=== PATIENT | male | born 1950 | race Hispanic/Latino ===

== ENCOUNTER 2018-05-30 00:51 | Emergency (ER) | payer MEDICARE ==
[~2018-05-30] VITALS: Ht 165.1 cm; Wt 87.1 kg
[~2018-05-30 00:51] MED LIST: BACLOFEN10 MG PO; LEVOTHYROXINE75 MCG PO; LISINOPRIL-HCT1 EACH PO; LOVASTATIN20 MG PO; NIFEDIPINE ER30 M1 PO; OMEPRAZOLE40 MG PO; REGLAN10 MG PO; ULTRAM50 MG PO
[2018-05-30] MEDS ORDERED: WARFARIN SODIUM3 MG PO (01:11)
[2018-05-30 01:41] LABS: BASOPHILS # (AUTO) 0.1 (0.0-0.1); BASOPHILS % 1.4 % (0.0-1.0); EOSINOPHILS # (AUTO) 0.2 (0.0-0.4); EOSINOPHILS % 2.5 % (0.0-6.0); HEMATOCRIT 31.2 % (38.2-49.6); HEMOGLOBIN 10.3 g/dL (14.0-18.0); LYMPHOCYTES # (AUTO) 1.7 (1.0-3.2); LYMPHOCYTES % 21.6 % (18.0-39.1); MEAN CORPUSCULAR HEMOGLOBIN 31.8 pg (28-32); MEAN CORPUSCULAR VOLUME 96.3 fL (81-99); MONOCYTES # (AUTO) 1.2 (0.2-0.8); MONOCYTES % 15.3 % (4.4-11.3); NEUTROPHILS # (AUTO) 4.6 (2.1-6.9); NEUTROPHILS % 58.1 % (38.7-80.0); PLATELET COUNT 279 x10e3/uL (140-360); RED BLOOD COUNT 3.24 x10e6/uL (4.3-5.7)
[2018-05-30 01:51] LABS: INR 1.5; PARTIAL THROMBOPLASTIN TIME 31.2 seconds (23.8-35.5)
--- NOTE | 2018-05-30 02:11 | Diagnostic Imaging Report ---
EXAM: CHEST SINGLE (PORTABLE), AP 1 view INDICATION: Dizziness COMPARISON: PA and lateral view the chest May 13, 2016 FINDINGS: LINES/TUBES: Interval placement of right approach dual lead cardiac device. LUNGS: Vascular congestion. PLEURA: No effusions or pneumothorax. HEART AND MEDIASTINUM: Mild cardiac enlargement and central pulmonary vascular congestion. BONES AND SOFT TISSUES: No acute findings. IMPRESSION: Pulmonary vascular congestion. Signed by: Dr. Nat Brown M.D. on 05/30/2018 2:07 AM
--- NOTE | 2018-05-30 02:13 | Diagnostic Imaging Report ---
History:Dizziness Comparison studies:CT head 05/13/2016 Technique: Axial images were obtained from the skull base to the vertex. Coronal and sagittal images reconstructed from the axial data. Intravenous contrast: None Findings: Scalp/skull: No abnormalities. Extra-axial spaces: No masses. No fluid collections. Brain sulci: Mildly prominent. Ventricles: Mild compensatory dilatation. No hydrocephalus. Parenchyma: Few hypodensities in the supratentorial white matter are small vessel ischemic changes. No masses, hemorrhage, acute or chronic cortical vascular insults. Sellar/suprasellar region: No abnormalities. Craniocervical junction: Patent foramen magnum. No Chiari one malformation. Incidental findings: Atherosclerotic calcifications in the carotid siphons . Impression: No acute abnormalities. Stable examination. Chronic findings: 1. Mild generalized volume loss. 2. Mild supratentorial white matter small vessel ischemic changes. Signed by: DR Ronnie Lopez M.D. on 05/30/2018 2:09 AM
[2018-05-30 02:17] LABS: CREATINE KINASE MB 6.1 ng/mL (0-5.0)
[2018-05-30 02:32] LABS: ANION GAP 22.9 mmol/L (8-16); CREATININE, SERUM 13.56 mg/dL (0.72-1.25); POTASSIUM 4.9 mmol/L (3.5-5.1)
[2018-05-30 03:14] VITALS: BP 142/68
[2018-05-31] MEDS ORDERED: LISINOPRIL2.5 MG PO (06:19)
[2018-05-31] MEDS ORDERED: COUMADIN5 MG PO (06:19)
[2018-05-31] MEDS ORDERED: ASPIRIN EC81 MG PO (06:19)
[2018-05-31] MEDS ORDERED: FAMOTIDINE20 MG PO (06:19)
== END 2018-05-30 03:40 | disposition home or self-care (01) ==
LOC: ER 00:51
DX: R06.09 Other forms of dyspnea (principal); R42 Dizziness and giddiness; I12.0 Hypertensive chronic kidney disease with stage 5 chronic kidney disease or end stage renal disease; N18.6 End stage renal disease; Z99.2 Dependence on renal dialysis; Z95.810 Presence of automatic (implantable) cardiac defibrillator
CPT/HCPCS: 36415; 70450; 71045; 80053; 82550; 82553; 83880; 84484; 85025; 85610; 85730; 93005; 99284

== ENCOUNTER 2018-05-30 08:33 | Observation (INO) | payer MEDICARE ==
[~2018-05-30] VITALS: Ht 165.1 cm; Wt 87.1 kg
[~2018-05-30 08:33] MED LIST changes: +WARFARIN SODIUM3 MG PO
[2018-05-30] MEDS ORDERED: ASPIRIN 81 MG CHEW TAB PO ONE (09:15)
[2018-05-30 09:18] LABS: BASOPHILS # (AUTO) 0.1 (0.0-0.1); BASOPHILS % 0.9 % (0.0-1.0); EOSINOPHILS # (AUTO) 0.2 (0.0-0.4); EOSINOPHILS % 2.1 % (0.0-6.0); HEMOGLOBIN 11.3 g/dL (14.0-18.0); LYMPHOCYTES % 24.7 % (18.0-39.1); MEAN CORPUSCULAR HEMOGLOBIN 31.9 pg (28-32); MEAN CORPUSCULAR HGB CONC 34.2 g/dL (31-35); MEAN CORPUSCULAR VOLUME 93.2 fL (81-99); MONOCYTES # (AUTO) 1.1 (0.2-0.8); NEUTROPHILS # (AUTO) 4.8 (2.1-6.9); NEUTROPHILS % 58.9 % (38.7-80.0); PLATELET COUNT 263 x10e3/uL (140-360); RED BLOOD COUNT 3.54 x10e6/uL (4.3-5.7)
[2018-05-30 09:22] LABS: INR 1.36; PROTHROMBIN TIME 15.8 seconds (11.9-14.5)
[2018-05-30 09:23] LABS: PARTIAL THROMBOPLASTIN TIME 39.7 seconds (23.8-35.5)
[2018-05-30 09:29] LABS: ALBUMIN 4.2 g/dL (3.5-5.0); ANION GAP 19.8 mmol/L (8-16); CALCIUM 9.3 mg/dL (8.4-10.2); CREATININE, SERUM 10.49 mg/dL (0.72-1.25); POTASSIUM 3.8 mmol/L (3.5-5.1)
[2018-05-30 09:36] LABS: CREATINE KINASE MB 6.1 ng/mL (0-5.0)
[2018-05-30 09:41] LABS: CLARITY,URINE CLEAR (CLEAR); COLOR,URINE YELLOW (YELLOW); LEUKOCYTE ESTERASE ,URINE NEGATIVE (NEGATIVE); NITRITE,URINE NEGATIVE (NEGATIVE)
[2018-05-30 09:42] LABS: BILIRUBIN,URINE NEGATIVE (NEGATIVE); KETONES,URINE NEGATIVE (NEGATIVE); PROTEIN,URINE DIPSTICK 3+ (NEGATIVE); URINE UROBILINOGEN 0.2 mg/dL (0.2 - 1)
[2018-05-30 10:09] LABS: EPITHELIAL CELLS,URINE RARE /LPF; WBC,URINE (MAN) 0-5 /HPF (0-5)
[2018-05-30] MEDS ORDERED: SODIUM CHLORIDE FLUSH 10 ML SYR INJ PRN (10:30)
[2018-05-30] MEDS ORDERED: MORPHINE SULFATE 2 MG/ML SYR IV PRN (10:30)
[2018-05-30] MEDS ORDERED: NITROGLYCERIN 0.4 MG SUBL SL PRN (10:30)
[2018-05-30] MEDS ORDERED: ONDANSETRON HCL INJ 2 MG/ML VIAL IV PRN (10:30)
[2018-05-30] MEDS ORDERED: ENOXAPARIN SODIUM INJ 100 MG/ML SYR SC SCH (10:30)
[2018-05-30] MEDS ORDERED: FAMOTIDINE 20 MG TAB PO SCH (10:45)
[2018-05-30] MEDS ORDERED: WARFARIN SOD 2 MG TAB PO SCH ×4 (11:00→17:00)
[2018-05-30 12:25] VITALS: BP 133/84
[2018-05-30] MEDS ORDERED: SODIUM CHLORIDE 0.9% 1000ML 1,000 ML ONE (14:35)
[2018-05-30 15:23] VITALS: BP 127/65
--- NOTE | 2018-05-30 15:33 | History and Physical ---
PRIMARY CARE PHYSICIAN: Dr. Robles CHIEF COMPLAINT: Left-sided chest pain. HISTORY OF PRESENT ILLNESS: This is a 67-year-old man with end stage renal disease who was receiving dialysis this morning when he developed sharp chest pain in the left chest, prompting termination of dialysis, and patient was sent to the hospital. Now his chest pain has resolved. He denies any shortness of breath. Denies any dizziness or any other symptoms. PAST MEDICAL HISTORY: End stage renal disease on hemodialysis, atrial flutter/atrial fibrillation, diabetes mellitus, hypertension, hypothyroidism, hyperlipidemia, nephrolithiasis. PAST SURGICAL HISTORY: Left arm dialysis access, hernia repair. ALLERGIES: PER ELECTRONIC MEDICAL RECORD. FAMILY/SOCIAL HISTORY: Patient is . He has 3 children. No alcohol, illicit or cigarettes. MEDICATIONS: Per electronic medical record. REVIEW OF SYSTEMS: Denies any dizziness, fevers, chills, sweats, nausea, diarrhea, leg pain, back pain, blurry vision, headache. VITAL SIGNS: Have been reviewed. PHYSICAL EXAMINATION GENERAL: Tired-appearing man resting in bed. HEENT: Anicteric. CARDIOVASCULAR: Normal S1, S2. LUNGS: Moderate breath sounds. ABDOMEN: Soft, nontender, nondistended. He has a left arm with a bruit on auscultation. Dialysis apparatus in place. EXTREMITIES: Trace edema bilateral lower extremities. SKIN: Dry. PSYCHIATRIC: Flat affect. LABS: Reviewed. MEDICATIONS: Reviewed. ASSESSMENT: This is a 67-year-old man. 1. End stage renal disease on hemodialysis. 2. Chest pain likely atypical. 3. Pulmonary vascular congestion. 4. Atrial fibrillation. 5. Hypertension. 6. Diabetes mellitus type 2. 7. Hypothyroidism. 8. Hyperlipidemia. 9. Obesity. 10. Normocytic anemia. PLAN 1. Followup cardiac enzyme. 2. Continuation of dialysis now. 3. Markedly elevated BNP of 1,005 likely diastolic congestive heart failure. Ejection fraction was normal in the past. Will diurese the patient by dialysis. 4. Obesity. BMI is 32.0. Will obtain hemoglobin A1c and lipid panel. 5. Continue Synthroid. 6. Continue home medication including warfarin. 7. Obtain a PT/INR. INR is 1.36. Will resume his warfarin at 5 mg daily instead of 4. 8. Will add Pepcid while patient is on Coumadin. Job#: [id number] DG
--- NOTE | 2018-05-30 16:33 | Consultation ---
DATE OF CONSULTATION: May 30, 2018 This is a 67-year-old gentleman known to our nephrology service, dialyzes with Dr. Cedillo at [facility]. He developed some chest pain and palpitation-like features, and subsequently sent here to the emergency room. He is currently awake, alert, still has needles in his AV fistula, has underlying history of hypertension, prior kidney stones, hypothyroidism, hyperlipidemia, prior hernia repair, history of atrial fibrillation. He is currently awake, alert, relatively asymptomatic. Denies nausea, vomiting or shortness of breath. Last echo showed ejection fraction of 60% to 65%. Laboratory tests show white count 8.2, hemoglobin 13.3, potassium 3.8 creatinine 3. The troponin I not done. Calcium level of 8.8. Bicarbonate 21. ALLERGIES: NO APPARENT DRUG ALLERGIES. LABORATORY DATA: Shows white count 8.4, hemoglobin 11.3, sodium 143, potassium 3.8, BUN 70, creatinine 10.4, CK 768, troponin I 0.078, BNP 1005. SOCIAL HISTORY: Does not smoke or drink. CURRENT MEDICATIONS: Please see medication list for details. He is on famotidine 20 mg b.i.d., Lovenox 90 mg subcu q.12 h., aspirin 81 mg daily, ondansetron, morphine sulfate, warfarin 4 mg daily. His last INR was 1.36. FAMILY HISTORY: Significant for hypertension and diabetes. PHYSICAL EXAMINATION GENERAL: Awake, alert, lying supine in no apparent distress. VITAL SIGNS: Blood pressure 133/84, pulse 85, afebrile. HEAD AND NECK: Cornea clear. Oral mucosa moist. LUNGS: Occasional bibasilar rales. HEART: S1 and S2 audible. ABDOMEN: Soft and nontender. EXTREMITIES: Lower extremities show no edema. IMPRESSION AND PLAN: Mild fluid overload with end-stage renal disease, developed chest pains apparently and atrial fibrillation with rapid ventricular response. Dr. Cuevas to see. I will arrange for dialysis to complete 2 hours. Further dialysis with dialysis nurse contacted. Orders given. Discussed with RN. Please see orders. Job#: [id number]
[2018-05-30 18:00] LABS: CREATINE KINASE MB 5.1 ng/mL (0-5.0)
[2018-05-30] MEDS: FAMOTIDINE 20 MG TAB PO SCH (18:29)
[2018-05-30] MEDS: WARFARIN SOD 5 MG TAB PO SCH (18:30)
[2018-05-30 20:00] VITALS: BP 154/82
[2018-05-30] MEDS: SIMVASTATIN 20 MG TAB PO SCH (20:13)
[2018-05-30] MEDS ORDERED: NON-FORMULARY MEDICATION (Lovastatin 20 MG) PO SCH (21:00)
[2018-05-30 22:54] VITALS: BP 154/82
[2018-05-31] VITALS (8 sets, daily range): BP systolic 123–166; BP diastolic 75–86
--- NOTE | 2018-05-31 00:21 | Diagnostic Imaging Report ---
CHEST SINGLE (PORTABLE), 05/30/2018 6:53 PM Technique: CHEST SINGLE (PORTABLE) Comparison: 05/30/2018 Clinical history: Chest pain Findings: See Impression Impression: 1. Lines/Tubes: Stable right chest wall dual-lead pacer. 2. Stable mildly enlarged cardiac silhouette. 3. Central vascular congestion and mild bibasilar vascular crowding/atelectasis. 4. No pleural effusion or pneumothorax. Signed by: Dr Filomena Nichols MD on 05/31/2018 12:17 AM
[2018-05-31 02:40] LABS: CREATINE KINASE MB 3.7 ng/mL (0-5.0)
[2018-05-31 05:06] LABS: BASOPHILS # (AUTO) 0.1 (0.0-0.1); BASOPHILS % 1.2 % (0.0-1.0); EOSINOPHILS # (AUTO) 0.3 (0.0-0.4); EOSINOPHILS % 4.6 % (0.0-6.0); HEMATOCRIT 32.3 % (38.2-49.6); HEMOGLOBIN 10.6 g/dL (14.0-18.0); LYMPHOCYTES # (AUTO) 1.9 (1.0-3.2); MEAN CORPUSCULAR HEMOGLOBIN 31.7 pg (28-32); MEAN CORPUSCULAR HGB CONC 32.8 g/dL (31-35); MEAN CORPUSCULAR VOLUME 96.7 fL (81-99); MONOCYTES # (AUTO) 1.2 (0.2-0.8); MONOCYTES % 18.1 % (4.4-11.3); NEUTROPHILS # (AUTO) 3.1 (2.1-6.9); NEUTROPHILS % 46.9 % (38.7-80.0); PLATELET COUNT 252 x10e3/uL (140-360); RED BLOOD COUNT 3.34 x10e6/uL (4.3-5.7); RED CELL DISTRIBUTION WIDTH 13.3 % (11.7-14.4)
[2018-05-31 05:28] LABS: ANION GAP 16.6 mmol/L (8-16); CALCIUM 8.9 mg/dL (8.4-10.2); CREATININE, SERUM 10.11 mg/dL (0.72-1.25); POTASSIUM 4.6 mmol/L (3.5-5.1)
[2018-05-31] MEDS: LEVOTHYROXINE SODIUM 75 MCG TAB PO SCH (06:00)
[2018-05-31] MEDS ORDERED: ASPIRIN EC81 MG PO (06:19)
[2018-05-31] MEDS ORDERED: LISINOPRIL2.5 MG PO (06:19)
[2018-05-31] MEDS ORDERED: FAMOTIDINE20 MG PO (06:19)
[2018-05-31] MEDS ORDERED: COUMADIN5 MG PO (06:19)
[2018-05-31] MEDS: FAMOTIDINE 20 MG TAB PO SCH ×2 (07:30→17:27)
--- NOTE | 2018-05-31 08:48 | Consultation ---
DATE OF CONSULTATION: REASON FOR CONSULTATION: Chest pain. HISTORY OF PRESENTING ILLNESS: Mr. Ni is a 67-year-old gentleman with past medical history as listed below, apparently was getting dialysis, when he developed some vague discomfort all across his chest and also had some palpitations. He states that this pain was his heart pain and was sent to the emergency room. He states he feels fine now other than some discomfort in his nipples. No shortness of breath or diaphoresis. There is no radiation of the pain. No abdominal pain, vomiting or diarrhea. REVIEW OF SYMPTOMS CONSTITUTIONAL: There is fatigue and weakness. HEENT: No headache, blurring of vision, seizure, syncope. CARDIOVASCULAR: Had chest pain. No dyspnea, orthopnea, PND. RESPIRATORY: No cough, fever, expectoration. GI: No abdominal pain, vomiting, diarrhea. : No dysuria, frequency, incontinence. ALLERGIES: NO KNOWN DRUG ALLERGIES. MEDICATION: See list. PAST MEDICAL HISTORY 1. History of hypertension. 2. History of end-stage renal disease, on hemodialysis. 3. History of diabetes mellitus. 4. History of hyperlipidemia. 5. History of nephrolithiasis. 6. History of hypothyroidism. SOCIAL HISTORY: Does not smoke or drink. FAMILY HISTORY: Noncontributory. PHYSICAL EXAMINATION GENERAL: Well-built and nourished gentleman. Alert, oriented, not in any obvious distress. VITALS: Heart rate is 82. Blood pressure 134/78. Respiratory rate is 18. Temperature is 96.6. HEENT: Atraumatic. NECK: No JVD or bruit, thyromegaly, lymphadenopathy. CARDIOVASCULAR: First and second heart sounds heard. No murmurs, rubs or gallops appreciated. CHEST: Clear to auscultation. ABDOMEN: Soft, nontender. EXTREMITIES: No edema. LABS: Sodium is 142, potassium 4.6, chloride is 101, bicarb is 29, BUN is 55, creatinine is 10, glucose is 93. Hemoglobin is 10.6, hematocrit 32.3, platelets are 252,000, white count is 6.5. INR is 1.3. EKG shows atrial fibrillation at 89 beats per minute. Normal axis. Incomplete right bundle-branch block. LVH. Nonspecific ST/T changes. PAC with aberrant conduction. Troponins are 0.07, 0.08, and 0.07. BNP is 1005. LDL is 102. IMPRESSIONS 1. Chest pain. 2. End-stage renal disease, on hemodialysis. 3. Congestive heart failure, diastolic, acute on chronic. 4. Atrial fibrillation. 5. Hypertension. 6. Diabetes mellitus. 7. Hyperlipidemia. 8. Anemia. 9. History of hypothyroidism. PLAN 1. His cardiac enzymes are normal. 2. BNP is elevated probably secondary to underlying renal failure. 3. His chest x-ray shows central vascular congestion, mild bibasilar vascular crowding. 4. Patient has had an echocardiogram in the past, which showed normal LV function. 5. Patient received dialysis. 6. Patient is on warfarin. His INR is on the lower side. His warfarin has been increased. 7. Continue with other medications. 8. Patient can get a stress test as an outpatient. Discussed my impression, plan, and management with patient, and he understands it. As always, I appreciate and thank you very much for your referral. Job#: [id number] CQ
[2018-05-31] MEDS ORDERED: WARFARIN SOD 3 MG TAB PO SCH (09:00)
[2018-05-31] MEDS: ENOXAPARIN SODIUM INJ 100 MG/ML SYR SC SCH (10:29)
[2018-05-31] MEDS: ASPIRIN 81 MG ENTERIC COATED PO SCH (10:29)
[2018-05-31] MEDS: NIFEDIPINE CR 30 MG TAB PO SCH (13:35)
[2018-05-31] MEDS ORDERED: ACETAMINOPHEN 325 MG TAB PO PRN (14:15)
[2018-05-31] MEDS: WARFARIN SOD 5 MG TAB PO SCH (17:27)
[2018-05-31] MEDS: SIMVASTATIN 20 MG TAB PO SCH (20:17)
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
[2018-06-01] VITALS (7 sets, daily range): BP systolic 131–140; BP diastolic 71–85
[2018-06-01] MEDS: LEVOTHYROXINE SODIUM 75 MCG TAB PO SCH (05:50)
[2018-06-01] MEDS: ASPIRIN 81 MG ENTERIC COATED PO SCH (09:22)
[2018-06-01] MEDS: FAMOTIDINE 20 MG TAB PO SCH ×2 (09:22→17:00)
[2018-06-01] MEDS: NIFEDIPINE CR 30 MG TAB PO SCH (09:23)
[2018-06-01] MEDS: ENOXAPARIN SODIUM INJ 100 MG/ML SYR SC SCH (09:23)
--- NOTE | 2018-06-01 09:23 | Diagnostic Imaging Report ---
Examination: CT BRAIN WITHOUT CONTRAST History:Loss of vision. Numbness of the left arm. Comparison studies:May 30, [address] Technique: Axial images were obtained from the skull base to the vertex. Coronal and sagittal images reconstructed from the axial data. Intravenous contrast: None Findings: Scalp: No abnormalities. Bones: No fractures, blastic or lytic lesions. Brain sulci: Mild volume loss for age. Ventricles: Ex vacuo dilatation. No hydrocephalus. Extra-axial space: No abnormalities. Parenchyma: Again demonstrated are patchy areas of hypoattenuation in the periventricular and subcortical white matter, nonspecific. No masses, hemorrhage, or acute or chronic cortical based vascular insults.. Sellar/suprasellar region: No abnormalities. Craniocervical junction: Patent foramen magnum. No Chiari one malformation. Incidental findings: None. Impression: 1. No new acute intracranial abnormalities. 2. Unchanged mild chronic microvascular ischemic change and mild volume loss when compared to prior head CT performed May 30, 2018. Signed by: Dr. Dilma Canseco M.D. on 06/01/2018 9:19 AM
--- NOTE | 2018-06-01 09:36 | Diagnostic Imaging Report ---
Examination: CT CERVICAL SPINE WITHOUT CONTRAST HISTORY:Numbness of the left arm. COMPARISON:None. TECHNIQUE: Multidetector helical axial images were obtained without contrast from the foramen magnum to T1. Coronal and sagittal reformatted images were done. Bone and soft tissue windows were evaluated. FINDINGS: Alignment:Normal alignment and lordosis. Vertebrae: Normal height and density. No acute fracture, infection or neoplasm. Disc space heights: Normal height. Caliber of spinal canal: Developmentally normal. Posterior fossa and craniocervical junction: Foramen magnum patent. No Chiari 1 malformation. Soft tissues: No abnormality. Degenerative changes: Anterior osteophytosis from C4 through C7. Central disc protrusion at C2-C3, C3-C4 and C4-C5 with mild canal stenosis at C2-C3 and C4-C5. IMPRESSION: 1. No acute abnormalities. 2. Mild degenerative changes with mild canal stenosis at C2-C3 and C4-C5. Signed by: Dr. Dilma Canseco M.D. on 06/01/2018 9:33 AM
[2018-06-01] MEDS ORDERED: SODIUM CHLORIDE 0.9% 1000ML 2,000 ML ONE (10:55)
[2018-06-01] MEDS ORDERED: MANNITOL 25% 12.5GM/50 ML VIAL IV PRN (11:30)
[2018-06-01] MEDS ORDERED: SODIUM CHLORIDE 0.9% 1000ML 2,000 ML IV PRN (11:30)
[2018-06-01] MEDS ORDERED: ALBUMIN 25% 12.5GM 0.25 GM/ML BTL IV PRN (11:30)
[2018-06-01] MEDS ORDERED: SODIUM CHLORIDE 0.9% 250ML 500 ML IV PRN (11:30)
[2018-06-01] MEDS ORDERED: LIDOCAINE HCL 1% 2 ML AMP INJ ONE (12:00)
[2018-06-01] MEDS: WARFARIN SOD 5 MG TAB PO SCH (17:00)
[2018-06-01] MEDS ORDERED: KEPPRA500 MG PO (19:27)
--- NOTE | 2018-06-01 21:23 | Progress Note ---
DATE: May 31, 2018 TIME: 7:15 a.m. OVERNIGHT: No events. REVIEW OF SYSTEMS: Denies any dizziness, chest pain, shortness of breath, fever, chills, sweats, nausea, vomiting, or diarrhea. PHYSICAL EXAMINATION: VITAL SIGNS: Have been reviewed. GENERAL APPEARANCE: Tired-appearing man resting in bed. HEENT: Anicteric. CARDIOVASCULAR: Normal S1 and S2. LUNGS: Moderate breath sounds. ABDOMEN: Soft, nontender, nondistended. EXTREMITIES: He had left arm bruit. SKIN: Dry. PSYCHIATRIC: Flat affect. LABS: Reviewed. MEDICATIONS: Reviewed. ASSESSMENT: A 67-year-old man: 1. End-stage renal disease, on hemodialysis. 2. Chest pain, likely atypical. 3. Pulmonary vascular congestion. 4. Atrial fibrillation. 5. Hypertension. 6. Diabetes mellitus type 2. 7. Hypothyroidism. 8. Hyperlipidemia. 9. Obesity. 10. Normocytic anemia. PLAN: 1. Cardiac enzymes negative. Patient can be discharged home. 2. Continue medication regimen. 3. Continue dialysis. Job#: [id number]
--- NOTE | 2018-06-01 21:31 | Discharge Summary ---
PRINCIPAL DIAGNOSES: 1. Atypical chest pain. 2. Pulmonary vascular congestion. 3. Atrial fibrillation. SECONDARY DIAGNOSES: 1. End-stage renal disease, on hemodialysis. 2. Atrial fibrillation. 3. Hypertension. 4. Diabetes mellitus type 2. CHIEF COMPLAINT: Left-sided chest pain. HISTORY OF PRESENT ILLNESS: A 67-year-old man with left-sided chest pain. Please refer to the H and P for further details. HOSPITAL COURSE: Patient found to have atypical chest pain. Cardiac enzymes negative. He had pulmonary vascular congestion, and received dialysis and felt better. There was some mention of some tremor-like behavior. Neurology was consulted. CT scan of the brain negative. EEG unable to be performed. Patient will followup outpatient with neurology, but the symptoms have resolved. Patient is doing better and currently appropriate for discharge. Will follow up. DISCHARGE MEDICATIONS: Per electronic medical record. FOLLOWUP: 1. Follow up with primary care doctor in 1 week. 2. Follow up with neurology in 3 to 5 days. 3. Follow up with nephrology as directed. MISHA WHITNEY MD Job#: [id number]
--- NOTE | 2018-06-04 11:55 | Electroencephalogram ---
DATE OF STUDY: 06/01/2018 PROCEDURE: Electroencephalogram. REQUESTING PHYSICIAN: Dr. Denise Ashford PATIENT HISTORY: This 67-year-old man with a history of seizure-like activity is having an EEG for evaluation of epileptiform activity. The patient is not taking any medications that might affect the EEG. TECHNIQUE: This is a routine, portable EEG, recorded digitally, using the international 10/20 electrode placement system, and done in the inpatient setting with the patient awake. The EEG is adequate for interpretation. DESCRIPTION: Well-organized, well-sustained 9-10 Hertz activity is best seen symmetrically in the posterior head regions. Occasional focal spike slow wave discharges are seen in the bilateral frontal lobes. Throughout the recording, there are 2 brief runs of spike slow wave discharges, each lasting for approximately 3 seconds. Sleep is not recorded. Photic stimulation produces a driving response. Hyperventilation is not performed. INTERPRETATION: This electroencephalogram is abnormal due to the presence of epileptiform discharges in the bilateral frontal lobes indicating a structural or electrical abnormality in those regions. Clinical correlation is recommended. Job#: [id number] SILAS SOOD
== END 2018-06-01 20:20 | disposition home or self-care (01) ==
LOC: ER 08:33 → ERHOLD 10:44 → MED/SURG3 12:25
PROVIDERS: ADMIT Internal Medicine; ATTEND Internal Medicine
DX: I13.2 Hypertensive heart and chronic kidney disease with heart failure and with stage 5 chronic kidney disease, or end stage renal disease (principal); N18.6 End stage renal disease; I50.33 Acute on chronic diastolic (congestive) heart failure; Z79.01 Long term (current) use of anticoagulants; E78.5 Hyperlipidemia, unspecified; Z99.2 Dependence on renal dialysis; I48.91 Unspecified atrial fibrillation; R07.89 Other chest pain; E11.22 Type 2 diabetes mellitus with diabetic chronic kidney disease; E03.9 Hypothyroidism, unspecified; E66.9 Obesity, unspecified; D64.9 Anemia, unspecified; Z68.32 Body mass index [BMI] 32.0-32.9, adult; E87.70 Fluid overload, unspecified; G40.109 Localization-related (focal) (partial) symptomatic epilepsy and epileptic syndromes with simple partial seizures, not intractable, without status epilepticus; R07.2 Precordial pain
CPT/HCPCS: 36415; 70450; 71045; 72125; 80048; 80053; 80061; 81001; 82550 ×2; 82553 ×2; 83036; 83880; 84484 ×2; 85025 ×2; 85610; 85730; 86704; 86706; 87086; 87340; 90935; 93005; 95812; 99285; G0378 ×3; J1650 ×3; J2001; J2270; J7030 ×2; 90962

== ENCOUNTER → 2019-06-16 | Emergency (ER) | payer MEDICARE ==
[~2019-06-16] VITALS: Ht 165.1 cm; Wt 87.1 kg
[~2019-06-16] MED LIST changes: +ASPIRIN EC81 MG PO; +COUMADIN5 MG PO; +FAMOTIDINE20 MG PO; +KEPPRA500 MG PO; +LISINOPRIL2.5 MG PO
--- OUTSIDE RECORDS SUMMARY | 2019-06-16 11:13 | XMS REPORT | Clinical Summary ---
Author Author Felipe [facility] Organization [facility] Address Unknown Phone Unavailable Care Team Providers Care Health Care Facility Administrator Name Role Phone Crispin Bailey MD PCP Allergies No Known Allergies Medications End Date Status Medication Sig Dispensed Refills Start Date Active furosemide (LASIX) 80 mg Take 80 mg by 0 tablet mouth 2 (two) times a day. Active amLODIPine (NORVASC) 5 mg Take 5 mg by 0 tablet mouth daily. Active metoprolol succinate 50 Take 1 tablet 0 mg capsule,sprinkle,ER by mouth 24hr daily. Active levothyroxine (SYNTHROID, Take 75 mcg 0 LEVOXYL) 75 mcg tablet by mouth daily. Active warfarin (COUMADIN) 5 MG Take 5 mg by 0 tablet mouth daily. Take 1 tablet (5mg) by mouth daily for 30 days. Active hydrOXYzine (ATARAX) 25 Take 25 mg by 0 MG tablet mouth 3 (three) times a day as needed for itching. Active lovastatin (MEVACOR) 20 Take 20 mg by 0 MG tablet mouth nightly. 02/01/2019 Discontinued amLODIPine (NORVASC) 5 mg 0 tablet 9 02/01/2019 Discontinued furosemide (LASIX) 80 mg 0 tablet 9 02/01/2019 Discontinued levothyroxine (SYNTHROID, 0 LEVOXYL) 75 mcg tablet 9 02/01/2019 Discontinued lovastatin (MEVACOR) 20 0 MG tablet 9 02/01/2019 Discontinued omeprazole (PriLOSEC) 40 0 MG capsule 9 02/01/2019 Discontinued warfarin (COUMADIN) 5 MG 0 tablet 9 04/11/2019 acetaminophen-codeine Take 1 tablet 10 tablet 0 (TYLENOL WITH CODEINE #3) by mouth 3 9 300-30 mg per tablet (three) times a day as needed for moderate pain for up to 5 days. Active Problems Not on file Encounters Care Team Description Date Type Specialty Tasha Lundberg MD End-stage renal disease (HCC) (Primary Dx) 04/14/2019 Office Visit General Surgery Shu Real MD 04/06/2019 Anesthesia General Surgery Event Tasha Lundberg MD LIGATION OF CEPHALIC FISTULA and accesories 04/06/2019 Surgery General Surgery Tasha Lundberg MD 04/06/2019 Hospital General Surgery Encounter Tasha Lundberg MD Problem with vascular access (Primary Dx) 02/01/2019 Office Visit General Surgery Tasha Lundberg MD Problem with vascular access (Primary Dx) 01/13/2019 Office Visit General Surgery after 06/15/2018 Family History Medical History Relation Name Comments Alzheimer's disease Mother Diabetes Mother Hypertension Mother Relation Name Status Comments Father Mother Alive Social History Date Tobacco Use Types Packs/Day Years Used Quit: 1989 Former Smoker Cigarettes Smokeless Tobacco: Never Used Alcohol Use Drinks/Week oz/Week Comments No Alcohol Habits Answer Date Recorded How often do you have a drink containing alcohol? Never 01/13/2019 How many drinks containing alcohol do you have on Not asked a typical day when you are drinking? How often do you have six or more drinks on one Not asked occasion? Sex Assigned at Date Recorded Not on file Industry Job Start Date Occupation Not on file Not on file Not on file Travel End Travel History Travel Start No recent travel history available. Last Filed Vital Signs Time Taken Vital Sign Reading 04/14/2019 1:13 PM CDT Blood Pressure 135/72 04/14/2019 1:13 PM CDT Pulse 87 04/14/2019 1:13 PM CDT Temperature 36.6 C (97.9 F) 04/06/2019 2:49 PM CDT Respiratory Rate 18 04/06/2019 2:49 PM CDT Oxygen Saturation 97% - Inhaled Oxygen - Concentration 04/14/2019 1:13 PM CDT Weight 89.4 kg (197 lb) 04/14/2019 1:13 PM CDT Height 165.1 cm (5' 5") 04/14/2019 1:13 PM CDT Body Mass Index 32.78 Plan of Treatment Health Maintenance Due Date Last Done Comments COLONOSCOPY SCREENING 2002 SHINGLES VACCINES (#1) 2002 65+ PNEUMOCOCCAL VACCINE 2017 (1 of 2 - PCV13) INFLUENZA VACCINE 06/22/2019 Procedures Comments Procedure Name Priority Date/Time Associated Diagnosis XR CHEST 1 VW PORTABLE STAT 04/06/2019 9:43 AM CDT ESTIMATED GFR STAT 04/06/2019 9:22 AM CDT BASIC METABOLIC PANEL STAT 04/06/2019 9:22 AM CDT PARTIAL THROMBOPLASTIN STAT 04/06/2019 TIME (PTT) 9:22 AM CDT PROTHROMBIN TIME WITH INR STAT 04/06/2019 9:22 AM CDT HEMOGLOBIN & HEMATOCRIT STAT 04/06/2019 9:22 AM CDT ECG PRE/POST OP STAT 04/06/2019 9:16 AM CDT after 06/15/2018 Results * XR Chest 1 Vw Portable (04/06/2019 9:43 AM CDT) Specimen Narrative Performed At EXAMINATION:XR CHEST 1 VW PORTABLE [facility] CLINICAL HISTORY:PRE OP CLEARANCE COMPARISON:No prior IMPRESSION: Right subclavian pacing device. The heart is enlarged. The pulmonary vasculature is normal. There are no acute infiltrates or effusions. Mild interstitial scarring is noted. Degenerative changes of the osseous structures. [facility]-[id number] Procedure Note Hm Interface, Radiology Results Incoming - 04/06/2019 10:11 AM CDT EXAMINATION: XR CHEST 1 VW PORTABLE CLINICAL HISTORY: PRE OP CLEARANCE COMPARISON: No prior IMPRESSION: Right subclavian pacing device. The heart is enlarged. The pulmonary vasculature is normal. There are no acute infiltrates or effusions. Mild interstitial scarring is noted. Degenerative changes of the osseous structures. [facility]-[id number] Performing Organization Address City/State/Zipcode Phone Number [facility] [address] [place] [address] * Estimated GFR (04/06/2019 9:22 AM CDT) Estimated GFR 4 (A) mL/min/1.73 m2 [facility] Comment: [facility]ENTECOSTAL [facility] G1 >=90 Normal or high G2 60-89Mildly decreased [id number] Mildly to moderately decreased [id number] Moderately to severely decreased G4 15-29Severely decreased G5 <15Kidney failure The eGFR was calculated using the Chronic Kidney Disease Epidemiology Collaboration (CKD-EPI) equation. Interpretation is based on recommendations of the National Kidney Foundation-Kidney Disease Outcomes Quality Initiative (NKF-KDOQI) published in 2014. Specimen Plasma specimen Performing Organization Address City/[facility] [place] [address] PATHOLOGY AND [facility] MEDICINE [address] * Hemoglobin & hematocrit (04/06/2019 9:22 AM CDT) Pathologist [facility] HGB 11.7 (L) 13.0 - 17.3 g/dL [facility] HCT 36.0 34.0 - 45.0 % [facility] Specimen Blood Performing Organization Address [facility] Phone Number [address] * Partial thromboplastin time, activated (04/06/2019 9:22 AM CDT) [facility] PTT 34.7 23.0 - 36.0 sec [place] Comment: [facility] PTT therapeutic range for [facility] unfractionated heparin is HOSPITAL 61.0-112.0 seconds which corresponds to Anti-Xa 0.3-0.7 U/ml. Note:Change in Panic Value The PTT Panic Value is changing from 110 sec. to 100 sec. due to new instrumentation and reagents. Correlation studies have been performed to validate this result. Specimen Blood Performing Organization Address City/[facility] Phone Number [address] * Prothrombin time with INR (04/06/2019 9:22 AM CDT) Pathologist [facility] Prothrombin 15.2 (H) 11.5 - 14.5 sec [facility] time [facility] INR 1.23 [facility] Comment: CHERELLE ROJAS For patients on anticoagulant JUDITH therapy, reference ranges HOSPITAL below: Indication: INR Value Treatment of Venous Thrombosis, 2.0-3.0 pulmonary emboli, or prophylaxis of a venous thrombosis, or systemic emboli. High dose, high risk patients 3.0-4.5 with mechanical valves. NOTE:INR values over 3.0 are sometimes associated with gastrointestinal hemorrhage, especially values over 4.0. Specimen Blood Performing Organization Address City/State/Zipcode Phone Number [facility] [address] [place] [address] PATHOLOGY AND GENOMIC MEDICINE [facility] [address] * Basic metabolic panel (04/06/2019 9:22 AM CDT) [facility] Sodium 140 135 - 150 mEq/L [facility] Potassium 5.1 (H) 3.5 - 5.0 mEq/L [facility] Chloride 96 (L) 98 - 112 mEq/L [facility] CO2 28 24 - 31 mmol/L [facility] Anion gap 16@ANIO (H) 7 - 15 mEq/L [facility] BUN 63 (H) 7 - 18 mg/dL [facility] Creatinine 10.80 (H) 0.70 - 1.20 mg/dL [facility] Glucose 102 (H) 65 - 100 mg/dL [facility] Calcium 9.2 8.8 - 10.2 mg/dL [facility] Specimen Plasma specimen Performing Organization Address City/State/Zipcode Phone Number [facility] OF [address] [place] [address] PATHOLOGY AND GENOMIC MEDICINE [facility] Ever [address] * ECG Pre/Post Op (04/06/2019 9:16 AM CDT) Pathologist [facility] Ventricular 79 [facility] rate Atrial rate 182 [facility] QRSD interval 110 [facility] QT interval 408 [facility] QTC interval 467 [facility] QRS axis 1 -8 [facility] MUSE T wave axis 39 [facility] MUSE EKG impression Atrial fibrillation with [facility] MUSE premature ventricular or aberrantly conducted complexes-Incomplete right bundle branch block-Abnormal ECG-No previous ECGs available- Specimen Narrative Performed At Performing Organization Address City/State/Zipcode Phone Number [facility] MUSE [address] [place] [address] after 06/15/2018 Insurance Type Payer Benefit Subscriber ID Effective Phone Address Plan / Dates Group HMO [employer] CIGNA xxxxxxxx [id number] [facility] ([place]) [place] [address] Advance Directives Patient has advance care planning documents on file. For more information, donaldo mccoy contact: Felipe Arita [address] [place] [address]
--- OUTSIDE RECORDS SUMMARY | 2019-06-16 11:13 | XMS REPORT | Clinical Summary ---
Author Author RHEA [facility] Address Unknown Phone Unavailable Care Team Providers Care Supplemental Nurse Name Role Phone Travis--Crispin Kilpatrick PCP Allergies No Known Allergies Medications End Date Status Medication Sig Dispensed Refills Start Date Active omeprazole (PRILOSEC) 40 Take 40 mg by 0 MG capsule mouth daily. Active lovastatin (MEVACOR) 20 Take 20 mg by 0 MG tablet mouth nightly. Active levothyroxine (SYNTHROID, Take 75 mcg 0 LEVOTHROID) 75 MCG tablet by mouth Every morning on an empty stomach. Active calcium acetate (PHOSLO) Take 667 mg 0 667 mg capsule by mouth 3 (three) times daily with meals 2 tabs . Active calcitriol (ROCALTROL) Take 0.5 mcg 0 0.5 MCG capsule by mouth daily. Active warfarin (COUMADIN) 4 MG Take 5 mg by 0 tablet mouth daily . Active NIFEdipine (PROCARDIA-XL) Take 30 mg by 0 30 MG (OSM) 24 hr tablet mouth daily. Active amLODIPine (NORVASC) 5 MG Take 5 mg by 0 tablet mouth daily. Active furosemide (LASIX) 80 MG Take 80 mg by 0 tablet mouth 2 (two) times daily. Active Problems Problem Noted Date Immunity status testing 12/21/2018 Risk for Fatty Liver 12/21/2018 Pre-transplant evaluation for ESRD (end stage renal disease) 01/25/2018 ESRD (end stage renal disease) on dialysis 12/31/2017 Pacemaker 10/19/2017 Overview: [facility] ? cause slow heart rarte neen more information Elevated serum GGT level Obesity, Class I, BMI 30-34.9 Metabolic syndrome Renal cyst Immune to hepatitis A Encounters Care Team Description Date Type Specialty Yoni Badillo, ROBINA Results 06/02/2019 Telephone Hepatology Karen Cunha RN Waitlist Maintenance 05/05/2019 Telephone Transplant Kimi Mirza MD Chung, Jamie Victoria, NP Elevated serum GGT level (Primary Dx); Elevated liver enzymes; Risk for Fatty Liver; ESRD (end stage renal disease) on dialysis (HCC); Renal cyst; Obesity, Class I, BMI 30-34.9; Metabolic syndrome; Immunity status testing 05/04/2019 Office Visit Hepatology John Kennedy MD 04/21/2019 Orders Only Transplant Reji Ruvalcaba II, MD ESRD (end stage renal disease) on dialysis (HCC); Pre-transplant evaluation for chronic kidney disease; 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) 04/18/2019 Hospital Cardiology Encounter Jennifer Montero Appointment ([facility]) 02/22/2019 Telephone Transplant Karen Cunha RN 02/21/2019 Orders Only Transplant Karen Cunha RN Waitlist Maintenance 02/20/2019 Telephone Transplant Kimi Mirza MD Pandya, Aashish Mahesh, MD Pre-transplant evaluation for chronic kidney disease (Primary Dx) 02/07/2019 Evaluation Transplant Karen Cunha RN ESRD (end stage renal disease) on dialysis (HCC) (Primary Dx); Pre-transplant evaluation for chronic kidney disease; 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) 01/25/2019 Orders Only Transplant Karen Cunha RN 01/25/2019 Documentation Transplant John Kennedy MD 01/25/2019 Orders Only Transplant Kimi Mirza MD Patient awaiting renal transplant (Primary Dx) 01/03/2019 Orders Only Lab Kimi Mirza MD Awaiting transplantation of kidney 12/21/2018 Orders Only Lab Karen Cunha RN 12/12/2018 Abstract Transplant Karen Cunha RN Awaiting transplantation of kidney (Primary Dx) 11/28/2018 Orders Only Transplant Ta Fountain NP Lab results 11/21/2018 Telephone Hepatology Ta Fountain NP lab results 11/10/2018 Telephone Hepatology Reena Marsh MD [facility] Ta Fountain NP Elevated serum GGT level (Primary Dx); Fatty liver; Obesity, Class I, BMI 30-34.9; Metabolic syndrome; Renal cyst; ESRD (end stage renal disease) on dialysis (HCC); Immunity status testing; Risk for Fatty Liver 11/02/2018 Office Visit Hepatology SimmonsNigelmarkus Appointment 10/31/2018 Telephone Transplant Karen Cunha RN ESRD (end stage renal disease) on dialysis (HCC) (Primary Dx); Type 2 diabetes mellitus with other kidney complication, unspecified whether fci insulin use (HCC); Awaiting transplantation of kidney; Healthcare maintenance 09/21/2018 Orders Only Transplant Karen Cunha RN 08/15/2018 Orders Only Transplant Karen Cunha RN ESRD (end stage renal disease) on dialysis (HCC) (Primary Dx); Pre-transplant evaluation for ESRD (end stage renal disease); Patient awaiting renal transplant 08/12/2018 Orders Only Transplant Kimi Mirza MD Patient awaiting renal transplant (Primary Dx) 08/08/2018 Orders Only Lab Reji Ruvalcaba II, MD Provider, [facility] Registry Generic 07/22/2018 [facility] Charge Transplant Visit Tarun Monteroa 07/15/2018 Documentation Transplant Karen Cunha RN Waitlist Maintenance 07/15/2018 Telephone Transplant Karen Cunha RN 07/15/2018 Documentation Transplant after 06/15/2018 Family History Medical History Relation Name Comments No Known Problem Brother Diabetes Brother No Known Problem Daughter Diabetes Mother Hypertension Mother Diabetes Sister No Known Problem Sister No Known Problem Son No Known Problem Son Relation Name Status Comments Brother Alive Brother Alive Daughter Alive Father Mother Alive Sister Alive Sister Alive Son Alive Son Alive Social History Date Tobacco Use Types Packs/Day Years Used Former Smoker Smokeless Tobacco: Never Used Comments: quit 12 years ago Alcohol Use Drinks/Week oz/Week Comments No Sex Assigned at Date Recorded Not on file Industry Job Start Date Occupation Not on file Not on file Not on file Travel End Travel History Travel Start No recent travel history available. Last Filed Vital Signs Time Taken Vital Sign Reading 05/04/2019 9:50 AM CDT Blood Pressure 137/66 05/04/2019 9:50 AM CDT Pulse 74 05/04/2019 9:50 AM CDT Temperature 37 C (98.6 F) 05/04/2019 9:50 AM CDT Respiratory Rate 18 05/04/2019 9:50 AM CDT Oxygen Saturation 98% - Inhaled Oxygen - Concentration 05/04/2019 9:50 AM CDT Weight 90.5 kg (199 lb 8 oz) 05/04/2019 9:50 AM CDT Height 164.6 cm (5' 4.8") 05/04/2019 9:50 AM CDT Body Mass Index 33.4 Plan of Treatment Not on file Procedures Comments Procedure Name Priority Date/Time Associated Diagnosis FLOW PRA CLASS II WITH Routine 06/01/2019 Awaiting transplantation REFLEX TO ANTIBODY 10:50 AM CDT of kidney SPECIFICITY FLOW PRA CLASS I WITH Routine 06/01/2019 Awaiting transplantation REFLEX TO ANTIBODY 10:50 AM CDT of kidney SPECIFICITY CBC W/PLT COUNT & AUTO Routine 05/04/2019 Elevated liver enzymes DIFFERENTIAL 11:08 AM CDT GAMMA GLUTAMYL Routine 05/04/2019 Elevated liver enzymes TRANSFERASE (GGT) 11:08 AM CDT HEPATIC FUNCTION PANEL Routine 05/04/2019 Elevated liver enzymes 11:08 AM CDT BASIC METABOLIC PANEL (7) Routine 05/04/2019 Elevated liver enzymes 11:08 AM CDT CBC W/PLT COUNT & AUTO Routine 05/04/2019 Elevated liver enzymes DIFFERENTIAL 11:08 AM CDT PERIPHERAL VASCULAR 04/18/2019 REPORT - SCAN 9:20 PM CDT STRESS ECHO Routine 04/18/2019 ESRD (end stage renal 3:17 PM CDT disease) on dialysis (HCC) Pre-transplant evaluation for chronic kidney disease 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) 2D ECHO MODE W/O DOPPLER Routine 03/01/2019 FLOW PRA CLASS II WITH Routine 02/07/2019 Awaiting transplantation REFLEX TO ANTIBODY 1:13 PM CDT of kidney SPECIFICITY FLOW PRA CLASS I WITH Routine 02/07/2019 Awaiting transplantation REFLEX TO ANTIBODY 1:13 PM CDT of kidney SPECIFICITY PSA Routine 02/07/2019 Healthcare maintenance 1:13 PM CDT CRSMTCH FLOW 3 SERUM Routine 01/03/2019 Patient awaiting renal 12:45 PM SHIPPING ROOM HELPER transplant VIRTUAL CROSSMATCH Routine 12/21/2018 Awaiting transplantation 3:44 PM SHIPPING ROOM HELPER of kidney FLOW PRA CLASS I WITH Routine 12/21/2018 Awaiting transplantation REFLEX TO ANTIBODY 3:44 PM SHIPPING ROOM HELPER of kidney SPECIFICITY FLOW PRA CLASS II WITH Routine 12/21/2018 Awaiting transplantation REFLEX TO ANTIBODY 3:44 PM SHIPPING ROOM HELPER of kidney SPECIFICITY CBC W/PLT COUNT & AUTO Routine 11/02/2018 Fatty liver DIFFERENTIAL 12:43 PM SHIPPING ROOM HELPER GAMMA GLUTAMYL Routine 11/02/2018 Elevated serum GGT level TRANSFERASE (GGT) 12:43 PM SHIPPING ROOM HELPER HEPATIC FUNCTION PANEL Routine 11/02/2018 Fatty liver 12:43 PM SHIPPING ROOM HELPER BASIC METABOLIC PANEL (7) Routine 11/02/2018 Fatty liver 12:43 PM SHIPPING ROOM HELPER CBC W/PLT COUNT & AUTO Routine 11/02/2018 Fatty liver DIFFERENTIAL 12:43 PM SHIPPING ROOM HELPER ECHO W CONTRAST & DOPPLER Routine 10/04/2018 STRESS TEST, Routine 10/04/2018 PHARMACOLOGICAL WITH NUC MED MYOCARDIAL PERFUSION PLANAR (REST/STRESS) FLOW PRA CLASS II WITH Routine 09/01/2018 ESRD (end stage renal REFLEX TO ANTIBODY 1:25 PM CDT disease) on dialysis SPECIFICITY (HCC) Pre-transplant evaluation for ESRD (end stage renal disease) Patient awaiting renal transplant FLOW PRA CLASS I WITH Routine 09/01/2018 ESRD (end stage renal REFLEX TO ANTIBODY 1:25 PM CDT disease) on dialysis SPECIFICITY (HCC) Pre-transplant evaluation for ESRD (end stage renal disease) Patient awaiting renal transplant VIRTUAL CROSSMATCH Routine 08/08/2018 Patient awaiting renal 7:47 AM CDT transplant AB SPECIFICITY CLASS II Routine 08/08/2018 Patient awaiting renal 7:47 AM CDT transplant FLOW PRA CLASS II WITH Routine 08/08/2018 Patient awaiting renal REFLEX TO ANTIBODY 7:47 AM CDT transplant SPECIFICITY FLOW PRA CLASS I WITH Routine 08/08/2018 Patient awaiting renal REFLEX TO ANTIBODY 7:47 AM CDT transplant SPECIFICITY after 06/15/2018 Results * FLOW PRA CLASS II WITH REFLEX TO ANTIBODY SPECIFICITY (06/01/2019 10:50 AM CDT) Only the most recent of 5 results within the time period is included. Flow Class II Percent 3 [facility] Positive Flow Class Report [facility] Comments Specimen Blood Narrative Performed At Disclaimer: [facility] This test was developed and its performance characteristics determined by the [facility]. It has not been cleared or approved by the U.S. Food and Drug Administration. The FDA has determined that such clearance or approval is not necessary. This test is used for clinical purposes. It should not be regarded as investigational or for research. This laboratory is certified under the Clinical Laboratory Improvement Amendments of 1988 (CLIA-88) as qualified to perform high complexity clinical laboratory testing. Performing Organization Address City/State/[facility] Phone Number [facility] ONE [address], MS: [id number], [place] [id number] CLIA#[id number] CAP#[id number] UNOS#[id number] * FLOW PRA CLASS I WITH REFLEX TO ANTIBODY SPECIFICITY (06/01/2019 10:50 AM CDT) Only the most recent of 5 results within the time period is included. Flow Class I Percent 0 [facility] Positive Flow Class Report [facility] Comments Specimen Blood Narrative Performed At Disclaimer: [facility] This test was developed and its performance characteristics determined by the [facility]. It has not been cleared or approved by the U.S. Food and Drug Administration. The FDA has determined that such clearance or approval is not necessary. This test is used for clinical purposes. It should not be regarded as investigational or for research. This laboratory is certified under the Clinical Laboratory Improvement Amendments of 1988 (CLIA-88) as qualified to perform high complexity clinical laboratory testing. Performing Organization Address City/State/[facility] Phone Number [facility] ONE [address], MS: [id number], [place] [address] CLIA#[id number] CAP#[id number] [facility]#[id number] * CBC with platelet count + automated diff (05/04/2019 11:08 AM CDT) Only the most recent of 2 results within the time period is included. WBC 9.0 3.5 - 10.5 K/L [facility] RBC 3.63 (L) 4.63 - 6.08 M/L [facility] Hemoglobin 11.4 (L) 13.7 - 17.5 GM/DL [facility] Hematocrit 35.5 (L) 40.1 - 51.0 % [facility] MCV 97.8 (H) 79.0 - 92.2 fL [facility] MCH 31.4 25.7 - 32.2 pg [facility] MCHC 32.1 (L) 32.3 - 36.5 GM/DL [facility] RDW 13.2 11.6 - 14.4 % [facility] Platelets 350 150 - 450 K/CU MM [facility] MPV 10.5 9.4 - 12.4 fL [facility] nRBC 0 0 - 0 /100 WBC [facility] % Neutros 60 % [facility] % Lymphs 22 % [facility] % Monos 13 % [facility] % Eos 4 % [facility] % Baso 1 % [facility] # Neutros 5.39 (H) 1.78 - 5.38 K/L [facility] # Lymphs 2.01 1.32 - 3.57 K/L [facility] # Monos 1.17 (H) 0.30 - 0.82 K/L [facility] # Eos 0.32 0.04 - 0.54 K/L [facility] # Baso 0.10 (H) 0.01 - 0.08 K/L [facility] Immature 0 0 - 1 % [facility] Granulocytes-Relative [facility] Specimen Blood Performing Organization Address City/State/[facility] Cent[facility]ode Phone Number [address] [address] [facility] * Gamma Glutamyl Transferase (GGT) (05/04/2019 11:08 AM CDT) Only the most recent of 2 results within the time period is included. GGT 174 (H) 9 - 64 U/L [facility] Specimen Blood Performing Organization Address [facility] Phone Number [address] [address] [facility] * Hepatic function panel (05/04/2019 11:08 AM CDT) Only the most recent of 2 results within the time period is included. Protein, Total 8.6 (H) 6.0 - 8.3 gm/dL [facility] Albumin 4.2 3.5 - 5.0 g/dL [facility] Total Bilirubin 0.5 0.2 - 1.2 mg/dL [facility] Bilirubin, Direct 0.3 0.1 - 0.5 mg/dL [facility] Alkaline Phosphatase 92 40 - 150 U/L [facility] AST 17 5 - 34 U/L [facility] ALT 22 6 - 55 U/L [facility] Specimen Blood Performing Organization Address City/State/[facility] Cent[facility] Phone Number [address] [address] [facility] * Basic Metabolic Panel (05/04/2019 11:08 AM CDT) Only the most recent of 2 results within the time period is included. Sodium 137 136 - 145 meq/L [facility] Potassium 4.5 3.5 - 5.1 meq/L [facility] Chloride 93 (L) 98 - 107 meq/L [facility] CO2 30 (H) 22 - 29 meq/L [facility] BUN 50 (H) 7 - 21 mg/dL [facility] Creatinine 9.58 (H) 0.57 - 1.25 mg/dL [facility] Glucose 90 70 - 105 mg/dL [facility] Calcium 9.7 8.4 - 10.2 mg/dL [facility] EGFR 6Comment: ESTIMATED GFR IS NOT mL/min/1.73 sq m [facility] ACCURATE CREATININE [facility] CLEARANCE IN PREDICTING GLOMERULAR FILTRATION RATE. ESTIMATED GFR IS NOT APPLICABLE FOR DIALYSIS PATIENTS. Specimen Blood Performing Organization Address City/State/Zipcode Phone Number [facility] [address] [place] [address] [facility] * PERIPHERAL VASCULAR REPORT - SCAN (04/18/2019 9:20 PM CDT) Narrative Performed At * Stress Echo With Tracing (04/18/2019 3:17 PM CDT) Ejection Fraction [facility] Specimen Narrative Performed At Stress Echocardiography Report [facility] Demographics [facility] Patient Name JAKY NI of Study 04/18/2019 [id number] GenderMale Visit Number [id number] RaceUnknown [id number] Number OP Number Date of Birth1950 Referring Physician Peg Iniguez Age68 year(s) Office Services Specialist CAT Hui, Physician Fellow John Gonzalez,JOAQUIN Hendricks MD Procedure Type of Study Stress procedure:STRESS(TMT)ECHO W/TMT TRACING (Routine) Indications:Renal transplant evaluation . Clinical History ESRD, Obesity, HLD, HTN PPM Contrast Medium: Definity. Height: 64 inches Weight: 90.72 kg (200 lbs) BSA: 1.96 m^2 BMI: 34.33 kg/m^2 HR: 80 bpm BP: 149/93 mmHg Rest ECG Atrial fibrillation with incomplete RBBB and frequent PVCs. Stress Peak HR: 153 bpmHR Response: Normal Peak BP: 175/105 mmHg BP Response: Normal Predicted HR: 154 bpm HR BP Product: 43995 % of predicted HR: 99 Test Duration: 8:43 min Reason for Termination: Target heart rate Stress Interpretation Indication for test: Pre-transplant evaluation Patient underwent dobutamine stress lasting 8:43 and achieved 99% of maximum predicted heart rate. Stress images showed appropriate augmentation. No regional wall motion abnormalities or evidence of myocardial ischemia. Results Global LVEF (rest): Normal (LVEF >50%) Global LVEF (stress): Hyperkinetic (LVEF >70%) ECG Atrial fibrillation with no ischemic changes . Arrhythmias Frequent PVCs Symptoms No symptoms during stress. Procedure Medications - Dobutamine I.V. 30 mg/kg/min. Summary Stress images showed appropriate augmentation. No regional wall motion abnormalities or evidence of myocardial ischemia. This is a negative Echocardiographic Stress Test. Signature Procedure Note Interface, External Ris In - 04/18/2019 4:37 PM CDT Stress Echocardiography Report Demographics Patient Name JAKY NI Date of Study 04/18/2019 Gender Male Visit Number [id number] Race Unknown Room Number OP Number Date of 1950 Referring Physician Peg Iniguez Age 68 year(s) Office Services Specialist Juan Garrido [facility] Interpreting Guy Graham Physician Fellow JOAQUIN Hernández MD Procedure Type of Study Stress procedure:STRESS(TMT)ECHO W/TMT TRACING (Routine) Indications:Renal transplant evaluation . Clinical History ESRD, Obesity, HLD, HTN PPM Contrast Medium: Definity. Height: 64 inches Weight: 90.72 kg (200 lbs) BSA: 1.96 m^2 BMI: 34.33 kg/m^2 HR: 80 bpm BP: 149/93 mmHg Rest ECG Atrial fibrillation with incomplete RBBB and frequent PVCs. Stress Peak HR: 153 bpm HR Response: Normal Peak BP: 175/105 mmHg BP Response: Normal Predicted HR: 154 bpm HR BP Product: 46174 % of predicted HR: 99 Test Duration: 8:43 min Reason for Termination: Target heart rate Stress Interpretation Indication for test: Pre-transplant evaluation Patient underwent dobutamine stress lasting 8:43 and achieved 99% of maximum predicted heart rate. Stress images showed appropriate augmentation. No regional wall motion abnormalities or evidence of myocardial ischemia. Results Global LVEF (rest): Normal (LVEF >50%) Global LVEF (stress): Hyperkinetic (LVEF >70%) ECG Atrial fibrillation with no ischemic changes . Arrhythmias Frequent PVCs Symptoms No symptoms during stress. Procedure Medications - Dobutamine I.V. 30 mg/kg/min. Summary Stress images showed appropriate augmentation. No regional wall motion abnormalities or evidence of myocardial ischemia. This is a negative Echocardiographic Stress Test. Signature Performing Organization Address City/State/[facility] Phone Number [facility] [id number] CPACS * 2D Echo W/O Doppler(No Doppler) (03/01/2019) Narrative Performed At * PSA (02/07/2019 1:13 PM CDT) PSA 7.7 (H) 0.0 - 4.0 ng/mL [facility] Specimen Blood Performing Organization Address City/[facility] Phone Number [facility] [address] [place] [address] [phone] [place] [address] * CRSMTCH FLOW 3 SERUM (01/03/2019 12:45 PM SHIPPING ROOM HELPER) T-FXM Serum1 T(IgG) [facility] T-FXM Serum1 Res Neg Historical [facility] B-FXM Serum1 B(IgG) [facility] B-FXM Serum1 Res Neg Historical [facility] T-FXM Serum2 T(IgG) [facility] T-FXM Serum2 Res Neg Current [facility] B-FXM Serum2 B(IgG) [facility] B-FXM Serum2 Res Neg Current [facility] T-FXM Serum3 T(IgG) [facility] T-FXM Serum3 Res Neg Pre Txp [facility] B-FXM Serum3 B(IgG) [facility] B-FXM Serum3 Res Neg Pre Txp [facility] Crsmtch Flow Comment DONOR FLOW CROSSMATCH [facility] RESULT: NEGATIVE [facility] ID [id number] [facility] Donor Name [id number], DD-LOCAL [facility] Specimen Blood Narrative Performed At Disclaimer: [facility] This test was developed and its performance characteristics determined by the [facility]. It has not been cleared or approved by the U.S. Food and Drug Administration. The FDA has determined that such clearance or approval is not necessary. This test is used for clinical purposes. It should not be regarded as investigational or for research. This laboratory is certified under the Clinical Laboratory Improvement Amendments of 1988 (CLIA-88) as qualified to perform high complexity clinical laboratory testing. Performing Organization Address City/State/[facility] Cent[facility]ode Phone Number [facility] [address], MS: [id number], [place] [address] CLIA#[id number] CAP#[id number] [facility]#[id number] * VIRTUAL CROSSMATCH (12/21/2018 3:44 PM SHIPPING ROOM HELPER) Only the most recent of 2 results within the time period is included. VXM dHLA Potential dHLA [facility] Donor HLA Result A24 A74; B7 B7; Bw6 Bw6; Cw7 [facility] Cw15; DR12 DR15; DR52 DR51; DQA01 DQA01 DQ6 DQ6 DPA01 DPA02 DPB01:01 DPB04:01 VXM DSA (MFI) DSA and MFI [facility] DSA and MFI Result NO DSA [facility] Virtual XM Virtual XM Result [facility] VXM Result CURRENT NEGATIVE [facility] Virtual Crossmatch [facility] Comment [facility] ID [id number] [facility] Donor Name [id number], DD-LOCAL [facility] Specimen Blood Narrative Performed At Disclaimer: [facility] This test was developed and its performance characteristics determined by the [facility]. It has not been cleared or approved by the U.S. Food and Drug Administration. The FDA has determined that such clearance or approval is not necessary. This test is used for clinical purposes. It should not be regarded as investigational or for research. This laboratory is certified under the Clinical Laboratory Improvement Amendments of 1988 (CLIA-88) as qualified to perform high complexity clinical laboratory testing. Performing Organization Address City/State/Zipcode Phone Number [facility] ONE [facility] [place], [place]: [id number], [place] [address] CLIA#[id number] CAP#[id number] [facility]#[id number] * ECHO W CONTRAST & DOPPLER (10/04/2018) Narrative Performed At * Stress test, pharmacological with nuc med myocardial perfusion planar (rest/stress) (10/04/2018) Narrative Performed At * AB SPECIFICITY CLASS II (08/08/2018 7:47 AM CDT) AB Specificity Class II NO CLASS II ANTIBODY DETECTED [facility] WITH MFIs > 4000 AB Specificity Titr Class [facility] Report Specimen Blood Narrative Performed At Disclaimer: [facility] This test was developed and its performance characteristics determined by the [facility]. It has not been cleared or approved by the U.S. Food and Drug Administration. The FDA has determined that such clearance or approval is not necessary. This test is used for clinical purposes. It should not be regarded as investigational or for research. This laboratory is certified under the Clinical Laboratory Improvement Amendments of 1988 (CLIA-88) as qualified to perform high complexity clinical laboratory testing. Performing Organization Address City/State/Zipcode Phone Number [facility] Paolo Carlisle, MS: [id number], [place] [address] CLIA#[id number] CAP#[id number] UNOS#[id number] after 06/15/2018 Insurance Payer Benefit Subscriber ID Type Phone Address Plan / Group [facility] Advance Directives For more information, please contact: [facility] [address] [place] [address] Date Inactivated Comments Code Status Date Activated 01/25/2018 9:34 PM Full Code 01/25/2018 3:11 PM This code status was determined by: Patient 01/25/2018 3:11 PM Full Code 01/25/2018 9:05 AM This code status was determined by: Patient 12/31/2017 9:46 PM Full Code 12/31/2017 10:57 AM This code status was determined by: Patient
--- NOTE | 2019-06-16 12:26 | Diagnostic Imaging Report ---
EXAMINATION: CHEST SINGLE (NOT PORTABLE) INDICATION: Chest pain COMPARISON: Chest radiograph of 05/30/2018 FINDINGS: TUBES and LINES: Right chest pacer with leads in the right atrium and right ventricle. LUNGS: The lung volumes are normal. No focal consolidation or pulmonary edema. PLEURA: No pleural effusion or pneumothorax. HEART AND MEDIASTINUM: The cardiomediastinal silhouette is normal in size and contour. Atherosclerotic calcifications of the thoracic aorta. BONES AND SOFT TISSUES: No acute fracture or dislocation. UPPER ABDOMEN: No free air under the diaphragm. IMPRESSION: No focal pneumonia or pulmonary edema. Signed by: Dayanna Landa MD on 06/16/2019 12:23 PM
[2019-06-16 13:02] LABS: BASOPHILS # (AUTO) 0.1 (0.0-0.1); BASOPHILS % 1.3 % (0.0-1.0); EOSINOPHILS # (AUTO) 0.1 (0.0-0.4); EOSINOPHILS % 1.6 % (0.0-6.0); HEMATOCRIT 36.8 % (38.2-49.6); HEMOGLOBIN 12.2 g/dL (14.0-18.0); LYMPHOCYTES # (AUTO) 1.4 (1.0-3.2); MEAN CORPUSCULAR HEMOGLOBIN 31.9 pg (28-32); MEAN CORPUSCULAR HGB CONC 33.2 g/dL (31-35); MEAN CORPUSCULAR VOLUME 96.3 fL (81-99); MONOCYTES # (AUTO) 0.9 (0.2-0.8); MONOCYTES % 12.7 % (4.4-11.3); NEUTROPHILS # (AUTO) 4.3 (2.1-6.9); NEUTROPHILS % 64.1 % (38.7-80.0); PLATELET COUNT 275 x10e3/uL (140-360); RED BLOOD COUNT 3.82 x10e6/uL (4.3-5.7); RED CELL DISTRIBUTION WIDTH 13.9 % (11.7-14.4)
[2019-06-16 13:03] LABS: BILIRUBIN,URINE NEGATIVE (NEGATIVE); CLARITY,URINE SL CLOUDY (CLEAR); COLOR,URINE YELLOW (YELLOW); KETONES,URINE NEGATIVE (NEGATIVE); LEUKOCYTE ESTERASE ,URINE TRACE (NEGATIVE); NITRITE,URINE NEGATIVE (NEGATIVE); URINE UROBILINOGEN 0.2 mg/dL (0.2 - 1)
[2019-06-16 13:07] LABS: PROTEIN,URINE DIPSTICK 2+ (NEGATIVE)
[2019-06-16 13:24] LABS: AMORPHOUS SEDIMENT,URINE FEW (FEW); BACTERIA,URINE MODERATE /HPF; EPITHELIAL CELLS,URINE RARE /LPF; RBC,URINE 0-5 /HPF (0-5)
[2019-06-16 15:30] LABS: ALBUMIN 3.9 g/dL (3.5-5.0); ANION GAP 19.9 mmol/L (8-16); CALCIUM 9.5 mg/dL (8.4-10.2); CREATININE, SERUM 6.78 mg/dL (0.72-1.25); POTASSIUM 3.9 mmol/L (3.5-5.1)
[2019-06-16 15:50] LABS: CREATINE KINASE MB 1.1 ng/mL (0-5.0)
== END | disposition home or self-care (01) ==
LOC: ER 11:10
DX: R07.9 Chest pain, unspecified (principal); I12.0 Hypertensive chronic kidney disease with stage 5 chronic kidney disease or end stage renal disease; N18.6 End stage renal disease; Z99.2 Dependence on renal dialysis; E03.9 Hypothyroidism, unspecified; Z95.810 Presence of automatic (implantable) cardiac defibrillator
CPT/HCPCS: 36415; 71045; 80053; 81001; 82550; 82553; 84484; 85025; 93005; 99284

== ENCOUNTER 2019-07-12 14:10 | Observation (INO) | payer MEDICARE ==
[~2019-07-12] VITALS: Ht 165.1 cm; Wt 91.2 kg
--- OUTSIDE RECORDS SUMMARY | 2019-07-12 14:12 | XMS REPORT | Clinical Summary ---
Author Author [facility] Address Unknown Phone Unavailable Care Team Providers Care Claims Collector Name Role Phone Crispin Bailey MD PCP [...] 0 MG tablet mouth nightly. 02/01/2019 Discontinued (Patient Discharge) amLODIPine (NORVASC) 5 mg 0 tablet 9 02/01/2019 Discontinued (Patient Discharge) furosemide (LASIX) 80 mg 0 tablet 9 02/01/2019 Discontinued (Patient Discharge) levothyroxine (SYNTHROID, 0 LEVOXYL) 75 mcg tablet 9 02/01/2019 Discontinued (Patient Discharge) lovastatin (MEVACOR) 20 0 MG tablet 9 02/01/2019 Discontinued (Patient Discharge) omeprazole (PriLOSEC) 40 0 MG capsule 9 02/01/2019 Discontinued (Patient Discharge) warfarin (COUMADIN) 5 MG 0 tablet 9 [...] (Primary Dx) 04/14/2019 Office Visit General Surgery Korey Tidwell MD Munga, Susan Wangari, MD 04/06/2019 Anesthesia General Surgery Event Tasha Lundberg MD LIGATION OF CEPHALIC FISTULA and accesories 04/06/2019 Surgery General Surgery Tasha Lundberg MD 04/06/2019 Hospital General Surgery Encounter Tasha Lundberg MD Problem with vascular access (Primary Dx) 02/01/2019 Office Visit General Surgery Tasha Lundberg MD Problem with vascular access (Primary Dx) 01/13/2019 Office Visit General Surgery after 07/11/2018 Family History Medical History Relation Name Comments Alzheimer's disease Mother Diabetes Mother Hypertension Mother Relation Name Status Comments Father Mother Alive Social History Date Tobacco Use Types Packs/Day Years Used Quit: 1989 Former Smoker Cigarettes Smokeless Tobacco: Never Used Drinks/Week oz/Week Comments Alcohol Use No Alcohol Habits Answer Date Recorded How [...] travel history available. Last Filed Vital Signs Reading Time Taken Comments Vital Sign 135/72 04/14/2019 1:13 PM CDT Blood Pressure 87 04/14/2019 1:13 PM CDT Pulse 36.6 C (97.9 F) 04/14/2019 1:13 PM CDT Temperature 18 04/06/2019 2:49 PM CDT Respiratory Rate 97% 04/06/2019 2:49 PM CDT Oxygen Saturation - - Inhaled Oxygen Concentration 89.4 kg (197 lb) 04/14/2019 1:13 PM CDT Weight 165.1 cm (5' 5") 04/14/2019 1:13 PM CDT Height 32.78 04/14/2019 1:13 PM CDT Body Mass Index Plan of Treatment Health Maintenance Due Date [...] OP STAT 04/06/2019 9:16 AM CDT after 07/11/2018 Results * XR Chest 1 Vw Portable (04/06/2019 9:43 AM CDT) Specimen Narrative Performed At EXAMINATION:XR CHEST 1 VW PORTABLE [facility] CLINICAL HISTORY:PRE OP CLEARANCE COMPARISON:No prior IMPRESSION: Right subclavian pacing device. The heart is enlarged. The pulmonary vasculature is normal. There are no acute infiltrates or effusions. Mild interstitial scarring is noted. Degenerative changes of the osseous structures. [facility]-[id number] Procedure Note Hm Interface, Radiology Results Incoming - 04/06/2019 10:11 AM CDT EXAMINATION: XR CHEST 1 VW PORTABLE CLINICAL HISTORY: PRE OP CLEARANCE COMPARISON: No prior IMPRESSION: Right subclavian pacing device. The heart is enlarged. The pulmonary vasculature is normal. There are no acute infiltrates or effusions. Mild interstitial scarring is noted. Degenerative changes of the osseous structures. [facility]-[id number] Performing Organization Address City/State/Zipcode Phone Number [facility] [address] [place] [address] * Estimated GFR (04/06/2019 9:22 AM CDT) Estimated GFR 4 (A) mL/min/1.73 m2 [place] Comment: [facility] G1 >=90 Normal or high G2 60-89Mildly decreased [id number] Mildly to moderately decreased [id number] Moderately to severely decreased G4 15-29Severely decreased G5 <15Kidney failure The eGFR was calculated using the Chronic Kidney Disease Epidemiology Collaboration (CKD-EPI) equation. Interpretation is based on recommendations of the National Kidney Foundation-Kidney Disease Outcomes Quality Initiative (NKF-KDOQI) published in 2014. Specimen Plasma specimen Performing Organization Address City/[facility]/Zipcode Phone Number [facility] [address] [place] [address] PATHOLOGY AND [facility] [address] * Hemoglobin & hematocrit (04/06/2019 9:22 AM CDT) [facility] HGB 11.7 (L) 13.0 - 17.3 g/dL [facility] HCT 36.0 34.0 - 45.0 % [facility] Specimen Blood Performing Organization Address [facility] Phone Number [facility] [address] [place] [address] * Partial thromboplastin time, activated (04/06/2019 9:22 AM CDT) [facility] PTT 34.7 23.0 - 36.0 sec [place] Comment: [place] PTT therapeutic range for [facility] unfractionated heparin is HOSPITAL 61.0-112.0 seconds which corresponds to Anti-Xa 0.3-0.7 U/ml. Note:Change in Panic Value The PTT Panic Value is changing from 110 sec. to 100 sec. due to new instrumentation and reagents. Correlation studies have been performed to validate this result. Specimen Blood Performing Organization Address City/[facility]/Zipcode Phone Number [facility] [address] [place] [address] * Prothrombin time with INR (04/06/2019 9:22 AM CDT) Pathologist [facility] Prothrombin 15.2 (H) 11.5 - 14.5 sec [place] time [facility] INR 1.23 [place] Comment: CHERELLE ROJAS For patients on anticoagulant JUDITH therapy, reference ranges HOSPITAL below: Indication: INR Value Treatment of Venous Thrombosis, 2.0-3.0 pulmonary emboli, or prophylaxis of a venous thrombosis, or systemic emboli. High dose, high risk patients 3.0-4.5 with mechanical valves. NOTE:INR values over 3.0 are sometimes associated with gastrointestinal hemorrhage, especially values over 4.0. Specimen Blood Performing Organization Address City/[facility] [place] [address] PATHOLOGY AND [facility] MEDICINE [address] * Basic metabolic panel (04/06/2019 9:22 AM CDT) Pathologist [facility] Sodium 140 135 - 150 mEq/L [facility] Potassium 5.1 (H) 3.5 - 5.0 mEq/L [facility] Chloride 96 (L) 98 - 112 mEq/L [facility] CO2 28 24 - 31 mmol/L [facility] Anion gap 16@ANIO (H) 7 - 15 mEq/L [facility] BUN 63 (H) 7 - 18 mg/dL [facility] Creatinine 10.80 (H) 0.70 - 1.20 mg/dL [facility] Glucose 102 (H) 65 - 100 mg/dL [facility] Calcium 9.2 8.8 - 10.2 mg/dL [facility] Specimen Plasma specimen Performing Organization Address City/[facility] [place] [address] PATHOLOGY AND GENOMIC MEDICINE [address] * ECG Pre/Post Op (04/06/2019 9:16 AM CDT) Ventricular 79 [facility] rate Atrial rate 182 [facility] QRSD interval 110 [facility] QT interval 408 [facility] QTC interval 467 [facility] QRS axis 1 -8 [facility] T wave axis 39 [facility] EKG impression Atrial fibrillation with [facility] premature ventricular or aberrantly conducted complexes-Incomplete right bundle branch block-Abnormal ECG-No previous ECGs available- Specimen Narrative Performed At Performing Organization Address City/State/Zipcode Phone Number [facility] [address] [place] [address] after 07/11/2018 Insurance Type Payer Benefit Subscriber ID Effective Phone Address Plan / Dates Group HMO [employer] CIGNA xxxxxxxx 2018-P [facility]PRI [facility]V (Reading) [place] [address] Advance Directives For more information, please contact: [phone] Patient Training Development Specialist Explanation Type Date Recorded Advance Directives, 03/31/2019 12:20 PM Living Will and Medical Power of Mechanical Artist
--- OUTSIDE RECORDS SUMMARY | 2019-07-12 14:13 | XMS REPORT | Clinical Summary ---
Author Author RHEA [facility] Address Unknown Phone Unavailable Care Team Providers Care Continuous Improvement Black Belt Name Role Phone Travis--Crispin Kilpatrick PCP Allergies [...] disease) on dialysis 12/31/2017 Pacemaker 10/19/2017 Overview: [facility] ? cause slow heart rarte neen [...] chronic kidney disease; Coronary artery disease involving [place] coronary artery of [place] heart with angina pectoris (HCC) 04/18/2019 Hospital [...] chronic kidney disease; Coronary artery disease involving [place] coronary artery of [place] heart with angina pectoris (HCC) 01/25/2019 Orders [...] results 11/10/2018 Telephone Hepatology Reena Marsh MD [facility] [place] NP Elevated serum GGT level [...] mellitus with other kidney complication, unspecified whether senior living insulin use (HCC); Awaiting transplantation of kidney; [...] Karen Cunha RN 07/15/2018 Documentation Transplant after 07/11/2018 Family History Medical History Relation [...] Body Mass Index 33.4 Plan of Treatment Health Maintenance Due Date Last Done Comments HEMOGLOBIN A1C 09/21/2018 11/02/2017 Procedures Comments Procedure Name Priority Date/Time Associated [...] chronic kidney disease Coronary artery disease involving [place] coronary artery of [place] heart with angina pectoris (HCC) 2D ECHO [...] Routine 01/03/2019 Patient awaiting renal 12:45 PM UI LEAD DEVELOPER transplant VIRTUAL CROSSMATCH Routine 12/21/2018 Awaiting transplantation 3:44 PM UI LEAD DEVELOPER of kidney FLOW PRA CLASS I WITH Routine 12/21/2018 Awaiting transplantation REFLEX TO ANTIBODY 3:44 PM UI LEAD DEVELOPER of kidney SPECIFICITY FLOW PRA CLASS II WITH Routine 12/21/2018 Awaiting transplantation REFLEX TO ANTIBODY 3:44 PM UI LEAD DEVELOPER of kidney SPECIFICITY CBC W/PLT COUNT & AUTO Routine 11/02/2018 Fatty liver DIFFERENTIAL 12:43 PM UI LEAD DEVELOPER GAMMA GLUTAMYL Routine 11/02/2018 Elevated serum GGT level TRANSFERASE (GGT) 12:43 PM UI LEAD DEVELOPER HEPATIC FUNCTION PANEL Routine 11/02/2018 Fatty liver 12:43 PM UI LEAD DEVELOPER BASIC METABOLIC PANEL (7) Routine 11/02/2018 Fatty liver 12:43 PM UI LEAD DEVELOPER CBC W/PLT COUNT & AUTO Routine 11/02/2018 Fatty liver DIFFERENTIAL 12:43 PM UI LEAD DEVELOPER ECHO W CONTRAST & DOPPLER Routine 10/04/2018 [...] ANTIBODY 7:47 AM CDT transplant SPECIFICITY after 07/11/2018 Results * FLOW PRA CLASS II WITH REFLEX TO ANTIBODY SPECIFICITY (06/01/2019 10:50 AM CDT) Only the most recent of 5 results within the time period is included. Flow Class II Percent 3 [facility] Positive Flow Class Report [facility] Comments Specimen Blood Narrative Performed At Disclaimer: [facility] This test was developed and its performance characteristics determined by the [facility] Laboratory. It has not [...] complexity clinical laboratory testing. Performing Organization Address City/State/[facility] Phone Number [facility] ONE Paolo [address]isle, MS: [id number], [place] [address] CLIA#[id number] CAP#[id number] UNOS#[id number] * FLOW PRA CLASS I WITH REFLEX TO ANTIBODY SPECIFICITY (06/01/2019 10:50 AM CDT) Only the most recent of 5 results within the time period is included. Flow Class I Percent 0 [facility] Positive Flow Class Report [facility] Comments Specimen Blood Narrative Performed At Disclaimer: [facility] This test was developed and its performance characteristics determined by the [facility] Laboratory. It has not [...] complexity clinical laboratory testing. Performing Organization Address City/State/[facility] Phone Number [facility] ONE [facility] [place], MS: [id number], [place] [address] CLIA#[id number] CAP#[id number] UNOS#[id number] * CBC with platelet count + automated diff (05/04/2019 11:08 AM CDT) Only the most recent of 2 results within the time period is included. WBC 9.0 3.5 - 10.5 K/L [facility] RBC 3.63 (L) 4.63 - 6.08 M/L [facility] Hemoglobin 11.4 (L) 13.7 - 17.5 GM/DL [facility] Hematocrit 35.5 (L) 40.1 - 51.0 % [facility] MCV 97.8 (H) 79.0 - 92.2 fL [facility] MCH 31.4 25.7 - 32.2 pg [facility] MCHC 32.1 (L) 32.3 - 36.5 GM/DL [facility] RDW 13.2 11.6 - 14.4 % [facility] Platelets 350 150 - 450 K/CU MM [facility] MPV 10.5 9.4 - 12.4 fL [facility] nRBC 0 0 - 0 /100 WBC [facility] % Neutros 60 % [facility] % Lymphs 22 % [facility] % Monos 13 % [facility] % Eos 4 % [facility] % Baso 1 % [facility] # Neutros 5.39 (H) 1.78 - 5.38 K/L [facility] # Lymphs 2.01 1.32 - 3.57 K/L [facility] # Monos 1.17 (H) 0.30 - 0.82 K/L [facility] # Eos 0.32 0.04 - 0.54 K/L [facility] # Baso 0.10 (H) 0.01 - 0.08 K/L [facility] Immature 0 0 - 1 % [facility] Granulocytes-Relative [facility] Specimen Blood Performing Organization Address City/[facility] Cancer Centercode Phone Number [address] [address] [facility] * Gamma Glutamyl Transferase (GGT) (05/04/2019 11:08 AM CDT) Only the most recent of 2 results within the time period is included. GGT 174 (H) 9 - 64 U/L [facility] Specimen Blood Performing Organization Address City/[facility] Centercomo Phone Number [address] [address] [phone] [place] [address] * Hepatic function panel (05/04/2019 11:08 AM CDT) Only the most recent of 2 results within the time period is included. Protein, Total 8.6 (H) 6.0 - 8.3 gm/dL [facility] Albumin 4.2 3.5 - 5.0 g/dL [facility] Total Bilirubin 0.5 0.2 - 1.2 mg/dL [facility] Bilirubin, Direct 0.3 0.1 - 0.5 mg/dL [facility] Alkaline Phosphatase 92 40 - 150 U/L [facility] AST 17 5 - 34 U/L [facility] ALT 22 6 - 55 U/L [facility] Specimen Blood Performing Organization Address City/[facility] Centercode Phone Number [place] [address] [place] [address] [facility] * Basic Metabolic Panel (05/04/2019 11:08 AM CDT) Only the most recent of 2 results within the time period is included. Sodium 137 136 - 145 meq/L [facility] Potassium 4.5 3.5 - 5.1 meq/L [facility] Chloride 93 (L) 98 - 107 meq/L [facility] CO2 30 (H) 22 - 29 meq/L [facility] BUN 50 (H) 7 - 21 mg/dL [facility] Creatinine 9.58 (H) 0.57 - 1.25 mg/dL [facility] Glucose 90 70 - 105 mg/dL [facility] Calcium 9.7 8.4 - 10.2 mg/dL [facility] EGFR 6Comment: ESTIMATED GFR IS NOT mL/min/1.73 sq m [facility] ACCURATE CREATININE [facility] CLEARANCE IN PREDICTING GLOMERULAR FILTRATION RATE. ESTIMATED GFR IS NOT APPLICABLE FOR DIALYSIS PATIENTS. Specimen Blood Performing Organization Address City/State/Zipcode Phone Number [facility] [address] [place] [address] [facility] * PERIPHERAL VASCULAR REPORT - SCAN (04/18/2019 9:20 PM CDT) Narrative Performed At * Stress Echo With Tracing (04/18/2019 3:17 PM CDT) Ejection Fraction [facility] ECHO HEARTLAB [facility] Specimen Narrative Performed At Stress Echocardiography Report [facility] ECHO HEARTLAB Demographics [facility] Patient Name JAKY NI of Study 04/18/2019 [id number] GenderMale Visit Number [id number] RaceUnknown [id number] Number OP Number Date of Birth1950 Referring Physician Peg Iniguez Age68 year(s) Sales Center Associate [employer] Hui Physician Fellow John Gonzalez,JOAQUIN Hendricks MD Procedure [...] Predicted HR: 154 bpm HR BP Product: 61689 % of predicted HR: 99 Test Duration: [...] of Study 04/18/2019 Gender Male Visit Number [id number] Race Unknown Room Number OP Number Date of 1950 Referring Physician Peg Iniguez Age 68 year(s) Sales Center Associate Juan Garrido [facility] Interpreting Physician GINNY Walters Fellow JOAQUIN Hernández MD Procedure Type of [...] Predicted HR: 154 bpm HR BP Product: 79085 % of predicted HR: 99 Test Duration: [...] is a negative Echocardiographic Stress Test. Signature [facility] Organization [facility] Centercode Phone Number [facility] ECHO HEARTLAB MKCKESSON CPACS * 2D Echo W/O Doppler(No Doppler) (03/01/2019) Narrative Performed At * PSA (02/07/2019 1:13 PM CDT) PSA 7.7 (H) 0.0 - 4.0 ng/mL [facility] Specimen Blood Performing Organization Address City/[facility] Centercode Phone Number [facility] [address] [place] [address] [phone] [place] [address] * CRSMTCH FLOW 3 SERUM (01/03/2019 12:45 PM UI LEAD DEVELOPER) T-FXM Serum1 T(IgG) [facility] T-FXM Serum1 Res Neg Historical [facility] B-FXM Serum1 B(IgG) [facility] B-FXM Serum1 Res Neg Historical [facility] T-FXM Serum2 T(IgG) [facility] T-FXM Serum2 Res Neg Current [facility] B-FXM Serum2 B(IgG) [facility] B-FXM Serum2 Res Neg Current [facility] T-FXM Serum3 T(IgG) [facility] T-FXM Serum3 Res Neg Pre Txp [facility] B-FXM Serum3 B(IgG) [facility] B-FXM Serum3 Res Neg Pre Txp [facility] Crsmtch Flow Comment DONOR FLOW CROSSMATCH [facility] RESULT: NEGATIVE UNOS ID [id number] [facility] Donor Name [id number], DD-LOCAL [facility] Specimen Blood Narrative Performed At Disclaimer: [facility] This test was developed and its performance characteristics determined by the [facility] Laboratory. It has not [...] complexity clinical laboratory testing. Performing Organization Address City/State/[facility] Centercode Phone Number [facility] ONE Paolo [address], MS: [id number], [place] [address] CLIA#[id number] CAP#[id number] UNOS#[id number] * VIRTUAL CROSSMATCH (12/21/2018 3:44 PM UI LEAD DEVELOPER) Only the most recent of 2 results within the time period is included. VXM dHLA Potential dHLA [facility] Donor HLA Result A24 A74; B7 B7; Bw6 Bw6; Cw7 [facility] Cw15; DR12 DR15; DR52 DR51; DQA01 DQA01 DQ6 DQ6 DPA01 DPA02 DPB01:01 DPB04:01 VXM DSA (MFI) DSA and MFI [facility] DSA and MFI Result NO DSA [facility] Virtual XM Virtual XM Result [facility] VXM Result CURRENT NEGATIVE [facility] Virtual Crossmatch [facility] Comment UNOS ID [id number] [facility] Donor Name [id number], DD-LOCAL [facility] Specimen Blood Narrative Performed At Disclaimer: [facility] This test was developed and its performance characteristics determined by the [facility] Laboratory. It has not [...] testing. Performing Organization Address City/State/Zipcode Phone Number [facility] ONE Paolo [address], MS: [id number], [place] [address] CLIA#[id number] CAP#[id number] UNOS#[id number] * ECHO W CONTRAST & DOPPLER (10/04/2018) Narrative Performed At * Stress test, pharmacological with nuc med myocardial perfusion planar (rest/stress) (10/04/2018) Narrative Performed At * AB SPECIFICITY CLASS II (08/08/2018 7:47 AM CDT) AB Specificity Class II NO CLASS II ANTIBODY DETECTED [facility] WITH MFIs > 4000 AB Specificity Titr Class [facility] Report Specimen Blood Narrative Performed At Disclaimer: [facility] This test was developed and its performance characteristics determined by the [facility] Laboratory. It has not [...] testing. Performing Organization Address City/State/Zipcode Phone Number [facility] ONE Paolo [address]isle, MS: [id number], [place] [address] CLIA#[id number] CAP#[id number] UNOS#[id number] after 07/11/2018 Insurance Payer Benefit Subscriber ID Type Phone Address Plan / Group [employer]ING CIGNA xxxxxxxx [facility] HEALTHSPRI Contracted ALL Advance Directives For more information, please contact: [facility] [address] [place] [address] Date Inactivated Comments Code Status Date Activated 01/25/2018 9:34 PM Full Code 01/25/2018 3:11 PM This code status was determined by: Patient 01/25/2018 3:11 PM Full Code 01/25/2018 9:05 AM This code status was determined by: Patient 12/31/2017 9:46 PM Full Code 12/31/2017 10:57 AM This code status was determined by: Patient
[2019-07-12] MEDS ORDERED: ASPIRIN 81 MG CHEW TAB PO ONE (14:45)
[2019-07-12 15:06] LABS: BASOPHILS # (AUTO) 0.1 (0.0-0.1); BASOPHILS % 1.2 % (0.0-1.0); EOSINOPHILS # (AUTO) 0.2 (0.0-0.4); EOSINOPHILS % 2.2 % (0.0-6.0); HEMATOCRIT 33.2 % (38.2-49.6); HEMOGLOBIN 11.3 g/dL (14.0-18.0); LYMPHOCYTES # (AUTO) 1.5 (1.0-3.2); LYMPHOCYTES % 18.1 % (18.0-39.1); MEAN CORPUSCULAR HEMOGLOBIN 32.5 pg (28-32); MEAN CORPUSCULAR VOLUME 95.4 fL (81-99); MONOCYTES # (AUTO) 1.1 (0.2-0.8); MONOCYTES % 13.8 % (4.4-11.3); NEUTROPHILS # (AUTO) 5.3 (2.1-6.9); NEUTROPHILS % 64.3 % (38.7-80.0); PLATELET COUNT 290 x10e3/uL (140-360); RED BLOOD COUNT 3.48 x10e6/uL (4.3-5.7); RED CELL DISTRIBUTION WIDTH 13.5 % (11.7-14.4)
[2019-07-12 15:16] LABS: INR 1.4; PROTHROMBIN TIME 17.7 seconds (11.9-14.5)
[2019-07-12 15:17] LABS: PARTIAL THROMBOPLASTIN TIME 32.6 seconds (23.8-35.5)
[2019-07-12 15:24] LABS: ALBUMIN 3.7 g/dL (3.5-5.0); ALBUMIN/GLOBULIN RATIO 0.9 (0.8-2.0); ANION GAP 14.7 mmol/L (8-16); CALCIUM 9.4 mg/dL (8.4-10.2); CREATININE, SERUM 6.23 mg/dL (0.72-1.25); POTASSIUM 3.7 mmol/L (3.5-5.1)
[2019-07-12 15:30] LABS: CREATINE KINASE MB 0.6 ng/mL (0-5.0)
--- NOTE | 2019-07-12 16:09 | NUR ---
supervisor cigar making machine notified regarding pt still having his fistula accessed asked if she could notify dialysis nurse to D/C. Stated there was one in house and would have nurse remove.
--- NOTE | 2019-07-12 16:31 | Diagnostic Imaging Report ---
Chest, 1 view, 07/12/2019. History: Hypertension. Comparison: 06/16/2019. Findings: The cardiomediastinal silhouette and pulmonary vasculature are within normal limits for a portable exam. There is no focal consolidation or pleural effusion. Right subclavian dual-lead pacer is unchanged in appearance. There are no acute osseous or soft tissue abnormalities. Impression: No acute cardiopulmonary abnormality. Signed by: Franklin Jason on 07/12/2019 4:27 PM
--- OUTSIDE RECORDS SUMMARY | 2019-07-12 16:33 | XMS REPORT | Clinical Summary ---
Author Author Felipe Bahai Organization [facility]ai Address Unknown Phone Unavailable Care Team Providers Care Inspector Government Property Name Role Phone Crispin Bailey MD PCP [...] noted. Degenerative changes of the osseous structures. [facility]-[id number] Procedure Note Hm Interface, Radiology Results Incoming - 04/06/2019 10:11 AM CDT EXAMINATION: XR CHEST 1 VW PORTABLE CLINICAL HISTORY: PRE OP CLEARANCE COMPARISON: No prior IMPRESSION: Right subclavian pacing device. The heart is enlarged. The pulmonary vasculature is normal. There are no acute infiltrates or effusions. Mild interstitial scarring is noted. Degenerative changes of the osseous structures. [facility]-[id number] Performing Organization Address City/State/Zipcode Phone Number [facility] [address] [place] [address] * Estimated GFR (04/06/2019 9:22 AM CDT) Estimated GFR 4 (A) mL/min/1.73 m2 DAHLGREN Comment: ISLAM [facility] G1 >=90 Normal or high G2 60-89Mildly decreased O6h94-53 Mildly to moderately decreased N1l82-20 Moderately to severely decreased G4 15-29Severely decreased G5 <15Kidney failure The eGFR was calculated using the Chronic Kidney Disease Epidemiology Collaboration (CKD-EPI) equation. Interpretation is based on recommendations of the National Kidney Foundation-Kidney Disease Outcomes Quality Initiative (NKF-KDOQI) published in 2014. Specimen Plasma specimen Performing Organization Address City/[facility]/Zipcode Phone Number [facility] DEPARTMENT [address] [place] [address] [facility] MED[facility]INE [address] * Hemoglobin & hematocrit (04/06/2019 9:22 AM CDT) [facility] HGB 11.7 (L) 13.0 - 17.3 g/dL [facility] HCT 36.0 34.0 - 45.0 % [facility] Specimen Blood Performing Organization Address [facility] Phone Number [facility] [address] [place] [address] * Partial thromboplastin time, activated (04/06/2019 9:22 AM CDT) [facility] PTT 34.7 23.0 - 36.0 sec DAHLGREN Comment: ISLAM [facility] PTT therapeutic range for [facility] unfractionated heparin is HOSPITAL 61.0-112.0 seconds which corresponds to Anti-Xa 0.3-0.7 U/ml. Note:Change in Panic Value The PTT Panic Value is changing from 110 sec. to 100 sec. due to new instrumentation and reagents. Correlation studies have been performed to validate this result. Specimen Blood Performing Organization Address City/[facility]/Zipcode Phone Number [facility] DEPARTMENT [address] [place] [address] * Prothrombin time with INR (04/06/2019 9:22 AM CDT) Pathologist [facility] Prothrombin 15.2 (H) 11.5 - 14.5 sec [facility] time [facility] INR 1.23 DA[facility]EN Comment: CHERELLE ROJAS For patients on anticoagulant JUDITH therapy, reference ranges HOSPITAL below: Indication: INR Value Treatment of Venous Thrombosis, 2.0-3.0 pulmonary emboli, or prophylaxis of a venous thrombosis, or systemic emboli. High dose, high risk patients 3.0-4.5 with mechanical valves. NOTE:INR values over 3.0 are sometimes associated with gastrointestinal hemorrhage, especially values over 4.0. Specimen Blood Performing Organization Address City/[facility] [place] [address] [facility] [address] * Basic metabolic panel (04/06/2019 9:22 AM CDT) Pathologist [facility] Sodium 140 135 - 150 mEq/L [facility] Potassium 5.1 (H) 3.5 - 5.0 mEq/L [facility] Chloride 96 (L) 98 - 112 mEq/L [facility] CO2 28 24 - 31 mmol/L [facility] Anion gap 16@ANIO (H) 7 - 15 mEq/L [facility] BUN 63 (H) 7 - 18 mg/dL [facility] Creatinine 10.80 (H) 0.70 - 1.20 mg/dL [facility] Glucose 102 (H) 65 - 100 mg/dL [facility] Calcium 9.2 8.8 - 10.2 mg/dL [facility] Specimen Plasma specimen Performing Organization Address City/[facility] [place] [address] PATHOLOGY AND GENOMIC MEDICINE [address] * ECG Pre/Post Op (04/06/2019 9:16 [...] At Performing Organization Address City/State/Zipcode Phone Number [facility] [address] [place] [address] after 07/11/2018 Insurance Type Payer Benefit Subscriber ID Effective Phone Address Plan / Dates Group HMO [employer] HE[employer]SPRING CIGNA xxxxxxxx 2018-P [facility]ALTHSPRI [facility] ([place]) [place] [address] Advance Directives For more information, please contact: [phone] Patient Criminal Justice Instructor Explanation Type Date Recorded Advance Directives, 03/31/2019 12:20 PM Living Will and Medical Power of Security Architect
--- OUTSIDE RECORDS SUMMARY | 2019-07-12 16:33 | XMS REPORT | Clinical Summary ---
Author Author RHEA [facility] Address Unknown Phone Unavailable Care Team Providers Care [employer] Man Name Role Phone Travis--Crispin Kilpatrick PCP Allergies [...] disease) on dialysis 12/31/2017 Pacemaker 10/19/2017 Overview: [facility] ? 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) 04/18/2019 Hospital [...] chronic kidney disease; Coronary artery disease involving or[place]ar[place]iut coronary artery of [place]iut heart with angina pectoris (HCC) 01/25/2019 Orders [...] results 11/10/2018 Telephone Hepatology Reena Marsh MD [facility] Ta Fountain NP Elevated serum GGT level [...] chronic kidney disease Coronary artery disease involving or[place]ararmiut coronary artery of [place]iut heart with angina pectoris (HCC) 2D ECHO [...] Routine 01/03/2019 Patient awaiting renal 12:45 PM ACCOUNTS PAYABLE BOOKKEEPER transplant VIRTUAL CROSSMATCH Routine 12/21/2018 Awaiting transplantation 3:44 PM ACCOUNTS PAYABLE BOOKKEEPER of kidney FLOW PRA CLASS I WITH Routine 12/21/2018 Awaiting transplantation REFLEX TO ANTIBODY 3:44 PM ACCOUNTS PAYABLE BOOKKEEPER of kidney SPECIFICITY FLOW PRA CLASS II WITH Routine 12/21/2018 Awaiting transplantation REFLEX TO ANTIBODY 3:44 PM ACCOUNTS PAYABLE BOOKKEEPER of kidney SPECIFICITY CBC W/PLT COUNT & AUTO Routine 11/02/2018 Fatty liver DIFFERENTIAL 12:43 PM ACCOUNTS PAYABLE BOOKKEEPER GAMMA GLUTAMYL Routine 11/02/2018 Elevated serum GGT level TRANSFERASE (GGT) 12:43 PM ACCOUNTS PAYABLE BOOKKEEPER HEPATIC FUNCTION PANEL Routine 11/02/2018 Fatty liver 12:43 PM ACCOUNTS PAYABLE BOOKKEEPER BASIC METABOLIC PANEL (7) Routine 11/02/2018 Fatty liver 12:43 PM ACCOUNTS PAYABLE BOOKKEEPER CBC W/PLT COUNT & AUTO Routine 11/02/2018 Fatty liver DIFFERENTIAL 12:43 PM ACCOUNTS PAYABLE BOOKKEEPER ECHO W CONTRAST & DOPPLER Routine 10/04/2018 [...] HLA TESTING Positive Flow Class Report [facility] TEST[facility] Comments Specimen Blood Narrative Performed At Disclaimer: [facility] HLA TESTING This test was developed and its performance characteristics determined by the [facility] Laboratory. It has not been cleared [...] complexity clinical laboratory testing. Performing Organization Address City/State/[facility] Phone Number [facility] [address], MS: [id number], [place] [address] CLIA#[id number] CAP#[id number] UNOS#[id number] * FLOW PRA CLASS I WITH REFLEX TO ANTIBODY SPECIFICITY (06/01/2019 10:50 AM CDT) Only the most recent of 5 results within the time period is included. Flow Class I Percent 0 [facility] Positive Flow Class Report [facility] TEST[facility] Comments Specimen Blood Narrative Performed At Disclaimer: [facility] TEST[facility] This test was developed and its performance characteristics determined by the [facility] Laboratory. It has not been cleared [...] complexity clinical laboratory testing. Performing Organization Address City/State[facility] Phone Number [facility] HLA TEST[facility] ONE [facility] [place], MS: [id number], [place] [address] CLIA#[id number] CAP#[id number] UNOS#[id number] * CBC with platelet count + automated diff (05/04/2019 11:08 AM CDT) Only the most recent of 2 results within the time period is included. WBC 9.0 3.5 - 10.5 K/L [facility] RBC 3.63 (L) 4.63 - 6.08 M/L [facility] Hemoglobin 11.4 (L) 13.7 - 17.5 GM/DL [facility] Hematocrit 35.5 (L) 40.1 - 51.0 % [facility] MCV 97.8 (H) 79.0 - 92.2 fL [facility] MCH 31.4 25.7 - 32.2 pg [facility] MCHC 32.1 (L) 32.3 - 36.5 GM/DL [facility] RDW 13.2 11.6 - 14.4 % [facility] Platelets 350 150 - 450 K/CU MM [facility] MPV 10.5 9.4 - 12.4 fL [facility] nRBC 0 0 - 0 /100 WBC [facility] % Neutros 60 % [facility] % Lymphs 22 % [facility] % Monos 13 % [facility] % Eos 4 % [facility] % Baso 1 % [facility] # Neutros 5.39 (H) 1.78 - 5.38 K/L [facility] # Lymphs 2.01 1.32 - 3.57 K/L [facility] # Monos 1.17 (H) 0.30 - 0.82 K/L [facility] # Eos 0.32 0.04 - 0.54 K/L [facility] # Baso 0.10 (H) 0.01 - 0.08 K/L [facility] Immature 0 0 - 1 % [facility] Granulocytes-Relative [facility] Specimen Blood Performing Organization Address City/[facility] Phone Number [address] [address] [facility] * Gamma Glutamyl Transferase (GGT) (05/04/2019 11:08 AM CDT) Only the most recent of 2 results within the time period is included. GGT 174 (H) 9 - 64 U/L [facility] Specimen Blood Performing Organization Address City/[facility] Phone Number [address] [address] [phone] [place] [address] * Hepatic function panel (05/04/2019 11:08 AM CDT) Only the most recent of 2 results within the time period is included. Protein, Total 8.6 (H) 6.0 - 8.3 gm/dL [facility] Albumin 4.2 3.5 - 5.0 g/dL [facility] Total Bilirubin 0.5 0.2 - 1.2 mg/dL [facility] Bilirubin, Direct 0.3 0.1 - 0.5 mg/dL [facility] Alkaline Phosphatase 92 40 - 150 U/L [facility] AST 17 5 - 34 U/L [facility] ALT 22 6 - 55 U/L [facility] Specimen Blood Performing Organization Address City/[facility] Phone Number [phone] [place] [address] [facility] * Basic Metabolic Panel (05/04/2019 11:08 AM CDT) Only the most recent of 2 results within the time period is included. Sodium 137 136 - 145 meq/L [facility] Potassium 4.5 3.5 - 5.1 meq/L [facility] Chloride 93 (L) 98 - 107 meq/L [facility] CO2 30 (H) 22 - 29 meq/L [facility] BUN 50 (H) 7 - 21 mg/dL [facility] Creatinine 9.58 (H) 0.57 - 1.25 mg/dL [facility] Glucose 90 70 - 105 mg/dL [facility] Calcium 9.7 8.4 - 10.2 mg/dL [facility] EGFR 6Comment: ESTIMATED GFR IS NOT mL/min/1.[address] [facility] ACCURATE CREATININE [facility] CLEARANCE IN PREDICTING GLOMERULAR FILTRATION RATE. ESTIMATED GFR IS NOT APPLICABLE FOR DIALYSIS PATIENTS. Specimen Blood Performing Organization Address City/State/Zipcode Phone Number [facility] [address] [place] [address] [facility] * PERIPHERAL VASCULAR REPORT - SCAN (04/18/2019 9:20 PM CDT) Narrative Performed At * Stress Echo With Tracing (04/18/2019 3:17 PM CDT) Ejection Fraction [facility] ECHO HEARTLAB [facility] Specimen Narrative Performed At Stress Echocardiography Report [facility] ECHO HEARTLAB Demographics [facility] Patient Name JAKY NI of Study 04/18/2019 [id number] GenderMale Visit Number [id number] RaceUnknown [id number] Number OP Number Date of Birth1950 Referring Physician Peg Iniguez Age68 year(s) Hand Filer Balance Wheel CAT Hui Physician Fellow John Gonzalez,JOAQUIN Hendricks [...] Predicted HR: 154 bpm HR BP Product: 15711 % of predicted HR: 99 Test Duration: [...] of Study 04/18/2019 Gender Male Visit Number [id number] Race Unknown Room Number OP Number Date of 1950 Referring Physician Peg Iniguez Age 68 year(s) Hand Filer Balance Wheel Juan Garrido RUST Interpreting Physician GINNY Walters Fellow JOAQUIN Hernández [...] Predicted HR: 154 bpm HR BP Product: 87831 % of predicted HR: 99 Test Duration: [...] is a negative Echocardiographic Stress Test. Signature [facility] Organization [facility] Phone Number [facility] ECHO HEARTLAB MKCKESSON CPACS * 2D Echo W/O Doppler(No Doppler) (03/01/2019) Narrative Performed At * PSA (02/07/2019 1:13 PM CDT) PSA 7.7 (H) 0.0 - 4.0 ng/mL [facility] Specimen Blood Performing Organization Address City/[facility] Phone Number [facility] [address] [place] [address] [phone] [place] [address] * CRSMTCH FLOW 3 SERUM (01/03/2019 12:45 PM ACCOUNTS PAYABLE BOOKKEEPER) T-FXM Serum1 T(IgG) [facility] T-FXM Serum1 Res Neg Historical [facility] B-FXM Serum1 B(IgG) [facility] B-FXM Serum1 Res Neg Historical [facility] T-FXM Serum2 T(IgG) [facility] T-FXM Serum2 Res Neg Current [facility] B-FXM Serum2 B(IgG) [facility] B-FXM Serum2 Res Neg Current [facility] T-FXM Serum3 T(IgG) [facility] T-FXM Serum3 Res Neg Pre Txp [facility] B-FXM Serum3 B(IgG) [facility] B-FXM Serum3 Res Neg Pre Txp [facility] Crsmtch Flow Comment DONOR FLOW CROSSMATCH [facility] TEST[facility] RESULT: NEGATIVE UNOS ID [id number] [facility] Donor Name [id number], DD-LOCAL [facility] Specimen Blood Narrative Performed At Disclaimer: [facility] TEST[facility] This test was developed and its performance characteristics determined by the [facility] Laboratory. It has not been cleared [...] complexity clinical laboratory testing. Performing Organization Address City/State/[facility] Phone Number [facility] ONE [address], MS: [id number], [place] [address] CLIA#[id number] CAP#[id number] UNOS#[id number] * VIRTUAL CROSSMATCH (12/21/2018 3:44 PM ACCOUNTS PAYABLE BOOKKEEPER) Only the most recent of 2 results within the time period is included. VXM dHLA Potential dHLA [facility] Donor HLA Result A24 A74; B7 B7; Bw6 Bw6; Cw7 [facility] Cw15; DR12 DR15; DR52 DR51; DQA01 DQA01 DQ6 DQ6 DPA01 DPA02 DPB01:01 DPB04:01 VXM DSA (MFI) DSA and MFI [facility] DSA and MFI Result NO DSA [facility] Virtual XM Virtual XM Result [facility] VXM Result CURRENT NEGATIVE [facility] Virtual Crossmatch [facility] Comment UNOS ID [id number] [facility] Donor Name [id number], DD-LOCAL [facility] Specimen Blood Narrative Performed At Disclaimer: [facility] TEST[facility] This test was developed and its performance characteristics determined by the [facility] Laboratory. It has not been cleared [...] Performing Organization Address City/State/Zipcode Phone Number [facility] ONE [address], MS: [id number], [place] [address] CLIA#[id number] CAP#[id number] UNOS#[id number] * ECHO W CONTRAST & DOPPLER (10/04/2018) Narrative Performed At * Stress test, pharmacological with nuc med myocardial perfusion planar (rest/stress) (10/04/2018) Narrative Performed At * AB SPECIFICITY CLASS II (08/08/2018 7:47 AM CDT) AB Specificity Class II NO CLASS II ANTIBODY DETECTED [facility] WITH MFIs > 4000 AB Specificity Titr Class [facility] Report Specimen Blood Narrative Performed At Disclaimer: [facility] TEST[facility] This test was developed and its performance characteristics determined by the [facility] Laboratory. It has not been cleared [...] Performing Organization Address City/State/Zipcode Phone Number [facility] TEST[facility] ONE [address], MS: [id number], [place] [address] CLIA#[id number] CAP#[id number] UNOS#[id number] after 07/11/2018 Insurance Payer Benefit Subscriber ID Type Phone Address Plan / Group [employer] CIGNA xxxxxxxx [facility] [employer] Contracted ALL Advance Directives For more information, please contact: [facility] [address] [place] [address] Date Inactivated Comments Code Status Date Activated 01/25/2018 9:34 PM Full Code 01/25/2018 3:11 PM This code status was determined by: Patient 01/25/2018 3:11 PM Full Code 01/25/2018 9:05 AM This code status was determined by: Patient 12/31/2017 9:46 PM Full Code 12/31/2017 10:57 AM This code status was determined by: Patient
[2019-07-12 18:45] VITALS: BP 165/90
[2019-07-12 18:46] VITALS: BP 165/90
--- NOTE | 2019-07-12 19:10 | NUR ---
DIALYSIS NURSE ARRIVED TO TAKE OUT THE NEEDLE AND STUFF FOR DIALYSIS. DIALYSIS NURSE PLACED TWO 2X2 AND PAPER TAPE OVER THE SITE ON THE LEFT ARM. PATIENT IN BED. NO PAIN OR DISTRESS. RECEIVED REPORT FROM PREVIOUS NURSE. CALL LIGHT WITHIN REACH.
[2019-07-12 20:00] VITALS: BP 149/87
[2019-07-12 20:45] VITALS: BP 149/87
[2019-07-12 23:37] LABS: CREATINE KINASE MB 0.6 ng/mL (0-5.0)
[2019-07-13] VITALS (7 sets, daily range): BP systolic 109–150; BP diastolic 72–94
--- NOTE | 2019-07-13 01:44 | NUR ---
CALLED AND TALKED TO DR. WHITNEY ABOUT PATIENT BMP, PAIN MEDICATION AND HOME MEDICATION. DR. WHITNEY SAID HE WILL COME IN THE MORNING AND HE ORDERED TYLENOL 650 MG Q6H, PRN
[2019-07-13] MEDS ORDERED: ACETAMINOPHEN 325 MG TAB PO PRN (01:45)
--- NOTE | 2019-07-13 05:31 | NUR ---
PRIMARY CARE PHYSICIAN: Dr. Robles CHIEF COMPLAINT: chest pain. HISTORY OF PRESENT ILLNESS: This is a 67-year-old man with end stage renal disease developed chest pain- left sided; no SOB. no Dizziness. pain now resolved. PAST MEDICAL HISTORY: End stage renal disease on hemodialysis, atrial flutter/atrial fibrillation, diabetes mellitus, hypertension, hypothyroidism, hyperlipidemia, nephrolithiasis. PAST SURGICAL HISTORY: Left arm dialysis access, hernia repair. ALLERGIES: PER ELECTRONIC MEDICAL RECORD. FAMILY/SOCIAL HISTORY: Patient is . He has 3 children. No alcohol, illicit or cigarettes. MEDICATIONS: Per electronic medical record. REVIEW OF SYSTEMS: Denies any dizziness, fevers, chills, sweats, nausea, diarrhea, leg pain, back pain, blurry vision, headache. VITAL SIGNS: Have been reviewed. PHYSICAL EXAMINATION GENERAL: Tired-appearing man resting in bed. HEENT: Anicteric. CARDIOVASCULAR: Normal S1, S2. No chest wall tenderness LUNGS: Moderate breath sounds. ABDOMEN: Soft, nontender, nondistended. He has a left arm with a bruit on auscultation. Dialysis apparatus in place. EXTREMITIES: No cyanosis/tenderness SKIN: Dry. PSYCHIATRIC: Flat affect. LABS: Reviewed. MEDICATIONS: Reviewed. ASSESSMENT: This is a 67-year-old man. Atypical CP ESRD on HD PAF DM2 HTN OBesity BMI 32 Hypothyroidism HLD PLAN cardiac enzymes; had recent chest pain; cardio eval. Nephr for HD restart home meds lipid panel/hba1c INR daily- increase to 6mg. Alvaro Mcpherson MD, PhD.
[2019-07-13 06:27] LABS: CREATINE KINASE MB 0.7 ng/mL (0-5.0)
--- NOTE | 2019-07-13 07:26 | NUR ---
GAVE REPORT TO ONCOMING NURSE. CALL LIGHT WITHIN REACH. PATIENT IN BED ASLEEP.
[2019-07-13] MEDS: LEVETIRACETAM 500 MG TAB PO SCH ×2 (09:00→16:01)
[2019-07-13] MEDS: HEPARIN SOD (PORCINE) 5,000 UNIT/ML VIAL SC SCH ×2 (09:00→21:00)
[2019-07-13] MEDS: LISINOPRIL 2.5 MG TAB PO SCH (11:18)
[2019-07-13] MEDS: FAMOTIDINE 20 MG TAB PO SCH ×2 (11:18→17:39)
[2019-07-13] MEDS: LEVOTHYROXINE SODIUM 75 MCG TAB PO SCH (11:19)
[2019-07-13] MEDS: NIFEDIPINE CR 30 MG TAB PO SCH (11:19)
--- NOTE | 2019-07-13 11:26 | NUR ---
PT STATES WILL RETURN HOME DOESNT WANT TO ANSWER OTHER QUESTIONS, PCP IS JULIO
[2019-07-13] MEDS ORDERED: WARFARIN SOD 5 MG TAB PO SCH (17:00)
[2019-07-13] MEDS: WARFARIN SOD 5 MG TAB PO SCH (17:39)
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
--- NOTE | 2019-07-13 19:00 | NUR ---
Received report from previous nurse. call light within reach. patient in bed.
[2019-07-13] MEDS ORDERED: NON-FORMULARY MEDICATION (Lovastatin 20 MG) PO SCH (21:00)
[2019-07-13] MEDS ORDERED: SIMVASTATIN 20 MG TAB PO SCH (21:00)
--- NOTE | 2019-07-13 21:43 | NUR ---
patient refused heparin and was educated why he should have it and still refused. Patient is A&Ox3. Call light within reach.
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
[2019-07-14] VITALS (8 sets, daily range): BP systolic 139–176; BP diastolic 78–92
[2019-07-14 06:17] LABS: INR 1.3; PROTHROMBIN TIME 16.8 seconds (11.9-14.5)
--- NOTE | 2019-07-14 06:47 | NUR ---
D/C summary Principal Dx: Atypical chest pain Secondary Dx: ESRD on HD PAF DM2 HTN OBesity BMI 32 Hypothyroidism HLD PLAN cardiac enzymes; had recent chest pain; cardio eval. Nephr for HD restart home meds lipid panel/hba1c INR daily- increase to 6mg. 07/14 stress test pending; f/u PPM interrogation. Stress test reported to me as negative; Interrogation of PPM normal function; no events mentioned. d/c home f/u pcp 1 week stable d/c>35mins Alvaro Mcpherson MD, PhD.
--- NOTE | 2019-07-14 07:10 | NUR ---
Gave report to oncoming nurse. call light within reach. patient in bed.
[2019-07-14] MEDS: FAMOTIDINE 20 MG TAB PO SCH ×2 (07:30→17:44)
[2019-07-14 08:42] LABS: ANION GAP 18.1 mmol/L (8-16); CALCIUM 8.8 mg/dL (8.4-10.2); CREATININE, SERUM 10.35 mg/dL (0.72-1.25); POTASSIUM 4.1 mmol/L (3.5-5.1)
[2019-07-14] MEDS: HEPARIN SOD (PORCINE) 5,000 UNIT/ML VIAL SC SCH (09:00)
[2019-07-14] MEDS: NIFEDIPINE CR 30 MG TAB PO SCH (09:00)
[2019-07-14] MEDS: LEVETIRACETAM 500 MG TAB PO SCH ×2 (09:00→17:44)
[2019-07-14] MEDS: LEVOTHYROXINE SODIUM 75 MCG TAB PO SCH (09:00)
[2019-07-14] MEDS: LISINOPRIL 2.5 MG TAB PO SCH (09:00)
[2019-07-14] MEDS ORDERED: REGADENOSON 0.4 MG/5 ML SYR IV ONE (09:13)
--- NOTE | 2019-07-14 10:12 | NUR ---
pt leaving for stress test
--- NOTE | 2019-07-14 11:51 | Progress Note ---
DATE: 07/14/2019 Cardiology Progress Note SUBJECTIVE: The patient continues to complain of chest pain. He denies any shortness of breath. He was seen for nuclear stress test. OBJECTIVE: VITAL SIGNS: Temperature 97.8 degrees, pulse 84, respiratory rate 17, blood pressure 139/82, and oxygen saturation 99% on room air. GENERAL: Awake, alert, no acute distress. LUNGS: Clear to auscultation bilaterally. No wheezes or crackles. CARDIOVASCULAR: Normal rate. Regular rhythm. No murmur. Normal S1, S2. ABDOMEN: Soft, nontender. EXTREMITIES: No edema. CARDIAC MEDICATIONS: Simvastatin 10 mg p.o. at bedtime, warfarin 6 mg p.o. daily, nifedipine 30 mg p.o. daily, lisinopril 5 mg p.o. daily, and levothyroxine 75 mcg p.o. daily. LABORATORY DATA: Sodium 133, potassium 4.1, chloride 91, CO2 of 28, BUN 46, and creatinine 10.35. Troponin 0.029. TELEMETRY: Atrial fibrillation. IMPRESSION: 1. Chest pain. 2. Atrial fibrillation, status post permanent pacemaker. 3. Hypertension. 4. Hyperlipidemia. 5. End-stage renal disease, on hemodialysis. RECOMMENDATIONS: The patient ruled out for myocardial infarction with serial cardiac biomarkers. Nuclear stress test was performed today. Further recommendations pending test results. Continue current cardiac medications otherwise. The pacemaker interrogation revealed 4.5 years battery remaining, normal function, 99% atrial fibrillation. Thank you for this consult. We will continue to follow. Gabriela Pate MD ABS/MODL /[id number]
[2019-07-14] MEDS ORDERED: SODIUM CHLORIDE 0.9% 1000ML 1,000 ML ONE (12:26)
[2019-07-14] MEDS: WARFARIN SOD 5 MG TAB PO SCH (17:44)
--- NOTE | 2019-07-14 18:59 | NUR ---
pt completed stress test, per dr soria pt may dc and follow up in 2 weeks. pt had dialysis. devaughn GROSS to update and possibly dc.
--- NOTE | 2019-07-14 20:05 | NUR ---
Dr. Milton called and notified that Dr. Pate has cleared patient for DC. Per Dr. Milton Patient can go home.
--- NOTE | 2019-07-14 20:40 | NUR ---
Pt leaving unit via wheelchair at this time with PCT MURRAY and Son. Car is at front of building. Pt has all belongings with him. Room has been checked. Pt has discharge instructions. Pt and son have no further questions.
--- NOTE | 2019-07-21 11:56 | Myoview Stress Test ---
DATE OF STUDY: 07/13/2019 15:36:00 Stress Test - Treadmill ONLY PROCEDURE: Rest stress single isotope SPECT imaging with pharmacologic stress and gated SPECT imaging. INDICATION: Chest pain. PROCEDURE IN DETAIL: Pharmacologic stress testing was performed with regadenoson per protocol. The heart rate was 70 beats per minute at rest and increased to 104 beats per minute during the regadenoson infusion. The resting blood pressure was 154/83 mmHg and increased to 163/93 mmHg, which is a normal response. The resting electrocardiogram demonstrated atrial fibrillation with demand pacing. There were no ST-segment changes suggestive of myocardial ischemia. Myocardial perfusion imaging was performed at rest following the injection of 11 mCi of tetrofosmin. At peak pharmacologic effect, the patient was injected with 33 mCi of tetrofosmin. Gated post-stress tomographic imaging was performed. FINDINGS: 1. The overall quality of study is fair. Left ventricular cavity is noted to be normal in size on the rest and stress studies. SPECT images demonstrate homogeneous tracer distribution throughout the myocardium. Gated SPECT imaging reveals normal myocardial thickening and wall motion. The left ventricular ejection fraction was calculated to be 59%. IMPRESSION: Myocardial perfusion imaging is normal. Overall, left ventricular systolic function was normal without regional wall motion abnormalities. Gabriela Pate MD ABS/MODL /[id number]
== END 2019-07-14 20:40 | disposition home or self-care (01) ==
LOC: ER 14:10 → ERHOLD 15:47 → IMCU 17:05
PROVIDERS: ADMIT Internal Medicine; ATTEND Internal Medicine
DX: R07.89 Other chest pain (principal); I48.0 Paroxysmal atrial fibrillation; E78.5 Hyperlipidemia, unspecified; I12.0 Hypertensive chronic kidney disease with stage 5 chronic kidney disease or end stage renal disease; N18.6 End stage renal disease; Z99.2 Dependence on renal dialysis; Z95.0 Presence of cardiac pacemaker; Z79.01 Long term (current) use of anticoagulants; E11.319 Type 2 diabetes mellitus with unspecified diabetic retinopathy without macular edema; E11.21 Type 2 diabetes mellitus with diabetic nephropathy; E11.22 Type 2 diabetes mellitus with diabetic chronic kidney disease; E03.9 Hypothyroidism, unspecified; E66.9 Obesity, unspecified; Z68.32 Body mass index [BMI] 32.0-32.9, adult; Z79.82 Long term (current) use of aspirin
CPT/HCPCS: 36415 ×3; 71045; 78452; 80048; 80053; 80061; 82550 ×2; 82553 ×2; 83036; 83880; 84484 ×2; 85025; 85610 ×2; 85730; 93005; 93017; 93306; 99284; A9502; G0378 ×3; J1644; J2785; J7030

== ENCOUNTER → 2019-08-11 | Outpatient (CLI) | payer MEDICARE ==
[2019-08-11 07:30] LABS: INR 3.72; PROTHROMBIN TIME 37.6 seconds (11.9-14.5)
== END ==
LOC: LAB 06:56
PROVIDERS: ATTEND Internal Medicine Nephrology
DX: Z94.0 Kidney transplant status (principal)
CPT/HCPCS: 36415; 85610

== ENCOUNTER → 2019-10-02 | Outpatient (CLI) | payer MEDICARE ==
[2019-10-02 07:03] LABS: BASOPHILS # (AUTO) 0.1 (0.0-0.1); BASOPHILS % 0.9 % (0.0-1.0); EOSINOPHILS # (AUTO) 0.1 (0.0-0.4); EOSINOPHILS % 1.5 % (0.0-6.0); HEMATOCRIT 41.3 % (38.2-49.6); LYMPHOCYTES # (AUTO) 0.7 (1.0-3.2); LYMPHOCYTES % 8.9 % (18.0-39.1); MEAN CORPUSCULAR HEMOGLOBIN 33.4 pg (28-32); MEAN CORPUSCULAR HGB CONC 33.9 g/dL (31-35); MEAN CORPUSCULAR VOLUME 98.6 fL (81-99); MONOCYTES # (AUTO) 0.9 (0.2-0.8); MONOCYTES % 10.3 % (4.4-11.3); NEUTROPHILS # (AUTO) 6.3 (2.1-6.9); NEUTROPHILS % 76.9 % (38.7-80.0); PLATELET COUNT 275 x10e3/uL (140-360); RED BLOOD COUNT 4.19 x10e6/uL (4.3-5.7); RED CELL DISTRIBUTION WIDTH 14.7 % (11.7-14.4)
== END ==
LOC: LAB 06:44
PROVIDERS: ATTEND Internal Medicine Nephrology
DX: Z94.0 Kidney transplant status (principal)
CPT/HCPCS: 36415; 85025

== ENCOUNTER → 2019-10-09 | Outpatient (CLI) | payer MEDICARE ==
[2019-10-09 08:39] LABS: BASOPHILS # (AUTO) 0.1 (0.0-0.1); BASOPHILS % 1.1 % (0.0-1.0); EOSINOPHILS # (AUTO) 0.1 (0.0-0.4); EOSINOPHILS % 1.3 % (0.0-6.0); HEMATOCRIT 45.3 % (38.2-49.6); HEMOGLOBIN 14.8 g/dL (14.0-18.0); LYMPHOCYTES # (AUTO) 0.6 (1.0-3.2); LYMPHOCYTES % 10.7 % (18.0-39.1); MEAN CORPUSCULAR HEMOGLOBIN 32.7 pg (28-32); MEAN CORPUSCULAR HGB CONC 32.7 g/dL (31-35); MEAN CORPUSCULAR VOLUME 100.2 fL (81-99); MONOCYTES # (AUTO) 0.6 (0.2-0.8); MONOCYTES % 10.9 % (4.4-11.3); NEUTROPHILS # (AUTO) 4.1 (2.1-6.9); NEUTROPHILS % 74.7 % (38.7-80.0); PLATELET COUNT 248 x10e3/uL (140-360); RED BLOOD COUNT 4.52 x10e6/uL (4.3-5.7); RED CELL DISTRIBUTION WIDTH 14.7 % (11.7-14.4)
[2019-10-09 08:42] LABS: BILIRUBIN,URINE NEGATIVE (NEGATIVE); CLARITY,URINE CLEAR (CLEAR); COLOR,URINE YELLOW (YELLOW); KETONES,URINE NEGATIVE (NEGATIVE); LEUKOCYTE ESTERASE ,URINE NEGATIVE (NEGATIVE); NITRITE,URINE NEGATIVE (NEGATIVE); PROTEIN,URINE DIPSTICK 1+ (NEGATIVE); URINE UROBILINOGEN 0.2 mg/dL (0.2 - 1)
[2019-10-09 08:50] LABS: INR 2.29; PROTHROMBIN TIME 25.9 seconds (11.9-14.5)
[2019-10-09 08:58] LABS: ALBUMIN/GLOBULIN RATIO 1.1 (0.8-2.0); ANION GAP 13.7 mmol/L (8-16); CALCIUM 9.6 mg/dL (8.4-10.2); CREATININE, SERUM 1.84 mg/dL (0.72-1.25); POTASSIUM 4.7 mmol/L (3.5-5.1)
[2019-10-09 09:09] LABS: BACTERIA,URINE MANY /HPF; EPITHELIAL CELLS,URINE FEW /LPF; MUCUS,URINE FEW (RARE)
[2019-10-09 10:43] LABS: BAND NEUTROPHILS % (MANUAL) 1 %; EOSINOPHILS % (MANUAL) 2 % (0-7); LYMPHOCYTES % (MANUAL) 9 % (19-48); MONOCYTES % (MANUAL) 9 % (3.4-9.0); NEUTROPHILS % (MANUAL) 78 % (40-74)
[2019-10-09 10:44] LABS: BURR CELLS SLIGHT; PLATELET ESTIMATE ADEQUATE; POIKILOCYTOSIS SLIGHT
[2019-10-09 10:45] LABS: RBC MORPHOLOGY COMMENT ABNORMAL
[2019-10-09 10:46] LABS: ANISOCYTOSIS SLIGHT; OVALOCYTES FEW; PLATELET MORPHOLOGY COMMENT NORMAL
== END ==
LOC: LAB 08:15
PROVIDERS: ATTEND Internal Medicine Nephrology
DX: Z94.0 Kidney transplant status (principal)
CPT/HCPCS: 36415; 80053; 80197; 81001; 83615; 84100; 85025; 85610

== ENCOUNTER → 2019-10-23 | Outpatient (CLI) | payer MEDICARE ==
[2019-10-23 07:52] LABS: BASOPHILS # (AUTO) 0.1 (0.0-0.1); BASOPHILS % 0.9 % (0.0-1.0); EOSINOPHILS # (AUTO) 0.1 (0.0-0.4); EOSINOPHILS % 1.2 % (0.0-6.0); HEMOGLOBIN 14.2 g/dL (14.0-18.0); LYMPHOCYTES # (AUTO) 0.7 (1.0-3.2); LYMPHOCYTES % 8.1 % (18.0-39.1); MEAN CORPUSCULAR HEMOGLOBIN 33.1 pg (28-32); MEAN CORPUSCULAR VOLUME 100.2 fL (81-99); MONOCYTES # (AUTO) 0.8 (0.2-0.8); NEUTROPHILS # (AUTO) 6.4 (2.1-6.9); NEUTROPHILS % 74.3 % (38.7-80.0); PLATELET COUNT 254 x10e3/uL (140-360); RED BLOOD COUNT 4.29 x10e6/uL (4.3-5.7); RED CELL DISTRIBUTION WIDTH 14.6 % (11.7-14.4)
== END ==
LOC: LAB 07:40
PROVIDERS: ATTEND Internal Medicine Nephrology
DX: Z94.0 Kidney transplant status (principal)
CPT/HCPCS: 36415; 85025

== ENCOUNTER → 2019-10-25 | Outpatient (CLI) | payer MEDICARE | LOC: LAB 07:55 | PROVIDERS: ATTEND Internal Medicine Nephrology | DX: Z94.0 Kidney transplant status (principal) | CPT/HCPCS: 80197 ==

== ENCOUNTER → 2019-11-01 | Outpatient (CLI) | payer MEDICARE ==
[2019-11-01 09:22] LABS: INR 1.14; PROTHROMBIN TIME 15.2 seconds (11.9-14.5)
[2019-11-01 09:29] LABS: ALBUMIN/GLOBULIN RATIO 1.1 (0.8-2.0); ANION GAP 15.7 mmol/L (8-16); CALCIUM 9.2 mg/dL (8.4-10.2); CREATININE, SERUM 2.01 mg/dL (0.72-1.25); POTASSIUM 4.7 mmol/L (3.5-5.1)
[2019-11-01 09:35] LABS: BILIRUBIN,URINE NEGATIVE (NEGATIVE); CLARITY,URINE CLOUDY (CLEAR); COLOR,URINE YELLOW (YELLOW); KETONES,URINE NEGATIVE (NEGATIVE); LEUKOCYTE ESTERASE ,URINE NEGATIVE (NEGATIVE); NITRITE,URINE NEGATIVE (NEGATIVE); PROTEIN,URINE DIPSTICK 2+ (NEGATIVE); URINE UROBILINOGEN 0.2 mg/dL (0.2 - 1)
[2019-11-01 11:03] LABS: PHOSPHORUS 4.1 MG/DL (2.3-4.7)
== END ==
LOC: LAB 08:48
PROVIDERS: ATTEND Internal Medicine Nephrology
DX: Z94.0 Kidney transplant status (principal)
CPT/HCPCS: 36415; 80053; 80197; 81003; 83615; 84100; 85610

== ENCOUNTER → 2020-01-25 | Outpatient (CLI) | payer MEDICARE ==
[2020-01-25 07:32] LABS: BASOPHILS # (AUTO) 0.1 (0.0-0.1); BASOPHILS % 0.9 % (0.0-1.0); EOSINOPHILS # (AUTO) 0.2 (0.0-0.4); EOSINOPHILS % 2.9 % (0.0-6.0); HEMATOCRIT 48.5 % (38.2-49.6); HEMOGLOBIN 16.3 g/dL (14.0-18.0); LYMPHOCYTES # (AUTO) 0.8 (1.0-3.2); LYMPHOCYTES % 11.6 % (18.0-39.1); MEAN CORPUSCULAR HEMOGLOBIN 32.1 pg (28-32); MEAN CORPUSCULAR HGB CONC 33.6 g/dL (31-35); MEAN CORPUSCULAR VOLUME 95.5 fL (81-99); MONOCYTES # (AUTO) 0.8 (0.2-0.8); MONOCYTES % 12.5 % (4.4-11.3); NEUTROPHILS # (AUTO) 4.6 (2.1-6.9); NEUTROPHILS % 71.5 % (38.7-80.0); PLATELET COUNT 272 x10e3/uL (140-360); RED BLOOD COUNT 5.08 x10e6/uL (4.3-5.7); RED CELL DISTRIBUTION WIDTH 15.2 % (11.7-14.4)
== END ==
LOC: LAB 07:05
PROVIDERS: ATTEND Internal Medicine Nephrology
DX: Z94.0 Kidney transplant status (principal)
CPT/HCPCS: 36415; 85025

== ENCOUNTER 2020-07-30 14:51 | Emergency (ER) | payer MEDICARE ==
[~2020-07-30] VITALS: Ht 167.6 cm; Wt 99.8 kg
[2020-07-30] MEDS ORDERED: SODIUM CHLORIDE 0.9% 1000ML 1,000 ML IV STA (15:16)
[2020-07-30] MEDS ORDERED: ONDANSETRON HCL INJ 2MG/ML 2ML 2 MG/ML VIAL IV STA (15:16)
[2020-07-30] MEDS ORDERED: MORPHINE SULFATE 2 MG/ML SYR 1ML IV STA ×2 (15:16→17:05)
--- OUTSIDE RECORDS SUMMARY | 2020-07-30 15:33 | XMS REPORT | Clinical Summary ---
Author Author [facility] Organization [facility] Address Unknown Phone Unavailable Care Team Providers Care Home Health Physical Therapist Name Role Phone Crispin Bailey MD PCP [...] by 0 MG tablet mouth nightly. Active Problems Not on file Family History Medical History Relation Name Comments [...] drinks containing alcohol do you have on No t asked a typical day when you are drinking? How often do you have six or more drinks on one Not asked occasion? Sex Assigned at Date Recorded Not on file Industry Job Start Date Occupation Not on file Not on file Not on file Travel End Travel History Travel Start No recent travel history available. Last Filed Vital Signs Not on file Plan of Treatment Health Maintenance Due Date Last Done Comments DIABETIC RETINAL EYE EXAM 1952 DIABETIC FOOT EXAM 1962 URINE MICROALBUMIN 1962 COLONOSCOPY SCREENING 2002 SHINGLES VACCINES (#1) 2002 65+ PNEUMOCOCCAL VACCINE 2017 (1 of 2 - PCV13) INFLUENZA VACCINE 08/22/2020 Results Not on fileafter 07/30/2019 Insurance Type Payer Benefit Subscriber ID Effective Phone Address Plan / Dates Group HMO [employer] CIGNA xxxxxxxx [id number] [facility] Advance Directives For more information, please contact: [phone] Patient Turn Out Explanation Type Date Recorded Advance Directives, 03/31/2019 12:20 PM Living Will and Medical Power of Sample Card Maker
--- OUTSIDE RECORDS SUMMARY | 2020-07-30 15:33 | XMS REPORT | Clinical Summary ---
Author Author [facility] Organization [facility] Address Unknown Phone Unavailable Care Team Providers Care Poultry Vaccinator Name Role Phone PCP Unavailable Allergies Comments Active Allergy Reactions Severity Noted Date No Latex Allergy No Known Allergies 06/18/2008 Medications End Date Status Medication Sig Dispensed Refills Start Date Active ASPIRIN 81 MG TAB take 1 tablet 0 (81 mg) by oral route once daily Active blood glucose (PRECISION every other 1 Box 11 0 XTRA TEST STRIPS) test day. 4 stripsIndications: Proteinuria Active lancetsIndications: every other 1 Box 11 Proteinuria day. 4 Active blood glucose meter Use as 1 Kit 0 (PRECISION XTRA directed.. 4 GLUCOMETER)Indications: Diabetes mellitus Active ergocalciferol (VITAMIN Take 1 12 capsule 1 D2) 50,000 unit capsule by 4 capsuleIndications: CKD mouth weekly. (chronic kidney disease) stage 3, GFR 30-59 ml/min Active furosemide (LASIX) 40 mg Take 1 tablet 60 tablet 4 tabletIndications: CKD by mouth 2 4 (chronic kidney disease) times daily. stage 3, GFR 30-59 ml/min Active levothyroxine (SYNTHROID) Take 1 tablet 90 tablet 1 75 mcg tabletIndications: by mouth 4 Hypothyroidism daily. Active lovastatin 20 mg Take 1 tablet 90 tablet 1 01 tabletIndications: by mouth at 4 Hyperlipidemia bedtime nightly. Active amLODIPine (NORVASC) 10 Take 1 tablet 90 tablet 1 mg tabletIndications: by mouth 4 Hypertension daily. Active traMADol (ULTRAM) 50 mg TAKE ONE 60 tablet 3 tabletIndications: TABLET BY 4 Osteoarthritis MOUTH EVERY 6 HOURS NEEDED. Active enalapril (VASOTEC) 20 mg Take 1 tablet 60 tablet 0 tabletIndications: by mouth 2 5 Essential hypertension times daily Please see PCP for further refills. Active Problems Problem Noted Date Colon polyp 02/21/2015 Overview: 2 small TA removed 2014, repeate colono scopy 2019 FSGS (focal segmental glomerulosclerosis) 10/26/2014 Glomerulonephritis 09/21/2014 Serum gamma globulin increased 11/02/2013 Major depression 11/08/2012 Need for influenza vaccination 11/08/2012 Obesity, unspecified 11/08/2012 Diabetes mellitus 09/06/2012 Osteoarthritis 05/05/2010 Pain in joint, shoulder region 03/24/2010 Low back pain Nonspecific abnormal finding in stool c ontents Proteinuria Hypothyroidism Hyperlipidemia Hypertension Immunizations Name Administration Dates Next Due Herpes Zoster Vaccine In 09/21/2014 Clinic Influenza Vaccine 09/21/2014, 11/08/2012, (Deferred: Vaccine Unavailable), 09/14/2008 PPV 23 Pneumococcal 11/11/2009, 01/03/1999 Polysaccaride Td Tetanus, diphtheria 04/04/2004 Toxoids Vaccine Tdap Tetanus, diphtheria, 08/08/2014 acellular pertussis Vaccine Family History Medical History Relation Name Comments Diabetes Brother Diabetes Sister Relation Name Status Comments Brother Father Other whereabouts unknown to patient Mother Alive Sister Social History Date Tobacco Use Types Packs/Day Years Used Quit: 09/14/1996 Never Smoker Smokeless Tobacco: Never Used Tobacco Cessation: Counseling Given: No Drinks/Week oz/Week Comments Alcohol Use socially No Sex Assigned at Date Recorded Not on file Industry Job Start Date Occupation Not on file Not on file Not on file Travel End Travel History Travel Start No recent travel history available. Last Filed Vital Signs Not on file Plan of Treatment Health Maintenance Due Date Last Done Comments DM Retinal Exam (Yearly) 08/25/2014 08/25/2013, 08/25/2013 DM Foot Exam (Yearly) 01/15/2015 01/15/2014, 01/12/2013, 03/04/2012 (Previously completed - External) DM HGBA1C (Yearly) 10/02/2015 10/02/2014, 06/18/2014, 03/15/2014, Additional history exists IMM Pneumococcal Age 65 2017 and Up Colonoscopy 5yr 01/11/2020 01/11/2015 Results Not on fileafter 07/30/2019 Advance Directives Date Inactivated Comments Code Status Date Activated 09/12/2014 7:00 PM Full Code 09/11/2014 9:57 AM
--- OUTSIDE RECORDS SUMMARY | 2020-07-30 15:34 | XMS REPORT | Clinical Summary ---
Author Author [facility] Address Unknown Phone Unavailable Care Team Providers Care Eeg Tech Name Role Phone Travis--Crispin Kilpatrick PCP Allergies No Known Allergies Medications End Date Status Medication Sig Dispensed Refills Start Date Active levothyroxine (SYNTHROID, Take 75 mcg 0 LEVOTHROID) 75 MCG tablet by mouth Every morning on an empty stomach. Active famotidine (PEPCID) 20 MG Twice Daily 0 05/22201 tablet Before Meals 8 08/04/2020 Active atorvastatin (LIPITOR) 10 Take 1 tablet 30 tablet 1 MG tablet (10 mg total) 9 by mouth daily. 08/10/2020 Active warfarin (COUMADIN) 5 MG Take 1 tablet 21 tablet 0 tablet (5 mg total) 9 by mouth daily. Active CONTOUR NEXT TEST STRIPS Use to test 100 strip 1 1 StrpIndications: Status blood sugar 9 post kidney transplant, three times FSGS (focal segmental daily. glomerulosclerosis), Immunosuppression (HCC), Hyperglycemia 11/06/2020 Active NIFEdipine (ADALAT CC) 30 Take 1 tablet 180 tablet 3 MG 24 hr (30 mg total) 9 tabletIndications: Status by mouth 2 post kidney transplant, (two) times FSGS (focal segmental daily. glomerulosclerosis), Immunosuppression (HCC), Chronic hypertension 11/06/2020 Active carvedilol (COREG) 25 MG Take 1 tablet 180 tablet 3 tabletIndications: Status (25 mg total) 9 post kidney transplant, by mouth 2 FSGS (focal segmental (two) times glomerulosclerosis), daily. Immunosuppression (HCC), Chronic hypertension 12/14/2020 Active sulfamethoxazole-trimetho Take 1 tablet 90 tablet 3 prim (BACTRIM,SEPTRA) (80 mg of 0 400-80 mg per trimethoprim tabletIndications: S/P total) by kidney transplant, FSGS mouth daily. (focal segmental glomerulosclerosis), Immunosuppression (HCC) 12/28/2020 Active insulin NPH (HUMULIN N) 5 unidades 10 mL 1 100 unit/mL injection antes de 0 desayuno. 5 unidades antes de travel money advisor.. Active insulin syringe-needle Use 4 times 100 each 1 U-100 0.3 mL 31 gauge x daily. 0 04/06" Syrg Active predniSONE (DELTASONE) 5 Take 1 tablet 30 tablet 6 MG tablet (5 mg total) 0 by mouth daily. Active tacrolimus (PROGRAF) 0.5 2 capsules 540 capsule 3 0 MG capsuleIndications: (1mg) in AM 0 S/P kidney transplant, and 3 FSGS (focal segmental capsules (1.5 glomerulosclerosis), mg) PM. Immunosuppression (HCC) 09/05/2019 Discontinued omeprazole (PRILOSEC) 40 Take 40 mg by 0 MG capsule mouth daily. 08/05/2019 Discontinued lovastatin (MEVACOR) 20 Take 20 mg by 0 MG tablet mouth nightly. 08/05/2019 Discontinued calcium acetate (PHOSLO) Take 667 mg 0 667 mg capsule by mouth 3 (three) times daily with meals 2 tabs . 08/05/2019 Discontinued calcitriol (ROCALTROL) Take 0.5 mcg 0 0.5 MCG capsule by mouth 3 (three) times a week after dialysis MON/WED/FRI . 08/03/2019 Discontinued warfarin (COUMADIN) 4 MG Take 5 mg by 0 tablet mouth daily . 08/05/2019 Discontinued NIFEdipine (PROCARDIA-XL) Take 30 mg by 0 30 MG (OSM) 24 hr tablet mouth daily. 08/05/2019 Discontinued amLODIPine (NORVASC) 5 MG Take 5 mg by 0 tablet mouth daily. 08/05/2019 Discontinued furosemide (LASIX) 80 MG Take 80 mg by 0 tablet mouth 2 (two) times daily. 08/05/2019 Discontinued metoprolol (TOPROL-XL) 50 Take 50 mg by 0 MG 24 hr tablet mouth daily. 01/18/2020 Discontinued aspirin 81 MG EC tablet 81 mg. 0 8 08/05/2019 Discontinued lidocaine-prilocaine APPLY SMALL 12 (EMLA) 2.5-2.5 % cream AMOUNT TO 9 ACCESS SITE (AVF) 3 TIMES A WEEK 1 HOUR BEFORE DIALYSIS. COVER WITH OCCLUSIVE DRESSING (SARAN WRAP) 08/05/2019 Discontinued NIFEdipine (ADALAT CC) 30 Take 1 tablet 60 tablet 1 MG 24 hr tablet (30 mg total) 9 by mouth 2 (two) times daily. 08/05/2019 Discontinued carvedilol (COREG) 25 MG Take 1 tablet 60 tablet 1 tablet (25 mg total) 9 by mouth 2 (two) times daily. 08/05/2019 Discontinued clotrimazole (MYCELEX) 10 Use as 70 tablet 1 mg daquan directed 1 9 tablet (10 mg total) in the mouth or throat 3 (three) times daily with meals for 10 days. 08/05/2019 Discontinued insulin NPH (HUMULIN N) 5 unidades 10 mL 0 100 unit/mL injection antes de 9 desayuno. 5 unidades antes de myron.. 08/05/2019 Discontinued predniSONE (DELTASONE) 10 Take 1 tablet 30 tablet 2 MG tablet (10 mg total) 9 by mouth daily for 10 days. 08/05/2019 Discontinued sulfamethoxazole-trimetho Take 1 tablet 30 tablet 2 prim (BACTRIM,SEPTRA) (80 mg of 9 400-80 mg per tablet trimethoprim total) by mouth daily for 10 days. 08/05/2019 Discontinued tacrolimus (PROGRAF) 0.5 Take 3 180 capsule 11 0 MG capsule capsules (1.5 9 mg total) by mouth 2 (two) times daily Take at 6 am and 6 pm each day. 08/05/2019 Discontinued mycophenolate (CELLCEPT) Take 4 240 capsule 11 0 250 mg capsule capsules 9 (1,000 mg total) by mouth 2 (two) times daily. 08/05/2019 Discontinued acetaminophen-codeine Take 1 tablet 30 tablet 0 (TYLENOL #3) 300-30 mg by mouth 9 per tablet every 6 (six) hours as needed for up to 10 days. Max Daily Amount: 4 tablets 08/05/2019 Discontinued docusate sodium (COLACE) Take 1 60 capsule 0 0 100 MG capsule capsule (100 9 mg total) by mouth 2 (two) times daily for 10 days. 08/05/2019 Discontinued atorvastatin (LIPITOR) 10 Take 1 tablet 30 tablet 1 MG tablet (10 mg total) 9 by mouth daily. 08/05/2019 Discontinued warfarin (COUMADIN) 7.5 Take 1 tablet 30 tablet 0 MG tablet (7.5 mg 9 total) by mouth daily. 11/07/2019 Discontinued carvedilol (COREG) 25 MG Take 1 tablet 60 tablet 1 tablet (25 mg total) 9 by mouth 2 (two) times daily. 08/15/2019 clotrimazole (MYCELEX) 10 Use as 70 tablet 1 mg daquan directed 1 9 tablet (10 mg total) in the mouth or throat 3 (three) times daily with meals for 10 days. 08/15/2019 docusate sodium (COLACE) Take 1 60 capsule 0 0 100 MG capsule capsule (100 9 mg total) by mouth 2 (two) times daily for 10 days. 12/29/2019 Discontinued insulin NPH (HUMULIN N) 5 unidades 10 mL 0 100 unit/mL injection antes de 9 desayuno. 5 unidades antes de travel money advisor.. 10/25/2019 Discontinued mycophenolate (CELLCEPT) Take 4 240 capsule 11 0 250 mg capsule capsules 9 (1,000 mg total) by mouth 2 (two) times daily. 08/16/2019 predniSONE (DELTASONE) 10 Take 1 tablet 30 tablet 2 MG tablet (10 mg total) 9 by mouth daily for 10 days. 08/16/2019 sulfamethoxazole-trimetho Take 1 tablet 30 tablet 2 prim (BACTRIM,SEPTRA) (80 mg of 9 400-80 mg per tablet trimethoprim total) by mouth daily for 10 days. 08/08/2019 Discontinued tacrolimus (PROGRAF) 0.5 Take 3 180 capsule 11 0 MG capsule capsules (1.5 9 mg total) by mouth 2 (two) times daily Take at 6 am and 6 pm each day. 08/11/2019 Discontinued warfarin (COUMADIN) 7.5 Take 1 tablet 30 tablet 0 MG tablet (7.5 mg 9 total) by mouth daily. 08/15/2019 acetaminophen-codeine Take 1 tablet 20 tablet 0 (TYLENOL #3) 300-30 mg by mouth 9 per tablet every 6 (six) hours as needed for up to 10 days. Max Daily Amount: 4 tablets 11/07/2019 Discontinued NIFEdipine (ADALAT CC) 30 Take 1 tablet 60 tablet 1 MG 24 hr tablet (30 mg total) 9 by mouth 2 (two) times daily. 08/15/2019 Discontinued tacrolimus (PROGRAF) 0.5 Take 1 mg (2 180 capsule 11 MG capsule capsules) in 9 AM and 1.5 mg (3 capsules) in PM. 08/23/2019 Discontinued tacrolimus (PROGRAF) 0.5 Take .05 mg 180 capsule 11 0 MG capsule (1 capsules) 9 in AM and 1 mg (2 capsules) in PM. 09/26/2019 Discontinued predniSONE (DELTASONE) 5 Take 2 0 08/18 MG tablet tablets (10 9 mg total) by mouth daily. 09/05/2019 Discontinued tacrolimus (PROGRAF) 0.5 Take 2 180 capsule 11 1 MG capsule capsules (1 9 mg total) by mouth 2 (two) times daily. 12/28/2019 Discontinued predniSONE (DELTASONE) 5 Take 5 mg by 0 MG tablet mouth daily. 09/26/2019 Discontinued tacrolimus (PROGRAF) 0.5 Take 0.5 mg 180 capsule 11 1 MG capsule (1 capsule) 9 in AM and 1 mg (2 capsules) in PM. 09/26/2019 Discontinued CONTOUR NEXT TEST STRIPS USE TO TEST 0 08/04 Strp BLOOD SUGAR 9 TID 11/10/2019 Discontinued tacrolimus (PROGRAF) 0.5 Take 1 180 capsule 11 1 MG capsule capsule (0.5 9 mg total) by mouth 2 (two) times daily. 11/13/2019 Discontinued tacrolimus (PROGRAF) 0.5 1 mg bid.. 180 capsule 11 1 MG capsule 9 12/05/2019 Discontinued tacrolimus (PROGRAF) 0.5 Take 3 180 capsule 11 1 MG capsule capsules (1.5 9 mg total) by mouth 2 (two) times daily. 01/18/2020 Discontinued tacrolimus (PROGRAF) 0.5 Take 3 540 capsule 3 0 MG capsuleIndications: capsules (1.5 0 S/P kidney transplant, mg total) by FSGS (focal segmental mouth 2 (two) glomerulosclerosis), times daily. Immunosuppression ([facility]) 01/16/2020 Discontinued predniSONE (DELTASONE) 5 Take 1 tablet 30 tablet 6 MG tablet (5 mg total) 0 by mouth daily. 12/29/2019 Discontinued insulin NPH (HUMULIN N) 5 unidades 10 mL 0 100 unit/mL injection antes de 0 desayuno. 5 unidades antes de travel money advisor.. 02/06/2020 Discontinued predniSONE (DELTASONE) 5 Take 1 tablet 30 tablet 6 MG tablet (5 mg total) 0 by mouth daily. 03/20/2020 Discontinued tacrolimus (PROGRAF) 0.5 2 capsules 540 capsule 3 0 MG capsuleIndications: (1mg) in AM 0 S/P kidney transplant, and 3 FSGS (focal segmental capsules (1.5 glomerulosclerosis), mg) PM. Immunosuppression ([facility]) 07/08/2020 Discontinued tacrolimus (PROGRAF) 0.5 2 capsules 540 capsule 3 0 MG capsuleIndications: (1mg) in AM 0 S/P kidney transplant, and 2 FSGS (focal segmental capsules (1.0 glomerulosclerosis), mg) PM. Immunosuppression ([facility]) 06/08/2020 Discontinued amoxicillin-clavulanate Take 1 tablet 30 tablet 0 (AUGMENTIN) 500-125 mg by mouth 3 0 per tablet (three) times daily for 10 days. 06/18/2020 mINOCYCLine Take 1 20 capsule 0 (MINOCIN,DYNACIN) 100 MG capsule (100 0 capsule mg total) by mouth 2 (two) times daily for 10 days. Active Problems Problem Noted Date Immunosuppression 08/22/2019 Last Assessment & Plan: He denies headaches or tremors with his immunosuppression. We will adjust his dose according to his levels. Hyperlipidemia 08/22/2019 Kidney transplanted 08/03/2019 Last Assessment & Plan: He is s/p kidney transplant on 9. Creatinine stable. [place] were removed in clinic during a previous cli [place] visit. ESRD (end stage renal disease) 08/02/2019 CAD (coronary artery disease) 01/20/2019 Overview: non-occlusive: 20-30% LAD, 20% prox Cx, 80% D1 (01/2019), neg stress 03/2019, EF 70% MAC, mild TR 09/2018; cleared by Cards 01/2018 Pre-transplant evaluation for ESRD (end stage renal d isease) 01/25/2018 Last Assessment & Plan: He is an acceptable candidate for kidne y transplant and is scheduled for NKR on 08/02/2019. Elevated serum GGT level 11/22/2017 Overview: cleared for transplant by GI 2017 Elevated PSA 11/22/2017 Overview: elevated PSA prostate bx- negative foll ow up in a year (2018), reported "inflammation on Bx" cleared for Tx by Dr. Troncoso 07/2019 Pre-transplant evaluation for kidney transplant 10/22 Pacemaker 10/19/2017 Overview: [facility] ? cause slow heart rarte neen more information ESRD (end stage renal disease) on dialysis 7 Overview: MWF.access- [place] AVF Chronic atrial fibrillation 11/22/2016 Overview: pacemaker, coumadin L ast Assessment & Plan: Continue follow up with cardiology. FSGS (focal segmental glomerulosclerosis) 08/22/2014 Overview: SECONDARY- with glomerulomegaly and art erial/ arteriolar nephrosclerosis - by Bx at [facility] L ast Assessment & Plan: He is s/p kidney transplant secondary t o FSGS. He does not have evidence of recurrent FSGS at this time. Hypertension 11/22/1999 Last Assessment & Plan: He does not have his blood pressure log s but states that his readings are stable at home. Obesity, Class I, BMI 30-34.9 GERD (gastroesophageal reflux disease) Last Assessment & Plan: On pepcid Kidney cyst, acquired Overview: 2 simple cysts on US Acute respiratory insufficiency Chronic hypertension Last Assessment & Plan: Currently on nifedipine and coreg Acute blood loss anemia Hyperglycemia Last Assessment & Plan: His blood sugars are stable on current regimen. Encounters Care Team Description Date Type Specialty Nevaeh Hinds MD S/P kidney transplant 07/08/2020 Orders Only Transplant Rodney Hawthorne, cardiac cath technologist Dose Change 07/08/2020 Telephone Transplant Rodney Duran RN S/P kidney transplant; FSGS (focal segmental glomerulosclerosis); Immunosuppression (HCC) 07/08/2020 Orders Only Transplant Augustina Velez RN Labs Only 07/05/2020 Telephone Transplant Nevaeh Hinds MD Status post kidney transplant; S/P kidney transplant 07/04/2020 Orders Only Transplant Hepatolo gy Keyonna Ramireza Y Appointment 07/03/2020 Telephone Transplant Augustina Velez RN Medication Problem 06/08/2020 Telephone Transplant Augustina Velez RN 06/08/2020 Refill Transplant Augustina Velez RN Follow-up 06/07/2020 Telephone Transplant Nevaeh Hinds MD S/P kidney transplant (Primary Dx) 06/06/2020 Evaluation Transplant Nevaeh Hinds MD Status post kidney transplant; S/P kidney transplant 06/06/2020 Orders Only Transplant Augustina Guzman RN S/P kidney transplant (Primary Dx) 06/06/2020 Orders Only Transplant RamirezKeyonnaa Y Appointment 06/05/2020 Telephone Transplant Sivan Boston RN Follow-up 05/20/2020 Telephone Transplant Rafaela Henderson RN 05/18/2020 Documentation Transplant Merna Goncalves RN Kidney Transplant Follow-up 05/17/2020 Telephone Transplant Nevaeh Hinds MD Status post kidney transplant 05/09/2020 Orders Only Transplant Hepatolo gy Ramirez, Tammie Y Appointment 05/08/2020 Telephone Transplant Sivan Boston RN 04/26/2020 Refill Transplant Nevaeh Hinds MD Mahajan, Kapil Dev, MD S/P kidney transplant (Primary Dx) 04/11/2020 Evaluation Transplant Nevaeh Hinds MD Status post kidney transplant 04/11/2020 Orders Only Transplant Hepatolo gy Keyonna Ramireza Y Appointment 04/10/2020 Telephone Transplant Nevaeh Hinds MD Status post kidney transplant 03/28/2020 Orders Only Transplant Hepatolo gy Ramirez, Tammie Y Appointment 03/27/2020 Telephone Transplant Augustina Velez, cardiac cath technologist Dose Change 03/20/2020 Telephone Transplant Nevaeh Hinds MD Status post kidney transplant 03/14/2020 Orders Only Transplant Hepatolo gy Ramirez, Tammie Y Appointment 03/14/2020 Telephone Transplant Nevaeh Hinds MD Pandya, Aashish Mahesh, MD S/P kidney transplant (Primary Dx) 02/15/2020 Evaluation Transplant Nevaeh Hinds MD Status post kidney transplant 02/15/2020 Orders Only Transplant Hepatolo gy Annie Lopez 02/15/2020 Abstract Transplant Ramirez, Tammie Y Appointment 02/14/2020 Telephone Transplant Sivan Boston, RN 02/06/2020 Orders Only Transplant Shu Manning RN 02/01/2020 Documentation Transplant Hepatolo gy Ronit Lu MA Status post kidney transplant 02/01/2020 Orders Only Hepatology James, Tammie Y 01/31/2020 Telephone Transplant Sivan Boston, RN 01/29/2020 Orders Only Transplant Nevaeh Hinds MD Status post kidney transplant 01/27/2020 Orders Only Ra Thomas LCSW 01/22/2020 Social Work Transplant Nevaeh Hinds MD S/P kidney transplant (Primary Dx) 01/18/2020 Evaluation Transplant Nevaeh Hinds MD Status post kidney transplant 01/18/2020 Orders Only Transplant Hepatolo gy Sivan Boston RN S/P kidney transplant; FSGS (focal segmental glomerulosclerosis); Immunosuppression (HCC) 01/18/2020 Orders Only Transplant Augustina Velez, RN 01/16/2020 Refill Transplant Augustina Velez, RN 01/04/2020 Refill Transplant Kimi Mirza MD 01/01/2020 Refill Transplant Hepatolo gy Augustina Velez, RN 12/29/2019 Refill Transplant Kimi Mirza MD 12/28/2019 Refill Transplant Hepatolo gy Augustina Velez, AARON 12/28/2019 Refill Transplant Nevaeh Hinds MD Mahajan, Kapil Dev, MD S/P kidney transplant (Primary Dx) 12/21/2019 Evaluation Transplant Nevaeh Hinds MD S/P kidney transplant; FSGS (focal segmental glomerulosclerosis); Immunosuppression ([facility]) 12/21/2019 Hospital Radiology Encounter Nevaeh Hinds MD Status post kidney transplant 12/21/2019 Orders Only Lab Robles--Crispin Kilpatrick A 12/21/2019 Outside Orders Katy Burris RN S/P kidney transplant (Primary Dx); FSGS (focal segmental glomerulosclerosis); Immunosuppression ([facility]) 12/20/2019 Orders Only Transplant Katy Burris RN S/P kidney transplant (Primary Dx); FSGS (focal segmental glomerulosclerosis); Immunosuppression ([facility]) 12/15/2019 Orders Only Transplant Katy Burris RN S/P kidney transplant (Primary Dx); FSGS (focal segmental glomerulosclerosis); Immunosuppression ([facility]) 12/05/2019 Orders Only Transplant Nevaeh Hinds MD Kurian, Debbie Geevarghese, MD S/P kidney transplant (Primary Dx) 11/23/2019 Evaluation Transplant Nevaeh Hinds MD S/P kidney transplant 11/23/2019 Orders Only Transplant Brianolo Augustina Alvarado RN S/P kidney transplant (Primary Dx) 11/21/2019 Orders Only Transplant Nevaeh Hinds MD Status post kidney transplant 11/13/2019 Orders Only Transplant Hepatolo gy Katy Burris RN Medication Dose Change 11/13/2019 Telephone Transplant Katy Burris RN 11/13/2019 Orders Only Transplant Augustina Velez RN Medication Dose Change 11/10/2019 Telephone Transplant Katy Burris RN Status post kidney transplant (Primary D x); FSGS (focal segmental glomerulosclerosis); Immunosuppression ([facility]); Chronic hypertension 11/07/2019 Orders Only Nevaeh Puri MD Status post kidney transplant 11/06/2019 Orders Only Transplant Nevaeh Hinds MD No Show 11/01/2019 Orders Only Transplant Kimi Mirza MD 10/30/2019 Refill Transplant Hepatolo gy Nevaeh Hinds MD Status post kidney transplant 10/26/2019 Hospital Radiology Encounter Robles--Finesse Crispin A 10/26/2019 Outside Orders Radiology Katy Burris, cardiac cath technologist Dose Change 10/25/2019 Telephone Transplant Katy Burris, RN 10/25/2019 Orders Only Transplant Ramirez, Tammie Y Appointment 10/25/2019 Telephone Transplant Ramirez, Tammie Y Appointment 10/25/2019 Telephone Transplant Ramirez, Tammie Y Appointment 10/25/2019 Telephone Transplant Nevaeh Hinds MD Status post kidney transplant (Primary D x) 10/24/2019 Orders Only Transplant Hepatolo Nevaeh Perea MD Yao, June, MD Status post kidney transplant (Primary D x) 10/24/2019 Evaluation Transplant Nevaeh Hinds MD Canceled (Patient) 10/10/2019 Orders Only Transplant Hepatolo Nevaeh Perea MD Canceled (Patient) 10/03/2019 Orders Only Transplant Hepatolo Nevaeh Perea MD Status post kidney transplant (Primary D x); FSGS (focal segmental glomerulosclerosis); Immunosuppression (HCC); Hyperglycemia 09/26/2019 Evaluation Transplant Nevaeh Hinds MD Status post kidney transplant 09/26/2019 Orders Only Transplant Hepatolo Katy Patel RN 09/26/2019 Orders Only Transplant Nevaeh Hinds MD Status post kidney transplant 09/19/2019 Orders Only Transplant Nevaeh Moore MD Finch, Jennifer L., MD Status post kidney transplant (Primary D x) 09/12/2019 Evaluation Transplant Nevaeh Hinds MD Status post kidney transplant; FSGS (focal segmental glomerulosclerosis); Immunosuppression (HCC) 09/12/2019 Hospital Radiology Encounter Nevaeh Hinds MD Status post kidney transplant 09/12/2019 Orders Only Lab Robles--Finesse, Crispin A 09/12/2019 Outside Orders Nevaeh Hinds MD Lands, Sarah Elizabeth, NP Status post kidney transplant (Primary D x); Chronic atrial fibrillation; FSGS (focal segmental glomerulosclerosis); Immunosuppression (HCC); Kidney transplanted 09/05/2019 Evaluation Transplant Nevaeh Hinds MD Status post kidney transplant 09/05/2019 Orders Only Transplant Katy Santos, cardiac cath technologist Dose Change 09/05/2019 Telephone Transplant Layla Costa, EHS ENGINEER 09/05/2019 Social Work Transplant Ramirez, Tammie Y Appointment 09/01/2019 Telephone Transplant Ramirez, Tammie Y Appointment 09/01/2019 Telephone Transplant Ramirez, Tammie Y 09/01/2019 Telephone Central Scheduling Katy Burris, AARON Status post kidney transplant (Primary D x); FSGS (focal segmental glomerulosclerosis); Immunosuppression (HCC) 09/01/2019 Orders Only Transplant Nevaeh Hinds MD Finch, Jennifer L., MD Status post kidney transplant (Primary D x) 08/29/2019 Evaluation Transplant Nevaeh Hinds MD Status post kidney transplant 08/29/2019 Orders Only Transplant Ra Baker, BANANA ROOM CUTTER 08/29/2019 Social Work Transplant Kimi Mirza MD 08/28/2019 Refill Transplant Katy Santos, cardiac cath technologist Dose Change 08/23/2019 Telephone Transplant Katy Burris RN 08/23/2019 Orders Only Transplant Nevaeh Hinds MD Lands, Sarah Elizabeth, NP Status post kidney transplant (Primary D x); Chronic atrial fibrillation; FSGS (focal segmental glomerulosclerosis); Immunosuppression (HCC); Hyperglycemia; Kidney transplanted 08/22/2019 Evaluation Transplant Nevaeh Hinds MD Status post kidney transplant 08/22/2019 Orders Only Transplant Ra Baker, BANANA ROOM CUTTER 08/22/2019 Social Work Transplant Katy Burris RN 08/18/2019 Orders Only Transplant Nevaeh Hinds MD Status post kidney transplant (Primary D x) 08/15/2019 Evaluation Transplant Nevaeh Hinds MD Status post kidney transplant 08/15/2019 Orders Only Transplant Ra Baker, BANANA ROOM CUTTER 08/15/2019 Social Work Transplant Minnie Swan RN Diabetes 08/15/2019 Telephone Transplant Ra Levy, BANANA ROOM CUTTER 08/14/2019 Social Work Transplant Katy Burris cardiac cath technologist Dose Change 08/11/2019 Telephone Transplant Katy Burris RN 08/11/2019 Orders Only Transplant Katy Burris cardiac cath technologist Dose Change 08/10/2019 Telephone Transplant Katy Burris RN Follow-up 08/09/2019 Telephone Transplant Nevaeh Hinds MD Status post kidney transplant (Primary D x); Chronic atrial fibrillation (HCC); FSGS (focal segmental glomerulosclerosis); Gastroesophageal reflux disease, esophagitis presence not specified; Chronic hypertension 08/08/2019 Evaluation Transplant Nevaeh Hinds MD Status post kidney transplant 08/08/2019 Orders Only Transplant HepatKaty Bee cardiac cath technologist Dose Change 08/08/2019 Telephone Transplant Katy Burris RN 08/08/2019 Orders Only Transplant Ra Levy, BANANA ROOM CUTTER 08/08/2019 Social Work Transplant Nevaeh Hinds MD Status post kidney transplant 08/07/2019 Orders Only Transplant Hepatolo Ra Castro, BANANA ROOM CUTTER 08/07/2019 Social Work Transplant Merna Goncalves RN 08/07/2019 Abstract Transplant Magan Tejada RN 08/05/2019 Documentation Transplant Merna Goncalves RN Status post kidney transplant (Primary D x) 08/04/2019 Orders Only Transplant Merna Goncalves RN Status post kidney transplant (Primary D x) 08/04/2019 Orders Only Transplant 08/03/2019 Travel Reshma Kerns RN 08/03/2019 Documentation Transplant Nevaeh De Jesus MD 08/02/2019 Anesthesia Event Kyaw, [facility] Maribeth Olsen MD TRANSPLANT,KIDNEY-LIVING 08/02/2019 Surgery OKimi Payton MD Kidney transplanted; Immunosuppression (HCC); Status post kidney transplant; Chronic atrial fibrillation (HCC) 08/02/2019 Hospital Intensive Care - Encounter 08/05/2019 Karen Cunha RN 08/02/2019 Abstract Transplant Nevaeh Hinds MD 08/01/2019 Documentation Transplant Reshma Kerns RN 08/01/2019 Documentation Transplant after 07/30/2019 Family History Medical History Relation Name Comments [...] Vital Signs Time Taken Vital Sign Reading 06/06/2020 1:37 PM CDT Blood Pressure 83/53 06/06/2020 1:37 PM CDT Pulse 68 06/06/2020 1:12 PM CDT Temperature 36.6 C (97.9 F) 06/06/2020 1:12 PM CDT Respiratory Rate 17 06/06/2020 1:12 PM CDT Oxygen Saturation 98% - Inhaled Oxygen - Concentration 06/06/2020 1:12 PM CDT Weight 91.3 kg (201 lb 3.2 oz) 06/06/2020 1:12 PM CDT Height 165.1 cm (5' 5") 06/06/2020 1:12 PM CDT Body Mass Index 33.48 Plan of Treatment Care Team Description Date Type Specialty Nevaeh Hinds MD [address] [facility] [address] [place] [address] [phone] 08/01/2020 Orders Only Transplant Hepatolo gy Nevaeh Hinds MD [address] [facility] [address] [place], [place] [id number] 08/01/2020 Evaluation Transplant Health Maintenance Due Date Last Done Comments DIABETIC EYE EXAM 1960 URINE MICROALBUMIN 1962 PNEUMOCOCCAL 65+ 2017 HIGH/HIGHEST RISK (1 of 2 - PCV13) COLON CANCER SCREENING 12/30/2018 12/30/2017, 06/2018 ANNUAL FOBT MEDICARE ANNUAL WELLNESS 11/23/2019 (YEAR 2 or FIRST YEAR if no IPPE) HEMOGLOBIN A1C 01/25/2020 07/27/2019, 017 INFLUENZA VACCINE (#1) 2020 Implants Device Identifier Shelf Expiration Date Model / Serial / L ot Implanted Type Area Manufactur er 10/25/2021 [id number] / / [id number] Stent Uret Polaris [id number] IMPLANTS N/A: Ureter AGA STON [id number] - [id number] SCI:UROLOG Implanted: Qty: 1 on 08/02/2019 by Y/LAKESHA Card Frannieoswaldo Olsen MD GY Procedures Comments Procedure Name Priority Date/Time Associated Diag nosis CBC W/PLT COUNT & AUTO Routine 07/08/2020 S/P kid lily transplant DIFFERENTIAL 8:08 AM CDT URINALYSIS W/ REFLEX Routine 07/08/2020 S/P kidne y transplant URINE CULTURE 8:08 AM CDT TACROLIMUS LEVEL Routine 07/08/2020 S/P kidney tr ansplant 8:08 AM CDT PHOSPHORUS Routine 07/08/2020 S/P kidney gonzalez splant 8:08 AM CDT COMPREHENSIVE METABOLIC Routine 07/08/2020 S/P ki dney transplant PANEL 8:08 AM CDT CBC W/PLT COUNT & AUTO Routine 07/08/2020 S/P kid lily transplant DIFFERENTIAL 8:08 AM CDT CBC W/PLT COUNT & AUTO Routine 07/04/2020 Status post kidney DIFFERENTIAL 7:30 AM CDT transplant BK VIRUS PCR, PLASMA Routine 07/04/2020 S/P kidne y transplant 7:30 AM CDT URINALYSIS W/ REFLEX Routine 07/04/[address] kidney URINE CULTURE 7:30 AM CDT transplant TACROLIMUS LEVEL Routine 07/04/2020 Status post k idney 7:30 AM CDT transplant PHOSPHORUS Routine 07/04/2020 Status post kid lily 7:30 AM CDT transplant COMPREHENSIVE METABOLIC Routine 07/04/2020 Status post kidney PANEL 7:30 AM CDT transplant CBC W/PLT COUNT & AUTO Routine 07/04/2020 Status post kidney DIFFERENTIAL 7:30 AM CDT transplant BK VIRUS PCR, PLASMA Routine 06/06/2020 S/P kidne y transplant 3:05 PM CDT (CELLAVISION MANUAL DIFF) Routine 06/06/2020 Stat us post kidney 8:24 AM CDT transplant CBC W/PLT COUNT & AUTO Routine 06/06/2020 Status post kidney DIFFERENTIAL 8:24 AM CDT transplant URINALYSIS W/ REFLEX Routine 06/06/[address] kidney URINE CULTURE 8:24 AM CDT transplant TACROLIMUS LEVEL Routine 06/06/2020 Status post k idney 8:24 AM CDT transplant PHOSPHORUS Routine 06/06/2020 Status post kid lily 8:24 AM CDT transplant COMPREHENSIVE METABOLIC Routine 06/06/2020 Status post kidney PANEL 8:24 AM CDT transplant CBC W/PLT COUNT & AUTO Routine 06/06/2020 Status post kidney DIFFERENTIAL 8:24 AM CDT transplant URINE CULTURE Routine 06/06/2020 Status post kid lily 8:24 AM CDT transplant CBC W/PLT COUNT & AUTO Routine 05/09/2020 Status post kidney DIFFERENTIAL 8:13 AM CDT transplant URINALYSIS W/ REFLEX Routine 05/09/[address] kidney URINE CULTURE 8:13 AM CDT transplant TACROLIMUS LEVEL Routine 05/09/2020 Status post k idney 8:13 AM CDT transplant PHOSPHORUS Routine 05/09/2020 Status post kid lily 8:13 AM CDT transplant COMPREHENSIVE METABOLIC Routine 05/09/2020 Status post kidney PANEL 8:13 AM CDT transplant CBC W/PLT COUNT & AUTO Routine 05/09/2020 Status post kidney DIFFERENTIAL 8:13 AM CDT transplant CBC W/PLT COUNT & AUTO Routine 04/11/2020 Status post kidney DIFFERENTIAL 7:51 AM CDT transplant TACROLIMUS LEVEL Routine 04/11/2020 Status post k idney 7:51 AM CDT transplant PHOSPHORUS Routine 04/11/2020 Status post kid lily 7:51 AM CDT transplant LACTATE DEHYDROGENASE Routine 04/11/2020 Status p ost kidney (LDH) 7:51 AM CDT transplant COMPREHENSIVE METABOLIC Routine 04/11/2020 Status post kidney PANEL 7:51 AM CDT transplant CBC W/PLT COUNT & AUTO Routine 04/11/2020 Status post kidney DIFFERENTIAL 7:51 AM CDT transplant URINALYSIS W/ REFLEX Routine 04/11/[address] kidney URINE CULTURE 7:50 AM CDT transplant CBC W/PLT COUNT & AUTO Routine 03/28/2020 Status post kidney DIFFERENTIAL 7:44 AM CDT transplant URINALYSIS W/ REFLEX Routine 03/28/[address] kidney URINE CULTURE 7:44 AM CDT transplant TACROLIMUS LEVEL Routine 03/28/2020 Status post k idney 7:44 AM CDT transplant PHOSPHORUS Routine 03/28/2020 Status post kid lily 7:44 AM CDT transplant LACTATE DEHYDROGENASE Routine 03/28/2020 Status p ost kidney (LDH) 7:44 AM CDT transplant COMPREHENSIVE METABOLIC Routine 03/28/2020 Status post kidney PANEL 7:44 AM CDT transplant CBC W/PLT COUNT & AUTO Routine 03/28/2020 Status post kidney DIFFERENTIAL 7:44 AM CDT transplant CBC W/PLT COUNT & AUTO Routine 03/14/2020 Status post kidney DIFFERENTIAL 7:55 AM CDT transplant TACROLIMUS LEVEL Routine 03/14/2020 Status post k idney 7:55 AM CDT transplant PHOSPHORUS Routine 03/14/2020 Status post kid lily 7:55 AM CDT transplant LACTATE DEHYDROGENASE Routine 03/14/2020 Status p ost kidney (LDH) 7:55 AM CDT transplant COMPREHENSIVE METABOLIC Routine 03/14/2020 Status post kidney PANEL 7:55 AM CDT transplant CBC W/PLT COUNT & AUTO Routine 03/14/2020 Status post kidney DIFFERENTIAL 7:55 AM CDT transplant URINALYSIS W/ REFLEX Routine 03/14/[address] kidney URINE CULTURE 7:51 AM CDT transplant URINALYSIS W/ REFLEX Routine 02/15/[address] kidney URINE CULTURE 8:37 AM CDT transplant CBC W/PLT COUNT & AUTO Routine 02/15/2020 Status post kidney DIFFERENTIAL 7:19 AM CDT transplant TACROLIMUS LEVEL Routine 02/15/2020 Status post k idney 7:19 AM CDT transplant PHOSPHORUS Routine 02/15/2020 Status post kid lily 7:19 AM CDT transplant LACTATE DEHYDROGENASE Routine 02/15/2020 Status p ost kidney (LDH) 7:19 AM CDT transplant COMPREHENSIVE METABOLIC Routine 02/15/2020 Status post kidney PANEL 7:19 AM CDT transplant CBC W/PLT COUNT & AUTO Routine 02/15/2020 Status post kidney DIFFERENTIAL 7:19 AM CDT transplant CBC W/PLT COUNT & AUTO Routine 02/01/2020 Status post kidney DIFFERENTIAL 8:03 AM CDT transplant CBC W/PLT COUNT & AUTO Routine 02/01/2020 Status post kidney DIFFERENTIAL 8:03 AM CDT transplant COMPREHENSIVE METABOLIC Routine 02/01/2020 Status post kidney PANEL 8:03 AM CDT transplant LACTATE DEHYDROGENASE Routine 02/01/2020 Status p ost kidney (LDH) 8:03 AM CDT transplant PHOSPHORUS Routine 02/01/2020 Status post kid lily 8:03 AM CDT transplant TACROLIMUS LEVEL Routine 02/01/2020 Status post k idney 8:03 AM CDT transplant URINALYSIS W/ REFLEX Routine 02/01/[address] kidney URINE CULTURE 8:03 AM CDT transplant PROTHROMBIN TIME/INR Routine 02/01/[address] kidney 8:03 AM CDT transplant CBC W/PLT COUNT & AUTO Routine 01/27/2020 Status post kidney DIFFERENTIAL 7:56 AM RESEARCH NURSE PRACTITIONER transplant BK VIRUS PCR, PLASMA Routine 01/27/[address] kidney 7:56 AM RESEARCH NURSE PRACTITIONER transplant URINALYSIS W/ REFLEX Routine 01/27/[address] kidney URINE CULTURE 7:56 AM RESEARCH NURSE PRACTITIONER transplant TACROLIMUS LEVEL Routine 01/27/2020 Status post k idney 7:56 AM RESEARCH NURSE PRACTITIONER transplant PHOSPHORUS Routine 01/27/2020 Status post kid lily 7:56 AM RESEARCH NURSE PRACTITIONER transplant LACTATE DEHYDROGENASE Routine 01/27/2020 Status p ost kidney (LDH) 7:56 AM RESEARCH NURSE PRACTITIONER transplant COMPREHENSIVE METABOLIC Routine 01/27/2020 Status post kidney PANEL 7:56 AM RESEARCH NURSE PRACTITIONER transplant CBC W/PLT COUNT & AUTO Routine 01/27/2020 Status post kidney DIFFERENTIAL 7:56 AM RESEARCH NURSE PRACTITIONER transplant CBC W/PLT COUNT & AUTO Routine 01/18/2020 Status post kidney DIFFERENTIAL 7:52 AM RESEARCH NURSE PRACTITIONER transplant BK VIRUS PCR, PLASMA Routine 01/18/[address] kidney 7:52 AM RESEARCH NURSE PRACTITIONER transplant TACROLIMUS LEVEL Routine 01/18/2020 Status post k idney 7:52 AM RESEARCH NURSE PRACTITIONER transplant PHOSPHORUS Routine 01/18/2020 Status post kid lily 7:52 AM RESEARCH NURSE PRACTITIONER transplant LACTATE DEHYDROGENASE Routine 01/18/2020 Status p ost kidney (LDH) 7:52 AM RESEARCH NURSE PRACTITIONER transplant COMPREHENSIVE METABOLIC Routine 01/18/2020 Status post kidney PANEL 7:52 AM RESEARCH NURSE PRACTITIONER transplant CBC W/PLT COUNT & AUTO Routine 01/18/2020 Status post kidney DIFFERENTIAL 7:52 AM RESEARCH NURSE PRACTITIONER transplant URINALYSIS W/ REFLEX Routine 01/18/[address] kidney URINE CULTURE 7:49 AM RESEARCH NURSE PRACTITIONER transplant CBC W/PLT COUNT & AUTO Routine 12/21/2019 Status post kidney DIFFERENTIAL 8:21 AM RESEARCH NURSE PRACTITIONER transplant BK VIRUS PCR, PLASMA Routine 12/21/[address] kidney 8:21 AM RESEARCH NURSE PRACTITIONER transplant URINALYSIS W/ REFLEX Routine 12/21/[address] kidney URINE CULTURE 8:21 AM RESEARCH NURSE PRACTITIONER transplant TACROLIMUS LEVEL Routine 12/21/2019 Status post k idney 8:21 AM RESEARCH NURSE PRACTITIONER transplant PHOSPHORUS Routine 12/21/2019 Status post kid lily 8:21 AM RESEARCH NURSE PRACTITIONER transplant LACTATE DEHYDROGENASE Routine 12/21/2019 Status p ost kidney (LDH) 8:21 AM RESEARCH NURSE PRACTITIONER transplant COMPREHENSIVE METABOLIC Routine 12/21/2019 Status post kidney PANEL 8:21 AM RESEARCH NURSE PRACTITIONER transplant CBC W/PLT COUNT & AUTO Routine 12/21/2019 Status post kidney DIFFERENTIAL 8:21 AM RESEARCH NURSE PRACTITIONER transplant US TESTICULAR (SCROTUM) Routine 12/21/2019 S/P ki dney transplant 7:49 AM RESEARCH NURSE PRACTITIONER FSGS (focal segmental glomerulosclerosis) Immunosuppression (HCC) CBC W/PLT COUNT & AUTO Routine 11/23/2019 S/P kid lily transplant DIFFERENTIAL 9:10 AM RESEARCH NURSE PRACTITIONER URINALYSIS W/ REFLEX Routine 11/23/2019 S/P kidne y transplant URINE CULTURE 9:10 AM RESEARCH NURSE PRACTITIONER TACROLIMUS LEVEL Routine 11/23/2019 S/P kidney tr ansplant 9:10 AM RESEARCH NURSE PRACTITIONER PHOSPHORUS Routine 11/23/2019 S/P kidney gonzalez splant 9:10 AM RESEARCH NURSE PRACTITIONER LACTATE DEHYDROGENASE Routine 11/23/2019 S/P kidn ey transplant (LDH) 9:10 AM RESEARCH NURSE PRACTITIONER COMPREHENSIVE METABOLIC Routine 11/23/2019 S/P ki dney transplant PANEL 9:10 AM RESEARCH NURSE PRACTITIONER CBC W/PLT COUNT & AUTO Routine 11/23/2019 S/P kid lily transplant DIFFERENTIAL 9:10 AM RESEARCH NURSE PRACTITIONER BK VIRUS PCR, PLASMA Routine 11/20/[address] kidney 7:27 AM RESEARCH NURSE PRACTITIONER transplant URINALYSIS W/ REFLEX Routine 11/13/[address] kidney URINE CULTURE 7:24 AM RESEARCH NURSE PRACTITIONER transplant CBC W/PLT COUNT & AUTO Routine 11/13/2019 Status post kidney DIFFERENTIAL 7:23 AM RESEARCH NURSE PRACTITIONER transplant TACROLIMUS LEVEL Routine 11/13/2019 Status post k idney 7:23 AM RESEARCH NURSE PRACTITIONER transplant PHOSPHORUS Routine 11/13/2019 Status post kid lily 7:23 AM RESEARCH NURSE PRACTITIONER transplant LACTATE DEHYDROGENASE Routine 11/13/2019 Status p ost kidney (LDH) 7:23 AM RESEARCH NURSE PRACTITIONER transplant COMPREHENSIVE METABOLIC Routine 11/13/2019 Status post kidney PANEL 7:23 AM RESEARCH NURSE PRACTITIONER transplant CBC W/PLT COUNT & AUTO Routine 11/13/2019 Status post kidney DIFFERENTIAL 7:23 AM RESEARCH NURSE PRACTITIONER transplant US TRANSPLANT KIDNEY Routine 10/26/[address] kidney 2:48 PM RESEARCH NURSE PRACTITIONER transplant (CELLAVISION MANUAL DIFF) Routine 10/24/2019 Stat us post kidney 3:57 PM RESEARCH NURSE PRACTITIONER transplant CBC W/PLT COUNT & AUTO Routine 10/24/2019 Status post kidney DIFFERENTIAL 3:57 PM RESEARCH NURSE PRACTITIONER transplant BK VIRUS PCR, PLASMA Routine 10/24/[address] kidney 3:57 PM RESEARCH NURSE PRACTITIONER transplant PROTHROMBIN TIME/INR Routine 10/24/[address] kidney 3:57 PM RESEARCH NURSE PRACTITIONER transplant TACROLIMUS LEVEL Routine 10/24/2019 Status post k idney 3:57 PM RESEARCH NURSE PRACTITIONER transplant PHOSPHORUS Routine 10/24/2019 Status post kid lily 3:57 PM RESEARCH NURSE PRACTITIONER transplant LACTATE DEHYDROGENASE Routine 10/24/2019 Status p ost kidney (LDH) 3:57 PM RESEARCH NURSE PRACTITIONER transplant COMPREHENSIVE METABOLIC Routine 10/24/2019 Status post kidney PANEL 3:57 PM RESEARCH NURSE PRACTITIONER transplant CBC W/PLT COUNT & AUTO Routine 10/24/2019 Status post kidney DIFFERENTIAL 3:57 PM RESEARCH NURSE PRACTITIONER transplant URINALYSIS W/ REFLEX Routine 10/24/[address] kidney URINE CULTURE 3:52 PM RESEARCH NURSE PRACTITIONER transplant CBC W/PLT COUNT & AUTO Routine 09/26/2019 Status post kidney DIFFERENTIAL 8:20 AM RESEARCH NURSE PRACTITIONER transplant URINALYSIS W/ REFLEX Routine 09/26/[address] kidney URINE CULTURE 8:20 AM RESEARCH NURSE PRACTITIONER transplant TACROLIMUS LEVEL Routine 09/26/2019 Status post k idney 8:20 AM RESEARCH NURSE PRACTITIONER transplant PHOSPHORUS Routine 09/26/2019 Status post kid lily 8:20 AM RESEARCH NURSE PRACTITIONER transplant LACTATE DEHYDROGENASE Routine 09/26/2019 Status p ost kidney (LDH) 8:20 AM RESEARCH NURSE PRACTITIONER transplant COMPREHENSIVE METABOLIC Routine 09/26/2019 Status post kidney PANEL 8:20 AM RESEARCH NURSE PRACTITIONER transplant CBC W/PLT COUNT & AUTO Routine 09/26/2019 Status post kidney DIFFERENTIAL 8:20 AM RESEARCH NURSE PRACTITIONER transplant CBC W/PLT COUNT & AUTO Routine 09/19/2019 Status post kidney DIFFERENTIAL 7:00 AM CDT transplant BK VIRUS PCR, PLASMA Routine 09/19/[address] kidney 7:00 AM CDT transplant URINALYSIS W/ REFLEX Routine 09/19/[address] kidney URINE CULTURE 7:00 AM CDT transplant TACROLIMUS LEVEL Routine 09/19/2019 Status post k idney 7:00 AM CDT transplant PHOSPHORUS Routine 09/19/2019 Status post kid lily 7:00 AM CDT transplant LACTATE DEHYDROGENASE Routine 09/19/2019 Status p ost kidney (LDH) 7:00 AM CDT transplant COMPREHENSIVE METABOLIC Routine 09/19/2019 Status post kidney PANEL 7:00 AM CDT transplant CBC W/PLT COUNT & AUTO Routine 09/19/2019 Status post kidney DIFFERENTIAL 7:00 AM CDT transplant US TRANSPLANT KIDNEY Routine 09/12/[address] kidney 9:40 AM CDT transplant FSGS (focal segmental glomerulosclerosis) Immunosuppression (HCC) URINALYSIS W/ REFLEX Routine 09/12/[address] kidney URINE CULTURE 7:18 AM CDT transplant CBC W/PLT COUNT & AUTO Routine 09/12/2019 Status post kidney DIFFERENTIAL 7:17 AM CDT transplant TACROLIMUS LEVEL Routine 09/12/2019 Status post k idney 7:17 AM CDT transplant PHOSPHORUS Routine 09/12/2019 Status post kid lily 7:17 AM CDT transplant LACTATE DEHYDROGENASE Routine 09/12/2019 Status p ost kidney (LDH) 7:17 AM CDT transplant COMPREHENSIVE METABOLIC Routine 09/12/2019 Status post kidney PANEL 7:17 AM CDT transplant CBC W/PLT COUNT & AUTO Routine 09/12/2019 Status post kidney DIFFERENTIAL 7:17 AM CDT transplant CBC W/PLT COUNT & AUTO Routine 09/05/2019 Status post kidney DIFFERENTIAL 9:17 AM CDT transplant TACROLIMUS LEVEL Routine 09/05/2019 Status post k idney 9:17 AM CDT transplant PHOSPHORUS Routine 09/05/2019 Status post kid lily 9:17 AM CDT transplant LACTATE DEHYDROGENASE Routine 09/05/2019 Status p ost kidney (LDH) 9:17 AM CDT transplant COMPREHENSIVE METABOLIC Routine 09/05/2019 Status post kidney PANEL 9:17 AM CDT transplant CBC W/PLT COUNT & AUTO Routine 09/05/2019 Status post kidney DIFFERENTIAL 9:17 AM CDT transplant URINALYSIS W/ REFLEX Routine 09/05/[address] kidney URINE CULTURE 9:15 AM CDT transplant URINE CULTURE Routine 09/05/2019 Status post kid lily 9:15 AM CDT transplant CBC W/PLT COUNT & AUTO Routine 08/29/2019 Status post kidney DIFFERENTIAL 8:06 AM CDT transplant PROTHROMBIN TIME/INR Routine 08/29/[address] kidney 8:06 AM CDT transplant BK VIRUS PCR, PLASMA Routine 08/29/[address] kidney 8:06 AM CDT transplant URINALYSIS W/ REFLEX Routine 08/29/[address] kidney URINE CULTURE 8:06 AM CDT transplant TACROLIMUS LEVEL Routine 08/29/2019 Status post k idney 8:06 AM CDT transplant PHOSPHORUS Routine 08/29/2019 Status post kid lily 8:06 AM CDT transplant LACTATE DEHYDROGENASE Routine 08/29/2019 Status p ost kidney (LDH) 8:06 AM CDT transplant COMPREHENSIVE METABOLIC Routine 08/29/2019 Status post kidney PANEL 8:06 AM CDT transplant CBC W/PLT COUNT & AUTO Routine 08/29/2019 Status post kidney DIFFERENTIAL 8:06 AM CDT transplant CBC W/PLT COUNT & AUTO Routine 08/22/2019 Status post kidney DIFFERENTIAL 8:42 AM CDT transplant TACROLIMUS LEVEL Routine 08/22/2019 Status post k idney 8:42 AM CDT transplant PHOSPHORUS Routine 08/22/2019 Status post kid lily 8:42 AM CDT transplant LACTATE DEHYDROGENASE Routine 08/22/2019 Status p ost kidney (LDH) 8:42 AM CDT transplant COMPREHENSIVE METABOLIC Routine 08/22/2019 Status post kidney PANEL 8:42 AM CDT transplant CBC W/PLT COUNT & AUTO Routine 08/22/2019 Status post kidney DIFFERENTIAL 8:42 AM CDT transplant URINALYSIS W/ REFLEX Routine 08/22/[address] kidney URINE CULTURE 8:38 AM CDT transplant PROTHROMBIN TIME/INR Routine 08/22/[address] kidney 8:37 AM CDT transplant CBC W/PLT COUNT & AUTO Routine 08/15/2019 Status post kidney DIFFERENTIAL 10:20 AM CDT transplant PROTHROMBIN TIME/INR Routine 08/15/[address] kidney 10:20 AM CDT transplant TACROLIMUS LEVEL Routine 08/15/2019 Status post k idney 10:20 AM CDT transplant PHOSPHORUS Routine 08/15/2019 Status post kid lily 10:20 AM CDT transplant LACTATE DEHYDROGENASE Routine 08/15/2019 Status p ost kidney (LDH) 10:20 AM CDT transplant COMPREHENSIVE METABOLIC Routine 08/15/2019 Status post kidney PANEL 10:20 AM CDT transplant CBC W/PLT COUNT & AUTO Routine 08/15/2019 Status post kidney DIFFERENTIAL 10:20 AM CDT transplant URINALYSIS W/ REFLEX Routine 08/15/[address] kidney URINE CULTURE 10:13 AM CDT transplant RHYTHM STRIP - SCAN 08/10/2019 2:01 PM CDT RHYTHM STRIP - SCAN 08/08/2019 10:53 AM CDT CBC W/PLT COUNT & AUTO Routine 08/08/2019 Status post kidney DIFFERENTIAL 7:03 AM CDT transplant PROTHROMBIN TIME/INR Routine 08/08/[address] kidney 7:03 AM CDT transplant BK VIRUS PCR, PLASMA Routine 08/08/[address] kidney 7:03 AM CDT transplant URINALYSIS W/ REFLEX Routine 08/08/[address] kidney URINE CULTURE 7:03 AM CDT transplant TACROLIMUS LEVEL Routine 08/08/2019 Status post k idney 7:03 AM CDT transplant PHOSPHORUS Routine 08/08/2019 Status post kid lily 7:03 AM CDT transplant LACTATE DEHYDROGENASE Routine 08/08/2019 Status p ost kidney (LDH) 7:03 AM CDT transplant COMPREHENSIVE METABOLIC Routine 08/08/2019 Status post kidney PANEL 7:03 AM CDT transplant CBC W/PLT COUNT & AUTO Routine 08/08/2019 Status post kidney DIFFERENTIAL 7:03 AM CDT transplant URINE CULTURE Routine 08/08/2019 Status post kid lily 7:03 AM CDT transplant BK VIRUS PCR, PLASMA Routine 08/07/[address] kidney 8:55 AM CDT transplant URINALYSIS W/ REFLEX Routine 08/07/[address] kidney URINE CULTURE 8:55 AM CDT transplant TACROLIMUS LEVEL Routine 08/07/2019 Status post k idney 8:55 AM CDT transplant LACTATE DEHYDROGENASE Routine 08/07/2019 Status p ost kidney (LDH) 8:55 AM CDT transplant COMPREHENSIVE METABOLIC Routine 08/07/2019 Status post kidney PANEL 8:55 AM CDT transplant URINE CULTURE Routine 08/07/2019 Status post kid lily 8:55 AM CDT transplant POCT-GLUCOSE METER Routine 08/05/2019 5:06 PM CDT POCT-GLUCOSE METER Routine 08/05/2019 12:32 PM CDT POCT-GLUCOSE METER Routine 08/05/2019 7:56 AM CDT CBC W/PLT COUNT & AUTO Routine 08/05/2019 DIFFERENTIAL 6:02 AM CDT TACROLIMUS LEVEL Routine 08/05/2019 6:02 AM CDT IRON, TIBC, % SAT. Routine 08/05/2019 (WITHOUT FERRITIN) 6:02 AM CDT PROTHROMBIN TIME/INR Routine 08/05/2019 6:02 AM CDT CBC W/PLT COUNT & AUTO Routine 08/05/2019 DIFFERENTIAL 6:02 AM CDT PHOSPHORUS Routine 08/05/2019 6:02 AM CDT MAGNESIUM Routine 08/05/2019 6:02 AM CDT BASIC METABOLIC PANEL (7) Routine 08/05/2019 6:02 AM CDT POCT-GLUCOSE METER Routine 08/04/2019 9:23 PM CDT POCT-GLUCOSE METER Routine 08/04/2019 5:44 PM CDT POCT-GLUCOSE METER Routine 08/04/2019 11:42 AM CDT POCT-GLUCOSE METER Routine 08/04/2019 7:46 AM CDT CBC W/PLT COUNT & AUTO Routine 08/04/2019 DIFFERENTIAL 6:05 AM CDT LACTATE DEHYDROGENASE Routine 08/04/2019 Status p ost kidney (LDH) 6:05 AM CDT transplant TACROLIMUS LEVEL Routine 08/04/2019 6:05 AM CDT PROTHROMBIN TIME/INR Routine 08/04/2019 6:05 AM CDT CBC W/PLT COUNT & AUTO Routine 08/04/2019 DIFFERENTIAL 6:05 AM CDT PHOSPHORUS Routine 08/04/2019 6:05 AM CDT MAGNESIUM Routine 08/04/2019 6:05 AM CDT BASIC METABOLIC PANEL (7) Routine 08/04/2019 6:05 AM CDT POCT-GLUCOSE METER Routine 08/03/2019 9:17 PM CDT POCT-GLUCOSE METER Routine 08/03/2019 5:08 PM CDT POCT-GLUCOSE METER Routine 08/03/2019 12:22 PM CDT POCT-GLUCOSE METER Routine 08/03/2019 6:56 AM CDT POCT-GLUCOSE METER Routine 08/03/2019 5:22 AM CDT TACROLIMUS LEVEL Routine 08/03/2019 5:09 AM CDT CBC W/PLT COUNT & AUTO Routine 08/03/2019 DIFFERENTIAL 3:16 AM CDT PROTHROMBIN TIME/INR Routine 08/03/2019 3:16 AM CDT CBC W/PLT COUNT & AUTO Routine 08/03/2019 DIFFERENTIAL 3:16 AM CDT PHOSPHORUS Routine 08/03/2019 3:16 AM CDT MAGNESIUM Routine 08/03/2019 3:16 AM CDT BASIC METABOLIC PANEL (7) Routine 08/03/2019 3:16 AM CDT POCT-GLUCOSE METER Routine 08/03/2019 12:56 AM CDT BLOOD GAS, ARTERIAL STAT 08/03/2019 12:52 AM CDT XR CHEST 1 VIEW STAT 08/02/2019 PORTABLE/BEDSIDE 10:47 PM CDT CBC W/PLT COUNT & AUTO STAT 08/02/2019 DIFFERENTIAL 10:40 PM CDT PROTHROMBIN TIME/INR Routine 08/02/2019 10:40 PM CDT CBC W/PLT COUNT & AUTO STAT 08/02/2019 DIFFERENTIAL 10:40 PM CDT PHOSPHORUS Routine 08/02/2019 10:40 PM CDT MAGNESIUM Routine 08/02/2019 10:40 PM CDT BASIC METABOLIC PANEL (7) STAT 08/02/2019 10:40 PM CDT HGB/HCT (H&H) - STAT LAB STAT 08/02/2019 8:10 PM CDT GLUCOSE-STAT LAB STAT 08/02/2019 8:10 PM CDT POTASSIUM-STAT LAB STAT 08/02/2019 8:10 PM CDT SODIUM NA-STAT LAB STAT 08/02/2019 8:10 PM CDT BLOOD GAS, ARTERIAL STAT 08/02/2019 8:10 PM CDT RRL CRITICAL LABS STAT 08/02/2019 (ABG,NA,K,H&H,GLUCOSE) 8:10 PM CDT TRANSPLANT,KIDNEY-LIVING 08/02/2019 End stage re nal disease 6:00 PM CDT (HCC) Special Needs (UNOS ID [id number], REQ [id number]) TRANSFUSION SERVICE 08/02/2019 REPORT - SCAN 5:53 PM CDT CBC W/PLT COUNT & AUTO STAT 08/02/2019 DIFFERENTIAL 3:55 PM CDT POTASSIUM-STAT LAB STAT 08/02/2019 3:55 PM CDT HGB/HCT (H&H) - STAT LAB STAT 08/02/2019 3:55 PM CDT PROTHROMBIN TIME/INR STAT 08/02/2019 3:55 PM CDT COMPREHENSIVE METABOLIC STAT 08/02/2019 PANEL 3:55 PM CDT APTT STAT 08/02/2019 3:55 PM CDT CBC W/PLT COUNT & AUTO STAT 08/02/2019 DIFFERENTIAL 3:55 PM CDT PREPARE RBC Routine 08/01/2019 6:10 PM CDT after 07/30/2019 Results * Urinalysis w/Microscopic + Reflex to Cul (07/08/2020 8:08 AM CDT) Only the most recent of 24 results within the time period is included. Color, UA Yellow [facility] Clarity, UA Clear [facility] Specific [place], UA 1.024 1.001 - 1.035 [facility] pH, UA 6.0 5.0 - 8.0 [facility] Protein, UA 30 mg/dL (A) Negative [facility] Glucose, UA Negative Negative [facility] Ketones, UA Negative Negative [facility] Bilirubin, UA Negative Negative [facility] Blood, UA Trace (A) Negative [facility] Nitrite, UA Negative Negative [facility] Leukocytes, UA Negative Negative [facility] Urobilinogen, UA 0.2 0.2 - 1.0 mg/dL [facility] RBC, UA 3 /HPF [facility] WBC, UA 1 /HPF [facility] Mucus Rare [facility] Squam Epithel, UA <1 /HPF [facility] Specimen Source [facility] Specimen Urine Narrative Performed At Application Services Manager ID - [auto] [facility] Application Services Manager ID - tech [facility] Performing Organization Address City/State/Zipcode Ph one Number [facility] [address] [place] [phone] * CBC with platelet count + automated diff (07/08/2020 8:08 AM CDT) Only the most recent of 28 results within the time period is included. WBC 5.6 3.5 - 10.5 K/L [facility] RBC 5.14 4.63 - 6.08 M/L [facility] Hemoglobin 16.9 13.7 - 17.5 GM/DL [facility] Hematocrit 51.2 (H) 40.1 - 51.0 % [facility] MCV 99.6 (H) 79.0 - 92.2 fL [facility] MCH 32.9 (H) 25.7 - 32.2 pg [facility] MCHC 33.0 32.3 - 36.5 GM/DL [facility] RDW 17.2 (H) 11.6 - 14.4 % [facility] Platelets 222 150 - 450 K/CU MM [facility] MPV 10.1 9.4 - 12.4 fL [facility] nRBC 0 0 - 0 /100 WBC [facility] % Neutros 62 % [facility] [facility] % Lymphs 14 % [facility] % Monos 19 % [facility] % Eos 4 % [facility] % Baso 2 % [facility] # Neutros 3.47 1.78 - 5.38 K/L [facility] # Lymphs 0.78 (L) 1.32 - 3.57 K/L [facility] # Monos 1.04 (H) 0.30 - 0.82 K/L [facility] # Eos 0.20 0.04 - 0.54 K/L [facility] # Baso 0.09 (H) 0.01 - 0.08 K/L [facility] Immature 0 0 - 1 % [facility] Granulocytes-[facility] Specimen Blood Performing Organization Address City/[facility] Ph one Number [place] [address] [facility] * Tacrolimus Level (07/08/2020 8:08 AM CDT) Only the most recent of 27 results within the time period is included. Tacrolimus Lvl 5.0 (L) 10.0 - 20.0 ng/mL [facility] Specimen Blood Narrative Performed At Application Services Manager ID - AAHAMID [facility] Performing Organization Address City/[facility] Ph one Number [address] [address] [facility] * Phosphorus (07/08/2020 8:08 AM CDT) Only the most recent of 27 results within the time period is included. Phosphorus 3.3 2.3 - 4.7 mg/dL [facility] Specimen Blood Narrative Performed At Application Services Manager ID - DB [facility] Performing Organization Address City/State/Zipcode Ph one Number [facility] [address] [place], [place] [address] [facility] * Comprehensive Metabolic Panel (07/08/2020 8:08 AM CDT) Only the most recent of 25 results within the time period is included. Protein, Total 7.4 6.0 - 8.3 gm/dL [facility] Albumin 3.9 3.5 - 5.0 g/dL [facility] Alkaline Phosphatase 100 40 - 150 U/L [facility] Total Bilirubin 0.7 0.2 - 1.2 mg/dL [facility] Sodium 138 136 - 145 meq/L [facility] Potassium 3.9 3.5 - 5.1 meq/L [facility] Chloride 106 98 - 107 meq/L [facility] CO2 25 22 - 29 meq/L [facility] BUN 25 (H) 7 - 21 mg/dL [facility] Creatinine 1.58 (H) 0.57 - 1.25 mg/dL [facility] Glucose 134 (H) 70 - 105 mg/dL [facility] Calcium 8.8 8.4 - 10.2 mg/dL [facility] AST 28 5 - 34 U/L [facility] ALT 46 6 - 55 U/L [facility] EGFR 44Comment: ESTIMATED GFR IS mL/min/1.73 sq m [facility] NOT ACCURATE CREATININE [facility] CLEARANCE IN PREDICTING GLOMERULAR FILTRATION RATE. ESTIMATED GFR IS NOT APPLICABLE FOR DIALYSIS PATIENTS. Specimen Blood Narrative Performed At Application Services Manager ID - DB [facility] Performing Organization Address City/State/Zipcode Ph one Number [facility] [address] [place], [place] [address] [facility] * BK virus, DNA, quantitative (07/04/2020 7:30 AM CDT) Only the most recent of 11 results within the time period is included. Specimen Blood Narrative Performed At This result has an attachment that is n ot available. * Manual Differential (06/06/2020 8:24 AM CDT) Only the most recent of 2 results within the time period is included. % Neutros 76 % [facility] % Lymphs 2 % [facility] % Monos 21 % [facility] % Eos 1 % [facility] # Neutros 6.69 (H) 1.78 - 5.38 K/ul [facility] # Lymphs 0.18 (L) 1.32 - 3.57 K/ul [facility] # Monos 1.85 (H) 0.30 - 0.82 K/uL [facility] # Eos 0.09 0.04 - 0.54 K/uL [facility] Total Counted 100 [facility] WBC Morphology Normal [facility] Giant Platelet Present [facility] Polychromasia 1+ few [facility] Anisocytosis 1+ few [facility] Macrocytes 1+ few [facility] Poikilocytes 2+ moderate [facility] Benson Cells 1+ few [facility] Artifact Present [facility] Platelet Conc Adequate [facility] Specimen Blood Narrative Performed At Application Services Manager ID - Dominicbella Del Cid [facility] User comments: [facility] Slide comments: Performing Organization Address [facility] Ph one Number [address] [facility] * Urine culture (06/06/2020 8:24 AM CDT) Only the most recent of 4 results within the time period is included. Result >100,000 col/mL Escherichia [facility] coli (A)Comment: ESBL Positive [facility] Specimen Urine Antibiotic Method Susceptibility Organism Amikacin <=2: Susceptible Escherichia coli Ampicillin + Sulbactam >=32: Resistant Escherichia coli Aztreonam >=64: Resistant Escherichia coli Cefepime 8: Resistant Escherichia coli Cefoxitin Resistant Escherichia coli Ceftazidime Resistant Escherichia coli Ceftriaxone >=64: Resistant Escherichia coli Ertapenem <=0.5: Susceptible Escherichia coli Gentamicin >=16: Resistant Escherichia coli Levofloxacin <=0.12: Susceptible Escherichia coli Meropenem <=0.25: Susceptible Escherichia coli Nitrofurantoin <=16: Susceptible Escherichia coli Piperacillin + Tazobactam Resistant Escherichia coli Tetracycline <=1: Susceptible Escherichia coli Tobramycin >=16: Resistant Escherichia coli Trimethoprim + Sulfamethoxazole >=320: Resistant Escherichia coli Performing Organization Address [facility] Ph one Number [address] [facility] * Lactate dehydrogenase (LDH) (04/11/2020 7:51 AM CDT) Only the most recent of 21 results within the time period is included. LDH 215 125 - 220 U/L [facility] Specimen Blood Narrative Performed At Application Services Manager ID - KATE [facility] Performing Organization Address [facility] Ph one Number [address] 0 [phone] [place] [address] * Prothrombin time/INR (02/01/2020 8:03 AM CDT) Only the most recent of 11 results within the time period is included. Protime 42.0 (H) 11.9 - 14.2 seconds [facility] INR 4.5 <=5.9 [facility] Specimen Blood Narrative Performed At Effective 04/19/2019: PT Reference Range Change [facility] New: 11.9-14.2Previous: 11.7-14.7 [facility] MEDICAL CE NTER RECOMMENDED COUMADIN/WARFARIN INR THERA PY RANGES STANDARD DOSE: 2.0-3.0Includes: PRO PHYLAXIS for venous thrombosis, systemic embolization; TREATMENT for venous thro mbosis and/or pulmonary embolus. HIGH RISK: Target INR is 2.5-3.5 for pa tients wiht mechanical heart valves. Performing Organization Address City/State/Zipcode Ph one Number [address] 0 [phone] * US testicular (scrotum) (12/21/2019 7:49 AM RESEARCH NURSE PRACTITIONER) Specimen Narrative Performed At FINAL REPORT [facility] TECHNIQUE: Grayscale, color Doppler, an d spectral Doppler ultrasound of the scrotum and testicles. INDICATION: epididymitis. COMPARISON: None. FINDINGS: RIGHT TESTIS: Measures 3.3 x 2.3 x 4.4 cm. Normal echotexture without focal lesions. LEFT TESTIS: Measures 3.8 x 1.9 x 3.1 c m. Normal echotexture without focal lesions. VASCULAR: There are symmetric, arterial waveforms detected in both testes. Small bilateral varicoceles. EPIDIDYMIDES: The right epididymis is m ildly bulky. A right epididymal head anechoic lesion measure s 0.5 x 0.4 x 0.5 cm and is consistent with an epididymal head cyst . Anechoic lesion in the left epididymis measure 0.3 x 0.4 x 0.3 cm a nd 0.4 x 0.4 x 0.3 cm and are most consistent with epididymal cysts. SCROTUM: No hydrocele. IMPRESSION: 1.The findings in the right epididymis could be due to mild or chronic epididymitis in the appropriate clinical setting. 2.There are small bilateral varicoceles . Signed: Beny Holder MD Report Verified Date/Time: 0 09:06:08 Reading Location: [address] Radiolo gy Reading Room Procedure Note Interface, External Ris In - 12/21/2019 9:08 AM RESEARCH NURSE PRACTITIONER FINAL REPORT TECHNIQUE: Grayscale, color Doppler, and spectral Doppler ultrasound of the scrotum and testicles. INDICATION: epididymitis. COMPARISON: None. FINDINGS: RIGHT TESTIS: Measures 3.3 x 2.3 x 4.4 cm. Normal echotexture without focal lesions. LEFT TESTIS: Measures 3.8 x 1.9 x 3.1 cm. Normal echotexture without focal lesions. VASCULAR: There are symmetric, arterial waveforms detected in both testes. Small bilateral varicoceles. EPIDIDYMIDES: The right epididymis is mildly bulky. A right epididymal head anechoic lesion measures 0.5 x 0.4 x 0.5 cm and is consistent with an epididymal head cyst. Anechoic lesion in the left epididymis measure 0.3 x 0.4 x 0.3 cm and 0.4 x 0.4 x 0.3 cm and are most consistent with epididymal cysts. SCROTUM: No hydrocele. IMPRESSION: 1.The findings in the right epididymis c ould be due to mild or chronic epididymitis in the appropriate clinical setting. 2.There are small bilateral varicoceles. Signed: Beny Holder MD Report Verified Date/Time: 12/21/2019 09:06:08 Reading Location: [address] Radiology Reading Room Performing Organization Address City/State/Zipcode Ph one Number [facility] * US transplant kidney (10/26/2019 2:48 PM RESEARCH NURSE PRACTITIONER) Only the most recent of 2 results within the time period is included. Specimen Narrative Performed At FINAL REPORT [facility] TECHNIQUE: Grayscale, color Doppler, an d spectral Doppler ultrasound of the transplant kidney and renal vasc ulature. INDICATION: elevated creatinine. COMPARISON: Ultrasound from 09/12/2019. FINDINGS: TRANSPLANT KIDNEY: The transplant kidne y is located in the right lower quadrant. It measures 12 x 4.3 x 5.6 cm with a cortical thickness of 4.3 cm. No hydronephrosis or solid mass lesions. Mild renal pelvic fullness. No perinephric f luid collections. VASCULATURE: Normal renal arterial and venous waveforms and velocities. The cortical resistive anthony ping range from 0.7-0.78 with a cortical acceleration times which range from 0.04-0.05 seconds. The iliac arterial velocity above the a nastomosis is 98.5 cm/s with an anastomotic velocity of 104 cm/s. Th e main renal arterial peak systolic velocities 108 cm/s. The iliac arterial velocity below the a nastomosis is 223 cm/s. BLADDER: Prevoid bladder volume is 121 mL, and the postvoid bladder volume is 14.9 mL. IMPRESSION: 1.The increased renal cortical resistiv e indices could be due to renal cortical dysfunction. 2.The increase in the iliac arterial ve locity across the anastomosis is nonspecific but could be due to sten osis at the anastomotic site. Consider close attention on follow-up u ltrasound or a CTA for further evaluation. 3.There is mild renal pelvic fullness w ithout shiv hydronephrosis. Signed: Beny Holder MD Report Verified Date/Time: 9 16:14:04 Reading Location: [address] Reading Room Procedure Note Interface, External Ris In - 10/26/2019 4:16 PM RESEARCH NURSE PRACTITIONER FINAL REPORT TECHNIQUE: Grayscale, color Doppler, and spectral Doppler ultrasound of the transplant kidney and renal vasculature. INDICATION: elevated creatinine. COMPARISON: Ultrasound from 09/12/2019. FINDINGS: TRANSPLANT KIDNEY: The transplant kidney is located in the right lower quadrant. It measures 12 x 4.3 x 5.6 cm with a cortical thickness of 4.3 cm. No hydronephrosis or solid mass lesions. Mild renal pelvic fullness. No perinephric fluid collections. VASCULATURE: Normal renal arterial and venous waveforms and velocities. The cortical resistive indices range from 0.7-0.78 with a cortical acceleration times which range from 0.04-0.05 seconds. The iliac arterial velocity above the anastomosis is 98.5 cm/s with an anastomotic velocity of 104 cm/s. The main renal arterial peak systolic velocities 108 cm/s. The iliac arterial velocity below the anastomosis is 223 cm/s. BLADDER: Prevoid bladder volume is 121 mL, and the postvoid bladder volume is 14.9 mL. IMPRESSION: 1.The increased renal cortical resistive indices could be due to renal cortical dysfunction. 2.The increase in the iliac arterial manuela ocity across the anastomosis is nonspecific but could be due to stenosis at the anastomotic site. Consider close attention on follow-up ultrasound or a CTA for further evaluation. 3.There is mild renal pelvic fullness wi thout shiv hydronephrosis. Signed: Beny Holder MD Report Verified Date/Time: 10/26/2019 16:14:04 Reading Location: [address] Radiology Reading Room Performing Organization Address [facility] one Number RIS * RHYTHM STRIP - SCAN (08/10/2019 2:01 PM CDT) Only the most recent of 2 results within the time period is included. Narrative Performed At This result has an attachment that is n ot available. * POC-Glucose meter (08/05/2019 5:06 PM CDT) Only the most recent of 13 results within the time period is included. POC-Glucose Meter 142 (H)Comment: TESTED AT 70 - 110 mg/dL C [facility] [address] [facility] [address] Specimen Blood Performing Organization Address [facility] one Number [place] [phone] [place], [place] [address] [facility] * Iron, TIBC, % sat. (without ferritin) (08/05/2019 6:02 AM CDT) Iron 49.0 40.0 - 160.0 ug/dL [facility] TIBC 304 250 - 450 ug/dL [facility] Iron % Saturation 16 (L) 20 - 55 % [facility] Specimen Blood Performing Organization Address [facility] one Number [facility] [address] [place], [place] [address] [facility] * Magnesium (08/05/2019 6:02 AM CDT) Only the most recent of 4 results within the time period is included. Magnesium 2.1Comment: Specimen slightly 1.6 - 2.6 mg/dL [facility] Specimen Blood Performing Organization Address City/[facility] one Number [facility] [address] [place], [place] [address] [facility] * Basic Metabolic Panel (08/05/2019 6:02 AM CDT) Only the most recent of 4 results within the time period is included. Sodium 133 (L) 136 - 145 meq/L [facility] Potassium 4.6Comment: Specimen slightly 3.5 - 5.1 meq/L [facility] Chloride 104 98 - 107 meq/L [facility] CO2 20 (L) 22 - 29 meq/L [facility] BUN 32 (H) 7 - 21 mg/dL [facility] Creatinine 2.55 (H)Comment: Specimen 0.57 - 1.25 mg/dL [facility] slightly hemolyzed [facility] Glucose 143 (H) 70 - 105 mg/dL [facility] Calcium 9.0 8.4 - 10.2 mg/dL [facility] EGFR 25Comment: ESTIMATED GFR IS mL/min/1.73 sq m [facility] NOT ACCURATE CREATININE [facility] CLEARANCE IN PREDICTING GLOMERULAR FILTRATION RATE. ESTIMATED GFR IS NOT APPLICABLE FOR DIALYSIS PATIENTS. Specimen Blood Performing Organization Address City/[facility] one Number [facility] [address] [place] [address] [facility] * Blood gas, arterial (08/03/2019 12:52 AM CDT) Only the most recent of 2 results within the time period is included. pH, Arterial 7.40 7.35 - 7.45 [facility] pCO2, Arterial 41 35 - 45 mmHg [facility] pO2, Arterial 129 (H) 80 - 90 mmHg [facility] O2 Sat, Arterial 98.6 (H) 96.0 - 97.0 % [facility] HCO3, Arterial 25 21 - 29 mmol/L [facility] Base Excess, Arterial 0.0 -2.0 - 3.0 mmol/L [facility] Patient Temperature 36.4 C [facility] FIO2 36.0 % [facility] Specimen Blood, Arterial Performing Organization Address City/State/[facility] Ph one Number [facility] [address] [place] [address] MEDICAL CENTER * XR chest 1 view portable / bedside (08/02/2019 10:47 PM CDT) Specimen Narrative Performed At FINAL REPORT [facility] RAD, CHEST, 1 VIEW, NON DEPT INDICATION: Central line placement COMPARISON: 07/27/2019 FINDINGS: Portable frontal view of the chest. IMPRESSION: Support Lines: Patient placement of a r ight jugular approach central venous catheter with the tip near the c avoatrial junction. Stable right pacemaker. Lungs and pleura: No airspace consolida tion. No pneumothorax. Heart and mediastinum: Stable contours. Additional findings: None. Signed: Chelo Angel MD Report Verified Date/Time: 9 22:53:44 Reading Location: [facility] Consult Reading Room Procedure Note Interface, External Ris In - 08/02/2019 10:55 PM CDT FINAL REPORT RAD, CHEST, 1 VIEW, NON DEPT INDICATION: Central line placement COMPARISON: 07/27/2019 FINDINGS: Portable frontal view of the chest. IMPRESSION: Support Lines: Patient placement of a right jugular approach central venous catheter with the tip near the cavoatrial junction. Stable right pacemaker. Lungs and pleura: No airspace consolidation. No pneumothorax. Heart and mediastinum: Stable contours. Additional findings: None. Signed: Chelo Angel MD Report Verified Date/Time: 08/02/2019 22:53:44 Reading Location: [facility] C[facility] Consult Reading Room Performing Organization Address [facility] one Number GE RIS * Potassium-Stat Lab (08/02/2019 8:10 PM CDT) Only the most recent of 2 results within the time period is included. Potassium 4.1 3.6 - 5.5 meq/L [facility] Specimen Blood, Arterial Performing Organization Address [facility] one [address] [facility] * Sodium Na-Stat Lab (08/02/2019 8:10 PM CDT) Sodium 137 135 - 148 meq/L [facility] Specimen Blood, Arterial Performing Organization Address [facility] one Number [address] [facility] * Glucose-Stat Lab (08/02/2019 8:10 PM CDT) Glucose 84 70 - 110 mg/dL [facility] Specimen Blood, Arterial Performing Organization Address [facility] one Number [address] [facility] * HGB/HCT (H&H)-Stat Lab (08/02/2019 8:10 PM CDT) Only the most recent of 2 results within the time period is included. Hemoglobin 10.4 (L) 13.0 - 16.8 g/dL [facility] Hematocrit 31.0 (L) 40.0 - 50.0 % [facility] Specimen Blood, Arterial Performing Organization Address [facility] one Number [address] 0 [phone] [place] [address] * TRANSFUSION SERVICE REPORT - SCAN (08/02/2019 5:53 PM CDT) Narrative Performed At This result has an attachment that is n ot available. * aPTT (08/02/2019 3:55 PM CDT) PTT 30.8 22.5 - 36.0 seconds [facility] Specimen Blood Performing Organization Address [facility] one Number [address] 0 [phone] [address] * Prepare RBC (08/01/2019 6:10 PM CDT) CROSSMATCH COMPATIBLE SAFETRACE TX Unit ABO AB Pos SAFETRACE TX UNIT NUMBER [id number] SAFETRACE [place] Status READY SAFETRACE [place] Blood Bank Product RED BLOOD CELLS SAFETRACE TX PRODUCT CODE [id number] SAFETRACE [place] CROSSMATCH COMPATIBLE SAFETRACE TX Unit ABO A Pos SAFETRACE TX UNIT NUMBER [id number] SAFETRACE TX Status READY SAFETRACE TX Blood Bank Product RED BLOOD CELLS SAFETRACE TX PRODUCT CODE [id number] SAFETRACE [place] CROSSMATCH COMPATIBLE SAFETRACE TX Unit ABO A Pos SAFETRACE TX UNIT NUMBER [id number] SAFETRACE TX Status READY SAFETRACE TX Blood Bank Product RED BLOOD CELLS SAFETRACE [place] PRODUCT CODE [id number] SAFETRACE [place] CROSSMATCH COMPATIBLE SAFETRACE TX Unit ABO A Pos SAFETRACE TX UNIT NUMBER [id number] SAFETRACE [place] Status READY SAFETRACE [place] Blood Bank Product RED BLOOD CELLS SAFETRACE [place] PRODUCT CODE [id number] SAFETRACE [place] Performing Organization Address [facility] one Number [place]AF[place] after 07/30/2019 Insurance Payer Benefit Subscriber ID Type Phone Address Plan / Group [facility] [place] [phone] Advance Directives For more information, please contact: [facility] [address] [place] [address] Date Inactivated Comments Code Status Date Activated 08/06/2019 12:59 AM Full Code 08/02/2019 10:48 PM This code status was determined by: Patient 08/02/2019 10:48 PM Full Code 08/02/2019 10:22 PM This code status was determined by: Patient 08/02/2019 10:22 PM Full Code 08/02/2019 3:19 PM This code status was determined by: Patient 01/25/2018 9:34 PM Full Code 01/25/2018 3:11 PM This code status was determined by: Patient 01/25/2018 3:11 PM Full Code 01/25/2018 9:05 AM This code status was determined by: Patient
[2020-07-30 15:35] LABS: BASOPHILS # (AUTO) 0.1 (0.0-0.1); BASOPHILS % 0.5 % (0.0-1.0); EOSINOPHILS % 0.1 % (0.0-6.0); HEMATOCRIT 53.6 % (38.2-49.6); HEMOGLOBIN 17.8 g/dL (14.0-18.0); LYMPHOCYTES % 7.3 % (18.0-39.1); MEAN CORPUSCULAR HEMOGLOBIN 32.8 pg (28-32); MEAN CORPUSCULAR HGB CONC 33.2 g/dL (31-35); MEAN CORPUSCULAR VOLUME 98.7 fL (81-99); MONOCYTES # (AUTO) 1.5 (0.2-0.8); MONOCYTES % 10.5 % (4.4-11.3); NEUTROPHILS # (AUTO) 11.4 (2.1-6.9); NEUTROPHILS % 81.4 % (38.7-80.0); PLATELET COUNT 320 x10e3/uL (140-360); RED BLOOD COUNT 5.43 x10e6/uL (4.3-5.7); RED CELL DISTRIBUTION WIDTH 14.8 % (11.7-14.4)
--- OUTSIDE RECORDS SUMMARY | 2020-07-30 15:35 | XMS REPORT | Continuity of Care Document ---
Author Author [facility] t Organization [facility] Address [address] [place] [address] Phone Unavailable Care Team Providers Care Funding Coordinator Name Role Phone CLAUDIA GROSS, Iliana BHATTI PCP Lizet GROSS, John Herring Attphys John HINDS NEVAEH Attphys Unavailable Renee RN, Rodney Attphys Unavailable Agustin WALKER, Augustina Attphys Unavailable James, Y Tammie Attphys Unavailable Darvin RN, N Sivan Attphys Unavailable Beatriz RN, P Rafaela Attphys Unavailable Ivanna RN, R Summer Attphys Unavailable Sade GROSS, Armaan Surjit Attphys Supriya GROSS, Ken Quinoneshish Attphys [phone] Annie Lopez Attphys Unavailable Kerri WALKER, Meliton Ireland Attphys Unavailable Aly HANSON, Ronit Attphys Unavailable Cam CAAL, Ra Attphys Unavailable Hermes GROSS, Jose Bolden Attphys [phone] Claudia--Iliana Kilpatrick Attphys [place] RN, Y Katy Attphys Unavailable Shady GROSS, Shima Mayers Attphys [phone] Gustavo GROSS, Polina Attphys Cheyenne GROSS, Herrera Pan Attphys Dede QUARLES, Carine Bhatt Attphys [phone] Igor CALL CENTER RN, Layla Attphys Unavailable Beny RN, Javier Hartman Attphys Unavailable Mallory WALKER, Magan Attphys Unavailable Luis F WALKER, Stephenie Justice Attphys Unavailable Neal GROSS, Herrera Herring Attphys Kyaw GROSS, Maribeth Olsen [facility] Attphys [phone] HERMES, JOSE BOLDEN Attphys Unavailable Guerline WALKER, Karen Attphys Unavailable ALVARO WHITNEY Attphys Unavailable Fito VALENZUELA Attphys Unavailable LAKSHMI REYES Attphys Unavailable Henrietta FOREMAN Attphys Unavailable DULCE MOJICA Attphys Unavailable LETSOIRA Lim Attphys Unavailable Hira VELIZ Attphys Unavailable JOSE MIRZA Admphys Unavailable ALVARO WHITNEY Admphys Unavailable DULCE MOJICA Admphys Unavailable LETSOIRA Lim Admphys Unavailable Payers Payer Name Policy Type Policy Number Effective Date Expiration Date Fito [employer]Maps Contracted [id number] [facility] Problems Condition Name Condition Details Condition Category Status Onset Date Resolution Date Last Treatment Date Treating Clinician Comments Source Immunosuppression Immunosuppression Disease Active 2019-08-22 00:00:00 Last Assessment & Plan: He denies headaches or tremors with his immunosuppression. We will adjust his dose according to his levels. [facility] Hyperlipidemia Hyperlipidemia Disease Active 2019-08-22 00:00:00 [facility] Kidney transplanted Kidney transplanted Disease Active 2019-08-03 00:00 :00 Last Assessment & Plan: He is s/p kidney transplant on 08/02/2019. Creatinine stable. [place] were removed in clinic during a previous clinic visit. [facility] ESRD (end stage renal disease) ESRD (end stage renal disease) Disea se Active 2019-08-02 00:00:00 [facility] CAD (coronary artery disease) CAD (coronary artery disease) Disease Active 2019-01-20 00:00:00 Overview: no n-occlusive: 20-30% LAD, 20% prox Cx, 80% D1 (01/2019), neg stress 03/2019, EF 70% MAC, mild TR 09/2018; cleared byCards 01/2018 [facility] Pre-transplant evaluation for ESRD (end stage renal di sease) Pre-transplant evaluation for ESRD (end stage renal disease) Disease Active 2018-01-25 00:00:00 Last Assessment & Plan: He is an acceptable candidate for kidney transplant and is scheduled for NKR on 08/02/2019. [facility] Elevated serum GGT level Elevated serum GGT level Disease Acti ve 2017-11-22 00:00:00 Overview: cleared for transp lant by GI 2017 [facility] Elevated PSA Elevated PSA Disease Active 2017-11-22 00:00:00 Overview: elevated PSA prostate bx- negative follow up in a year (2018), reported "inflammation on Bx" cleared for Tx by Dr. Troncoso 07/2019 [facility] Pre-transplant evaluation for kidney transplant Pre-tr ansplant evaluation for kidney transplant Disease Active 2017-11-01 00:00:00 [facility] Pacemaker Pacemaker Disease Active 2017-10-19 00:00:00 Overview: [facility] ? cause slow heart rarte neen more information [facility] ESRD (end stage renal disease) on dialysis ESRD (end s tage renal disease) on dialysis Disease Active 2016-11-22 00:00:00 Overview: Jacob [place].access- [place] AVF [facility] Chronic atrial fibrillation Chronic atrial fibrillation Disease Active 2016-11-22 00:00:00 Overview: dejan hector Last Assessment & Plan: Continue follow up with cardiology. [facility] Acute renal failure Acute renal failure Problem Active 2016-05-14 00:00 :00 [facility] Atrial flutter Atrial flutter Problem Active 2016-05-14 00:00:00 [facility] Pre-syncope Near syncope Problem Active 2016-05-14 00:00:00 [facility] Colon polyp Colon polyp Disease Active 2015-02-21 00:00:00 Overview: 2 small TA removed 2014, repeate colonoscopy 2019 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 Glomerulonephritis Glomerulonephritis Disease Active 2014-09-21 00:00:[address] 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 He does not have evidence of recurrent FSGS at this time. [facility] Serum gamma globulin increased Serum gamma globulin increased Disea se Active 2013-11-02 00:00:00 [facility] Major depression Major depression Disease Active 2012-11-08 00:00:00 [facility] Need for influenza vaccination Need for influenza vaccination Disea Active 2012-11-08 00:00:00 [facility] Obesity, unspecified Obesity, unspecified Disease Active 00:00:00 [facility] Diabetes mellitus Diabetes mellitus Disease Active 2012-09-06 00:00:00 [facility] Osteoarthritis Osteoarthritis Disease Active 2010-05-05 00:00:00 [facility] Pain in joint, shoulder region Pain in joint, shoulder region Disea se Active 2010-03-24 00:00:00 [facility] Chest pain Chest pain Problem Active [facility] Low back pain Low back pain Disease Active [facility] Nonspecific abnormal finding in stool contents Nonspec ific abnormal finding in stool contents Disease Active [facility] alth Proteinuria Proteinuria Disease Active [facility] Hypothyroidism Hypothyroidism Disease Active [facility] Obesity, Class I, BMI 30-34.9 Obesity, Class I, BMI 30-34.9 Disease Active [facility] GERD (gastroesophageal reflux disease) GERD (gastroesophagea l reflux disease) Disease Active Last Assessment & Pl an: On pepcid [facility] Kidney cyst, acquired Kidney cyst, acquired Disease Active Overview: 2 simple cysts on US [facility] Acute respiratory insufficiency Acute respiratory insufficiency Dis ease Active [facility] Chronic hypertension Chronic hypertension Disease Active Last Assessment & Plan: Currently on nifedipine and coreg [facility] Acute blood loss anemia Acute blood loss anemia Disease Active [facility] Hyperglycemia Hyperglycemia Disease Active Last Assessment & Plan: His blood sugars are stable on current regimen. [facility] Allergies, Adverse Reactions, Alerts This patient has no known allergies or adverse reactions. Family History Family Member Diagnosis Comments Start Date Stop Date Source Natural mother Alzheimer's disease [place] [facility] Natural mother Diabetes [facility] thodist Natural mother Hypertension [place] [facility] Natural mother Diabetes [facility] Natural mother Hypertension [facility] Natural brother No Known Problem [facility] Natural brother Diabetes [facility] Natural daughter No Known Problem [facility] Natural sister Diabetes [facility] Natural sister No Known Problem [facility] Natural son No Known Problem [facility] Social History Social Habit Start Date Stop Date Quantity Comments Source History of tobacco use Current smoker [place] [facility] History SDOH Alcohol Std Drinks [place] [facility] History SDOH Alcohol Binge [facility] Alcohol Comment socially Emmanuel He alth Sex Assigned At [facility] History SDOH Alcohol Frequency 2019-01-13 00:00:00 2019-01-13 00:00:0 0 1 [place] [facility] Tobacco Comment 2017-11-02 00:00:00 2017-11-02 00:00:00 quit 12 years ago [facility] Alcohol intake 2014-11-16 00:00:00 2014-11-16 00:00:00 Current non-drinker of alcohol (finding) [facility] Smoking Status Start Date Stop Date Source Former smoker 2020-06-06 00:00:00 2020-06-06 00:00:00 [facility] Never smoker [facility] Medications Ordered Medication Name Filled Medication Name Start Date Stop Da te Current Medication? Ordering Clinician Indication Dosage Frequency Signature (SIG) Comments Components Source tacrolimus (PROGRAF) 0.5 MG capsule 2020-07-08 00:00:00 Yes Immunosuppression (HCC) 2 capsules (1mg) in AM a nd 3 capsules (1.5 mg) PM. [facility] mINOCYCLine (MINOCIN,DYNACIN) 100 MG capsule 00:00:00 2020-06-18 23:59:00 No 100mg Q.5D Take 1 capsule (100 mg total) by mouth 2 (two) times daily for 10 days. [facility] amoxicillin-clavulanate (AUGMENTIN) 500-125 mg per tablet 2020-06-06 00:00:00 2020-06-08 00:00:00 No 1{tbl} [id number] Take 1 tablet by mouth 3 (three) times daily for 10 days. [facility] tacrolimus (PROGRAF) 0.5 MG capsule 2020-03-20 00:00:0 0 2020-07-08 00:00:00 No Immunosuppression (HCC) 2 ca psules (1mg) in AM and 2 capsules (1.0 mg) PM. [facility] predniSONE (DELTASONE) 5 MG tablet 2020-02-06 00:00:00 Yes 5mg QD Take 1 tablet (5 mg total) by mouth daily. [facility] tacrolimus (PROGRAF) 0.5 MG capsule 2020-01-18 00:00:0 0 2020-03-20 00:00:00 No Immunosuppression (HCC) 2 ca psules (1mg) in AM and 3 capsules (1.5 mg) PM. [facility] predniSONE (DELTASONE) 5 MG tablet 2020-01-16 00:00:00 00:00:00 No 5mg QD Take 1 tablet (5 mg total) by mouth zena paulino [facility] insulin syringe-needle U-100 0.3 mL 31 gauge x 5/16" Syrg 2020-01-04 00:00:00 Yes Use 4 times daily. [facility] insulin NPH (HUMULIN N) 100 unit/mL injection 11-01-07 00:00:00 2020-12-28 23:59:00 No 5 unidades antes de desayuno. 5 unidades antes de myron.. [facility] insulin NPH (HUMULIN N) 100 unit/mL injection 11-01-07 00:00:00 2019-12-29 00:00:00 No 5 unidades antes de desayuno. 5 unidades antes de pulp grinder.. [facility] predniSONE (DELTASONE) 5 MG tablet 2019-12-28 08:49:57 00:00:00 No 5mg QD Take 5 mg by mouth daily. [facility] predniSONE (DELTASONE) 5 MG tablet 2019-12-28 00:00:00 00:00:00 No 5mg QD Take 1 tablet (5 mg total) by mouth zena paulino [facility] sulfamethoxazole-trimethoprim (BACTRIM,SEPTRA) 400-80 mg per tablet 2019-12-15 00:00:00 2020-12-14 23:59:00 No Immunosuppression (HCC) 80mg{t rimethoprim} QD Take 1 tablet (80 mg of trimethoprim total) by mouth daily. [facility] tacrolimus (PROGRAF) 0.5 MG capsule 2019-12-05 00:00:0 0 2020-01-18 00:00:00 No Immunosuppression (HCC) 1.5mg Q.5D Take 3 capsules (1.5 mg total) by mouth 2 (two) times daily. [facility] tacrolimus (PROGRAF) 0.5 MG capsule 2019-11-13 00:00:0 0 2019-12-05 00:00:00 No 1.5mg Q.5D Take 3 capsules (1.5 mg total) by mouth 2 (two) times daily. [facility] tacrolimus (PROGRAF) 0.5 MG capsule 2019-11-10 00:00:0 0 2019-11-13 00:00:00 No 1 mg bid.. [facility] NIFEdipine (ADALAT CC) 30 MG 24 hr tablet 2018-11 00:00:00 2020-11-06 23:59:00 No Chronic hypertension 30mg Q.5D Take 1 tablet (30 mg total) by mouth 2 (two) times daily. [facility] carvedilol (COREG) 25 MG tablet 2019-11-07 00:00:00 23:59:00 No Chronic hypertension 25mg Q.5D Take 1 tablet (25 m g total) by mouth 2 (two) times daily. [facility] CONTOUR NEXT TEST STRIPS Strp 2019-09-26 00:00:00 Yes Hyperglycemia Use to test blood sugar three times daily. [facility] tacrolimus (PROGRAF) 0.5 MG capsule 2019-09-26 00:00:0 0 2019-11-10 00:00:00 No .5mg Q.5D Take 1 capsule (0.5 mg total) by mouth 2 (two) times daily. [facility] omeprazole (PRILOSEC) 40 MG capsule 2019-09-05 10:41:0 0 2019-09-05 00:00:00 No 40mg QD Take 40 mg by mouth daily. [facility] tacrolimus (PROGRAF) 0.5 MG capsule 2019-09-05 00:00:0 0 2019-09-26 00:00:00 No Take 0.5 mg (1 capsule) in AM and 1 mg ( 2 capsules) in PM. [facility] tacrolimus (PROGRAF) 0.5 MG capsule 2019-08-23 00:00:0 0 2019-09-05 00:00:00 No 1mg Q.5D Take 2 capsules (1 mg total) by mouth 2 (two) times daily. [facility] predniSONE (DELTASONE) 5 MG tablet 2019-08-18 00:00:00 201 08-02-05 00:00:00 No 10mg QD Take 2 tablets (10 mg total) by mouth emma gallo. [facility] tacrolimus (PROGRAF) 0.5 MG capsule 2019-08-15 00:00:0 0 2019-08-23 00:00:00 No Take .05 mg (1 capsules) in AM and 1 mg (2 capsules) in PM. [facility] warfarin (COUMADIN) 5 MG tablet 2019-08-11 00:00:00 23:59:00 No 5mg QD Take 1 tablet (5 mg total) by mouth daily. [facility] tacrolimus (PROGRAF) 0.5 MG capsule 2019-08-08 00:00:0 0 2019-08-15 00:00:00 No Take 1 mg (2 capsules) in AM and 1.5 mg (3 capsules) in PM. [facility] predniSONE (DELTASONE) 10 MG tablet 2019-08-06 00:00:0 0 2019-08-16 23:59:00 No 10mg QD Take 1 tablet (10 mg total) by mouth leobardo ly for 10 days. [facility] sulfamethoxazole-trimethoprim (BACTRIM,SEPTRA) 400-80 mg per tablet 2019-08-06 00:00:00 2019-08-16 23:59:00 No 80mg{trimethoprim} Q D Take 1 tablet (80 mg of trimethoprim total) by mouth daily for 10 days. [facility] predniSONE (DELTASONE) 10 MG tablet 2019-08-06 00:00:0 0 2019-08-05 00:00:00 No 10mg QD Take 1 tablet (10 mg total) by mouth leobardo ly for 10 days. [facility] sulfamethoxazole-trimethoprim (BACTRIM,SEPTRA) 400-80 mg per tablet 2019-08-06 00:00:00 2019-08-05 00:00:00 No 80mg{trimethoprim} Q D Take 1 tablet (80 mg of trimethoprim total) by mouth daily for 10 days. [facility] amLODIPine (NORVASC) 5 MG tablet 2019-08-05 16:51:21 2019-07 00:00:00 No 5mg QD Take 5 mg by mouth daily. [facility] furosemide (LASIX) 80 MG tablet 2019-08-05 16:51:21 00:00:00 No 80mg Q.5D Take 80 mg by mouth 2 (two) times daily. [facility] metoprolol (TOPROL-XL) 50 MG 24 hr tablet 08-05 16:51:21 2019-08-05 00:00:00 No 50mg QD Take 50 mg by mouth daily. [facility] lovastatin (MEVACOR) 20 MG tablet 2019-08-05 16:51:20 2018 00:00:00 No 20mg QD Take 20 mg by mouth nightly. [facility] calcium acetate (PHOSLO) 667 mg capsule 16:51:20 2019-08-05 00:00:00 No 667mg Take 667 mg by mouth 3 (three) times daily with meals 2 tabs . [facility] calcitriol (ROCALTROL) 0.5 MCG capsule 2019-07-23 4 16:51:20 2019-08-05 00:00:00 No .5ug Take 0.5 mcg b y mouth 3 (three) times a week after dialysis WED/WED/WED . [facility] NIFEdipine (PROCARDIA-XL) 30 MG (OSM) 24 hr tablet 2019-08-05 16:51:20 2019-08-05 00:00:00 No 30mg QD Take 30 mg by mouth daily. [facility] atorvastatin (LIPITOR) 10 MG tablet 2019-08-05 00:00:0 0 2020-08-04 23:59:00 No 10mg QD Take 1 tablet (10 mg total) by mouth leobardo ly. [facility] insulin NPH (HUMULIN N) 100 unit/mL injection 10-08-14 00:00:00 2019-12-29 00:00:00 No 5 unidades antes de desayuno. 5 unidades antes de pulp grinder.. [facility] carvedilol (COREG) 25 MG tablet 2019-08-05 00:00:00 00:00:00 No 25mg Q.5D Take 1 tablet (25 mg total) by mouth 2 (two) ti mes daily. [facility] NIFEdipine (ADALAT CC) 30 MG 24 hr tablet 08-05 00:00:00 2019-11-07 00:00:00 No 30mg Q.5D Take 1 tablet (30 mg total) by mouth 2 (two) times daily. [facility] mycophenolate (CELLCEPT) 250 mg capsule 00:00:00 2019-10-25 00:00:00 No 1000mg Q.5D Take 4 capsule s (1,000 mg total) by mouth 2 (two) times daily. [facility] clotrimazole (MYCELEX) 10 mg daquan 2019-08-05 00:00:0 0 2019-08-15 23:59:00 No 10mg Use as directed 1 tablet (10 mg total) in the mouth or throat 3 (three) times daily with meals for 10 days. [facility] docusate sodium (COLACE) 100 MG capsule 00:00:00 2019-08-15 23:59:00 No 100mg Q.5D Take 1 capsule (100 mg total) by mouth 2 (two) times daily for 10 days. [facility] acetaminophen-codeine (TYLENOL #3) 300-30 mg per tablet 2019-08-05 00:00:00 2019-08-15 23:59:00 No 1{tbl} Take 1 tablet by mouth every 6 (six) hours as needed for up to 10 days. Max Daily Amount: 4 tablets [facility] warfarin (COUMADIN) 7.5 MG tablet 2019-08-05 00:00:00 2018 00:00:00 No 7.5mg QD Take 1 tablet (7.5 mg total) by mouth da sabino. [facility] tacrolimus (PROGRAF) 0.5 MG capsule 2019-08-05 00:00:0 0 2019-08-08 00:00:00 No 1.5mg Q.5D Take 3 capsules (1.5 mg total) by mouth 2 (two) times daily Take at 6 am and 6 pm each day. [facility] NIFEdipine (ADALAT CC) 30 MG 24 hr tablet 08-05 00:00:00 2019-08-05 00:00:00 No 30mg Q.5D Take 1 tablet (30 mg total) by mouth 2 (two) times daily. [facility] carvedilol (COREG) 25 MG tablet 2019-08-05 00:00:00 00:00:00 No 25mg Q.5D Take 1 tablet (25 mg total) by mouth 2 (two) ti mes daily. [facility] clotrimazole (MYCELEX) 10 mg daquan 2019-08-05 00:00:0 0 2019-08-05 00:00:00 No 10mg Use as directed 1 tablet (10 mg total) in the mouth or throat 3 (three) times daily with meals for 10 days. [facility] insulin NPH (HUMULIN N) 100 unit/mL injection 20 10-08-14 00:00:00 2019-08-05 00:00:00 No 5 unidades antes de desayuno. 5 unidades antes de pulp grinder.. [facility] tacrolimus (PROGRAF) 0.5 MG capsule 2019-08-05 00:00:0 0 2019-08-05 00:00:00 No 1.5mg Q.5D Take 3 capsules (1.5 mg total) by mouth 2 (two) times daily Take at 6 am and 6 pm each day. [facility] mycophenolate (CELLCEPT) 250 mg capsule 00:00:00 2019-08-05 00:00:00 No 1000mg Q.5D Take 4 capsule s (1,000 mg total) by mouth 2 (two) times daily. [facility] acetaminophen-codeine (TYLENOL #3) 300-30 mg per tablet 2019-08-05 00:00:00 2019-08-05 00:00:00 No 1{tbl} Take 1 tablet by mouth every 6 (six) hours as needed for up to 10 days. Max Daily Amount: 4 tablets [facility] docusate sodium (COLACE) 100 MG capsule 00:00:00 2019-08-05 00:00:00 No 100mg Q.5D Take 1 capsule (100 mg total) by mouth 2 (two) times daily for 10 days. [facility] atorvastatin (LIPITOR) 10 MG tablet 2019-08-05 00:00:0 0 2019-08-05 00:00:00 No 10mg QD Take 1 tablet (10 mg total) by mouth leobardo lindsay. [facility] warfarin (COUMADIN) 7.5 MG tablet 2019-08-05 00:00:00 2018 00:00:00 No 7.5mg QD Take 1 tablet (7.5 mg total) by mouth emma gallo. [facility] CONTOUR NEXT TEST STRIPS Strp 2019-08-04 00:00:00 2019-09-26 00: 00:00 No USE TO TEST BLOOD SUGAR TID [facility] warfarin (COUMADIN) 4 MG tablet 2019-08-03 14:59:06 00:00:00 No 5mg QD Take 5 mg by mouth daily . [facility] lidocaine-prilocaine (EMLA) 2.5-2.5 % cream 2018 00:00:00 2019-08-05 00:00:00 No APPLY SMALL AM OUNT TO ACCESS SITE (AVF) 3 TIMES A WEEK 1 HOUR BEFORE DIALYSIS. COVER WITH OCCLUSIVE DRESSING (SARAN WRAP) [facility] furosemide (LASIX) 80 mg tablet 2019-04-14 13:15:51 Yes 80mg Q.5D Take 80 mg by mouth 2 (two) times a day. Erci Arita amLODIPine (NORVASC) 5 mg tablet 2019-04-14 13:15:51 Yes 5mg QD Take 5 mg by mouth daily. Felipe Arita metoprolol succinate 50 mg capsule,sprinkle,ER 24hr 04-14 13:15:51 Yes 1{tbl} QD Take 1 tablet by mouth daily. Felipe Arita levothyroxine (SYNTHROID, LEVOXYL) 75 mcg tablet 2019-04-14 13:15:51 Yes 75ug QD Take 75 mcg by mouth daily. Felipe Arita warfarin (COUMADIN) 5 MG tablet 2019-04-14 13:15:51 Yes 5mg QD Take 5 mg by mouth daily. Take 1 tablet (5mg) by mouth daily for 30 days. Felipe Arita hydrOXYzine (ATARAX) 25 MG tablet 2019-04-14 13:15:51 Ye s 25mg [id number] Take 25 mg by mouth 3 (three) times a da y as needed for itching. Felipe Arita lovastatin (MEVACOR) 20 MG tablet 2019-04-14 13:15:51 Yes 20mg QD Take 20 mg by mouth nightly. Felipe jacobo Aspirin (Aspirin Ec) 81 Mg Tablet. Aspirin (Aspirin Ec) 81 Mg Tablet. 2018-05-31 00:00:00 Yes Alvaro Whitney Md 81 Every Morn ing [facility] Famotidine 20 Mg Tab Famotidine 20 Mg Tab 2018-05-31 00:00:00 Yes Alvaro Whitney Md 20 Twice Daily Before Meals [facility] Lisinopril 2.5 Mg Tablet Lisinopril 2.5 Mg Tablet 2018-05-31 00:00:00 Yes Alvaro Whitney Md 5 Daily [facility] Warfarin Sodium (Coumadin) 5 Mg Tablet Warfarin Sodium (Coum brenden) 5 Mg Tablet 2018-05-31 00:00:00 Yes Alvaro Whitney Md 5 Daily At 1 700 [facility] famotidine (PEPCID) 20 MG tablet 2018-05-31 00:00:00 Yes Twice Daily Before Meals [facility] aspirin 81 MG EC tablet 2018-05-31 00:00:00 2020-01-18 00:00:00 No 81mg 81 mg. [facility] levothyroxine (SYNTHROID, LEVOTHROID) 75 MCG tablet 2016-11 09:41:33 Yes 75ug Take 75 mcg by mouth Every morning on an empty stomach. [facility] enalapril (VASOTEC) 20 mg tablet 2015-08-02 00:00:00 Yes Essential hypertension 20mg Q.5D Take 1 tablet by felipe th 2 times daily Please see PCP for further refills. [facility] ASPIRIN 81 MG TAB 2015-01-11 12:11:00 Yes take 1 tablet (81 mg) by oral route once daily [facility] traMADol (ULTRAM) 50 mg tablet 2014-11-20 00:00:00 Yes Osteoarthritis TAKE ONE TABLET BY MOUTH EVERY [address] [facility] ergocalciferol (VITAMIN D2) 50,000 unit capsule 2014-11-16 0 0:00:00 Yes CKD (chronic kidney disease) stage 3, GFR 30-59 ml/min [id number] Take 1 capsule by mouth weekly. [facility] furosemide (LASIX) 40 mg tablet 2014-11-16 00:00:00 Yes CKD (chronic kidney disease) stage 3, GFR 30-59 ml/min 40mg Q.5D Take 1 tablet by mouth [address] [facility] levothyroxine (SYNTHROID) 75 mcg tablet 2014-11-16 00:00:00 Yes Hypothyroidism 75ug QD Take 1 tablet by mouth daily. [facility] lovastatin 20 mg tablet 2014-11-16 00:00:00 Yes H yperlipidemia 20mg Take 1 tablet by mouth at bedtime nightly. [facility] amLODIPine (NORVASC) 10 mg tablet 2014-11-16 00:00:00 Ye s Hypertension 10mg QD Take 1 tablet by mouth daily. [facility] blood glucose (PRECISION XTRA TEST STRIPS) test strips 2014-08-08 00:00:00 Yes Proteinuria every other day. [facility] lancets 2014-08-08 00:00:00 Yes Proteinuria every other day. [facility] blood glucose meter (PRECISION XTRA GLUCOMETER) 2014-08-08 0 0:00:00 Yes Diabetes mellitus Use as directed.. [facility] Levetiracetam (Keppra) 500 Mg Tablet Levetiracetam (Keppra) 500 Mg Tablet Yes 250 Twice A Day [facility] Levothyroxine Sodium 75 Mcg Tablet Levothyroxine Sodium 75 Mcg Tablet Yes 75 Daily [facility] Lovastatin 20 Mg Tablet Lovastatin 20 Mg Tablet Yes 20 Today At 9:00PM [facility] Nifedipine (Nifedipine Er) 30 Mg Tab.er.24 Nifedipine (Nifedipine Er) 30 Mg Tab.er.24 Yes 30 Daily [facility] Warfarin Sodium 3 Mg Tablet, 4 Mg Oral Warfarin Sodium 3 Mg Tabl et, 4 Mg Oral 2018-05-31 00:00:00 No 4 Daily [facility] Baclofen 10 Mg Tablet, 1 Mg Oral Baclofen 10 Mg Tablet, 1 Mg Ora l 2018-05-30 00:00:00 No 1 Twice A Day [facility] Lisinopril/Hydrochlorothiazide (Lisinopr il-Hctz 20-12.5 Mg Tab) 1 Each Tablet, 1 Tab Oral Lisinopril/Hydrochlorothiazide (Lisinopr il-Hctz 20-12.5 Mg Tab) 1 Each Tablet, 1 Tab Oral 2018-05-30 00:00:00 No 1 Daily [facility] Metoclopramide Hcl (Reglan) 10 Mg Tablet, 10 Mg Oral M etoclopramide Hcl (Reglan) 10 Mg Tablet, 10 Mg Oral 2018-05-30 00:00:00 No 10 Daily [facility] Omeprazole 40 Mg Capsule.dr, 40 Mg Oral Omeprazole 40 Mg Cap amna., 40 Mg Oral 2018-05-30 00:00:00 No 40 Daily [facility] Tramadol Hcl (Ultram) 50 Mg Tablet, 50 Mg Oral Tramado l Hcl (Ultram) 50 Mg Tablet, 50 Mg Oral 2018-05-30 00:00:00 No 50 Daily [facility] Immunizations Ordered Immunization Name Filled Immunization Name Date Status Comments Source Influenza Vaccine 2014-09-21 00:00:00 [facility] Herpes Zoster Vaccine In Clinic 2014-09-21 00:00:[address] [facility] Tdap Tetanus, diphtheria, acellular pertussis Vaccine 2014-08-08 00:00:00 [facility] Influenza Vaccine 2012-11-08 00:00:00 [facility] PPV 23 Pneumococcal Polysaccaride 2009-11-11 [facility] 2008-[facility]-14 00:[facility]:00 [facility] Td Tetanus, diphtheria Toxoids Vaccine 2004-04-04 00:00:00 [facility] PPV 23 Pneumococcal Polysaccaride 1999-01-03 00:00:[address] [facility] Vital Signs Vital Name Observation Time Observation Value Comments Source Systolic blood pressure 2020-06-06 13:37:00 83 mm[Hg] [facility] Diastolic blood pressure 2020-06-06 13:37:00 53 mm[Hg] [facility] Heart rate 2020-06-06 13:37:00 68 /min [facility] Body temperature 2020-06-06 13:12:00 36.61 Kortney [facility] Respiratory rate 2020-06-06 13:12:00 17 /min [facility] Body height 2020-06-06 13:12:00 165.1 cm [facility] Body weight Measured 2020-06-06 13:12:00 91.264 kg [facility] BMI 2020-06-06 13:12:00 33.48 kg/m2 [facility] Oxygen saturation in Arterial blood by Pulse oximetry 06-06 13:12:00 98 /min [facility] r Procedures Procedure Date / Time Performed Performing Clinician [facility] e COMPREHENSIVE METABOLIC PANEL 2020-07-08 08:08:00 TimminsStacey [facility] PHOSPHORUS 2020-07-08 08:08:00 TimminsNevaeh [facility] TACROLIMUS LEVEL 2020-07-08 08:08:00 TimminsNevaeh [facility] URINALYSIS W/ REFLEX URINE CULTURE 2020-07-08 08:08:00 TimminsNevaeh [facility] CBC W/PLT COUNT & AUTO DIFFERENTIAL 2020-07-08 08:08:00 TimminsNevaeh [facility] COMPREHENSIVE METABOLIC PANEL 2020-07-04 07:30:00 TimminsStacey [facility] PHOSPHORUS 2020-07-04 07:30:00 TimminsNevaeh [facility] TACROLIMUS LEVEL 2020-07-04 07:30:00 TimminsNevaeh [facility] URINALYSIS W/ REFLEX URINE CULTURE 2020-07-04 07:30:00 TimminsNevaeh [facility] BK VIRUS PCR, PLASMA 2020-07-04 07:30:00 TimminNevaeh payton [facility] CBC W/PLT COUNT & AUTO DIFFERENTIAL 2020-07-04 07:30:00 TimminsNevaeh [facility] BK VIRUS PCR, PLASMA 2020-06-06 15:05:00 TimminNevaeh payton [facility] URINE CULTURE 2020-06-06 08:24:00 TimminsNevaeh [facility] COMPREHENSIVE METABOLIC PANEL 2020-06-06 08:24:00 TimminsStacey [facility] PHOSPHORUS 2020-06-06 08:24:00 TimminsNevaeh [facility] TACROLIMUS LEVEL 2020-06-06 08:24:00 TimminsNevaeh [facility] URINALYSIS W/ REFLEX URINE CULTURE 2020-06-06 08:24:00 TimminNevaeh paytonNupur [facility] CBC W/PLT COUNT & AUTO DIFFERENTIAL 2020-06-06 08:24:00 Nevaeh HindsNupur [facility] (CELLAVISION MANUAL DIFF) 2020-06-06 08:24:00 TimminNahed paytonNevaeh S. [facility] COMPREHENSIVE METABOLIC PANEL 2020-05-09 08:13:00 Timmins Stacey Lopez [facility] PHOSPHORUS 2020-05-09 08:13:00 TimminsNahedNevaeh S. [facility] TACROLIMUS LEVEL 2020-05-09 08:13:00 TimminNahed paytonNevaeh S. [facility] URINALYSIS W/ REFLEX URINE CULTURE 2020-05-09 08:13:00 TimminNahed paytonNevaeh S. [facility] CBC W/PLT COUNT & AUTO DIFFERENTIAL 2020-05-09 08:13:00 TimminNahed paytonNevaeh FitoNupur [facility] COMPREHENSIVE METABOLIC PANEL 2020-04-11 07:51:00 TimminsNahedcecil Lopez [facility] LACTATE DEHYDROGENASE (LDH) 2020-04-11 07:51:00 TimminWilber payton [facility] PHOSPHORUS 2020-04-11 07:51:00 TimminsNahedNevaeh S. [facility] TACROLIMUS LEVEL 2020-04-11 07:51:00 Timmins Nevaeh S. [facility] CBC W/PLT COUNT & AUTO DIFFERENTIAL 2020-04-11 07:51:00 TimminsNahedNevaeh FitoNupur [facility] URINALYSIS W/ REFLEX URINE CULTURE 2020-04-11 07:50:00 TimminfitoNevaeh [facility] COMPREHENSIVE METABOLIC PANEL 2020-03-28 07:44:00 TimminsNahedcecil Lopez [facility] LACTATE DEHYDROGENASE (LDH) 2020-03-28 07:44:00 TimminWilber payton SNupur [facility] PHOSPHORUS 2020-03-28 07:44:00 Timmins Nevaeh Lopez [facility] TACROLIMUS LEVEL 2020-03-28 07:44:00 TimminsNevaeh [facility] URINALYSIS W/ REFLEX URINE CULTURE 2020-03-28 07:44:00 TimminsNahedNevaeh S. [facility] CBC W/PLT COUNT & AUTO DIFFERENTIAL 2020-03-28 07:44:00 TimminsNevaeh [facility] COMPREHENSIVE METABOLIC PANEL 2020-03-14 07:55:00 Timmins Stacey Lopez [facility] LACTATE DEHYDROGENASE (LDH) 2020-03-14 07:55:00 TimminsWilber SNupur [facility] PHOSPHORUS 2020-03-14 07:55:00 TimminsNevaeh [facility] TACROLIMUS LEVEL 2020-03-14 07:55:00 TimminsNevaeh [facility] CBC W/PLT COUNT & AUTO DIFFERENTIAL 2020-03-14 07:55:00 TimminsNevaeh [facility] URINALYSIS W/ REFLEX URINE CULTURE 2020-03-14 07:51:00 TimminsNevaeh [facility] URINALYSIS W/ REFLEX URINE CULTURE 2020-02-15 08:37:00 TimminsNevaeh [facility] COMPREHENSIVE METABOLIC PANEL 2020-02-15 07:19:00 TimminsStacey [facility] LACTATE DEHYDROGENASE (LDH) 2020-02-15 07:19:00 TimminsWilber SNupur [facility] PHOSPHORUS 2020-02-15 07:19:00 TimminsNevaeh [facility] TACROLIMUS LEVEL 2020-02-15 07:19:00 TimminsNevaeh [facility] CBC W/PLT COUNT & AUTO DIFFERENTIAL 2020-02-15 07:19:00 TimminsNevaeh [facility] PROTHROMBIN TIME/INR 2020-02-01 08:03:00 TimminNevaeh payton [facility] URINALYSIS W/ REFLEX URINE CULTURE 2020-02-01 08:03:00 TimminNevaeh payton [facility] TACROLIMUS LEVEL 2020-02-01 08:03:00 TimminsNevaeh [facility] PHOSPHORUS 2020-02-01 08:03:00 TimminsNevaeh [facility] LACTATE DEHYDROGENASE (LDH) 2020-02-01 08:03:00 TimminsWilber [facility] COMPREHENSIVE METABOLIC PANEL 2020-02-01 08:03:00 TimminsStacey [facility] CBC W/PLT COUNT & AUTO DIFFERENTIAL 2020-02-01 08:03:00 TimminsNevaeh [facility] COMPREHENSIVE METABOLIC PANEL 2020-01-27 07:56:00 TimminsStacey [facility] LACTATE DEHYDROGENASE (LDH) 2020-01-27 07:56:00 TimminsWilber [facility] PHOSPHORUS 2020-01-27 07:56:00 TimminsNevaeh [facility] TACROLIMUS LEVEL 2020-01-27 07:56:00 TimminsNevaeh [facility] URINALYSIS W/ REFLEX URINE CULTURE 2020-01-27 07:56:00 TimminNevaeh payton [facility] BK VIRUS PCR, PLASMA 2020-01-27 07:56:00 TimminNevaeh payton [facility] CBC W/PLT COUNT & AUTO DIFFERENTIAL 2020-01-27 07:56:00 TimminsNevaeh [facility] COMPREHENSIVE METABOLIC PANEL 2020-01-18 07:52:00 TimminsStacey [facility] LACTATE DEHYDROGENASE (LDH) 2020-01-18 07:52:00 TimminsWilber [facility] PHOSPHORUS 2020-01-18 07:52:00 TimminsNevaeh [facility] TACROLIMUS LEVEL 2020-01-18 07:52:00 TimminsNevaeh [facility] BK VIRUS PCR, PLASMA 2020-01-18 07:52:00 TimminNevaeh payton [facility] CBC W/PLT COUNT & AUTO DIFFERENTIAL 2020-01-18 07:52:00 TimminsNevaeh [facility] URINALYSIS W/ REFLEX URINE CULTURE 2020-01-18 07:49:00 TimminsNevaeh [facility] COMPREHENSIVE METABOLIC PANEL 2019-12-21 08:21:00 TimminsStacey [facility] LACTATE DEHYDROGENASE (LDH) 2019-12-21 08:21:00 TimminWilber payton [facility] PHOSPHORUS 2019-12-21 08:21:00 TimminsNevaeh [facility] TACROLIMUS LEVEL 2019-12-21 08:21:00 TimminsNevaeh [facility] URINALYSIS W/ REFLEX URINE CULTURE 2019-12-21 08:21:00 TimminNevaeh payton [facility] BK VIRUS PCR, PLASMA 2019-12-21 08:21:00 TimminNevaeh payton [facility] CBC W/PLT COUNT & AUTO DIFFERENTIAL 2019-12-21 08:21:00 TimminNevaeh payton [facility] US TESTICULAR (SCROTUM) 2019-12-21 07:49:00 TimminsNevaeh [facility] COMPREHENSIVE METABOLIC PANEL 2019-11-23 09:10:00 TimminsStacey [facility] LACTATE DEHYDROGENASE (LDH) 2019-11-23 09:10:00 TimminWilber payton [facility] PHOSPHORUS 2019-11-23 09:10:00 TimminsNevaeh [facility] TACROLIMUS LEVEL 2019-11-23 09:10:00 Timmins, Nevaeh S. [facility] URINALYSIS W/ REFLEX URINE CULTURE 2019-11-23 09:10:00 Nevaeh Hinds [facility] CBC W/PLT COUNT & AUTO DIFFERENTIAL 2019-11-23 09:10:00 Nevaeh Hinds [facility] BK VIRUS PCR, PLASMA 2019-11-20 07:27:00 Nevaeh Hinds [facility] URINALYSIS W/ REFLEX URINE CULTURE 2019-11-13 07:24:00 Nevaeh Hinds [facility] COMPREHENSIVE METABOLIC PANEL 2019-11-13 07:23:00 Stacey Hinds [facility] LACTATE DEHYDROGENASE (LDH) 2019-11-13 07:23:00 Wilber Hinds [facility] PHOSPHORUS 2019-11-13 07:23:00 Nevaeh Hinds [facility] TACROLIMUS LEVEL 2019-11-13 07:23:00 Nevaeh Hinds [facility] CBC W/PLT COUNT & AUTO DIFFERENTIAL 2019-11-13 07:23:00 Nevaeh Hinds [facility] US TRANSPLANT KIDNEY 2019-10-26 14:48:00 Nevaeh Hinds [facility] COMPREHENSIVE METABOLIC PANEL 2019-10-24 15:57:00 Stacey Hinds [facility] LACTATE DEHYDROGENASE (LDH) 2019-10-24 15:57:00 Wilber Hinds [facility] PHOSPHORUS 2019-10-24 15:57:00 Nevaeh Hinds [facility] TACROLIMUS LEVEL 2019-10-24 15:57:00 Nevaeh Hinds [facility] PROTHROMBIN TIME/INR 2019-10-24 15:57:00 Nevaeh Hinds [facility] BK VIRUS PCR, PLASMA 2019-10-24 15:57:00 Nevaeh Hinds [facility] CBC W/PLT COUNT & AUTO DIFFERENTIAL 2019-10-24 15:57:00 JoséNevaeh ware [facility] (CELLAVISION MANUAL DIFF) 2019-10-24 15:57:00 JoséNevaeh ware [facility] URINALYSIS W/ REFLEX URINE CULTURE 2019-10-24 15:52:00 Nevaeh Hinds [facility] COMPREHENSIVE METABOLIC PANEL 2019-09-26 08:20:00 JoséStacey ware [facility] LACTATE DEHYDROGENASE (LDH) 2019-09-26 08:20:00 Wilber Hinds [facility] PHOSPHORUS 2019-09-26 08:20:00 JoséNevaeh ware [facility] TACROLIMUS LEVEL 2019-09-26 08:20:00 Nevaeh Hinds [facility] URINALYSIS W/ REFLEX URINE CULTURE 2019-09-26 08:20:00 JoséNevaeh ware [facility] CBC W/PLT COUNT & AUTO DIFFERENTIAL 2019-09-26 08:20:00 Nevaeh Hinds [facility] COMPREHENSIVE METABOLIC PANEL 2019-09-19 07:00:00 Stacey Hinds [facility] LACTATE DEHYDROGENASE (LDH) 2019-09-19 07:00:00 Wilber Hinds [facility] PHOSPHORUS 2019-09-19 07:00:00 Nevaeh Hinds [facility] TACROLIMUS LEVEL 2019-09-19 07:00:00 Nevaeh Hinds [facility] URINALYSIS W/ REFLEX URINE CULTURE 2019-09-19 07:00:00 Nevaeh Hinds [facility] BK VIRUS PCR, PLASMA 2019-09-19 07:00:00 Nevaeh Hinds [facility] CBC W/PLT COUNT & AUTO DIFFERENTIAL 2019-09-19 07:00:00 Nevaeh Hinds [facility] US TRANSPLANT KIDNEY 2019-09-12 09:40:00 Nevaeh Hinds [facility] URINALYSIS W/ REFLEX URINE CULTURE 2019-09-12 07:18:00 Nevaeh Hinds [facility] COMPREHENSIVE METABOLIC PANEL 2019-09-12 07:17:00 Stacey Hinds [facility] LACTATE DEHYDROGENASE (LDH) 2019-09-12 07:17:00 Wilber Hinds [facility] PHOSPHORUS 2019-09-12 07:17:00 Nevaeh Hinds [facility] TACROLIMUS LEVEL 2019-09-12 07:17:00 Nevaeh Hinds [facility] CBC W/PLT COUNT & AUTO DIFFERENTIAL 2019-09-12 07:17:00 Nevaeh Hinds [facility] COMPREHENSIVE METABOLIC PANEL 2019-09-05 09:17:00 Stacey Hinds [facility] LACTATE DEHYDROGENASE (LDH) 2019-09-05 09:17:00 Wilber Hinds [facility] PHOSPHORUS 2019-09-05 09:17:00 Nevaeh Hinds [facility] TACROLIMUS LEVEL 2019-09-05 09:17:00 Nevaeh Hinds [facility] CBC W/PLT COUNT & AUTO DIFFERENTIAL 2019-09-05 09:17:00 Nevaeh Hinds [facility] URINE CULTURE 2019-09-05 09:15:00 Nevaeh Hinds [facility] URINALYSIS W/ REFLEX URINE CULTURE 2019-09-05 09:15:00 Nevaeh Hinds [facility] COMPREHENSIVE METABOLIC PANEL 2019-08-29 08:06:00 Stacey Hinds [facility] LACTATE DEHYDROGENASE (LDH) 2019-08-29 08:06:00 Wilber Hinds [facility] PHOSPHORUS 2019-08-29 08:06:00 TimminNevaeh payton [facility] TACROLIMUS LEVEL 2019-08-29 08:06:00 TimNevaeh ware [facility] URINALYSIS W/ REFLEX URINE CULTURE 2019-08-29 08:06:00 TimNevaeh ware [facility] BK VIRUS PCR, PLASMA 2019-08-29 08:06:00 Nevaeh Hinds [facility] PROTHROMBIN TIME/INR 2019-08-29 08:06:00 TimminNevaeh payton [facility] CBC W/PLT COUNT & AUTO DIFFERENTIAL 2019-08-29 08:06:00 TimNevaeh ware [facility] COMPREHENSIVE METABOLIC PANEL 2019-08-22 08:42:00 TimStacey ware [facility] LACTATE DEHYDROGENASE (LDH) 2019-08-22 08:42:00 TimWilber ware [facility] PHOSPHORUS 2019-08-22 08:42:00 TimNevaeh ware [facility] TACROLIMUS LEVEL 2019-08-22 08:42:00 TimminNevaeh payton [facility] CBC W/PLT COUNT & AUTO DIFFERENTIAL 2019-08-22 08:42:00 TimNevaeh ware [facility] URINALYSIS W/ REFLEX URINE CULTURE 2019-08-22 08:38:00 TimNevaeh ware [facility] PROTHROMBIN TIME/INR 2019-08-22 08:37:00 Nevaeh Hinds [facility] COMPREHENSIVE METABOLIC PANEL 2019-08-15 10:20:00 TimStacey ware [facility] LACTATE DEHYDROGENASE (LDH) 2019-08-15 10:20:00 Wilber Hinds [facility] PHOSPHORUS 2019-08-15 10:20:00 TimNevaeh ware [facility] TACROLIMUS LEVEL 2019-08-15 10:20:00 Nevaeh Hinds [facility] PROTHROMBIN TIME/INR 2019-08-15 10:20:00 Nevaeh Hinds [facility] CBC W/PLT COUNT & AUTO DIFFERENTIAL 2019-08-15 10:20:00 Nevaeh Hinds [facility] URINALYSIS W/ REFLEX URINE CULTURE 2019-08-15 10:13:00 Nevaeh Hinds [facility] RHYTHM STRIP - SCAN 2019-08-10 14:01:40 Provider, Default [facility] RHYTHM STRIP - SCAN 2019-08-08 10:53:34 Provider, Default [facility] URINE CULTURE 2019-08-08 07:03:00 Nevaeh Hinds [facility] COMPREHENSIVE METABOLIC PANEL 2019-08-08 07:03:00 Stacey Hinds [facility] LACTATE DEHYDROGENASE (LDH) 2019-08-08 07:03:00 Wilber Hinds [facility] PHOSPHORUS 2019-08-08 07:03:00 Nevaeh Hinds [facility] TACROLIMUS LEVEL 2019-08-08 07:03:00 Nevaeh Hinds [facility] URINALYSIS W/ REFLEX URINE CULTURE 2019-08-08 07:03:00 Nevaeh Hinds [facility] BK VIRUS PCR, PLASMA 2019-08-08 07:03:00 Nevaeh Hinds [facility] PROTHROMBIN TIME/INR 2019-08-08 07:03:00 Nevaeh Hinds [facility] CBC W/PLT COUNT & AUTO DIFFERENTIAL 2019-08-08 07:03:00 Nevaeh Hinds [facility] URINE CULTURE 2019-08-07 08:55:00 Nevaeh Hinds [facility] COMPREHENSIVE METABOLIC PANEL 2019-08-07 08:55:00 Stacey Hinds [facility] LACTATE DEHYDROGENASE (LDH) 2019-08-07 08:55:00 Wilber Hinds [facility] TACROLIMUS LEVEL 2019-08-07 08:55:00 Nevaeh Hinds [facility] URINALYSIS W/ REFLEX URINE CULTURE 2019-08-07 08:55:00 Nevaeh Hinds [facility] BK VIRUS PCR, PLASMA 2019-08-07 08:55:00 Nevaeh Hinds [facility] POCT-GLUCOSE METER 2019-08-05 17:06:00 Kimi Mirza [facility] POCT-GLUCOSE METER 2019-08-05 12:32:00 Kimi Mirza [facility] POCT-GLUCOSE METER 2019-08-05 07:56:00 Kimi Mirza [facility] BASIC METABOLIC PANEL (7) 2019-08-05 06:02:00 Nevaeh Mcintosh [facility] MAGNESIUM 2019-08-05 06:02:00 Nevaeh Mcintosh Claudia [facility] PHOSPHORUS 2019-08-05 06:02:00 Nevaeh Mcintosh [facility] PROTHROMBIN TIME/INR 2019-08-05 06:02:00 Nevaeh Mcintosh [facility] IRON, TIBC, % SAT. (WITHOUT FERRITIN) 2019-08-05 06:02:00 Rehana Payan [facility] TACROLIMUS LEVEL 2019-08-05 06:02:00 Nevaeh Mcintosh Claudia [facility] CBC W/PLT COUNT & AUTO DIFFERENTIAL 2019-08-05 06:02:00 Meliton Mcintosh [facility] POCT-GLUCOSE METER 2019-08-04 21:23:00 Kimi Mirza [facility] POCT-GLUCOSE METER 2019-08-04 17:44:00 Kimi Mirza [facility] POCT-GLUCOSE METER 2019-08-04 11:42:00 Kimi Mirza [facility] POCT-GLUCOSE METER 2019-08-04 07:46:00 Kimi Mirza [facility] BASIC METABOLIC PANEL (7) 2019-08-04 06:05:00 Nevaeh Mcintosh [facility] MAGNESIUM 2019-08-04 06:05:00 Nevaeh Mcintosh [facility] PHOSPHORUS 2019-08-04 06:05:00 Nevaeh Mcintosh [facility] PROTHROMBIN TIME/INR 2019-08-04 06:05:00 Nevaeh Mcintosh [facility] TACROLIMUS LEVEL 2019-08-04 06:05:00 Nevaeh Mcintosh [facility] LACTATE DEHYDROGENASE (LDH) 2019-08-04 06:05:00 Wilber Hinds S. [facility] CBC W/PLT COUNT & AUTO DIFFERENTIAL 2019-08-04 06:05:00 Meliton Mcintosh [facility] POCT-GLUCOSE METER 2019-08-03 21:17:00 Kimi Mirza [facility] POCT-GLUCOSE METER 2019-08-03 17:08:00 Kimi Mirza [facility] POCT-GLUCOSE METER 2019-08-03 12:22:00 Kimi Mirza [facility] POCT-GLUCOSE METER 2019-08-03 06:56:00 Kimi Mirza [facility] POCT-GLUCOSE METER 2019-08-03 05:22:00 Kimi Mirza [facility] TACROLIMUS LEVEL 2019-08-03 05:09:00 Nevaeh Mcintosh [facility] BASIC METABOLIC PANEL (7) 2019-08-03 03:16:00 Nevaeh Mcintosh [facility] MAGNESIUM 2019-08-03 03:16:00 Nevaeh Mcintosh [facility] PHOSPHORUS 2019-08-03 03:16:00 Nevaeh Mcintosh Claudia [facility] PROTHROMBIN TIME/INR 2019-08-03 03:16:00 Nevaeh Mcintosh [facility] CBC W/PLT COUNT & AUTO DIFFERENTIAL 2019-08-03 03:16:00 Meliton Mcintosh [facility] POCT-GLUCOSE METER 2019-08-03 00:56:00 Kimi Mirza [facility] BLOOD GAS, ARTERIAL 2019-08-03 00:52:00 Carine Miller [facility] XR CHEST 1 VIEW PORTABLE/BEDSIDE 2019-08-02 22:47:00 Brigid Mcintosh [facility] BASIC METABOLIC PANEL (7) 2019-08-02 22:40:00 Nevaeh Mcintosh [facility] MAGNESIUM 2019-08-02 22:40:00 Nevaeh Mcintosh [facility] PHOSPHORUS 2019-08-02 22:40:00 Nevaeh Mcintosh [facility] PROTHROMBIN TIME/INR 2019-08-02 22:40:00 Nevaeh Mcintosh [facility] CBC W/PLT COUNT & AUTO DIFFERENTIAL 2019-08-02 22:40:00 Meliton Mcintosh [facility] BLOOD GAS, ARTERIAL 2019-08-02 20:10:16 Turner Mckeon I [facility] SODIUM NA-STAT LAB 2019-08-02 20:10:16 Turner Mckeon [facility] POTASSIUM-STAT LAB 2019-08-02 20:10:16 Turner Mckeon [facility] GLUCOSE-STAT LAB 2019-08-02 20:10:16 Turner Mckeon [facility] HGB/HCT (H&H) - STAT LAB 2019-08-02 20:10:16 Turner [facility] TRANSPLANT,KIDNEY-LIVING 2019-08-02 18:00:00 Frannie Card [facility] TRANSFUSION SERVICE REPORT - SCAN 2019-08-02 17:53:54 Provid er, Default Scanning [facility] APTT 2019-08-02 15:55:00 Kimi Mirza [facility] COMPREHENSIVE METABOLIC PANEL 2019-08-02 15:55:00 Clarisse Mirza [facility] PROTHROMBIN TIME/INR 2019-08-02 15:55:00 Kimi Mirza [facility] HGB/HCT (H&H) - STAT LAB 2019-08-02 15:55:00 Kimi Mirza [facility] POTASSIUM-STAT LAB 2019-08-02 15:55:00 Kimi Mirza [facility] CBC W/PLT COUNT & AUTO DIFFERENTIAL 2019-08-02 15:55:00 Meliton Mcintosh [facility] PREPARE RBC 2019-08-01 18:10:00 Kimi Mirza [facility] X-ray of chest, single view 2019-06-16 00:00:00 DEANDRA VALENZUELA [facility] Plan of Care Planned Activity Planned Date Details Comments Source Future Scheduled Test 2020-08-22 00:00:00 INFLUENZA VACCINE [code = INFLUENZA VACCINE] [facility] Future Scheduled Test 2020-07-23 00:00:00 INFLUENZA VACCINE (#1) [code = INFLUENZA VACCINE (#1)] [facility] Future Scheduled Test 2020-01-25 00:00:00 Hemoglobin A1c alex surement (procedure) [code = 22419559] [facility] Future Scheduled Test 2020-01-11 00:00:00 Screening for adithya gnant neoplasm of colon (procedure) [code = 325692229] [facility] Future Scheduled Test 2019-11-23 00:00:00 MEDICARE ANNUAL WE LLNESS (YEAR 2 or FIRST YEAR if no IPPE) [code = MEDICARE ANNUAL WELLNESS (YEAR 2 or FIRST YEAR if no IPPE)] [facility] Future Scheduled Test 2018-12-30 00:00:00 Screening for adithya gnant neoplasm of colon (procedure) [code = 532028766] [facility] Future Scheduled Test 2017 00:00:00 65+ PNEUMOCOCCAL V ACCINE (1 of 2 - PCV13) [code = 65+ PNEUMOCOCCAL VACCINE (1 of 2 - PCV13)] [facility] Scheduled Test 2017 00:00:00 IMM Pneumococcal A ge 65 and Up [code = IMM Pneumococcal Age 65 and Up] [facility] Scheduled Test 2017 00:00:00 PNEUMOCOCCAL 65+ H IGH/HIGHEST RISK (1 of 2 - PCV13) [code = PNEUMOCOCCAL 65+ HIGH/HIGHEST RISK (1 of 2 - PCV13)] [facility] Future Scheduled Test 2015-10-02 00:00:00 Hemoglobin A1c alex surement (procedure) [code = 09846548] [facility] Scheduled Test 2015-01-15 00:00:00 DM Foot Exam (Year ly) [code = DM Foot Exam (Yearly)] [facility] Scheduled Test 2014-08-25 00:00:00 DM Retinal Exam (Y early) [code = DM Retinal Exam (Yearly)] [facility] Scheduled Test 2002 00:00:00 COLONOSCOPY SCREEN ING [code = COLONOSCOPY SCREENING] [facility] Scheduled Test 2002 00:00:00 SHINGLES VACCINES (#1) [code = SHINGLES VACCINES (#1)] [facility] Scheduled Test 1962 00:00:00 DIABETIC FOOT EXAM [code = DIABETIC FOOT EXAM] [facility] Scheduled Test 1962 00:00:00 URINE MICROALBUMIN [code = URINE MICROALBUMIN] [facility] Scheduled Test 1962 00:00:00 DIABETIC EYE EXAM [code = DIABETIC EYE EXAM] [facility] Scheduled Test 1962 00:00:00 Urine screening fo r protein (procedure) [code = 815601653] [facility] Future Scheduled Test 1952 00:00:00 DIABETIC RETINAL E YE EXAM [code = DIABETIC RETINAL EYE EXAM] [facility] Encounters Start Date/Time End Date/Time Encounter Type Admission Type [facility] Care Department Encounter ID Source 2019-07-12 15:47:00 2019-07-14 20:40:00 Discharged Inpatient (obs) 1 ALVARO WHITNEY [facility] [id number] [facility] 2019-06-16 11:10:00 2019-06-16 11:10:00 Registered Emergency Room 1 DEANDRA VALENZUELA [facility] [id number] [facility] 2018-05-30 10:44:00 2018-06-01 20:20:00 Discharged Inpatient (obs) 1 ALVARO WHITNEY [facility] [id number] [facility] 2018-05-30 00:51:00 2018-05-30 03:40:00 Departed Emergency Room 1 GATO FOREMAN [facility] [id number] [facility] Results Test Description Test Time Test Comments Results Result Comments Source Tacrolimus Level 2020-07-08 10:11:00 Test Item Tacrolimus Lvl (test code = 56262-4) 5.0 ng/mL 10-20 L ANNEMARIE (test code = ANNEMARIE) Orthotic Assistant ID - AAHAMID Lab Interpretation (test code = 41945-7) [facility]normal [facility] [id number] 10:11:00* Test Item Value Reference Range Interpretation Comments TACROLIMUS BLOOD (BEAKER) (test code = 657) 5.0 ng/mL 10.0-20.0 L Orthotic Assistant ID - AAHAMIDUrinalysis w/Microscopic + Reflex to [id number] 10:02:00 * Test Item Value Reference Range Interpretation Comments Color, UA (test code = 5778-6) Yellow Clarity, UA (test code = 5767-9) Clear Specific [place], UA (test code = 5811-5) 1.024 1.001-1.035 pH, UA (test code = 5803-2) 6.0 5.0-8.0 Protein, UA (test code = 95824-6) 30 mg/dL Negative A Glucose, UA (test code = 365) Negative Negative Ketones, UA (test code = 2514-8) Negative Negative Bilirubin, UA (test code = 19529-9) Negative Negative Blood, UA (test code = 63275-3) Trace Negative A Nitrite, UA (test code = 5802-4) Negative Negative Leukocytes, UA (test code = 5799-2) Negative Negative Urobilinogen, UA (test code = 59092-8) 0.2 mg/dL 0.2-1 RBC, UA (test code = 89065-6) 3 /HPF WBC, UA (test code = 5821-4) 1 /HPF Mucus (test code = 8247-9) Rare Squam Epithel, UA (test code = 63612-8) <1 /HPF Specimen Source (test code = 2795) ANNEMARIE (test code = ANNEMARIE) Orthotic Assistant ID - [auto]Orthotic Assistant ID - tech Lab Interpretation (test code = 46314-8) [facility] [id number] 10:02:00* Test Item Value Reference Range Interpretation Comments COLOR (BEAKER) (test code = 470) Yellow CLARITY (BEAKER) (test code = 469) Clear SPECIFIC GRAVITY UA (BEAKER) (test code = 468) 1.024 1.001-1 .035 PH UA (BEAKER) (test code = 467) 6.0 5.0-8.0 PROTEIN UA (BEAKER) (test code = 464) 30 mg/dL Negative A GLUCOSE UA (BEAKER) (test code = 365) Negative Negative KETONES UA (BEAKER) (test code = 371) Negative Negative BILIRUBIN UA (BEAKER) (test code = 462) Negative Negative BLOOD UA (BEAKER) (test code = 461) Trace Negative A NITRITE UA (BEAKER) (test code = 465) Negative Negative LEUKOCYTE ESTERASE UA (BEAKER) (test code = 466) Negative Negat sharona UROBILINOGEN UA (BEAKER) (test code = 463) 0.2 mg/dL 0.2-1.0 RBC UA (BEAKER) (test code = 519) 3 /HPF WBC UA (BEAKER) (test code = 520) 1 /HPF MUCUS (BEAKER) (test code = 1574) Rare SQUAMOUS EPITHELIAL (BEAKER) (test code = 516) < /HPF SOURCE(BEAKER) (test code = 2795) Orthotic Assistant ID - [auto]Orthotic Assistant ID - techComprehensive Metabolic Panel 2020-07-08 09:03:00* Test Item Value Reference Range Interpretation Comments Protein, Total (test code = 2885-2) 7.4 6.0- 8.3 gm/dL Albumin (test code = 43760-6) 3.9 g/dL 3.5-5 Alkaline Phosphatase (test code = 6768-6) 100 U/L 40-150 Total Bilirubin (test code = 1975-2) 0.7 mg/dL 0.2-1.2 Sodium (test code = 2951-2) 138 meq/L 136-145 Potassium (test code = 2823-3) 3.9 meq/L 3.5-5.1 Chloride (test code = 2075-0) 106 meq/L 98-107 CO2 (test code = 8-9) 25 meq/L 22-29 BUN (test code = 3094-0) 25 mg/dL 7-21 H Creatinine (test code = 2160-0) 1.58 mg/dL 0.57-1.25 H Glucose (test code = 2345-7) 134 mg/dL 70-105 H Calcium (test code = 76101-9) 8.8 mg/dL 8.4-10.2 AST (test code = 1920-8) 28 U/L 5-34 ALT (test code = 1742-6) 46 U/L 6-55 EGFR (test code = 16195-1) 44 mL/min/1.73 sq m ESTIMATED GFR IS NOT ACCURATE CREATININE CLEARANCE IN PREDICTING GLOMERULAR FILTRATION RATE. ESTIMATED GFR IS NOT APPLICABLE FOR DIALYSIS PATIENTS. ANNEMARIE (test code = ANNEMARIE) Orthotic Assistant ID - DB Lab Interpretation (test code = 02242-7) [facility] 2020-[facility] 09:03:00* Test Item Value Reference Range Interpretation Comments Phosphorus (test code = 2777-1) 3.3 mg/dL 2.3-4.7 ANNEMARIE (test code = ANNEMARIE) Orthotic Assistant ID - DB Lab Interpretation (test code = 32602-3) Normal [facility]2020-[facility]17 09:03:00* Test Item Value Reference Range Interpretation Comments PHOSPHORUS (BEAKER) (test code = 604) 3.3 mg/dL 2.3-4.7 Orthotic Assistant ID - DBCOMPREHENSIVE METABOLIC [id number] 09:03:00* Test Item Value Reference Range Interpretation Comments TOTAL PROTEIN (BEAKER) (test code = 770) 7.4 gm/dL 6.0-8.3 ALBUMIN (BEAKER) (test code = 1145) 3.9 g/dL 3.5-5.0 ALKALINE PHOSPHATASE (BEAKER) (test code = 346) 100 U/L 40-150 BILIRUBIN TOTAL (BEAKER) (test code = 377) 0.7 mg/dL 0.2-1.2 SODIUM (BEAKER) (test code = 381) 138 meq/L 136-145 POTASSIUM (BEAKER) (test code = 379) 3.9 meq/L 3.5-5.1 CHLORIDE (BEAKER) (test code = 382) 106 meq/L 98-107 CO2 (BEAKER) (test code = 355) 25 meq/L 22-29 BLOOD UREA NITROGEN (BEAKER) (test code = 354) 25 mg/dL 7-21 H CREATININE (BEAKER) (test code = 358) 1.58 mg/dL 0.57-1.25 H GLUCOSE RANDOM (BEAKER) (test code = 652) 134 mg/dL 70-105 H CALCIUM (BEAKER) (test code = 697) 8.8 mg/dL 8.4-10.2 AST (SGOT) (BEAKER) (test code = 353) 28 U/L 5-34 ALT (SGPT) (BEAKER) (test code = 347) 46 U/L 6-55 EGFR (BEAKER) (test code = 1092) 44 mL/min/1.73 sq m ESTIMATED GFR IS NOT ACCURATE CREATININE CLEARANCE IN PREDICTING GLOMERULAR FILTRATION RATE. ESTIMATED GFR IS NOT APPLICABLE FOR DIALYSIS PATIENTS. Orthotic Assistant ID - DBCBC with platelet count + automated [id number] 09:01:00* Test Item Value Reference Range Interpretation Comments WBC (test code = 6690-2) 5.6 3.5- 10.5 K/L RBC (test code = 789-8) 5.14 4.63- 6.08 M/L MCHC (test code = 786-4) 33.0 32.3- 36.5 GM/DL Hematocrit (test code = 4544-3) 51.2 % 40.1-51 H MCV (test code = 787-2) 99.6 fL 79-92.2 H MCH (test code = 785-6) 32.9 pg 25.7-32.2 H RDW (test code = 788-0) 17.2 % 11.6-14.4 H Platelets (test code = 777-3) 222 150- 450 K/CU MM MPV (test code = 40020-5) 10.1 fL 9.4-12.4 nRBC (test code = 413) 0 0- 0 /100 WBC % Neutros (test code = 429) 62 % % Lymphs (test code = 430) 14 % % Monos (test code = 431) 19 % % Eos (test code = 432) 4 % % Baso (test code = 437) 2 % # Neutros (test code = 670) 3.47 1.78- 5.38 K/L # Lymphs (test code = 414) 0.78 1.32- 3.57 K/L L # Monos (test code = 415) 1.04 0.30- 0.82 K/L H # Eos (test code = 416) 0.20 0.04- 0.54 K/L # Baso (test code = 417) 0.09 0.01- 0.08 K/L H Immature Granulocytes-Relative (test code = 2801) 0 % 0-1 Lab Interpretation (test code = 68900-4) Abnormal [facility] W/PLT COUNT & AUTO [id number] 09:01:00* Test Item Value Reference Range Interpretation Comments WHITE BLOOD CELL COUNT (BEAKER) (test code = 775) 5.6 K/ L 3.5- 10.5 RED BLOOD CELL COUNT (BEAKER) (test code = 761) 5.14 M/ L 4.63-6 .08 HEMOGLOBIN (BEAKER) (test code = 410) 16.9 GM/DL 13.7-17.5 HEMATOCRIT (BEAKER) (test code = 411) 51.2 % 40.1-51.0 H MEAN CORPUSCULAR VOLUME (BEAKER) (test code = 753) 99.6 fL 79. 0-92.2 H MEAN CORPUSCULAR HEMOGLOBIN (BEAKER) (test code = 751) 32.9 pg 25.7-32.2 H MEAN CORPUSCULAR HEMOGLOBIN CONC (BEAKER) (test code = 752) 33.0 GM/DL 32.3-36.5 RED CELL DISTRIBUTION WIDTH (BEAKER) (test code = 412) 17.2 % 11.6-14.4 H PLATELET COUNT (BEAKER) (test code = 756) 222 K/CU MM 150-450 MEAN PLATELET VOLUME (BEAKER) (test code = 754) 10.1 fL 9.4-12 .4 NUCLEATED RED BLOOD CELLS (BEAKER) (test code = 413) 0 /100 WBC 0 -0 NEUTROPHILS RELATIVE PERCENT (BEAKER) (test code = 429) 62 % LYMPHOCYTES RELATIVE PERCENT (BEAKER) (test code = 430) 14 % MONOCYTES RELATIVE PERCENT (BEAKER) (test code = 431) 19 % EOSINOPHILS RELATIVE PERCENT (BEAKER) (test code = 432) 4 % BASOPHILS RELATIVE PERCENT (BEAKER) (test code = 437) 2 % NEUTROPHILS ABSOLUTE COUNT (BEAKER) (test code = 670) 3.47 K/ L 1.78-5.38 LYMPHOCYTES ABSOLUTE COUNT (BEAKER) (test code = 414) 0.78 K/ L 1.32-3.57 L MONOCYTES ABSOLUTE COUNT (BEAKER) (test code = 415) 1.04 K/ L 0. 30-0.82 H EOSINOPHILS ABSOLUTE COUNT (BEAKER) (test code = 416) 0.20 K/ L 0.04-0.54 BASOPHILS ABSOLUTE COUNT (BEAKER) (test code = 417) 0.09 K/ L 0. 01-0.08 H IMMATURE GRANULOCYTES-RELATIVE PERCENT (BEAKER) (test code = 2801) 0 % 0-1 TACROLIMUS [id number] 11:47:00* Test Item Value Reference Range Interpretation Comments TACROLIMUS BLOOD (BEAKER) (test code = 657) 3.7 ng/mL 10.0-20.0 L Orthotic Assistant ID - SANTINO MURINALYSIS W/ REFLEX URINE [id number] 11:03:00* Test Item Value Reference Range Interpretation Comments COLOR (BEAKER) (test code = 470) Yellow CLARITY (BEAKER) (test code = 469) Clear SPECIFIC GRAVITY UA (BEAKER) (test code = 468) 1.020 1.001-1 .035 PH UA (BEAKER) (test code = 467) 5.5 5.0-8.0 PROTEIN UA (BEAKER) (test code = 464) 30 mg/dL Negative A GLUCOSE UA (BEAKER) (test code = 365) Negative Negative KETONES UA (BEAKER) (test code = 371) Negative Negative BILIRUBIN UA (BEAKER) (test code = 462) Negative Negative BLOOD UA (BEAKER) (test code = 461) Small Negative A NITRITE UA (BEAKER) (test code = 465) Negative Negative LEUKOCYTE ESTERASE UA (BEAKER) (test code = 466) Negative Negat sharona UROBILINOGEN UA (BEAKER) (test code = 463) 0.2 mg/dL 0.2-1.0 RBC UA (BEAKER) (test code = 519) 2 /HPF WBC UA (BEAKER) (test code = 520) 1 /HPF BACTERIA (BEAKER) (test code = 517) Occasional SOURCE(BEAKER) (test code = 2795) Orthotic Assistant ID - [auto]Orthotic Assistant ID - techCBC W/PLT COUNT & AUTO DIFFERENTIAL 2020-07-04 08:51:00* Test Item Value Reference Range Interpretation Comments WHITE BLOOD CELL COUNT (BEAKER) (test code = 775) 6.1 K/ L 3.5- 10.5 RED BLOOD CELL COUNT (BEAKER) (test code = 761) 5.31 M/ L 4.63-6 .08 HEMOGLOBIN (BEAKER) (test code = 410) 17.5 GM/DL 13.7-17.5 HEMATOCRIT (BEAKER) (test code = 411) 52.9 % 40.1-51.0 H MEAN CORPUSCULAR VOLUME (BEAKER) (test code = 753) 99.6 fL 79. 0-92.2 H MEAN CORPUSCULAR HEMOGLOBIN (BEAKER) (test code = 751) 33.0 pg 25.7-32.2 H MEAN CORPUSCULAR HEMOGLOBIN CONC (BEAKER) (test code = 752) 33.1 GM/DL 32.3-36.5 RED CELL DISTRIBUTION WIDTH (BEAKER) (test code = 412) 17.4 % 11.6-14.4 H PLATELET COUNT (BEAKER) (test code = 756) 234 K/CU MM 150-450 MEAN PLATELET VOLUME (BEAKER) (test code = 754) 9.9 fL 9.4-12 .4 NUCLEATED RED BLOOD CELLS (BEAKER) (test code = 413) 1 /100 WBC 0 -0 H NEUTROPHILS RELATIVE PERCENT (BEAKER) (test code = 429) 61 % LYMPHOCYTES RELATIVE PERCENT (BEAKER) (test code = 430) 16 % MONOCYTES RELATIVE PERCENT (BEAKER) (test code = 431) 18 % EOSINOPHILS RELATIVE PERCENT (BEAKER) (test code = 432) 4 % BASOPHILS RELATIVE PERCENT (BEAKER) (test code = 437) 1 % NEUTROPHILS ABSOLUTE COUNT (BEAKER) (test code = 670) 3.70 K/ L 1.78-5.38 LYMPHOCYTES ABSOLUTE COUNT (BEAKER) (test code = 414) 1.00 K/ L 1.32-3.57 L MONOCYTES ABSOLUTE COUNT (BEAKER) (test code = 415) 1.10 K/ L 0. 30-0.82 H EOSINOPHILS ABSOLUTE COUNT (BEAKER) (test code = 416) 0.22 K/ L 0.04-0.54 BASOPHILS ABSOLUTE COUNT (BEAKER) (test code = 417) 0.08 K/ L 0. 01-0.08 IMMATURE GRANULOCYTES-RELATIVE PERCENT (BEAKER) (test code = 2801) 0 % 0-1 [id number] 08:42:00* Test Item Value Reference Range Interpretation Comments PHOSPHORUS (BEAKER) (test code = 604) 3.6 mg/dL 2.3-4.7 Orthotic Assistant ID - ROSIANGCOMPREHENSIVE METABOLIC [id number] 08:42:00* Test Item Value Reference Range Interpretation Comments TOTAL PROTEIN (BEAKER) (test code = 770) 7.8 gm/dL 6.0-8.3 ALBUMIN (BEAKER) (test code = 1145) 3.9 g/dL 3.5-5.0 ALKALINE PHOSPHATASE (BEAKER) (test code = 346) 121 U/L 40-150 BILIRUBIN TOTAL (BEAKER) (test code = 377) 1.0 mg/dL 0.2-1.2 SODIUM (BEAKER) (test code = 381) 140 meq/L 136-145 POTASSIUM (BEAKER) (test code = 379) 3.9 meq/L 3.5-5.1 CHLORIDE (BEAKER) (test code = 382) 106 meq/L 98-107 CO2 (BEAKER) (test code = 355) 25 meq/L 22-29 BLOOD UREA NITROGEN (BEAKER) (test code = 354) 18 mg/dL 7-21 CREATININE (BEAKER) (test code = 358) 1.54 mg/dL 0.57-1.25 H GLUCOSE RANDOM (BEAKER) (test code = 652) 104 mg/dL 70-105 CALCIUM (BEAKER) (test code = 697) 9.6 mg/dL 8.4-10.2 AST (SGOT) (BEAKER) (test code = 353) 42 U/L 5-34 H ALT (SGPT) (BEAKER) (test code = 347) 74 U/L 6-55 H EGFR (BEAKER) (test code = 1092) 45 mL/min/1.73 sq m ESTIMATED GFR IS NOT ACCURATE CREATININE CLEARANCE IN PREDICTING GLOMERULAR FILTRATION RATE. ESTIMATED GFR IS NOT APPLICABLE FOR DIALYSIS PATIENTS. Orthotic Assistant ID - ANTONIO VIRUS PCR, [id number] 09:06:00* Test Item Value Reference Range Interpretation Comments BK VIRUS, PLASMA, NEG (ANABELA) (test code = 2145) Nega tive or below the linear range of the assay (<1,000 copies/mL) <1,000 - >1,000,000 copies/mL Patients may have replicating BK Virus which is of no clinical significance. Vi ral load measurements are helpful to identify BK Virus replication of potential clinical significance. Consensus recommendations have been published of thresho ld values for the presumptive diagnosis of polyomavirus-associated nephropathy ( Transplantation 2005;79:3579-9985).A BK Virus load greater than 5,000-10,000 helicopter utility aircrewman ies/mL in the plasma is consistent with the presumptive diagnosis of polyoma-ass ociated nephropathy in renal transplant recipients.BK Virus DNA was assessed usi ng quantitative polymerase chain reaction and fluorescent monitoring of a specif ic hybridized probe. Genetic variation and other factors can affect the accurac y of nucleic acid testing. Therefore, the results should be interpreted in ligh t of clinical data.This test was developed and its performance characteristics d etermined by the [facility] Pathology Department, Section of Mole cular Pathology. It has not been cleared or approved by the U.S. Food and Drug Administration (FDA). Since FDA approval is not required for clinical use of th e test, validation was done as required by the Clinical Laboratory Improvement A mendments of 1988.Manual [id number] 13:46:00* Test Item Value Reference Range Interpretation Comments % Neutros (test code = 2816) 76 % % Lymphs (test code = 2817) 2 % % Monos (test code = 2818) 21 % % Eos (test code = 2819) 1 % # Neutros (test code = 2830) 6.69 K/ul 1.78-5.38 H # Lymphs (test code = 2831) 0.18 K/ul 1.32-3.57 L # Monos (test code = 2832) 1.85 K/uL 0.3-0.82 H # Eos (test code = 2834) 0.09 K/uL 0.04-0.54 Total Counted (test code = 1351) 100 WBC Morphology (test code = 487) Normal Giant Platelet (test code = 313) Present Polychromasia (test code = 478) 1+ few Anisocytosis (test code = 961) 1+ few Macrocytes (test code = 964) 1+ few Poikilocytes (test code = 966) 2+ moderate Poston Cells (test code = 474) 1+ few Artifact (test code = 3432) Present Platelet Conc (test code = 3438) Adequate ANNEMARIE (test code = ANNEMARIE) Orthotic Assistant ID - Dominic Garciadmaaso Tompkins comments: Slide comments: Lab Interpretation (test code = 53953-0) Abnormal [facility] W/PLT COUNT & AUTO [id number] 13:46:00* Test Item Value Reference Range Interpretation Comments WHITE BLOOD CELL COUNT (BEAKER) (test code = 775) 8.8 K/ L 3.5- 10.5 RED BLOOD CELL COUNT (BEAKER) (test code = 761) 5.07 M/ L 4.63-6 .08 HEMOGLOBIN (BEAKER) (test code = 410) 16.6 GM/DL 13.7-17.5 HEMATOCRIT (BEAKER) (test code = 411) 50.0 % 40.1-51.0 MEAN CORPUSCULAR VOLUME (BEAKER) (test code = 753) 98.6 fL 79. 0-92.2 H MEAN CORPUSCULAR HEMOGLOBIN (BEAKER) (test code = 751) 32.7 pg 25.7-32.2 H MEAN CORPUSCULAR HEMOGLOBIN CONC (BEAKER) (test code = 752) 33.2 GM/DL 32.3-36.5 RED CELL DISTRIBUTION WIDTH (BEAKER) (test code = 412) 16.6 % 11.6-14.4 H PLATELET COUNT (BEAKER) (test code = 756) 309 K/CU MM 150-450 MEAN PLATELET VOLUME (BEAKER) (test code = 754) 10.0 fL 9.4-12 .4 NUCLEATED RED BLOOD CELLS (BEAKER) (test code = 413) 0 /100 WBC 0 -0 (CELLAVISION MANUAL DIFF)2020-06-06 13:46:00* Test Item Value Reference Range Interpretation Comments NEUTROPHILS - REL (CELLAVISION)(BEAKER) (test code = 2816) 76 % LYMPHOCYTES - REL (CELLAVISION)(BEAKER) (test code = 2817) 2 % MONOCYTES - REL (CELLAVISION)(BEAKER) (test code = 2818) 21 % EOSINOPHILS - REL (CELLAVISION)(BEAKER) (test code = 2819) 1 % NEUTROPHILS - ABS (CELLAVISION)(BEAKER) (test code = 2830) 6.69 K/ul 1.78-5.38 H LYMPHOCYTES - ABS (CELLAVISION)(BEAKER) (test code = 2831) 0.18 K/ul 1.32-3.57 L MONOCYTES - ABS (CELLAVISION)(BEAKER) (test code = 2832) 1.85 K/uL 0.30-0.82 H EOSINOPHILS - ABS (CELLAVISION)(BEAKER) (test code = 2834) 0.09 K/uL 0.04-0.54 TOTAL COUNTED (BEAKER) (test code = 1351) 100 WBC MORPHOLOGY (BEAKER) (test code = 487) Normal GIANT PLATELETS (BEAKER) (test code = 313) Present POLYCHROMATOPHILLIC RBCS(BEAKER) (test code = 478) 1+ few ANISOCYTOSIS (BEAKER) (test code = 961) 1+ few MACROCYTES (BEAKER) (test code = 964) 1+ few POIKILOCYTES (BEAKER) (test code = 966) 2+ moderate LEILA CELLS (BEAKER) (test code = 474) 1+ few ARTIFACT (CELLAVISION)(BEAKER) (test code = 3432) Present PLATELET CONCENTRATION (CELLAVISION)(BEAKER) (test code = 3438) Lisset quate Orthotic Assistant ID - Dominic Anitha comments: Slide comments: TACROLIMUS LEVEL 2020-06-06 12:42:00* Test Item Value Reference Range Interpretation Comments TACROLIMUS BLOOD (BEAKER) (test code = 657) 8.2 ng/mL 10.0-20.0 L Orthotic Assistant ID - SANTINO MURINALYSIS W/ REFLEX URINE [id number] 10:11:00* Test Item Value Reference Range Interpretation Comments COLOR (BEAKER) (test code = 470) Yellow CLARITY (BEAKER) (test code = 469) Hazy SPECIFIC GRAVITY UA (BEAKER) (test code = 468) 1.015 1.001-1 .035 PH UA (BEAKER) (test code = 467) 6.5 5.0-8.0 PROTEIN UA (BEAKER) (test code = 464) 30 mg/dL Negative A GLUCOSE UA (BEAKER) (test code = 365) Negative Negative KETONES UA (BEAKER) (test code = 371) Negative Negative BILIRUBIN UA (BEAKER) (test code = 462) Negative Negative BLOOD UA (BEAKER) (test code = 461) Small Negative A NITRITE UA (BEAKER) (test code = 465) Negative Negative LEUKOCYTE ESTERASE UA (BEAKER) (test code = 466) Large Negat sharona A UROBILINOGEN UA (BEAKER) (test code = 463) 0.2 mg/dL 0.2-1.0 RBC UA (BEAKER) (test code = 519) 13 /HPF WBC UA (BEAKER) (test code = 520) 115 /HPF BACTERIA (BEAKER) (test code = 517) Few SQUAMOUS EPITHELIAL (BEAKER) (test code = 516) < /HPF SOURCE(BEAKER) (test code = 2838) Orthotic Assistant ID - [auto]Orthotic Assistant ID - [id number] 09:34:00* Test Item Value Reference Range Interpretation Comments PHOSPHORUS (BEAKER) (test code = 604) 3.4 mg/dL 2.3-4.7 Orthotic Assistant ID - LMCOMPREHENSIVE METABOLIC [id number] 09:34:00* Test Item Value Reference Range Interpretation Comments TOTAL PROTEIN (BEAKER) (test code = 770) 7.9 gm/dL 6.0-8.3 ALBUMIN (BEAKER) (test code = 1145) 4.0 g/dL 3.5-5.0 ALKALINE PHOSPHATASE (BEAKER) (test code = 346) 131 U/L 40-150 BILIRUBIN TOTAL (BEAKER) (test code = 377) 1.0 mg/dL 0.2-1.2 SODIUM (BEAKER) (test code = 381) 139 meq/L 136-145 POTASSIUM (BEAKER) (test code = 379) 4.0 meq/L 3.5-5.1 CHLORIDE (BEAKER) (test code = 382) 105 meq/L 98-107 CO2 (BEAKER) (test code = 355) 26 meq/L 22-29 BLOOD UREA NITROGEN (BEAKER) (test code = 354) 23 mg/dL 7-21 H CREATININE (BEAKER) (test code = 358) 1.91 mg/dL 0.57-1.25 H GLUCOSE RANDOM (BEAKER) (test code = 652) 129 mg/dL 70-105 H CALCIUM (BEAKER) (test code = 697) 9.2 mg/dL 8.4-10.2 AST (SGOT) (BEAKER) (test code = 353) 26 U/L 5-34 ALT (SGPT) (BEAKER) (test code = 347) 39 U/L 6-55 EGFR (BEAKER) (test code = 1092) 35 mL/min/1.73 sq m ESTIMATED GFR IS NOT ACCURATE CREATININE CLEARANCE IN PREDICTING GLOMERULAR FILTRATION RATE. ESTIMATED GFR IS NOT APPLICABLE FOR DIALYSIS PATIENTS. Orthotic Assistant ID - LMTACROLIMUS [id number] 12:52:00* Test Item Value Reference Range Interpretation Comments TACROLIMUS BLOOD (BEAKER) (test code = 657) 8.1 ng/mL 10.0-20.0 L Orthotic Assistant ID - RMURINALYSIS W/ REFLEX URINE [id number] 10:01:00* Test Item Value Reference Range Interpretation Comments COLOR (BEAKER) (test code = 470) Yellow CLARITY (BEAKER) (test code = 469) Clear SPECIFIC GRAVITY UA (BEAKER) (test code = 468) 1.028 1.001-1 .035 PH UA (BEAKER) (test code = 467) 6.0 5.0-8.0 PROTEIN UA (BEAKER) (test code = 464) 70 mg/dL Negative A GLUCOSE UA (BEAKER) (test code = 365) Negative Negative KETONES UA (BEAKER) (test code = 371) Negative Negative BILIRUBIN UA (BEAKER) (test code = 462) Negative Negative BLOOD UA (BEAKER) (test code = 461) Small Negative A NITRITE UA (BEAKER) (test code = 465) Negative Negative LEUKOCYTE ESTERASE UA (BEAKER) (test code = 466) Negative Negat sharona UROBILINOGEN UA (BEAKER) (test code = 463) 0.2 mg/dL 0.2-1.0 RBC UA (BEAKER) (test code = 519) 1 /HPF WBC UA (BEAKER) (test code = 520) 1 /HPF SQUAMOUS EPITHELIAL (BEAKER) (test code = 516) < /HPF SOURCE(BEAKER) (test code = 2795) Orthotic Assistant ID - [auto]Orthotic Assistant ID - [id number] 09:40:00* Test Item Value Reference Range Interpretation Comments PHOSPHORUS (BEAKER) (test code = 604) 3.3 mg/dL 2.3-4.7 Orthotic Assistant ID - OLGA CCOMPREHENSIVE METABOLIC [id number] 09:40:00* Test Item Value Reference Range Interpretation Comments TOTAL PROTEIN (BEAKER) (test code = 770) 7.2 gm/dL 6.0-8.3 ALBUMIN (BEAKER) (test code = 1145) 3.9 g/dL 3.5-5.0 ALKALINE PHOSPHATASE (BEAKER) (test code = 346) 89 U/L 40-150 BILIRUBIN TOTAL (BEAKER) (test code = 377) 0.9 mg/dL 0.2-1.2 SODIUM (BEAKER) (test code = 381) 137 meq/L 136-145 POTASSIUM (BEAKER) (test code = 379) 3.9 meq/L 3.5-5.1 CHLORIDE (BEAKER) (test code = 382) 107 meq/L 98-107 CO2 (BEAKER) (test code = 355) 21 meq/L 22-29 L BLOOD UREA NITROGEN (BEAKER) (test code = 354) 22 mg/dL 7-21 H CREATININE (BEAKER) (test code = 358) 1.70 mg/dL 0.57-1.25 H GLUCOSE RANDOM (BEAKER) (test code = 652) 129 mg/dL 70-105 H CALCIUM (BEAKER) (test code = 697) 8.7 mg/dL 8.4-10.2 AST (SGOT) (BEAKER) (test code = 353) 60 U/L 5-34 H ALT (SGPT) (BEAKER) (test code = 347) 58 U/L 6-55 H EGFR (BEAKER) (test code = 1092) 40 mL/min/1.73 sq m ESTIMATED GFR IS NOT ACCURATE CREATININE CLEARANCE IN PREDICTING GLOMERULAR FILTRATION RATE. ESTIMATED GFR IS NOT APPLICABLE FOR DIALYSIS PATIENTS. Orthotic Assistant ID - OLGA CCBC W/PLT COUNT & AUTO [id number] 09:29:00* Test Item Value Reference Range Interpretation Comments WHITE BLOOD CELL COUNT (BEAKER) (test code = 775) 5.5 K/ L 3.5- 10.5 RED BLOOD CELL COUNT (BEAKER) (test code = 761) 5.39 M/ L 4.63-6 .08 HEMOGLOBIN (BEAKER) (test code = 410) 17.1 GM/DL 13.7-17.5 HEMATOCRIT (BEAKER) (test code = 411) 52.6 % 40.1-51.0 H MEAN CORPUSCULAR VOLUME (BEAKER) (test code = 753) 97.6 fL 79. 0-92.2 H MEAN CORPUSCULAR HEMOGLOBIN (BEAKER) (test code = 751) 31.7 pg 25.7-32.2 MEAN CORPUSCULAR HEMOGLOBIN CONC (BEAKER) (test code = 752) 32.5 GM/DL 32.3-36.5 RED CELL DISTRIBUTION WIDTH (BEAKER) (test code = 412) 15.9 % 11.6-14.4 H PLATELET COUNT (BEAKER) (test code = 756) 231 K/CU MM 150-450 MEAN PLATELET VOLUME (BEAKER) (test code = 754) 10.2 fL 9.4-12 .4 NUCLEATED RED BLOOD CELLS (BEAKER) (test code = 413) 0 /100 WBC 0 -0 NEUTROPHILS RELATIVE PERCENT (BEAKER) (test code = 429) 61 % LYMPHOCYTES RELATIVE PERCENT (BEAKER) (test code = 430) 13 % MONOCYTES RELATIVE PERCENT (BEAKER) (test code = 431) 21 % EOSINOPHILS RELATIVE PERCENT (BEAKER) (test code = 432) 2 % BASOPHILS RELATIVE PERCENT (BEAKER) (test code = 437) 2 % NEUTROPHILS ABSOLUTE COUNT (BEAKER) (test code = 670) 3.36 K/ L 1.78-5.38 LYMPHOCYTES ABSOLUTE COUNT (BEAKER) (test code = 414) 0.73 K/ L 1.32-3.57 L MONOCYTES ABSOLUTE COUNT (BEAKER) (test code = 415) 1.15 K/ L 0. 30-0.82 H EOSINOPHILS ABSOLUTE COUNT (BEAKER) (test code = 416) 0.13 K/ L 0.04-0.54 BASOPHILS ABSOLUTE COUNT (BEAKER) (test code = 417) 0.08 K/ L 0. 01-0.08 IMMATURE GRANULOCYTES-RELATIVE PERCENT (BEAKER) (test code = 2801) 1 % 0-1 TACROLIMUS [id number] 12:44:00* Test Item Value Reference Range Interpretation Comments TACROLIMUS BLOOD (BEAKER) (test code = 657) 7.7 ng/mL 10.0-20.0 L Orthotic Assistant SEAN AponteeURINALYSIS W/ REFLEX URINE [id number] 11:30:00 * Test Item Value Reference Range Interpretation Comments COLOR (BEAKER) (test code = 470) Yellow CLARITY (BEAKER) (test code = 469) Clear SPECIFIC GRAVITY UA (BEAKER) (test code = 468) 1.022 1.001-1 .035 PH UA (BEAKER) (test code = 467) 6.0 5.0-8.0 PROTEIN UA (BEAKER) (test code = 464) 30 mg/dL Negative A GLUCOSE UA (BEAKER) (test code = 365) 150 mg/dL Negative A KETONES UA (BEAKER) (test code = 371) Negative Negative BILIRUBIN UA (BEAKER) (test code = 462) Negative Negative BLOOD UA (BEAKER) (test code = 461) Trace Negative A NITRITE UA (BEAKER) (test code = 465) Negative Negative LEUKOCYTE ESTERASE UA (BEAKER) (test code = 466) Negative Negat sharona UROBILINOGEN UA (BEAKER) (test code = 463) 0.2 mg/dL 0.2-1.0 RBC UA (BEAKER) (test code = 519) 4 /HPF WBC UA (BEAKER) (test code = 520) 1 /HPF SQUAMOUS EPITHELIAL (BEAKER) (test code = 516) 1 /HPF AMORPHOUS CRYSTALS (BEAKER) (test code = 1584) Rare SOURCE(BEAKER) (test code = 2795) Orthotic Assistant ID - [auto]Orthotic Assistant ID - techLactate dehydrogenase (LDH)2020-04-11 09:27:00* Test Item Value Reference Range Interpretation Comments LDH (test code = 2532-0) 215 U/L 125-220 ANNEMARIE (test code = ANNEMARIE) Orthotic Assistant ID - NTP Lab Interpretation (test code = 40673-5) [id number] 09:27:00* Test Item Value Reference Range Interpretation Comments PHOSPHORUS (BEAKER) (test code = 604) 3.1 mg/dL 2.3-4.7 Orthotic Assistant ID - NTPCOMPREHENSIVE METABOLIC [id number] 09:27:00* Test Item Value Reference Range Interpretation Comments TOTAL PROTEIN (BEAKER) (test code = 770) 7.4 gm/dL 6.0-8.3 ALBUMIN (BEAKER) (test code = 1145) 4.0 g/dL 3.5-5.0 ALKALINE PHOSPHATASE (BEAKER) (test code = 346) 86 U/L 40-150 BILIRUBIN TOTAL (BEAKER) (test code = 377) 1.0 mg/dL 0.2-1.2 SODIUM (BEAKER) (test code = 381) 141 meq/L 136-145 POTASSIUM (BEAKER) (test code = 379) 3.9 meq/L 3.5-5.1 CHLORIDE (BEAKER) (test code = 382) 108 meq/L 98-107 H CO2 (BEAKER) (test code = 355) 26 meq/L 22-29 BLOOD UREA NITROGEN (BEAKER) (test code = 354) 21 mg/dL 7-21 CREATININE (BEAKER) (test code = 358) 1.67 mg/dL 0.57-1.25 H GLUCOSE RANDOM (BEAKER) (test code = 652) 106 mg/dL 70-105 H CALCIUM (BEAKER) (test code = 697) 8.7 mg/dL 8.4-10.2 AST (SGOT) (BEAKER) (test code = 353) 28 U/L 5-34 ALT (SGPT) (BEAKER) (test code = 347) 37 U/L 6-55 EGFR (BEAKER) (test code = 1092) 41 mL/min/1.73 sq m ESTIMATED GFR IS NOT ACCURATE CREATININE CLEARANCE IN PREDICTING GLOMERULAR FILTRATION RATE. ESTIMATED GFR IS NOT APPLICABLE FOR DIALYSIS PATIENTS. Orthotic Assistant ID - NTPLACTATE DEHYDROGENASE (LDH)2020-04-11 09:27:00* Test Item Value Reference Range Interpretation Comments LACTATE DEHYDROGENASE (BEAKER) (test code = 635) 215 U/L 125-2 20 Orthotic Assistant ID - NTPCBC W/PLT COUNT & AUTO [id number] 09:07:00* Test Item Value Reference Range Interpretation Comments WHITE BLOOD CELL COUNT (BEAKER) (test code = 775) 6.9 K/ L 3.5- 10.5 RED BLOOD CELL COUNT (BEAKER) (test code = 761) 5.37 M/ L 4.63-6 .08 HEMOGLOBIN (BEAKER) (test code = 410) 16.7 GM/DL 13.7-17.5 HEMATOCRIT (BEAKER) (test code = 411) 51.5 % 40.1-51.0 H MEAN CORPUSCULAR VOLUME (BEAKER) (test code = 753) 95.9 fL 79. 0-92.2 H MEAN CORPUSCULAR HEMOGLOBIN (BEAKER) (test code = 751) 31.1 pg 25.7-32.2 MEAN CORPUSCULAR HEMOGLOBIN CONC (BEAKER) (test code = 752) 32.4 GM/DL 32.3-36.5 RED CELL DISTRIBUTION WIDTH (BEAKER) (test code = 412) 15.9 % 11.6-14.4 H PLATELET COUNT (BEAKER) (test code = 756) 258 K/CU MM 150-450 MEAN PLATELET VOLUME (BEAKER) (test code = 754) 9.9 fL 9.4-12 .4 NUCLEATED RED BLOOD CELLS (BEAKER) (test code = 413) 0 /100 WBC 0 -0 NEUTROPHILS RELATIVE PERCENT (BEAKER) (test code = 429) 72 % LYMPHOCYTES RELATIVE PERCENT (BEAKER) (test code = 430) 12 % MONOCYTES RELATIVE PERCENT (BEAKER) (test code = 431) 13 % EOSINOPHILS RELATIVE PERCENT (BEAKER) (test code = 432) 2 % BASOPHILS RELATIVE PERCENT (BEAKER) (test code = 437) 1 % NEUTROPHILS ABSOLUTE COUNT (BEAKER) (test code = 670) 5.00 K/ L 1.78-5.38 LYMPHOCYTES ABSOLUTE COUNT (BEAKER) (test code = 414) 0.82 K/ L 1.32-3.57 L MONOCYTES ABSOLUTE COUNT (BEAKER) (test code = 415) 0.93 K/ L 0. 30-0.82 H EOSINOPHILS ABSOLUTE COUNT (BEAKER) (test code = 416) 0.11 K/ L 0.04-0.54 BASOPHILS ABSOLUTE COUNT (BEAKER) (test code = 417) 0.07 K/ L 0. 01-0.08 IMMATURE GRANULOCYTES-RELATIVE PERCENT (BEAKER) (test code = 2801) 0 % 0-1 TACROLIMUS [id number] 11:55:00* Test Item Value Reference Range Interpretation Comments TACROLIMUS BLOOD (BEAKER) (test code = 657) 8.0 ng/mL 10.0-20.0 L Orthotic Assistant ID - SANTINO [id number] 09:36:00* Test Item Value Reference Range Interpretation Comments PHOSPHORUS (BEAKER) (test code = 604) 4.0 mg/dL 2.3-4.7 Orthotic Assistant ID - OLGA CCOMPREHENSIVE METABOLIC [id number] 09:36:00* Test Item Value Reference Range Interpretation Comments TOTAL PROTEIN (BEAKER) (test code = 770) 7.7 gm/dL 6.0-8.3 ALBUMIN (BEAKER) (test code = 1145) 4.2 g/dL 3.5-5.0 ALKALINE PHOSPHATASE (BEAKER) (test code = 346) 91 U/L 40-150 BILIRUBIN TOTAL (BEAKER) (test code = 377) 1.0 mg/dL 0.2-1.2 SODIUM (BEAKER) (test code = 381) 139 meq/L 136-145 POTASSIUM (BEAKER) (test code = 379) 4.3 meq/L 3.5-5.1 CHLORIDE (BEAKER) (test code = 382) 106 meq/L 98-107 CO2 (BEAKER) (test code = 355) 26 meq/L 22-29 BLOOD UREA NITROGEN (BEAKER) (test code = 354) 24 mg/dL 7-21 H CREATININE (BEAKER) (test code = 358) 1.96 mg/dL 0.57-1.25 H GLUCOSE RANDOM (BEAKER) (test code = 652) 119 mg/dL 70-105 H CALCIUM (BEAKER) (test code = 697) 9.1 mg/dL 8.4-10.2 AST (SGOT) (BEAKER) (test code = 353) 31 U/L 5-34 ALT (SGPT) (BEAKER) (test code = 347) 59 U/L 6-55 H EGFR (BEAKER) (test code = 1092) 34 mL/min/1.73 sq m ESTIMATED GFR IS NOT ACCURATE CREATININE CLEARANCE IN PREDICTING GLOMERULAR FILTRATION RATE. ESTIMATED GFR IS NOT APPLICABLE FOR DIALYSIS PATIENTS. Orthotic Assistant ID - OLGA CLACTATE DEHYDROGENASE (LDH)2020-03-28 09:36:00* Test Item Value Reference Range Interpretation Comments LACTATE DEHYDROGENASE (BEAKER) (test code = 635) 201 U/L 125-2 20 Orthotic Assistant ID - OLGA CURINALYSIS W/ REFLEX URINE [id number] 09:25:00* Test Item Value Reference Range Interpretation Comments COLOR (BEAKER) (test code = 470) Yellow CLARITY (BEAKER) (test code = 469) Clear SPECIFIC GRAVITY UA (BEAKER) (test code = 468) 1.025 1.001-1 .035 PH UA (BEAKER) (test code = 467) 5.5 5.0-8.0 PROTEIN UA (BEAKER) (test code = 464) 30 mg/dL Negative A GLUCOSE UA (BEAKER) (test code = 365) Negative Negative KETONES UA (BEAKER) (test code = 371) Negative Negative BILIRUBIN UA (BEAKER) (test code = 462) Negative Negative BLOOD UA (BEAKER) (test code = 461) Trace Negative A NITRITE UA (BEAKER) (test code = 465) Negative Negative LEUKOCYTE ESTERASE UA (BEAKER) (test code = 466) Negative Negat sharona UROBILINOGEN UA (BEAKER) (test code = 463) 0.2 mg/dL 0.2-1.0 RBC UA (BEAKER) (test code = 519) 1 /HPF WBC UA (BEAKER) (test code = 520) < /HPF MUCUS (BEAKER) (test code = 1574) Rare SQUAMOUS EPITHELIAL (BEAKER) (test code = 516) < /HPF SOURCE(BEAKER) (test code = 2795) Orthotic Assistant ID - [auto]Orthotic Assistant ID - hankCBC W/PLT COUNT & AUTO DIFFERENTIAL 2020-03-28 09:07:00* Test Item Value Reference Range Interpretation Comments WHITE BLOOD CELL COUNT (BEAKER) (test code = 775) 6.5 K/ L 3.5- 10.5 RED BLOOD CELL COUNT (BEAKER) (test code = 761) 5.69 M/ L 4.63-6 .08 HEMOGLOBIN (BEAKER) (test code = 410) 17.5 GM/DL 13.7-17.5 HEMATOCRIT (BEAKER) (test code = 411) 54.8 % 40.1-51.0 H MEAN CORPUSCULAR VOLUME (BEAKER) (test code = 753) 96.3 fL 79. 0-92.2 H MEAN CORPUSCULAR HEMOGLOBIN (BEAKER) (test code = 751) 30.8 pg 25.7-32.2 MEAN CORPUSCULAR HEMOGLOBIN CONC (BEAKER) (test code = 752) 31.9 GM/DL 32.3-36.5 L RED CELL DISTRIBUTION WIDTH (BEAKER) (test code = 412) 15.8 % 11.6-14.4 H PLATELET COUNT (BEAKER) (test code = 756) 238 K/CU MM 150-450 MEAN PLATELET VOLUME (BEAKER) (test code = 754) 10.4 fL 9.4-12 .4 NUCLEATED RED BLOOD CELLS (BEAKER) (test code = 413) 0 /100 WBC 0 -0 NEUTROPHILS RELATIVE PERCENT (BEAKER) (test code = 429) 70 % LYMPHOCYTES RELATIVE PERCENT (BEAKER) (test code = 430) 14 % MONOCYTES RELATIVE PERCENT (BEAKER) (test code = 431) 14 % EOSINOPHILS RELATIVE PERCENT (BEAKER) (test code = 432) 2 % BASOPHILS RELATIVE PERCENT (BEAKER) (test code = 437) 1 % NEUTROPHILS ABSOLUTE COUNT (BEAKER) (test code = 670) 4.52 K/ L 1.78-5.38 LYMPHOCYTES ABSOLUTE COUNT (BEAKER) (test code = 414) 0.89 K/ L 1.32-3.57 L MONOCYTES ABSOLUTE COUNT (BEAKER) (test code = 415) 0.88 K/ L 0. 30-0.82 H EOSINOPHILS ABSOLUTE COUNT (BEAKER) (test code = 416) 0.10 K/ L 0.04-0.54 BASOPHILS ABSOLUTE COUNT (BEAKER) (test code = 417) 0.09 K/ L 0. 01-0.08 H IMMATURE GRANULOCYTES-RELATIVE PERCENT (BEAKER) (test code = 2801) 0 % 0-1 TACROLIMUS [id number] 10:59:00* Test Item Value Reference Range Interpretation Comments TACROLIMUS BLOOD (BEAKER) (test code = 657) 10.6 ng/mL 10.0-20.0 Orthotic Assistant ID - CAROLINA FURINALYSIS W/ REFLEX URINE [id number] 09:09:00* Test Item Value Reference Range Interpretation Comments COLOR (BEAKER) (test code = 470) Yellow CLARITY (BEAKER) (test code = 469) Clear SPECIFIC GRAVITY UA (BEAKER) (test code = 468) 1.023 1.001-1 .035 PH UA (BEAKER) (test code = 467) 6.0 5.0-8.0 PROTEIN UA (BEAKER) (test code = 464) 30 mg/dL Negative A GLUCOSE UA (BEAKER) (test code = 365) Negative Negative KETONES UA (BEAKER) (test code = 371) Negative Negative BILIRUBIN UA (BEAKER) (test code = 462) Negative Negative BLOOD UA (BEAKER) (test code = 461) Negative Negative NITRITE UA (BEAKER) (test code = 465) Negative Negative LEUKOCYTE ESTERASE UA (BEAKER) (test code = 466) Negative Negat sharona UROBILINOGEN UA (BEAKER) (test code = 463) 0.2 mg/dL 0.2-1.0 RBC UA (BEAKER) (test code = 519) 2 /HPF WBC UA (BEAKER) (test code = 520) 1 /HPF MUCUS (BEAKER) (test code = 1574) Rare SOURCE(BEAKER) (test code = 2795) Orthotic Assistant ID - [auto]Orthotic Assistant ID - [id number] 08:49:00* Test Item Value Reference Range Interpretation Comments PHOSPHORUS (BEAKER) (test code = 604) 3.7 mg/dL 2.3-4.7 Orthotic Assistant ID - MITZI MCOMPREHENSIVE METABOLIC [id number] 08:49:00* Test Item Value Reference Range Interpretation Comments TOTAL PROTEIN (BEAKER) (test code = 770) 8.2 gm/dL 6.0-8.3 ALBUMIN (BEAKER) (test code = 1145) 4.4 g/dL 3.5-5.0 ALKALINE PHOSPHATASE (BEAKER) (test code = 346) 100 U/L 40-150 BILIRUBIN TOTAL (BEAKER) (test code = 377) 1.4 mg/dL 0.2-1.2 H SODIUM (BEAKER) (test code = 381) 139 meq/L 136-145 POTASSIUM (BEAKER) (test code = 379) 4.6 meq/L 3.5-5.1 CHLORIDE (BEAKER) (test code = 382) 108 meq/L 98-107 H CO2 (BEAKER) (test code = 355) 24 meq/L 22-29 BLOOD UREA NITROGEN (BEAKER) (test code = 354) 28 mg/dL 7-21 H CREATININE (BEAKER) (test code = 358) 1.95 mg/dL 0.57-1.25 H GLUCOSE RANDOM (BEAKER) (test code = 652) 116 mg/dL 70-105 H CALCIUM (BEAKER) (test code = 697) 9.5 mg/dL 8.4-10.2 AST (SGOT) (BEAKER) (test code = 353) 32 U/L 5-34 ALT (SGPT) (BEAKER) (test code = 347) 69 U/L 6-55 H EGFR (BEAKER) (test code = 1092) 34 mL/min/1.73 sq m ESTIMATED GFR IS NOT ACCURATE CREATININE CLEARANCE IN PREDICTING GLOMERULAR FILTRATION RATE. ESTIMATED GFR IS NOT APPLICABLE FOR DIALYSIS PATIENTS. Orthotic Assistant ID - MITZI MLACTATE DEHYDROGENASE (LDH)2020-03-14 08:49:00* Test Item Value Reference Range Interpretation Comments LACTATE DEHYDROGENASE (BEAKER) (test code = 635) 267 U/L 125-2 20 H Orthotic Assistant ID - MITZI MCBC W/PLT COUNT & AUTO [id number] 08:27:00* Test Item Value Reference Range Interpretation Comments WHITE BLOOD CELL COUNT (BEAKER) (test code = 775) 7.1 K/ L 3.5- 10.5 RED BLOOD CELL COUNT (BEAKER) (test code = 761) 5.35 M/ L 4.63-6 .08 HEMOGLOBIN (BEAKER) (test code = 410) 17.0 GM/DL 13.7-17.5 HEMATOCRIT (BEAKER) (test code = 411) 51.9 % 40.1-51.0 H MEAN CORPUSCULAR VOLUME (BEAKER) (test code = 753) 97.0 fL 79. 0-92.2 H MEAN CORPUSCULAR HEMOGLOBIN (BEAKER) (test code = 751) 31.8 pg 25.7-32.2 MEAN CORPUSCULAR HEMOGLOBIN CONC (BEAKER) (test code = 752) 32.8 GM/DL 32.3-36.5 RED CELL DISTRIBUTION WIDTH (BEAKER) (test code = 412) 16.2 % 11.6-14.4 H PLATELET COUNT (BEAKER) (test code = 756) 226 K/CU MM 150-450 MEAN PLATELET VOLUME (BEAKER) (test code = 754) 9.7 fL 9.4-12 .4 NUCLEATED RED BLOOD CELLS (BEAKER) (test code = 413) 0 /100 WBC 0 -0 NEUTROPHILS RELATIVE PERCENT (BEAKER) (test code = 429) 71 % LYMPHOCYTES RELATIVE PERCENT (BEAKER) (test code = 430) 13 % MONOCYTES RELATIVE PERCENT (BEAKER) (test code = 431) 14 % EOSINOPHILS RELATIVE PERCENT (BEAKER) (test code = 432) 2 % BASOPHILS RELATIVE PERCENT (BEAKER) (test code = 437) 1 % NEUTROPHILS ABSOLUTE COUNT (BEAKER) (test code = 670) 4.98 K/ L 1.78-5.38 LYMPHOCYTES ABSOLUTE COUNT (BEAKER) (test code = 414) 0.90 K/ L 1.32-3.57 L MONOCYTES ABSOLUTE COUNT (BEAKER) (test code = 415) 0.96 K/ L 0. 30-0.82 H EOSINOPHILS ABSOLUTE COUNT (BEAKER) (test code = 416) 0.13 K/ L 0.04-0.54 BASOPHILS ABSOLUTE COUNT (BEAKER) (test code = 417) 0.06 K/ L 0. 01-0.08 IMMATURE GRANULOCYTES-RELATIVE PERCENT (BEAKER) (test code = 2801) 1 % 0-1 TACROLIMUS [id number] 13:38:00* Test Item Value Reference Range Interpretation Comments TACROLIMUS BLOOD (BEAKER) (test code = 657) 10.3 ng/mL 10.0-20.0 Orthotic Assistant SEAN DE MCKEEURINALYSIS W/ REFLEX URINE [id number] 09:22:00 * Test Item Value Reference Range Interpretation Comments COLOR (BEAKER) (test code = 470) Yellow CLARITY (BEAKER) (test code = 469) Clear SPECIFIC GRAVITY UA (BEAKER) (test code = 468) 1.023 1.001-1 .035 PH UA (BEAKER) (test code = 467) 6.0 5.0-8.0 PROTEIN UA (BEAKER) (test code = 464) 30 mg/dL Negative A GLUCOSE UA (BEAKER) (test code = 365) Negative Negative KETONES UA (BEAKER) (test code = 371) Negative Negative BILIRUBIN UA (BEAKER) (test code = 462) Negative Negative BLOOD UA (BEAKER) (test code = 461) Trace Negative A NITRITE UA (BEAKER) (test code = 465) Negative Negative LEUKOCYTE ESTERASE UA (BEAKER) (test code = 466) Negative Negat sharona UROBILINOGEN UA (BEAKER) (test code = 463) 0.2 mg/dL 0.2-1.0 RBC UA (BEAKER) (test code = 519) 1 /HPF WBC UA (BEAKER) (test code = 520) < /HPF MUCUS (BEAKER) (test code = 1574) Rare SOURCE(BEAKER) (test code = 2791) Orthotic Assistant ID - [auto]Orthotic Assistant ID - [id number] 08:50:00* Test Item Value Reference Range Interpretation Comments PHOSPHORUS (BEAKER) (test code = 604) 3.5 mg/dL 2.3-4.7 Orthotic Assistant ID - MITZI MCOMPREHENSIVE METABOLIC [id number] 08:50:00* Test Item Value Reference Range Interpretation Comments TOTAL PROTEIN (BEAKER) (test code = 770) 7.7 gm/dL 6.0-8.3 ALBUMIN (BEAKER) (test code = 1145) 4.3 g/dL 3.5-5.0 ALKALINE PHOSPHATASE (BEAKER) (test code = 346) 103 U/L 40-150 BILIRUBIN TOTAL (BEAKER) (test code = 377) 0.8 mg/dL 0.2-1.2 SODIUM (BEAKER) (test code = 381) 139 meq/L 136-145 POTASSIUM (BEAKER) (test code = 379) 4.4 meq/L 3.5-5.1 CHLORIDE (BEAKER) (test code = 382) 107 meq/L 98-107 CO2 (BEAKER) (test code = 355) 24 meq/L 22-29 BLOOD UREA NITROGEN (BEAKER) (test code = 354) 28 mg/dL 7-21 H CREATININE (BEAKER) (test code = 358) 1.87 mg/dL 0.57-1.25 H GLUCOSE RANDOM (BEAKER) (test code = 652) 124 mg/dL 70-105 H CALCIUM (BEAKER) (test code = 697) 9.3 mg/dL 8.4-10.2 AST (SGOT) (BEAKER) (test code = 353) 41 U/L 5-34 H ALT (SGPT) (BEAKER) (test code = 347) 77 U/L 6-55 H EGFR (BEAKER) (test code = 1092) 36 mL/min/1.73 sq m ESTIMATED GFR IS NOT ACCURATE CREATININE CLEARANCE IN PREDICTING GLOMERULAR FILTRATION RATE. ESTIMATED GFR IS NOT APPLICABLE FOR DIALYSIS PATIENTS. Orthotic Assistant ID - MITZI MLACTATE DEHYDROGENASE (LDH)2020-02-15 08:50:00* Test Item Value Reference Range Interpretation Comments LACTATE DEHYDROGENASE (BEAKER) (test code = 635) 280 U/L 125-2 20 H Orthotic Assistant ID - MITZI MCBC W/PLT COUNT & AUTO [id number] 08:44:00* Test Item Value Reference Range Interpretation Comments WHITE BLOOD CELL COUNT (BEAKER) (test code = 775) 5.6 K/ L 3.5- 10.5 RED BLOOD CELL COUNT (BEAKER) (test code = 761) 5.19 M/ L 4.63-6 .08 HEMOGLOBIN (BEAKER) (test code = 410) 16.2 GM/DL 13.7-17.5 HEMATOCRIT (BEAKER) (test code = 411) 49.6 % 40.1-51.0 MEAN CORPUSCULAR VOLUME (BEAKER) (test code = 753) 95.6 fL 79. 0-92.2 H MEAN CORPUSCULAR HEMOGLOBIN (BEAKER) (test code = 751) 31.2 pg 25.7-32.2 MEAN CORPUSCULAR HEMOGLOBIN CONC (BEAKER) (test code = 752) 32.7 GM/DL 32.3-36.5 RED CELL DISTRIBUTION WIDTH (BEAKER) (test code = 412) 16.1 % 11.6-14.4 H PLATELET COUNT (BEAKER) (test code = 756) 281 K/CU MM 150-450 MEAN PLATELET VOLUME (BEAKER) (test code = 754) 10.4 fL 9.4-12 .4 NUCLEATED RED BLOOD CELLS (BEAKER) (test code = 413) 0 /100 WBC 0 -0 NEUTROPHILS RELATIVE PERCENT (BEAKER) (test code = 429) 57 % LYMPHOCYTES RELATIVE PERCENT (BEAKER) (test code = 430) 18 % MONOCYTES RELATIVE PERCENT (BEAKER) (test code = 431) 20 % EOSINOPHILS RELATIVE PERCENT (BEAKER) (test code = 432) 2 % BASOPHILS RELATIVE PERCENT (BEAKER) (test code = 437) 1 % NEUTROPHILS ABSOLUTE COUNT (BEAKER) (test code = 670) 3.18 K/ L 1.78-5.38 LYMPHOCYTES ABSOLUTE COUNT (BEAKER) (test code = 414) 0.99 K/ L 1.32-3.57 L MONOCYTES ABSOLUTE COUNT (BEAKER) (test code = 415) 1.14 K/ L 0. 30-0.82 H EOSINOPHILS ABSOLUTE COUNT (BEAKER) (test code = 416) 0.13 K/ L 0.04-0.54 BASOPHILS ABSOLUTE COUNT (BEAKER) (test code = 417) 0.08 K/ L 0. 01-0.08 IMMATURE GRANULOCYTES-RELATIVE PERCENT (BEAKER) (test code = 2801) 1 % 0-1 TACROLIMUS [id number] 13:18:00* Test Item Value Reference Range Interpretation Comments TACROLIMUS BLOOD (BEAKER) (test code = 657) 9.0 ng/mL 10.0-20.0 L Orthotic Assistant ID - SANTINO MURINALYSIS W/ REFLEX URINE [id number] 10:17:00* Test Item Value Reference Range Interpretation Comments COLOR (BEAKER) (test code = 470) Yellow CLARITY (BEAKER) (test code = 469) Clear SPECIFIC GRAVITY UA (BEAKER) (test code = 468) 1.020 1.001-1 .035 PH UA (BEAKER) (test code = 467) 5.5 5.0-8.0 PROTEIN UA (BEAKER) (test code = 464) 20 mg/dL Negative A GLUCOSE UA (BEAKER) (test code = 365) Negative Negative KETONES UA (BEAKER) (test code = 371) Negative Negative BILIRUBIN UA (BEAKER) (test code = 462) Negative Negative BLOOD UA (BEAKER) (test code = 461) Trace Negative A NITRITE UA (BEAKER) (test code = 465) Negative Negative LEUKOCYTE ESTERASE UA (BEAKER) (test code = 466) Negative Negat sharona UROBILINOGEN UA (BEAKER) (test code = 463) 0.2 mg/dL 0.2-1.0 RBC UA (BEAKER) (test code = 519) 2 /HPF WBC UA (BEAKER) (test code = 520) < /HPF BACTERIA (BEAKER) (test code = 517) Occasional SOURCE(BEAKER) (test code = 2795) Orthotic Assistant ID - [auto]Orthotic Assistant ID - [id number] 10:06:00* Test Item Value Reference Range Interpretation Comments PHOSPHORUS (BEAKER) (test code = 604) 3.4 mg/dL 2.3-4.7 Orthotic Assistant ID - [place] FCOMPREHENSIVE METABOLIC [id number] 10:06:00* Test Item Value Reference Range Interpretation Comments TOTAL PROTEIN (BEAKER) (test code = 770) 7.8 gm/dL 6.0-8.3 ALBUMIN (BEAKER) (test code = 1145) 4.2 g/dL 3.5-5.0 ALKALINE PHOSPHATASE (BEAKER) (test code = 346) 107 U/L 40-150 BILIRUBIN TOTAL (BEAKER) (test code = 377) 1.0 mg/dL 0.2-1.2 SODIUM (BEAKER) (test code = 381) 138 meq/L 136-145 POTASSIUM (BEAKER) (test code = 379) 4.1 meq/L 3.5-5.1 CHLORIDE (BEAKER) (test code = 382) 108 meq/L 98-107 H CO2 (BEAKER) (test code = 355) 20 meq/L 22-29 L BLOOD UREA NITROGEN (BEAKER) (test code = 354) 25 mg/dL 7-21 H CREATININE (BEAKER) (test code = 358) 1.83 mg/dL 0.57-1.25 H GLUCOSE RANDOM (BEAKER) (test code = 652) 135 mg/dL 70-105 H CALCIUM (BEAKER) (test code = 697) 9.0 mg/dL 8.4-10.2 AST (SGOT) (BEAKER) (test code = 353) 41 U/L 5-34 H ALT (SGPT) (BEAKER) (test code = 347) 75 U/L 6-55 H EGFR (BEAKER) (test code = 1092) 37 mL/min/1.73 sq m ESTIMATED GFR IS NOT ACCURATE CREATININE CLEARANCE IN PREDICTING GLOMERULAR FILTRATION RATE. ESTIMATED GFR IS NOT APPLICABLE FOR DIALYSIS PATIENTS. Orthotic Assistant ID - NAYA FLACTATE DEHYDROGENASE (LDH)2020-02-01 10:06:00* Test Item Value Reference Range Interpretation Comments LACTATE DEHYDROGENASE (BEAKER) (test code = 635) 286 U/L 125-2 20 H Orthotic Assistant ID - NAYA [facility] W/PLT COUNT & AUTO [id number] 09:06:00* Test Item Value Reference Range Interpretation Comments WHITE BLOOD CELL COUNT (BEAKER) (test code = 775) 6.0 K/ L 3.5- 10.5 RED BLOOD CELL COUNT (BEAKER) (test code = 761) 5.18 M/ L 4.63-6 .08 HEMOGLOBIN (BEAKER) (test code = 410) 16.4 GM/DL 13.7-17.5 HEMATOCRIT (BEAKER) (test code = 411) 50.1 % 40.1-51.0 MEAN CORPUSCULAR VOLUME (BEAKER) (test code = 753) 96.7 fL 79. 0-92.2 H MEAN CORPUSCULAR HEMOGLOBIN (BEAKER) (test code = 751) 31.7 pg 25.7-32.2 MEAN CORPUSCULAR HEMOGLOBIN CONC (BEAKER) (test code = 752) 32.7 GM/DL 32.3-36.5 RED CELL DISTRIBUTION WIDTH (BEAKER) (test code = 412) 15.9 % 11.6-14.4 H PLATELET COUNT (BEAKER) (test code = 756) 266 K/CU MM 150-450 MEAN PLATELET VOLUME (BEAKER) (test code = 754) 10.4 fL 9.4-12 .4 NUCLEATED RED BLOOD CELLS (BEAKER) (test code = 413) 0 /100 WBC 0 -0 NEUTROPHILS RELATIVE PERCENT (BEAKER) (test code = 429) 68 % LYMPHOCYTES RELATIVE PERCENT (BEAKER) (test code = 430) 13 % MONOCYTES RELATIVE PERCENT (BEAKER) (test code = 431) 14 % EOSINOPHILS RELATIVE PERCENT (BEAKER) (test code = 432) 2 % BASOPHILS RELATIVE PERCENT (BEAKER) (test code = 437) 1 % NEUTROPHILS ABSOLUTE COUNT (BEAKER) (test code = 670) 4.10 K/ L 1.78-5.38 LYMPHOCYTES ABSOLUTE COUNT (BEAKER) (test code = 414) 0.80 K/ L 1.32-3.57 L MONOCYTES ABSOLUTE COUNT (BEAKER) (test code = 415) 0.83 K/ L 0. 30-0.82 H EOSINOPHILS ABSOLUTE COUNT (BEAKER) (test code = 416) 0.13 K/ L 0.04-0.54 BASOPHILS ABSOLUTE COUNT (BEAKER) (test code = 417) 0.06 K/ L 0. 01-0.08 IMMATURE GRANULOCYTES-RELATIVE PERCENT (BEAKER) (test code = 2801) 1 % 0-1 Prothrombin time/[id number] 08:53:00* Test Item Value Reference Range Interpretation Comments Protime (test code = 5902-2) 42.0 11.9- 14.2 seconds H INR (test code = 6301-6) 4.5 <=5.9 ANNEMARIE (test code = ANNEMARIE) Effective 04/19/2019: PT Refe rence Range ChangeNew: 11.9- 14.2 Previous: 11.7-14.7 RECOMMENDED COUMADIN/WARFARIN INR THERAPY RANGESSTANDARD DOSE: 2.0-3.0 Includes: PROPHYLAXIS for venous thrombosis, sys temic embolization; TREATMENT for venous thrombosis and/or pulmonary embolus.HIGH RISK: Target INR is 2.5-3.5 for patients wiht mechanical heart valves. Lab Interpretation (test code = 68429-6) [facility][id number] 08:53:00* Test Item Value Reference Range Interpretation Comments PROTIME (BEAKER) (test code = 759) 42.0 seconds 11.9-14.2 H INR (BEAKER) (test code = 370) 4.5 <=5.9 Effective 04/19/2019: PT Reference Range ChangeNew: 11.9-14.2 Previous: 11.7-14. 7RECOMMENDED COUMADIN/WARFARIN INR THERAPY RANGESSTANDARD DOSE: 2.0-3.0 Include s: PROPHYLAXIS for venous thrombosis, systemic embolization; TREATMENT for venou s thrombosis and/or pulmonary embolus.HIGH RISK: Target INR is 2.5-3.5 for patie nts wiht mechanical heart valves.BK VIRUS PCR, [id number] 15:10:00* Test Item Value Reference Range Interpretation Comments BK VIRUS, PLASMA, NEG (BEAKER) (test code = 2145) Nega tive or below the linear range of the assay (<1,000 copies/mL) <1,000 - >1,000,000 copies/mL Patients may have replicating BK Virus which is of no clinical significance. Vi ral load measurements are helpful to identify BK Virus replication of potential clinical significance. Consensus recommendations have been published of thresho ld values for the presumptive diagnosis of polyomavirus-associated nephropathy ( Transplantation 2005;79:0580-2720).A BK Virus load greater than 5,000-10,000 helicopter utility aircrewman ies/mL in the plasma is consistent with the presumptive diagnosis of polyoma-ass ociated nephropathy in renal transplant recipients.BK Virus DNA was assessed usi ng quantitative polymerase chain reaction and fluorescent monitoring of a specif ic hybridized probe. Genetic variation and other factors can affect the accurac y of nucleic acid testing. Therefore, the results should be interpreted in ligh t of clinical data.This test was developed and its performance characteristics d etermined by the [facility] Pathology Department, Section of Mole cular Pathology. It has not been cleared or approved by the U.S. Food and Drug Administration (FDA). Since FDA approval is not required for clinical use of th e test, validation was done as required by the Clinical Laboratory Improvement A mendments of 1988.TACROLIMUS [id number] 10:25:00* Test Item Value Reference Range Interpretation Comments TACROLIMUS BLOOD (BEAKER) (test code = 657) 9.9 ng/mL 10.0-20.0 L Orthotic Assistant ID - CAROLINA FURINALYSIS W/ REFLEX URINE [id number] 08:47:00* Test Item Value Reference Range Interpretation Comments COLOR (BEAKER) (test code = 470) Yellow CLARITY (BEAKER) (test code = 469) Clear SPECIFIC GRAVITY UA (BEAKER) (test code = 468) 1.024 1.001-1 .035 PH UA (BEAKER) (test code = 467) 6.0 5.0-8.0 PROTEIN UA (BEAKER) (test code = 464) 30 mg/dL Negative A GLUCOSE UA (BEAKER) (test code = 365) Negative Negative KETONES UA (BEAKER) (test code = 371) Negative Negative BILIRUBIN UA (BEAKER) (test code = 462) Negative Negative BLOOD UA (BEAKER) (test code = 461) Small Negative A NITRITE UA (BEAKER) (test code = 465) Negative Negative LEUKOCYTE ESTERASE UA (BEAKER) (test code = 466) Negative Negat sharona UROBILINOGEN UA (BEAKER) (test code = 463) 0.2 mg/dL 0.2-1.0 RBC UA (BEAKER) (test code = 519) 3 /HPF WBC UA (BEAKER) (test code = 520) 2 /HPF BACTERIA (BEAKER) (test code = 517) Rare SOURCE(BEAKER) (test code = 2795) Orthotic Assistant ID - [auto]Orthotic Assistant ID - [id number] 08:31:00* Test Item Value Reference Range Interpretation Comments PHOSPHORUS (BEAKER) (test code = 604) 3.6 mg/dL 2.3-4.7 Orthotic Assistant ID - MITZI MCOMPREHENSIVE METABOLIC [id number] 08:31:00* Test Item Value Reference Range Interpretation Comments TOTAL PROTEIN (BEAKER) (test code = 770) 7.5 gm/dL 6.0-8.3 ALBUMIN (BEAKER) (test code = 1145) 4.2 g/dL 3.5-5.0 ALKALINE PHOSPHATASE (BEAKER) (test code = 346) 103 U/L 40-150 BILIRUBIN TOTAL (BEAKER) (test code = 377) 1.2 mg/dL 0.2-1.2 SODIUM (BEAKER) (test code = 381) 136 meq/L 136-145 POTASSIUM (BEAKER) (test code = 379) 4.2 meq/L 3.5-5.1 CHLORIDE (BEAKER) (test code = 382) 106 meq/L 98-107 CO2 (BEAKER) (test code = 355) 22 meq/L 22-29 BLOOD UREA NITROGEN (BEAKER) (test code = 354) 23 mg/dL 7-21 H CREATININE (BEAKER) (test code = 358) 1.77 mg/dL 0.57-1.25 H GLUCOSE RANDOM (BEAKER) (test code = 652) 131 mg/dL 70-105 H CALCIUM (BEAKER) (test code = 697) 9.2 mg/dL 8.4-10.2 AST (SGOT) (BEAKER) (test code = 353) 48 U/L 5-34 H ALT (SGPT) (BEAKER) (test code = 347) 96 U/L 6-55 H EGFR (BEAKER) (test code = 1092) 39 mL/min/1.73 sq m ESTIMATED GFR IS NOT ACCURATE CREATININE CLEARANCE IN PREDICTING GLOMERULAR FILTRATION RATE. ESTIMATED GFR IS NOT APPLICABLE FOR DIALYSIS PATIENTS. Orthotic Assistant ID - MITZI MLACTATE DEHYDROGENASE (LDH)2020-01-27 08:31:00* Test Item Value Reference Range Interpretation Comments LACTATE DEHYDROGENASE (BEAKER) (test code = 635) 214 U/L 125-2 20 Orthotic Assistant ID - MITZI MCBC W/PLT COUNT & AUTO [id number] 08:09:00* Test Item Value Reference Range Interpretation Comments WHITE BLOOD CELL COUNT (BEAKER) (test code = 775) 5.6 K/ L 3.5- 10.5 RED BLOOD CELL COUNT (BEAKER) (test code = 761) 5.35 M/ L 4.63-6 .08 HEMOGLOBIN (BEAKER) (test code = 410) 16.7 GM/DL 13.7-17.5 HEMATOCRIT (BEAKER) (test code = 411) 51.5 % 40.1-51.0 H MEAN CORPUSCULAR VOLUME (BEAKER) (test code = 753) 96.3 fL 79. 0-92.2 H MEAN CORPUSCULAR HEMOGLOBIN (BEAKER) (test code = 751) 31.2 pg 25.7-32.2 MEAN CORPUSCULAR HEMOGLOBIN CONC (BEAKER) (test code = 752) 32.4 GM/DL 32.3-36.5 RED CELL DISTRIBUTION WIDTH (BEAKER) (test code = 412) 15.5 % 11.6-14.4 H PLATELET COUNT (BEAKER) (test code = 756) 253 K/CU MM 150-450 MEAN PLATELET VOLUME (BEAKER) (test code = 754) 9.6 fL 9.4-12 .4 NUCLEATED RED BLOOD CELLS (BEAKER) (test code = 413) 0 /100 WBC 0 -0 NEUTROPHILS RELATIVE PERCENT (BEAKER) (test code = 429) 65 % LYMPHOCYTES RELATIVE PERCENT (BEAKER) (test code = 430) 15 % MONOCYTES RELATIVE PERCENT (BEAKER) (test code = 431) 15 % EOSINOPHILS RELATIVE PERCENT (BEAKER) (test code = 432) 3 % BASOPHILS RELATIVE PERCENT (BEAKER) (test code = 437) 1 % NEUTROPHILS ABSOLUTE COUNT (BEAKER) (test code = 670) 3.67 K/ L 1.78-5.38 LYMPHOCYTES ABSOLUTE COUNT (BEAKER) (test code = 414) 0.82 K/ L 1.32-3.57 L MONOCYTES ABSOLUTE COUNT (BEAKER) (test code = 415) 0.85 K/ L 0. 30-0.82 H EOSINOPHILS ABSOLUTE COUNT (BEAKER) (test code = 416) 0.17 K/ L 0.04-0.54 BASOPHILS ABSOLUTE COUNT (BEAKER) (test code = 417) 0.06 K/ L 0. 01-0.08 IMMATURE GRANULOCYTES-RELATIVE PERCENT (BEAKER) (test code = 2801) 1 % 0-1 BK VIRUS PCR, [id number] 13:12:00* Test Item Value Reference Range Interpretation Comments BK VIRUS, PLASMA, NEG (BEAKER) (test code = 2145) Nega tive or below the linear range of the assay (<1,000 copies/mL) <1,000 - >1,000,000 copies/mL Patients may have replicating BK Virus which is of no clinical significance. Vi ral load measurements are helpful to identify BK Virus replication of potential clinical significance. Consensus recommendations have been published of thresho ld values for the presumptive diagnosis of polyomavirus-associated nephropathy ( Transplantation 2005;79:2507-9190).A BK Virus load greater than 5,000-10,000 helicopter utility aircrewman ies/mL in the plasma is consistent with the presumptive diagnosis of polyoma-ass ociated nephropathy in renal transplant recipients.BK Virus DNA was assessed usi ng quantitative polymerase chain reaction and fluorescent monitoring of a specif ic hybridized probe. Genetic variation and other factors can affect the accurac y of nucleic acid testing. Therefore, the results should be interpreted in ligh t of clinical data.This test was developed and its performance characteristics d etermined by the [facility] Pathology Department, Section of Mole cular Pathology. It has not been cleared or approved by the U.S. Food and Drug Administration (FDA). Since FDA approval is not required for clinical use of th e test, validation was done as required by the Clinical Laboratory Improvement A mendments of 1988.URINALYSIS W/ REFLEX URINE [id number] 11:25:00* Test Item Value Reference Range Interpretation Comments COLOR (BEAKER) (test code = 470) Yellow CLARITY (BEAKER) (test code = 469) Clear SPECIFIC GRAVITY UA (BEAKER) (test code = 468) 1.022 1.001-1 .035 PH UA (BEAKER) (test code = 467) 5.5 5.0-8.0 PROTEIN UA (BEAKER) (test code = 464) 20 mg/dL Negative A GLUCOSE UA (BEAKER) (test code = 365) Negative Negative KETONES UA (BEAKER) (test code = 371) Negative Negative BILIRUBIN UA (BEAKER) (test code = 462) Negative Negative BLOOD UA (BEAKER) (test code = 461) Trace Negative A NITRITE UA (BEAKER) (test code = 465) Negative Negative LEUKOCYTE ESTERASE UA (BEAKER) (test code = 466) Negative Negat sharona UROBILINOGEN UA (BEAKER) (test code = 463) 0.2 mg/dL 0.2-1.0 RBC UA (BEAKER) (test code = 519) 4 /HPF WBC UA (BEAKER) (test code = 520) 1 /HPF BACTERIA (BEAKER) (test code = 517) Occasional SOURCE(BEAKER) (test code = 2795) Orthotic Assistant ID - [auto]Orthotic Assistant ID - techTACROLIMUS [id number] 11:06:00* Test Item Value Reference Range Interpretation Comments TACROLIMUS BLOOD (BEAKER) (test code = 657) 14.7 ng/mL 10.0-20.0 Orthotic Assistant ID - NAYA [id number] 10:09:00* Test Item Value Reference Range Interpretation Comments PHOSPHORUS (BEAKER) (test code = 604) 3.7 mg/dL 2.3-4.7 Orthotic Assistant ID - NAYA FLACTATE DEHYDROGENASE (LDH)2020-01-18 10:04:00* Test Item Value Reference Range Interpretation Comments LACTATE DEHYDROGENASE (BEAKER) (test code = 635) 315 U/L 125-2 20 H Orthotic Assistant ID Marlena PERSON FCOMPREHENSIVE METABOLIC [id number] 10:01:00* Test Item Value Reference Range Interpretation Comments TOTAL PROTEIN (BEAKER) (test code = 770) 7.8 gm/dL 6.0-8.3 ALBUMIN (BEAKER) (test code = 1145) 4.2 g/dL 3.5-5.0 ALKALINE PHOSPHATASE (BEAKER) (test code = 346) 107 U/L 40-150 BILIRUBIN TOTAL (BEAKER) (test code = 377) 0.7 mg/dL 0.2-1.2 SODIUM (BEAKER) (test code = 381) 138 meq/L 136-145 POTASSIUM (BEAKER) (test code = 379) 4.8 meq/L 3.5-5.1 CHLORIDE (BEAKER) (test code = 382) 106 meq/L 98-107 CO2 (BEAKER) (test code = 355) 22 meq/L 22-29 BLOOD UREA NITROGEN (BEAKER) (test code = 354) 26 mg/dL 7-21 H CREATININE (BEAKER) (test code = 358) 1.98 mg/dL 0.57-1.25 H GLUCOSE RANDOM (BEAKER) (test code = 652) 139 mg/dL 70-105 H CALCIUM (BEAKER) (test code = 697) 9.2 mg/dL 8.4-10.2 AST (SGOT) (BEAKER) (test code = 353) 47 U/L 5-34 H ALT (SGPT) (BEAKER) (test code = 347) 81 U/L 6-55 H EGFR (BEAKER) (test code = 1092) 34 mL/min/1.73 sq m ESTIMATED GFR IS NOT ACCURATE CREATININE CLEARANCE IN PREDICTING GLOMERULAR FILTRATION RATE. ESTIMATED GFR IS NOT APPLICABLE FOR DIALYSIS PATIENTS. Orthotic Assistant ID Marlena PERSON FCBC W/PLT COUNT & AUTO [id number] 08:50:00* Test Item Value Reference Range Interpretation Comments WHITE BLOOD CELL COUNT (BEAKER) (test code = 775) 6.3 K/ L 3.5- 10.5 RED BLOOD CELL COUNT (BEAKER) (test code = 761) 5.36 M/ L 4.63-6 .08 HEMOGLOBIN (BEAKER) (test code = 410) 17.3 GM/DL 13.7-17.5 HEMATOCRIT (BEAKER) (test code = 411) 51.3 % 40.1-51.0 H MEAN CORPUSCULAR VOLUME (BEAKER) (test code = 753) 95.7 fL 79. 0-92.2 H MEAN CORPUSCULAR HEMOGLOBIN (BEAKER) (test code = 751) 32.3 pg 25.7-32.2 H MEAN CORPUSCULAR HEMOGLOBIN CONC (BEAKER) (test code = 752) 33.7 GM/DL 32.3-36.5 RED CELL DISTRIBUTION WIDTH (BEAKER) (test code = 412) 14.9 % 11.6-14.4 H PLATELET COUNT (BEAKER) (test code = 756) 254 K/CU MM 150-450 MEAN PLATELET VOLUME (BEAKER) (test code = 754) 10.4 fL 9.4-12 .4 NUCLEATED RED BLOOD CELLS (BEAKER) (test code = 413) 0 /100 WBC 0 -0 NEUTROPHILS RELATIVE PERCENT (BEAKER) (test code = 429) 63 % LYMPHOCYTES RELATIVE PERCENT (BEAKER) (test code = 430) 12 % MONOCYTES RELATIVE PERCENT (BEAKER) (test code = 431) 16 % EOSINOPHILS RELATIVE PERCENT (BEAKER) (test code = 432) 3 % BASOPHILS RELATIVE PERCENT (BEAKER) (test code = 437) 1 % NEUTROPHILS ABSOLUTE COUNT (BEAKER) (test code = 670) 3.97 K/ L 1.78-5.38 LYMPHOCYTES ABSOLUTE COUNT (BEAKER) (test code = 414) 0.76 K/ L 1.32-3.57 L MONOCYTES ABSOLUTE COUNT (BEAKER) (test code = 415) 0.98 K/ L 0. 30-0.82 H EOSINOPHILS ABSOLUTE COUNT (BEAKER) (test code = 416) 0.16 K/ L 0.04-0.54 BASOPHILS ABSOLUTE COUNT (BEAKER) (test code = 417) 0.08 K/ L 0. 01-0.08 IMMATURE GRANULOCYTES-RELATIVE PERCENT (BEAKER) (test code = 2801) 5 % 0-1 H BK VIRUS PCR, [id number] 19:44:00* Test Item Value Reference Range Interpretation Comments BK VIRUS, PLASMA, POS (BEAKER) (test code = 1820) 7515 copie s/mL <1,000 - >1,000,000 copies/mL Patients may have replicating BK Virus which is of no clinical significance. Vi ral load measurements are helpful to identify BK Virus replication of potential clinical significance. Consensus recommendations have been published of thresho ld levels for the presumptive diagnosis of polyomavirus-associated nephrophathy (Transplanation 2005;79: 1596-9712).A BK Virus load greater than 5,000-10,000 co pies/mL in the plasma is consistent with the presumptive diagnosis of polyoma-as sociated nephropathy in renal transplant recipients.BK Virus DNA was assessed us ing quantitative polymerase chain reaction and fluorescent monitoring of a speci fic hybridized probe. Genetic variation and other factors can affect the accura cy of nucleic acid resting. Therefore, the results should be interpreted in lig ht of clinical data.This test was developed and its performance characteristics determined by the [facility] Pathology Department, Section of Molecular Pathology. It has not been cleared or approved by the U.S. Food and Drug Administration (FDA). Since FDA approval is not required for clinical use of the test, validation was done as required by the Clinical Laboratory Improvem ent Amendments of 1988.TACROLIMUS [id number] 10:08:00* Test Item Value Reference Range Interpretation Comments TACROLIMUS BLOOD (ANABELA) (test code = 657) 7.7 ng/mL 10.0-20.0 L Orthotic Assistant ID - NAYA FU/S, TESTICULAR (SCROTUM)2019-12-21 09:06:00referring Dr. Burkett for Exam:->epididymitiss/p kidney transplantFINAL REPORT TECHNIQUE: Grayscale, color Doppler, and spectral Doppler ultrasound of the scrotum and testicles. INDICATION: epididymitis. COMPARISON: None. FINDINGS: RIGHT TESTIS: Measures 3.3 x 2.3 x 4.4 cm. Normal echotexture without focal lesions. LEFT TESTIS: Measures 3.8 x 1.9 x 3.1 cm. Normal echotexture without focal lesions. VASCULAR: There are symmetric, arterial w aveforms detected in both testes. Small bilateral varicoceles. EPIDIDYMIDES: The right epididymis is mildly bulky. A right epididymal head anechoic lesion measu res 0.5 x 0.4 x 0.5 cm and is consistent with an epididymal head cyst. Anechoic lesion in the left epididymis measure 0.3 x 0.4 x 0.3 cm and 0.4 x 0.4 x 0.3 cm and are most consistent with epididymal cysts. SCROTUM: No hydrocele. IMPRESSIO N: 1.The findings in the right epididymis could be due to mild or chronic epidid ymitis in the appropriate clinical setting. 2.There are small bilateral varicoce les. Signed: Gin Garcia Verified Date/Time: 12/21/2019 09:06:08 Readin g Location: [address] Radiology Reading Room testicular (scrotum)2019-12-21 09:06:00Interface, External Ris In 12/21/2019 9:08 AM CSTFINAL REPORT TECHNIQUE: Grayscale, color Doppler, and spectral [...] setting. 2.There are small bilateral varicoceles. Signed: Gin Garcia MDRtatiana Verified Date/Time: 12/21/2019 09:06:08 Reading Location: [address] Radiology Reading Room [facility] DEHYDROGENASE (LDH)2019-12-21 08:57:00* Test Item Value Reference Range Interpretation Comments LACTATE DEHYDROGENASE (BEAKER) (test code = 635) 252 U/L 125-2 20 H Specimen slightly hemolyzed Orthotic Assistant ID - MITZI [id number] 08:55:00* Test Item Value Reference Range Interpretation Comments PHOSPHORUS (BEAKER) (test code = 604) 3.8 mg/dL 2.3-4.7 Specimen slightly hemolyzed Orthotic Assistant ID - MITZI MCOMPREHENSIVE METABOLIC [id number] 08:55:00* Test Item Value Reference Range Interpretation Comments TOTAL PROTEIN (BEAKER) (test code = 770) 7.8 gm/dL 6.0-8.3 Specimen slightly hemolyzed ALBUMIN (BEAKER) (test code = 1145) 4.1 g/dL 3.5-5.0 Specimen slightly hemolyzed ALKALINE PHOSPHATASE (BEAKER) (test code = 346) 112 U/L 40-150 BILIRUBIN TOTAL (BEAKER) (test code = 377) 0.8 mg/dL 0.2-1.2 Specimen slightly hemolyzed SODIUM (BEAKER) (test code = 381) 137 meq/L 136-145 POTASSIUM (BEAKER) (test code = 379) 4.5 meq/L 3.5-5.1 Specimen slightly hemolyzed CHLORIDE (BEAKER) (test code = 382) 107 meq/L 98-107 CO2 (BEAKER) (test code = 355) 22 meq/L 22-29 BLOOD UREA NITROGEN (BEAKER) (test code = 354) 35 mg/dL 7-21 H CREATININE (BEAKER) (test code = 358) 1.97 mg/dL 0.57-1.25 H Specimen slightly hemolyzed GLUCOSE RANDOM (BEAKER) (test code = 652) 115 mg/dL 70-105 H CALCIUM (BEAKER) (test code = 697) 8.9 mg/dL 8.4-10.2 AST (SGOT) (BEAKER) (test code = 353) 38 U/L 5-34 H Specimen slightly hemolyzed ALT (SGPT) (BEAKER) (test code = 347) 83 U/L 6-55 H Specimen slightly hemolyzed EGFR (BEAKER) (test code = 1092) 34 mL/min/1.73 sq m ESTIMATED GFR IS NOT ACCURATE CREATININE CLEARANCE IN PREDICTING GLOMERULAR FILTRATION RATE. ESTIMATED GFR IS NOT APPLICABLE FOR DIALYSIS PATIENTS. Orthotic Assistant ID - MITZI MURINALYSIS W/ REFLEX URINE [id number] 08:45:00* Test Item Value Reference Range Interpretation Comments COLOR (BEAKER) (test code = 470) Yellow CLARITY (BEAKER) (test code = 469) Clear SPECIFIC GRAVITY UA (BEAKER) (test code = 468) 1.019 1.001-1 .035 PH UA (BEAKER) (test code = 467) 5.5 5.0-8.0 PROTEIN UA (BEAKER) (test code = 464) 20 mg/dL Negative A GLUCOSE UA (BEAKER) (test code = 365) Negative Negative KETONES UA (BEAKER) (test code = 371) Negative Negative BILIRUBIN UA (BEAKER) (test code = 462) Negative Negative BLOOD UA (BEAKER) (test code = 461) Trace Negative A NITRITE UA (BEAKER) (test code = 465) Negative Negative LEUKOCYTE ESTERASE UA (BEAKER) (test code = 466) Negative Negat sharona UROBILINOGEN UA (BEAKER) (test code = 463) 0.2 mg/dL 0.2-1.0 RBC UA (BEAKER) (test code = 519) 1 /HPF WBC UA (BEAKER) (test code = 520) 1 /HPF SOURCE(BEAKER) (test code = 2795) Orthotic Assistant ID - [auto]Orthotic Assistant ID - hankCBC W/PLT COUNT & AUTO DIFFERENTIAL 2019-12-21 08:38:00* Test Item Value Reference Range Interpretation Comments WHITE BLOOD CELL COUNT (BEAKER) (test code = 775) 4.9 K/ L 3.5- 10.5 RED BLOOD CELL COUNT (BEAKER) (test code = 761) 4.98 M/ L 4.63-6 .08 HEMOGLOBIN (BEAKER) (test code = 410) 15.9 GM/DL 13.7-17.5 HEMATOCRIT (BEAKER) (test code = 411) 47.9 % 40.1-51.0 MEAN CORPUSCULAR VOLUME (BEAKER) (test code = 753) 96.2 fL 79. 0-92.2 H MEAN CORPUSCULAR HEMOGLOBIN (BEAKER) (test code = 751) 31.9 pg 25.7-32.2 MEAN CORPUSCULAR HEMOGLOBIN CONC (BEAKER) (test code = 752) 33.2 GM/DL 32.3-36.5 RED CELL DISTRIBUTION WIDTH (BEAKER) (test code = 412) 14.0 % 11.6-14.4 PLATELET COUNT (BEAKER) (test code = 756) 265 K/CU MM 150-450 MEAN PLATELET VOLUME (BEAKER) (test code = 754) 10.1 fL 9.4-12 .4 NUCLEATED RED BLOOD CELLS (BEAKER) (test code = 413) 0 /100 WBC 0 -0 NEUTROPHILS RELATIVE PERCENT (BEAKER) (test code = 429) 70 % LYMPHOCYTES RELATIVE PERCENT (BEAKER) (test code = 430) 14 % MONOCYTES RELATIVE PERCENT (BEAKER) (test code = 431) 13 % EOSINOPHILS RELATIVE PERCENT (BEAKER) (test code = 432) 1 % BASOPHILS RELATIVE PERCENT (BEAKER) (test code = 437) 1 % NEUTROPHILS ABSOLUTE COUNT (BEAKER) (test code = 670) 3.44 K/ L 1.78-5.38 LYMPHOCYTES ABSOLUTE COUNT (BEAKER) (test code = 414) 0.69 K/ L 1.32-3.57 L MONOCYTES ABSOLUTE COUNT (BEAKER) (test code = 415) 0.65 K/ L 0. 30-0.82 EOSINOPHILS ABSOLUTE COUNT (BEAKER) (test code = 416) 0.07 K/ L 0.04-0.54 BASOPHILS ABSOLUTE COUNT (BEAKER) (test code = 417) 0.05 K/ L 0. 01-0.08 IMMATURE GRANULOCYTES-RELATIVE PERCENT (BEAKER) (test code = 2801) 0 % 0-1 TACROLIMUS [id number] 12:38:00* Test Item Value Reference Range Interpretation Comments TACROLIMUS BLOOD (BEAKER) (test code = 657) 9.5 ng/mL 10.0-20.0 L URINALYSIS W/ REFLEX URINE [id number] 10:37:00* Test Item Value Reference Range Interpretation Comments COLOR (BEAKER) (test code = 470) Yellow CLARITY (BEAKER) (test code = 469) Clear SPECIFIC GRAVITY UA (BEAKER) (test code = 468) 1.017 1.001-1 .035 PH UA (BEAKER) (test code = 467) 6.0 5.0-8.0 PROTEIN UA (BEAKER) (test code = 464) 20 mg/dL Negative A GLUCOSE UA (BEAKER) (test code = 365) Negative Negative KETONES UA (BEAKER) (test code = 371) Negative Negative BILIRUBIN UA (BEAKER) (test code = 462) Negative Negative BLOOD UA (BEAKER) (test code = 461) Trace Negative A NITRITE UA (BEAKER) (test code = 465) Negative Negative LEUKOCYTE ESTERASE UA (BEAKER) (test code = 466) Negative Negat sharona UROBILINOGEN UA (BEAKER) (test code = 463) 0.2 mg/dL 0.2-1.0 RBC UA (BEAKER) (test code = 519) 4 /HPF WBC UA (BEAKER) (test code = 520) 1 /HPF MUCUS (BEAKER) (test code = 1574) Rare SQUAMOUS EPITHELIAL (BEAKER) (test code = 516) 1 /HPF SOURCE(BEAKER) (test code = 2795) [id number] 10:19:00* Test Item Value Reference Range Interpretation Comments PHOSPHORUS (BEAKER) (test code = 604) 3.2 mg/dL 2.3-4.7 COMPREHENSIVE METABOLIC [id number] 10:19:00* Test Item Value Reference Range Interpretation Comments TOTAL PROTEIN (BEAKER) (test code = 770) 7.5 gm/dL 6.0-8.3 ALBUMIN (BEAKER) (test code = 1145) 4.0 g/dL 3.5-5.0 ALKALINE PHOSPHATASE (BEAKER) (test code = 346) 102 U/L 40-150 BILIRUBIN TOTAL (BEAKER) (test code = 377) 0.6 mg/dL 0.2-1.2 SODIUM (BEAKER) (test code = 381) 139 meq/L 136-145 POTASSIUM (BEAKER) (test code = 379) 4.5 meq/L 3.5-5.1 CHLORIDE (BEAKER) (test code = 382) 107 meq/L 98-107 CO2 (BEAKER) (test code = 355) 24 meq/L 22-29 BLOOD UREA NITROGEN (BEAKER) (test code = 354) 26 mg/dL 7-21 H CREATININE (BEAKER) (test code = 358) 1.84 mg/dL 0.57-1.25 H GLUCOSE RANDOM (BEAKER) (test code = 652) 115 mg/dL 70-105 H CALCIUM (BEAKER) (test code = 697) 9.0 mg/dL 8.4-10.2 AST (SGOT) (BEAKER) (test code = 353) 36 U/L 5-34 H ALT (SGPT) (BEAKER) (test code = 347) 80 U/L 6-55 H EGFR (BEAKER) (test code = 1092) 37 mL/min/1.73 sq m ESTIMATED GFR IS NOT ACCURATE CREATININE CLEARANCE IN PREDICTING GLOMERULAR FILTRATION RATE. ESTIMATED GFR IS NOT APPLICABLE FOR DIALYSIS PATIENTS. LACTATE DEHYDROGENASE (LDH)2019-11-23 10:19:00* Test Item Value Reference Range Interpretation Comments LACTATE DEHYDROGENASE (BEAKER) (test code = 635) 224 U/L 125-2 20 H CBC W/PLT COUNT & AUTO [id number] 09:56:00* Test Item Value Reference Range Interpretation Comments WHITE BLOOD CELL COUNT (BEAKER) (test code = 775) 7.0 K/ L 3.5- 10.5 RED BLOOD CELL COUNT (BEAKER) (test code = 761) 4.80 M/ L 4.63-6 .08 HEMOGLOBIN (BEAKER) (test code = 410) 15.5 GM/DL 13.7-17.5 HEMATOCRIT (BEAKER) (test code = 411) 47.0 % 40.1-51.0 MEAN CORPUSCULAR VOLUME (BEAKER) (test code = 753) 97.9 fL 79. 0-92.2 H MEAN CORPUSCULAR HEMOGLOBIN (BEAKER) (test code = 751) 32.3 pg 25.7-32.2 H MEAN CORPUSCULAR HEMOGLOBIN CONC (BEAKER) (test code = 752) 33.0 GM/DL 32.3-36.5 RED CELL DISTRIBUTION WIDTH (BEAKER) (test code = 412) 13.8 % 11.6-14.4 PLATELET COUNT (BEAKER) (test code = 756) 273 K/CU MM 150-450 MEAN PLATELET VOLUME (BEAKER) (test code = 754) 10.4 fL 9.4-12 .4 NUCLEATED RED BLOOD CELLS (BEAKER) (test code = 413) 0 /100 WBC 0 -0 NEUTROPHILS RELATIVE PERCENT (BEAKER) (test code = 429) 76 % LYMPHOCYTES RELATIVE PERCENT (BEAKER) (test code = 430) 10 % MONOCYTES RELATIVE PERCENT (BEAKER) (test code = 431) 9 % EOSINOPHILS RELATIVE PERCENT (BEAKER) (test code = 432) 3 % BASOPHILS RELATIVE PERCENT (BEAKER) (test code = 437) 1 % NEUTROPHILS ABSOLUTE COUNT (BEAKER) (test code = 670) 5.37 K/ L 1.78-5.38 LYMPHOCYTES ABSOLUTE COUNT (BEAKER) (test code = 414) 0.73 K/ L 1.32-3.57 L MONOCYTES ABSOLUTE COUNT (BEAKER) (test code = 415) 0.65 K/ L 0. 30-0.82 EOSINOPHILS ABSOLUTE COUNT (BEAKER) (test code = 416) 0.18 K/ L 0.04-0.54 BASOPHILS ABSOLUTE COUNT (BEAKER) (test code = 417) 0.09 K/ L 0. 01-0.08 H IMMATURE GRANULOCYTES-RELATIVE PERCENT (BEAKER) (test code = 2801) 0 % 0-1 BK VIRUS PCR, [id number] 16:23:00* Test Item Value Reference Range Interpretation Comments BK VIRUS, PLASMA, POS (BEAKER) (test code = 1820) 80823 copies/mL Patients may have replicating BK Virus which is of no clinical significance. Vi ral load measurements are helpful to identify BK Virus replication of potential clinical significance. Consensus recommendations have been published of thresho ld levels for the presumptive diagnosis of polyomavirus-associated nephrophathy (Transplanation 2005;79: 8774-1095).A BK Virus load greater than 5,000-10,000 co pies/mL in the plasma is consistent with the presumptive diagnosis of polyoma-as sociated nephropathy in renal transplant recipients.BK Virus DNA was assessed us ing quantitative polymerase chain reaction and fluorescent monitoring of a speci fic hybridized probe. Genetic variation and other factors can affect the accura cy of nucleic acid resting. Therefore, the results should be interpreted in lig ht of clinical data.This test was developed and its performance characteristics determined by the [facility] Pathology Department, Section of Molecular Pathology. It has not been cleared or approved by the U.S. Food and Drug Administration (FDA). Since FDA approval is not required for clinical use of the test, validation was done as required by the Clinical Laboratory Improve ent Amendments of 1988.TACROLIMUS [id number] 09:35:00* Test Item Value Reference Range Interpretation Comments TACROLIMUS BLOOD (BEAKER) (test code = 657) 4.6 ng/mL 10.0-20.0 L [id number] 08:25:00* Test Item Value Reference Range Interpretation Comments PHOSPHORUS (BEAKER) (test code = 604) 3.6 mg/dL 2.3-4.7 COMPREHENSIVE METABOLIC [id number] 08:25:00* Test Item Value Reference Range Interpretation Comments TOTAL PROTEIN (BEAKER) (test code = 770) 7.6 gm/dL 6.0-8.3 ALBUMIN (BEAKER) (test code = 1145) 4.2 g/dL 3.5-5.0 ALKALINE PHOSPHATASE (BEAKER) (test code = 346) 102 U/L 40-150 BILIRUBIN TOTAL (BEAKER) (test code = 377) 0.4 mg/dL 0.2-1.2 SODIUM (BEAKER) (test code = 381) 140 meq/L 136-145 POTASSIUM (BEAKER) (test code = 379) 4.7 meq/L 3.5-5.1 CHLORIDE (BEAKER) (test code = 382) 108 meq/L 98-107 H CO2 (BEAKER) (test code = 355) 23 meq/L 22-29 BLOOD UREA NITROGEN (BEAKER) (test code = 354) 33 mg/dL 7-21 H CREATININE (BEAKER) (test code = 358) 2.13 mg/dL 0.57-1.25 H GLUCOSE RANDOM (BEAKER) (test code = 652) 105 mg/dL 70-105 CALCIUM (BEAKER) (test code = 697) 8.9 mg/dL 8.4-10.2 AST (SGOT) (BEAKER) (test code = 353) 50 U/L 5-34 H ALT (SGPT) (BEAKER) (test code = 347) 85 U/L 6-55 H EGFR (BEAKER) (test code = 1092) 31 mL/min/1.73 sq m ESTIMATED GFR IS NOT ACCURATE CREATININE CLEARANCE IN PREDICTING GLOMERULAR FILTRATION RATE. ESTIMATED GFR IS NOT APPLICABLE FOR DIALYSIS PATIENTS. LACTATE DEHYDROGENASE (LDH)2019-11-13 08:25:00* Test Item Value Reference Range Interpretation Comments LACTATE DEHYDROGENASE (BEAKER) (test code = 635) 318 U/L 125-2 20 H CBC W/PLT COUNT & AUTO [id number] 08:22:00* Test Item Value Reference Range Interpretation Comments WHITE BLOOD CELL COUNT (BEAKER) (test code = 775) 6.2 K/ L 3.5- 10.5 RED BLOOD CELL COUNT (BEAKER) (test code = 761) 4.74 M/ L 4.63-6 .08 HEMOGLOBIN (BEAKER) (test code = 410) 15.4 GM/DL 13.7-17.5 HEMATOCRIT (BEAKER) (test code = 411) 47.1 % 40.1-51.0 MEAN CORPUSCULAR VOLUME (BEAKER) (test code = 753) 99.4 fL 79. 0-92.2 H MEAN CORPUSCULAR HEMOGLOBIN (BEAKER) (test code = 751) 32.5 pg 25.7-32.2 H MEAN CORPUSCULAR HEMOGLOBIN CONC (BEAKER) (test code = 752) 32.7 GM/DL 32.3-36.5 RED CELL DISTRIBUTION WIDTH (BEAKER) (test code = 412) 13.8 % 11.6-14.4 PLATELET COUNT (BEAKER) (test code = 756) 288 K/CU MM 150-450 MEAN PLATELET VOLUME (BEAKER) (test code = 754) 10.1 fL 9.4-12 .4 NUCLEATED RED BLOOD CELLS (BEAKER) (test code = 413) 0 /100 WBC 0 -0 NEUTROPHILS RELATIVE PERCENT (BEAKER) (test code = 429) 62 % LYMPHOCYTES RELATIVE PERCENT (BEAKER) (test code = 430) 14 % MONOCYTES RELATIVE PERCENT (BEAKER) (test code = 431) 17 % EOSINOPHILS RELATIVE PERCENT (BEAKER) (test code = 432) 3 % BASOPHILS RELATIVE PERCENT (BEAKER) (test code = 437) 2 % NEUTROPHILS ABSOLUTE COUNT (BEAKER) (test code = 670) 3.83 K/ L 1.78-5.38 LYMPHOCYTES ABSOLUTE COUNT (BEAKER) (test code = 414) 0.84 K/ L 1.32-3.57 L MONOCYTES ABSOLUTE COUNT (BEAKER) (test code = 415) 1.03 K/ L 0. 30-0.82 H EOSINOPHILS ABSOLUTE COUNT (BEAKER) (test code = 416) 0.16 K/ L 0.04-0.54 BASOPHILS ABSOLUTE COUNT (BEAKER) (test code = 417) 0.09 K/ L 0. 01-0.08 H IMMATURE GRANULOCYTES-RELATIVE PERCENT (BEAKER) (test code = 2801) 3 % 0-1 H URINALYSIS W/ REFLEX URINE [id number] 08:12:00* Test Item Value Reference Range Interpretation Comments COLOR (BEAKER) (test code = 470) Yellow CLARITY (BEAKER) (test code = 469) Clear SPECIFIC GRAVITY UA (BEAKER) (test code = 468) 1.015 1.001-1 .035 PH UA (BEAKER) (test code = 467) 5.5 5.0-8.0 PROTEIN UA (BEAKER) (test code = 464) 10 mg/dL Negative A GLUCOSE UA (BEAKER) (test code = 365) Negative Negative KETONES UA (BEAKER) (test code = 371) Negative Negative BILIRUBIN UA (BEAKER) (test code = 462) Negative Negative BLOOD UA (BEAKER) (test code = 461) Negative Negative NITRITE UA (BEAKER) (test code = 465) Negative Negative LEUKOCYTE ESTERASE UA (BEAKER) (test code = 466) Negative Negat sharona UROBILINOGEN UA (BEAKER) (test code = 463) 0.2 mg/dL 0.2-1.0 RBC UA (BEAKER) (test code = 519) 1 /HPF WBC UA (BEAKER) (test code = 520) 1 /HPF MUCUS (BEAKER) (test code = 1574) Rare SQUAMOUS EPITHELIAL (BEAKER) (test code = 516) < /HPF SOURCE(BEAKER) (test code = 2795) U/S, TRANSPLANT, [id number] 16:14:00referring Dr. Burkett for Exam:->elevated creatininewith post void residualFINAL REPORT TECHNIQUE: Grayscale, color Doppler, and spectral [...] anastomotic velocity of 104 cm/s. The main rahul al arterial peak systolic velocities 108 cm/s. The iliac arterial velocity below the anastomosis is 223 cm/s. BLADDER: Prevoid bladder volume is 121 mL, and the postvoid bladder volume is 14.9 mL. IMPRESSION: 1.The increased renal cortical resistive indices could be due to renal cortical dysfunction. 2.The increase in the iliac arterial velocity across the anastomosis is nonspecific but could be due to stenosis at the anastomotic site. Consider close attention on follow-up u ltrasound or a CTA for further evaluation. 3.There is mild renal pelvic fullness without shiv hydronephrosis. Signed: Gin Garcia MDReport Verified Date/Time: 10/26/2019 16:14:04 Reading Location: [address] Radiology Reading Room transplant [id number] 16:14:00Interface, External Ris In - 10/26/2019 4:16 PM CSTFINAL REPORT TECHNIQUE: Grayscale, color Doppler, and spectral [...] cm/s. The main renal arterial peak systolic ve locities 108 cm/s. The iliac arterial velocity below the anastomosis is 223 cm/s . BLADDER: Prevoid bladder volume is 121 mL, and the postvoid bladder volume is 14.9 mL. IMPRESSION: 1.The increased renal cortical resistive indices could be due to renal cortical dysfunction. 2.The increase in the iliac arterial velocity across the anastomosis is nonspecific but could be due to stenosis at the anast omotic site. Consider close attention on follow-up ultrasound or a CTA for furth er evaluation. 3.There is mild renal pelvic fullness without shiv hydronephrosi s. Signed: Gin Garcia MDReport Verified Date/Time: 10/26/2019 16:14:04 Reading Location: [address] Radiology Reading Room [facility]US PCR, [id number] 15:20:00* Test Item Value Reference Range Interpretation Comments BK VIRUS, PLASMA, POS (BEAKER) (test code = 1820) 86156 copies/mL Patients may have replicating BK Virus which is of no clinical significance. Vi ral load measurements are helpful to identify BK Virus replication of potential clinical significance. Consensus recommendations have been published of thresho ld levels for the presumptive diagnosis of polyomavirus-associated nephrophathy (Transplanation 2005;79: 2603-5204).A BK Virus load greater than 5,000-10,000 co pies/mL in the plasma is consistent with the presumptive diagnosis of polyoma-as sociated nephropathy in renal transplant recipients.BK Virus DNA was assessed us ing quantitative polymerase chain reaction and fluorescent monitoring of a speci fic hybridized probe. Genetic variation and other factors can affect the accura cy of nucleic acid resting. Therefore, the results should be interpreted in lig ht of clinical data.This test was developed and its performance characteristics determined by the [facility] Pathology Department, Section of Molecular Pathology. It has not been cleared or approved by the U.S. Food and Drug Administration (FDA). Since FDA approval is not required for clinical use of the test, validation was done as required by the Clinical Laboratory Improvem ent Amendments of 1988.TACROLIMUS [id number] 09:07:00* Test Item Value Reference Range Interpretation Comments TACROLIMUS BLOOD (BEAKER) (test code = 657) 7.9 ng/mL 10.0-20.0 L CBC W/PLT COUNT & AUTO [id number] 17:20:00* Test Item Value Reference Range Interpretation Comments WHITE BLOOD CELL COUNT (BEAKER) (test code = 775) 8.9 K/ L 3.5- 10.5 RED BLOOD CELL COUNT (BEAKER) (test code = 761) 4.31 M/ L 4.63-6 .08 L HEMOGLOBIN (BEAKER) (test code = 410) 14.0 GM/DL 13.7-17.5 HEMATOCRIT (BEAKER) (test code = 411) 43.3 % 40.1-51.0 MEAN CORPUSCULAR VOLUME (BEAKER) (test code = 753) 100.5 fL 79. 0-92.2 H MEAN CORPUSCULAR HEMOGLOBIN (BEAKER) (test code = 751) 32.5 pg 25.7-32.2 H MEAN CORPUSCULAR HEMOGLOBIN CONC (BEAKER) (test code = 752) 32.3 GM/DL 32.3-36.5 RED CELL DISTRIBUTION WIDTH (BEAKER) (test code = 412) 14.2 % 11.6-14.4 PLATELET COUNT (BEAKER) (test code = 756) 257 K/CU MM 150-450 MEAN PLATELET VOLUME (BEAKER) (test code = 754) 10.3 fL 9.4-12 .4 NUCLEATED RED BLOOD CELLS (BEAKER) (test code = 413) 0 /100 WBC 0 -0 (CELLAVISION MANUAL DIFF)2019-10-24 17:20:00* Test Item Value Reference Range Interpretation Comments NEUTROPHILS - REL (CELLAVISION)(BEAKER) (test code = 2816) 71 % LYMPHOCYTES - REL (CELLAVISION)(BEAKER) (test code = 2817) 2 % MONOCYTES - REL (CELLAVISION)(BEAKER) (test code = 2818) 6 % EOSINOPHILS - REL (CELLAVISION)(BEAKER) (test code = 2819) 1 % METAMYELOCYTES - REL (CELLAVISION)(BEAKER) (test code = 2821) 2 % 0-0 H BANDS - REL (CELLAVISION)(BEAKER) (test code = 2826) 14 % 0 -10 H ATYPICAL LYMPHOCYTES - REL (CELLAVISION)(BEAKER) (test code = 2829) 3 % 0-0 H NEUTROPHILS - ABS (CELLAVISION)(BEAKER) (test code = 2830) 6.32 K/ul 1.78-5.38 H LYMPHOCYTES - ABS (CELLAVISION)(BEAKER) (test code = 2831) 0.18 K/ul 1.32-3.57 L MONOCYTES - ABS (CELLAVISION)(BEAKER) (test code = 2832) 0.53 K/uL 0.30-0.82 EOSINOPHILS - ABS (CELLAVISION)(BEAKER) (test code = 2834) 0.09 K/uL 0.04-0.54 METAMYELOCYTES - ABS (CELLAVISION)(BEAKER) (test code = 2836 ) 0.18 K/uL 0.00-0.00 H BANDS - ABS (CELLAVISION)(BEAKER) (test code = 2840) 1.25 K/uL 0 .00-0.80 H ATYPICAL LYMPHOCYTES - ABS (CELLAVISION)(BEAKER) (test code = 2858) 0.27 K/uL 0.00-0.00 H TOTAL COUNTED (BEAKER) (test code = 1351) 100 MANUAL NRBC PER 100 CELLS (BEAKER) (test code = 1353) 1 /100 WBC 0-0 H WBC MORPHOLOGY (BEAKER) (test code = 487) Normal GIANT PLATELETS (BEAKER) (test code = 313) Present ANISOCYTOSIS (BEAKER) (test code = 961) 2+ moderate MACROCYTES (BEAKER) (test code = 964) 2+ moderate POIKILOCYTES (BEAKER) (test code = 966) 2+ moderate ELLIPTOCYTES (BEAKER) (test code = 962) 1+ few LEILA CELLS (BEAKER) (test code = 474) 1+ few ARTIFACT (CELLAVISION)(BEAKER) (test code = 3432) Present PLATELET CONCENTRATION (CELLAVISION)(BEAKER) (test code = 3438) Lisset quate Received comment: User comments: Slide comments: COMPREHENSIVE METABOLIC PANEL 2019-10-24 17:02:00* Test Item Value Reference Range Interpretation Comments TOTAL PROTEIN (BEAKER) (test code = 770) 7.2 gm/dL 6.0-8.3 ALBUMIN (BEAKER) (test code = 1145) 4.1 g/dL 3.5-5.0 ALKALINE PHOSPHATASE (BEAKER) (test code = 346) 96 U/L 40-150 BILIRUBIN TOTAL (BEAKER) (test code = 377) 0.6 mg/dL 0.2-1.2 SODIUM (BEAKER) (test code = 381) 138 meq/L 136-145 POTASSIUM (BEAKER) (test code = 379) 4.7 meq/L 3.5-5.1 CHLORIDE (BEAKER) (test code = 382) 104 meq/L 98-107 CO2 (BEAKER) (test code = 355) 26 meq/L 22-29 BLOOD UREA NITROGEN (BEAKER) (test code = 354) 30 mg/dL 7-21 H CREATININE (BEAKER) (test code = 358) 2.32 mg/dL 0.57-1.25 H GLUCOSE RANDOM (BEAKER) (test code = 652) 140 mg/dL 70-105 H CALCIUM (BEAKER) (test code = 697) 9.2 mg/dL 8.4-10.2 AST (SGOT) (BEAKER) (test code = 353) 41 U/L 5-34 H ALT (SGPT) (BEAKER) (test code = 347) 82 U/L 6-55 H EGFR (BEAKER) (test code = 1092) 28 mL/min/1.73 sq m ESTIMATED GFR IS NOT ACCURATE CREATININE CLEARANCE IN PREDICTING GLOMERULAR FILTRATION RATE. ESTIMATED GFR IS NOT APPLICABLE FOR DIALYSIS PATIENTS. URINALYSIS W/ REFLEX URINE [id number] 17:02:00* Test Item Value Reference Range Interpretation Comments COLOR (BEAKER) (test code = 470) Yellow CLARITY (BEAKER) (test code = 469) Clear SPECIFIC GRAVITY UA (BEAKER) (test code = 468) 1.026 1.001-1 .035 PH UA (BEAKER) (test code = 467) 5.5 5.0-8.0 PROTEIN UA (BEAKER) (test code = 464) 70 mg/dL Negative A GLUCOSE UA (BEAKER) (test code = 365) Negative Negative KETONES UA (BEAKER) (test code = 371) Trace Negative A BILIRUBIN UA (BEAKER) (test code = 462) Negative Negative BLOOD UA (BEAKER) (test code = 461) Moderate Negative A NITRITE UA (BEAKER) (test code = 465) Negative Negative LEUKOCYTE ESTERASE UA (BEAKER) (test code = 466) Negative Negat sharona UROBILINOGEN UA (BEAKER) (test code = 463) 0.2 mg/dL 0.2-1.0 RBC UA (BEAKER) (test code = 519) 12 /HPF WBC UA (BEAKER) (test code = 520) 4 /HPF MUCUS (BEAKER) (test code = 1574) Rare SQUAMOUS EPITHELIAL (BEAKER) (test code = 516) < /HPF WBC CASTS (BEAKER) (test code = 1578) 1 /LPF SOURCE(BEAKER) (test code = 2795) [id number] 17:01:00* Test Item Value Reference Range Interpretation Comments PHOSPHORUS (BEAKER) (test code = 604) 3.2 mg/dL 2.3-4.7 LACTATE DEHYDROGENASE (LDH)2019-10-24 17:01:00* Test Item Value Reference Range Interpretation Comments LACTATE DEHYDROGENASE (BEAKER) (test code = 635) 353 U/L 125-2 20 H PROTHROMBIN [id number] 16:55:00* Test Item Value Reference Range Interpretation Comments PROTIME (BEAKER) (test code = 759) 20.5 seconds 11.9-14.2 H INR (BEAKER) (test code = 370) 1.9 <=5.9 Effective 04/19/2019: PT Reference Range ChangeNew: 11.9-14.2 Previous: 11.7-14. 7RECOMMENDED COUMADIN/WARFARIN INR THERAPY RANGESSTANDARD DOSE: 2.0-3.0 Include s: PROPHYLAXIS for venous thrombosis, systemic embolization; TREATMENT for venou s thrombosis and/or pulmonary embolus.HIGH RISK: Target INR is 2.5-3.5 for patie nts wiht mechanical heart valves.TACROLIMUS [id number] 12:10:00* Test Item Value Reference Range Interpretation Comments TACROLIMUS BLOOD (BEAKER) (test code = 657) 10.6 ng/mL 10.0-20.0 URINALYSIS W/ REFLEX URINE [id number] 10:37:00* Test Item Value Reference Range Interpretation Comments COLOR (BEAKER) (test code = 470) Yellow CLARITY (BEAKER) (test code = 469) Clear SPECIFIC GRAVITY UA (BEAKER) (test code = 468) 1.021 1.001-1 .035 PH UA (BEAKER) (test code = 467) 5.5 5.0-8.0 PROTEIN UA (BEAKER) (test code = 464) 20 mg/dL Negative A GLUCOSE UA (BEAKER) (test code = 365) Negative Negative KETONES UA (BEAKER) (test code = 371) Negative Negative BILIRUBIN UA (BEAKER) (test code = 462) Negative Negative BLOOD UA (BEAKER) (test code = 461) Negative Negative NITRITE UA (BEAKER) (test code = 465) Negative Negative LEUKOCYTE ESTERASE UA (BEAKER) (test code = 466) Negative Negat sharona UROBILINOGEN UA (BEAKER) (test code = 463) 0.2 mg/dL 0.2-1.0 RBC UA (BEAKER) (test code = 519) 1 /HPF WBC UA (BEAKER) (test code = 520) 3 /HPF MUCUS (BEAKER) (test code = 1574) Rare SOURCE(BEAKER) (test code = 2795) [id number] 10:28:00* Test Item Value Reference Range Interpretation Comments PHOSPHORUS (BEAKER) (test code = 604) 3.5 mg/dL 2.3-4.7 COMPREHENSIVE METABOLIC [id number] 10:28:00* Test Item Value Reference Range Interpretation Comments TOTAL PROTEIN (BEAKER) (test code = 770) 7.5 gm/dL 6.0-8.3 ALBUMIN (BEAKER) (test code = 1145) 4.2 g/dL 3.5-5.0 ALKALINE PHOSPHATASE (BEAKER) (test code = 346) 100 U/L 40-150 BILIRUBIN TOTAL (BEAKER) (test code = 377) 0.6 mg/dL 0.2-1.2 SODIUM (BEAKER) (test code = 381) 139 meq/L 136-145 POTASSIUM (BEAKER) (test code = 379) 4.1 meq/L 3.5-5.1 CHLORIDE (BEAKER) (test code = 382) 105 meq/L 98-107 CO2 (BEAKER) (test code = 355) 28 meq/L 22-29 BLOOD UREA NITROGEN (BEAKER) (test code = 354) 28 mg/dL 7-21 H CREATININE (BEAKER) (test code = 358) 1.78 mg/dL 0.57-1.25 H GLUCOSE RANDOM (BEAKER) (test code = 652) 112 mg/dL 70-105 H CALCIUM (BEAKER) (test code = 697) 8.9 mg/dL 8.4-10.2 AST (SGOT) (BEAKER) (test code = 353) 31 U/L 5-34 ALT (SGPT) (BEAKER) (test code = 347) 79 U/L 6-55 H EGFR (BEAKER) (test code = 1092) 38 mL/min/1.73 sq m ESTIMATED GFR IS NOT ACCURATE CREATININE CLEARANCE IN PREDICTING GLOMERULAR FILTRATION RATE. ESTIMATED GFR IS NOT APPLICABLE FOR DIALYSIS PATIENTS. LACTATE DEHYDROGENASE (LDH)2019-09-26 10:28:00* Test Item Value Reference Range Interpretation Comments LACTATE DEHYDROGENASE (BEAKER) (test code = 635) 202 U/L 125-2 20 CBC W/PLT COUNT & AUTO [id number] 08:58:00* Test Item Value Reference Range Interpretation Comments WHITE BLOOD CELL COUNT (BEAKER) (test code = 775) 7.0 K/ L 3.5- 10.5 RED BLOOD CELL COUNT (BEAKER) (test code = 761) 4.31 M/ L 4.63-6 .08 L HEMOGLOBIN (BEAKER) (test code = 410) 14.1 GM/DL 13.7-17.5 HEMATOCRIT (BEAKER) (test code = 411) 42.4 % 40.1-51.0 MEAN CORPUSCULAR VOLUME (BEAKER) (test code = 753) 98.4 fL 79. 0-92.2 H MEAN CORPUSCULAR HEMOGLOBIN (BEAKER) (test code = 751) 32.7 pg 25.7-32.2 H MEAN CORPUSCULAR HEMOGLOBIN CONC (BEAKER) (test code = 752) 33.3 GM/DL 32.3-36.5 RED CELL DISTRIBUTION WIDTH (BEAKER) (test code = 412) 14.6 % 11.6-14.4 H PLATELET COUNT (BEAKER) (test code = 756) 283 K/CU MM 150-450 MEAN PLATELET VOLUME (BEAKER) (test code = 754) 10.4 fL 9.4-12 .4 NUCLEATED RED BLOOD CELLS (BEAKER) (test code = 413) 0 /100 WBC 0 -0 NEUTROPHILS RELATIVE PERCENT (BEAKER) (test code = 429) 76 % LYMPHOCYTES RELATIVE PERCENT (BEAKER) (test code = 430) 10 % MONOCYTES RELATIVE PERCENT (BEAKER) (test code = 431) 11 % EOSINOPHILS RELATIVE PERCENT (BEAKER) (test code = 432) 1 % BASOPHILS RELATIVE PERCENT (BEAKER) (test code = 437) 1 % NEUTROPHILS ABSOLUTE COUNT (BEAKER) (test code = 670) 5.30 K/ L 1.78-5.38 LYMPHOCYTES ABSOLUTE COUNT (BEAKER) (test code = 414) 0.70 K/ L 1.32-3.57 L MONOCYTES ABSOLUTE COUNT (BEAKER) (test code = 415) 0.77 K/ L 0. 30-0.82 EOSINOPHILS ABSOLUTE COUNT (BEAKER) (test code = 416) 0.07 K/ L 0.04-0.54 BASOPHILS ABSOLUTE COUNT (BEAKER) (test code = 417) 0.06 K/ L 0. 01-0.08 IMMATURE GRANULOCYTES-RELATIVE PERCENT (BEAKER) (test code = 2801) 1 % 0-1 BK VIRUS PCR, [id number] 14:49:00* Test Item Value Reference Range Interpretation Comments BK VIRUS, PLASMA, NEG (BEAKER) (test code = 2145) Nega tive or below the linear range of the assay (<1,000 copies/mL) Patients may have replicating BK Virus which is of no clinical significance. Vi ral load measurements are helpful to identify BK Virus replication of potential clinical significance. Consensus recommendations have been published of thresho ld values for the presumptive diagnosis of polyomavirus-associated nephropathy ( Transplantation 2005;79:7690-0507).A BK Virus load greater than 5,000-10,000 helicopter utility aircrewman ies/mL in the plasma is consistent with the presumptive diagnosis of polyoma-ass ociated nephropathy in renal transplant recipients.BK Virus DNA was assessed usi ng quantitative polymerase chain reaction and fluorescent monitoring of a specif ic hybridized probe. Genetic variation and other factors can affect the accurac y of nucleic acid testing. Therefore, the results should be interpreted in ligh t of clinical data.This test was developed and its performance characteristics d etermined by the [facility], Section of [facility]. It has not been cleared or approved by the U.S. Food and Drug Administration (FDA). Since FDA approval is not required for clinical use of th e test, validation was done as required by the Clinical Laboratory Improvement A mendments of 1988.TACROLIMUS [id number] 11:27:00* Test Item Value Reference Range Interpretation Comments TACROLIMUS BLOOD (BEAKER) (test code = 657) 9.5 ng/mL 10.0-20.0 L URINALYSIS W/ REFLEX URINE [id number] 10:26:00* Test Item Value Reference Range Interpretation Comments COLOR (BEAKER) (test code = 470) Yellow CLARITY (BEAKER) (test code = 469) Clear SPECIFIC GRAVITY UA (BEAKER) (test code = 468) 1.030 1.001-1 .035 PH UA (BEAKER) (test code = 467) 5.5 5.0-8.0 PROTEIN UA (BEAKER) (test code = 464) 30 mg/dL Negative A GLUCOSE UA (BEAKER) (test code = 365) Negative Negative KETONES UA (BEAKER) (test code = 371) Negative Negative BILIRUBIN UA (BEAKER) (test code = 462) Negative Negative BLOOD UA (BEAKER) (test code = 461) Trace Negative A NITRITE UA (BEAKER) (test code = 465) Negative Negative LEUKOCYTE ESTERASE UA (BEAKER) (test code = 466) Negative Negat sharona UROBILINOGEN UA (BEAKER) (test code = 463) 0.2 mg/dL 0.2-1.0 RBC UA (BEAKER) (test code = 519) 1 /HPF WBC UA (BEAKER) (test code = 520) 2 /HPF BACTERIA (BEAKER) (test code = 517) Occasional MUCUS (BEAKER) (test code = 1574) Occasional SQUAMOUS EPITHELIAL (BEAKER) (test code = 516) 1 /HPF SOURCE(BEAKER) (test code = 8230) [id number] 09:03:00* Test Item Value Reference Range Interpretation Comments PHOSPHORUS (BEAKER) (test code = 604) 3.5 mg/dL 2.3-4.7 COMPREHENSIVE METABOLIC [id number] 09:03:00* Test Item Value Reference Range Interpretation Comments TOTAL PROTEIN (BEAKER) (test code = 770) 7.5 gm/dL 6.0-8.3 ALBUMIN (BEAKER) (test code = 1145) 4.1 g/dL 3.5-5.0 ALKALINE PHOSPHATASE (BEAKER) (test code = 346) 111 U/L 40-150 BILIRUBIN TOTAL (BEAKER) (test code = 377) 0.8 mg/dL 0.2-1.2 SODIUM (BEAKER) (test code = 381) 137 meq/L 136-145 POTASSIUM (BEAKER) (test code = 379) 4.1 meq/L 3.5-5.1 CHLORIDE (BEAKER) (test code = 382) 106 meq/L 98-107 CO2 (BEAKER) (test code = 355) 23 meq/L 22-29 BLOOD UREA NITROGEN (BEAKER) (test code = 354) 25 mg/dL 7-21 H CREATININE (BEAKER) (test code = 358) 1.64 mg/dL 0.57-1.25 H GLUCOSE RANDOM (BEAKER) (test code = 652) 104 mg/dL 70-105 CALCIUM (BEAKER) (test code = 697) 9.1 mg/dL 8.4-10.2 AST (SGOT) (BEAKER) (test code = 353) 47 U/L 5-34 H ALT (SGPT) (BEAKER) (test code = 347) 105 U/L 6-55 H EGFR (BEAKER) (test code = 1092) 42 mL/min/1.73 sq m ESTIMATED GFR IS NOT ACCURATE CREATININE CLEARANCE IN PREDICTING GLOMERULAR FILTRATION RATE. ESTIMATED GFR IS NOT APPLICABLE FOR DIALYSIS PATIENTS. LACTATE DEHYDROGENASE (LDH)2019-09-19 09:03:00* Test Item Value Reference Range Interpretation Comments LACTATE DEHYDROGENASE (BEAKER) (test code = 635) 202 U/L 125-2 20 CBC W/PLT COUNT & AUTO [id number] 08:19:00* Test Item Value Reference Range Interpretation Comments WHITE BLOOD CELL COUNT (BEAKER) (test code = 775) 7.4 K/ L 3.5- 10.5 RED BLOOD CELL COUNT (BEAKER) (test code = 761) 4.35 M/ L 4.63-6 .08 L HEMOGLOBIN (BEAKER) (test code = 410) 14.2 GM/DL 13.7-17.5 HEMATOCRIT (BEAKER) (test code = 411) 43.4 % 40.1-51.0 MEAN CORPUSCULAR VOLUME (BEAKER) (test code = 753) 99.8 fL 79. 0-92.2 H MEAN CORPUSCULAR HEMOGLOBIN (BEAKER) (test code = 751) 32.6 pg 25.7-32.2 H MEAN CORPUSCULAR HEMOGLOBIN CONC (BEAKER) (test code = 752) 32.7 GM/DL 32.3-36.5 RED CELL DISTRIBUTION WIDTH (BEAKER) (test code = 412) 14.8 % 11.6-14.4 H PLATELET COUNT (BEAKER) (test code = 756) 293 K/CU MM 150-450 MEAN PLATELET VOLUME (BEAKER) (test code = 754) 10.5 fL 9.4-12 .4 NUCLEATED RED BLOOD CELLS (BEAKER) (test code = 413) 0 /100 WBC 0 -0 NEUTROPHILS RELATIVE PERCENT (BEAKER) (test code = 429) 78 % LYMPHOCYTES RELATIVE PERCENT (BEAKER) (test code = 430) 11 % MONOCYTES RELATIVE PERCENT (BEAKER) (test code = 431) 9 % EOSINOPHILS RELATIVE PERCENT (BEAKER) (test code = 432) 1 % BASOPHILS RELATIVE PERCENT (BEAKER) (test code = 437) 1 % NEUTROPHILS ABSOLUTE COUNT (BEAKER) (test code = 670) 5.74 K/ L 1.78-5.38 H LYMPHOCYTES ABSOLUTE COUNT (BEAKER) (test code = 414) 0.78 K/ L 1.32-3.57 L MONOCYTES ABSOLUTE COUNT (BEAKER) (test code = 415) 0.67 K/ L 0. 30-0.82 EOSINOPHILS ABSOLUTE COUNT (BEAKER) (test code = 416) 0.10 K/ L 0.04-0.54 BASOPHILS ABSOLUTE COUNT (BEAKER) (test code = 417) 0.08 K/ L 0. 01-0.08 IMMATURE GRANULOCYTES-RELATIVE PERCENT (BEAKER) (test code = 2801) 0 % 0-1 U/S, TRANSPLANT, [id number] 14:23:00referring Dr. Burkett for Exam:->elevated creatinineFINAL REPORT TECHNIQUE: Grayscale, color Doppler, and spectral Doppler ultrasound of the transplant kidney and renal vasculature. INDICATION: 68-year-old man with elevated creatinine. COMPARISON: None. FINDINGS: TRANSPLANT KIDNEY: The transplant kidney is located in the right lower quadrant. It measures 10.9 x 4.3 x 4.4 cm with cortical thickness of 1.5 cm. No hydronephrosis or solid mass lesions. No perinephric fluid collections. VASCULATURE: The iliac artery, arterial anastomosis, and renal artery are patent with peak systolic velocities of 164 cm/s, 205 cm/s, and 43 cm/s, respectively. Resistive indices and acceleration times throughout the kidney are within normal limits. Renal vein, venous anastomosis, and iliac vein are patent. BLADDER: Unremarkable. IMPRESS ION:Unremarkable appearance of the transplant kidney. Unremarkable Doppler evalu ation of the renal vasculature. Signed: Duane Toddeport Verified Date/T asaf: 09/12/2019 14:23:27 Reading Location: [address] Radiology Reading Room OLIMUS [id number] 11:41:00* Test Item Value Reference Range Interpretation Comments TACROLIMUS BLOOD (BEAKER) (test code = 657) 10.4 ng/mL 10.0-20.0 URINALYSIS W/ REFLEX URINE [id number] 08:11:00* Test Item Value Reference Range Interpretation Comments COLOR (BEAKER) (test code = 470) Yellow CLARITY (BEAKER) (test code = 469) Clear SPECIFIC GRAVITY UA (BEAKER) (test code = 468) 1.025 1.001-1 .035 PH UA (BEAKER) (test code = 467) 5.5 5.0-8.0 PROTEIN UA (BEAKER) (test code = 464) 20 mg/dL Negative A GLUCOSE UA (BEAKER) (test code = 365) Negative Negative KETONES UA (BEAKER) (test code = 371) Negative Negative BILIRUBIN UA (BEAKER) (test code = 462) Negative Negative BLOOD UA (BEAKER) (test code = 461) Trace Negative A NITRITE UA (BEAKER) (test code = 465) Negative Negative LEUKOCYTE ESTERASE UA (BEAKER) (test code = 466) Negative Negat sharona UROBILINOGEN UA (BEAKER) (test code = 463) 0.2 mg/dL 0.2-1.0 RBC UA (BEAKER) (test code = 519) 2 /HPF WBC UA (BEAKER) (test code = 520) 2 /HPF BACTERIA (BEAKER) (test code = 517) Rare MUCUS (BEAKER) (test code = 1574) Rare SOURCE(BEAKER) (test code = 2795) [id number] 07:46:00* Test Item Value Reference Range Interpretation Comments PHOSPHORUS (BEAKER) (test code = 604) 4.1 mg/dL 2.3-4.7 COMPREHENSIVE METABOLIC [id number] 07:46:00* Test Item Value Reference Range Interpretation Comments TOTAL PROTEIN (BEAKER) (test code = 770) 7.5 gm/dL 6.0-8.3 ALBUMIN (BEAKER) (test code = 1145) 4.1 g/dL 3.5-5.0 ALKALINE PHOSPHATASE (BEAKER) (test code = 346) 115 U/L 40-150 BILIRUBIN TOTAL (BEAKER) (test code = 377) 0.6 mg/dL 0.2-1.2 SODIUM (BEAKER) (test code = 381) 138 meq/L 136-145 POTASSIUM (BEAKER) (test code = 379) 4.7 meq/L 3.5-5.1 CHLORIDE (BEAKER) (test code = 382) 104 meq/L 98-107 CO2 (BEAKER) (test code = 355) 26 meq/L 22-29 BLOOD UREA NITROGEN (BEAKER) (test code = 354) 27 mg/dL 7-21 H CREATININE (BEAKER) (test code = 358) 1.92 mg/dL 0.57-1.25 H GLUCOSE RANDOM (BEAKER) (test code = 652) 101 mg/dL 70-105 CALCIUM (BEAKER) (test code = 697) 9.2 mg/dL 8.4-10.2 AST (SGOT) (BEAKER) (test code = 353) 38 U/L 5-34 H ALT (SGPT) (BEAKER) (test code = 347) 86 U/L 6-55 H EGFR (BEAKER) (test code = 1092) 35 mL/min/1.73 sq m ESTIMATED GFR IS NOT ACCURATE CREATININE CLEARANCE IN PREDICTING GLOMERULAR FILTRATION RATE. ESTIMATED GFR IS NOT APPLICABLE FOR DIALYSIS PATIENTS. LACTATE DEHYDROGENASE (LDH)2019-09-12 07:46:00* Test Item Value Reference Range Interpretation Comments LACTATE DEHYDROGENASE (BEAKER) (test code = 635) 216 U/L 125-2 20 CBC W/PLT COUNT & AUTO [id number] 07:27:00* Test Item Value Reference Range Interpretation Comments WHITE BLOOD CELL COUNT (BEAKER) (test code = 775) 6.4 K/ L 3.5- 10.5 RED BLOOD CELL COUNT (BEAKER) (test code = 761) 4.15 M/ L 4.63-6 .08 L HEMOGLOBIN (BEAKER) (test code = 410) 13.7 GM/DL 13.7-17.5 HEMATOCRIT (BEAKER) (test code = 411) 40.9 % 40.1-51.0 MEAN CORPUSCULAR VOLUME (BEAKER) (test code = 753) 98.6 fL 79. 0-92.2 H MEAN CORPUSCULAR HEMOGLOBIN (BEAKER) (test code = 751) 33.0 pg 25.7-32.2 H MEAN CORPUSCULAR HEMOGLOBIN CONC (BEAKER) (test code = 752) 33.5 GM/DL 32.3-36.5 RED CELL DISTRIBUTION WIDTH (BEAKER) (test code = 412) 14.9 % 11.6-14.4 H PLATELET COUNT (BEAKER) (test code = 756) 265 K/CU MM 150-450 MEAN PLATELET VOLUME (BEAKER) (test code = 754) 9.5 fL 9.4-12 .4 NUCLEATED RED BLOOD CELLS (BEAKER) (test code = 413) 0 /100 WBC 0 -0 NEUTROPHILS RELATIVE PERCENT (BEAKER) (test code = 429) 73 % LYMPHOCYTES RELATIVE PERCENT (BEAKER) (test code = 430) 13 % MONOCYTES RELATIVE PERCENT (BEAKER) (test code = 431) 11 % EOSINOPHILS RELATIVE PERCENT (BEAKER) (test code = 432) 2 % BASOPHILS RELATIVE PERCENT (BEAKER) (test code = 437) 1 % NEUTROPHILS ABSOLUTE COUNT (BEAKER) (test code = 670) 4.69 K/ L 1.78-5.38 LYMPHOCYTES ABSOLUTE COUNT (BEAKER) (test code = 414) 0.86 K/ L 1.32-3.57 L MONOCYTES ABSOLUTE COUNT (BEAKER) (test code = 415) 0.67 K/ L 0. 30-0.82 EOSINOPHILS ABSOLUTE COUNT (BEAKER) (test code = 416) 0.11 K/ L 0.04-0.54 BASOPHILS ABSOLUTE COUNT (BEAKER) (test code = 417) 0.06 K/ L 0. 01-0.08 IMMATURE GRANULOCYTES-RELATIVE PERCENT (BEAKER) (test code = 2801) 0 % 0-1 TACROLIMUS [id number] 15:16:00* Test Item Value Reference Range Interpretation Comments TACROLIMUS BLOOD (BEAKER) (test code = 657) 11.5 ng/mL 10.0-20.0 URINALYSIS W/ REFLEX URINE [id number] 11:33:00* Test Item Value Reference Range Interpretation Comments COLOR (BEAKER) (test code = 470) Yellow CLARITY (BEAKER) (test code = 469) Clear SPECIFIC GRAVITY UA (BEAKER) (test code = 468) 1.023 1.001-1 .035 PH UA (BEAKER) (test code = 467) 5.5 5.0-8.0 PROTEIN UA (BEAKER) (test code = 464) 30 mg/dL Negative A GLUCOSE UA (BEAKER) (test code = 365) Negative Negative KETONES UA (BEAKER) (test code = 371) Negative Negative BILIRUBIN UA (BEAKER) (test code = 462) Negative Negative BLOOD UA (BEAKER) (test code = 461) Moderate Negative A NITRITE UA (BEAKER) (test code = 465) Negative Negative LEUKOCYTE ESTERASE UA (BEAKER) (test code = 466) Negative Negat sharona UROBILINOGEN UA (BEAKER) (test code = 463) 0.2 mg/dL 0.2-1.0 RBC UA (BEAKER) (test code = 519) 192 /HPF WBC UA (BEAKER) (test code = 520) 15 /HPF MUCUS (BEAKER) (test code = 1574) Rare SQUAMOUS EPITHELIAL (BEAKER) (test code = 516) < /HPF HYALINE CASTS (BEAKER) (test code = 514) 4 /LPF AMORPHOUS CRYSTALS (BEAKER) (test code = 3794) Rare SOURCE(BEAKER) (test code = 2795) [id number] 11:06:00* Test Item Value Reference Range Interpretation Comments PHOSPHORUS (BEAKER) (test code = 604) 3.4 mg/dL 2.3-4.7 COMPREHENSIVE METABOLIC [id number] 11:06:00* Test Item Value Reference Range Interpretation Comments TOTAL PROTEIN (BEAKER) (test code = 770) 7.6 gm/dL 6.0-8.3 ALBUMIN (BEAKER) (test code = 1145) 4.2 g/dL 3.5-5.0 ALKALINE PHOSPHATASE (BEAKER) (test code = 346) 134 U/L 40-150 BILIRUBIN TOTAL (BEAKER) (test code = 377) 0.8 mg/dL 0.2-1.2 SODIUM (BEAKER) (test code = 381) 135 meq/L 136-145 L POTASSIUM (BEAKER) (test code = 379) 4.0 meq/L 3.5-5.1 CHLORIDE (BEAKER) (test code = 382) 103 meq/L 98-107 CO2 (BEAKER) (test code = 355) 24 meq/L 22-29 BLOOD UREA NITROGEN (BEAKER) (test code = 354) 24 mg/dL 7-21 H CREATININE (BEAKER) (test code = 358) 1.85 mg/dL 0.57-1.25 H GLUCOSE RANDOM (BEAKER) (test code = 652) 100 mg/dL 70-105 CALCIUM (BEAKER) (test code = 697) 9.3 mg/dL 8.4-10.2 AST (SGOT) (BEAKER) (test code = 353) 49 U/L 5-34 H ALT (SGPT) (BEAKER) (test code = 347) 100 U/L 6-55 H EGFR (BEAKER) (test code = 1092) 37 mL/min/1.73 sq m ESTIMATED GFR IS NOT ACCURATE CREATININE CLEARANCE IN PREDICTING GLOMERULAR FILTRATION RATE. ESTIMATED GFR IS NOT APPLICABLE FOR DIALYSIS PATIENTS. LACTATE DEHYDROGENASE (LDH)2019-09-05 11:06:00* Test Item Value Reference Range Interpretation Comments LACTATE DEHYDROGENASE (BEAKER) (test code = 635) 236 U/L 125-2 20 H CBC W/PLT COUNT & AUTO [id number] 11:00:00* Test Item Value Reference Range Interpretation Comments WHITE BLOOD CELL COUNT (BEAKER) (test code = 775) 5.3 K/ L 3.5- 10.5 RED BLOOD CELL COUNT (BEAKER) (test code = 761) 4.20 M/ L 4.63-6 .08 L HEMOGLOBIN (BEAKER) (test code = 410) 13.5 GM/DL 13.7-17.5 L HEMATOCRIT (BEAKER) (test code = 411) 41.7 % 40.1-51.0 MEAN CORPUSCULAR VOLUME (BEAKER) (test code = 753) 99.3 fL 79. 0-92.2 H MEAN CORPUSCULAR HEMOGLOBIN (BEAKER) (test code = 751) 32.1 pg 25.7-32.2 MEAN CORPUSCULAR HEMOGLOBIN CONC (BEAKER) (test code = 752) 32.4 GM/DL 32.3-36.5 RED CELL DISTRIBUTION WIDTH (BEAKER) (test code = 412) 14.6 % 11.6-14.4 H PLATELET COUNT (BEAKER) (test code = 756) 268 K/CU MM 150-450 MEAN PLATELET VOLUME (BEAKER) (test code = 754) 10.8 fL 9.4-12 .4 NUCLEATED RED BLOOD CELLS (BEAKER) (test code = 413) 0 /100 WBC 0 -0 NEUTROPHILS RELATIVE PERCENT (BEAKER) (test code = 429) 74 % LYMPHOCYTES RELATIVE PERCENT (BEAKER) (test code = 430) 12 % MONOCYTES RELATIVE PERCENT (BEAKER) (test code = 431) 11 % EOSINOPHILS RELATIVE PERCENT (BEAKER) (test code = 432) 2 % BASOPHILS RELATIVE PERCENT (BEAKER) (test code = 437) 2 % NEUTROPHILS ABSOLUTE COUNT (BEAKER) (test code = 670) 3.88 K/ L 1.78-5.38 LYMPHOCYTES ABSOLUTE COUNT (BEAKER) (test code = 414) 0.61 K/ L 1.32-3.57 L MONOCYTES ABSOLUTE COUNT (BEAKER) (test code = 415) 0.59 K/ L 0. 30-0.82 EOSINOPHILS ABSOLUTE COUNT (BEAKER) (test code = 416) 0.09 K/ L 0.04-0.54 BASOPHILS ABSOLUTE COUNT (BEAKER) (test code = 417) 0.08 K/ L 0. 01-0.08 IMMATURE GRANULOCYTES-RELATIVE PERCENT (BEAKER) (test code = 2801) 0 % 0-1 BK VIRUS PCR, [id number] 16:01:00* Test Item Value Reference Range Interpretation Comments BK VIRUS, PLASMA, NEG (BEAKER) (test code = 2145) Nega tive or below the linear range of the assay (<1,000 copies/mL) Patients may have replicating BK Virus which is of no clinical significance. Vi ral load measurements are helpful to identify BK Virus replication of potential clinical significance. Consensus recommendations have been published of thresho ld values for the presumptive diagnosis of polyomavirus-associated nephropathy ( Transplantation 2005;[id number]).A BK Virus load greater than 5,000-10,000 helicopter utility aircrewman ies/mL in the plasma is consistent with the presumptive diagnosis of polyoma-ass ociated nephropathy in renal transplant recipients.BK Virus DNA was assessed usi ng quantitative polymerase chain reaction and fluorescent monitoring of a specif ic hybridized probe. Genetic variation and other factors can affect the accurac y of nucleic acid testing. Therefore, the results should be interpreted in ligh t of clinical data.This test was developed and its performance characteristics d etermined by the [facility], Section of [facility]. It has not been cleared or approved by the U.S. Food and Drug Administration (FDA). Since FDA approval is not required for clinical use of th e test, validation was done as required by the Clinical Laboratory Improvement A mendments of 1988.TACROLIMUS [id number] 12:47:00* Test Item Value Reference Range Interpretation Comments TACROLIMUS BLOOD (BEAKER) (test code = 657) 12.9 ng/mL 10.0-20.0 [id number] 09:44:00* Test Item Value Reference Range Interpretation Comments PHOSPHORUS (BEAKER) (test code = 604) 3.4 mg/dL 2.3-4.7 COMPREHENSIVE METABOLIC [id number] 09:44:00* Test Item Value Reference Range Interpretation Comments TOTAL PROTEIN (BEAKER) (test code = 770) 7.9 gm/dL 6.0-8.3 ALBUMIN (BEAKER) (test code = 1145) 4.3 g/dL 3.5-5.0 ALKALINE PHOSPHATASE (BEAKER) (test code = 346) 146 U/L 40-150 BILIRUBIN TOTAL (BEAKER) (test code = 377) 0.7 mg/dL 0.2-1.2 SODIUM (BEAKER) (test code = 381) 135 meq/L 136-145 L POTASSIUM (BEAKER) (test code = 379) 4.4 meq/L 3.5-5.1 CHLORIDE (BEAKER) (test code = 382) 102 meq/L 98-107 CO2 (BEAKER) (test code = 355) 26 meq/L 22-29 BLOOD UREA NITROGEN (BEAKER) (test code = 354) 31 mg/dL 7-21 H CREATININE (BEAKER) (test code = 358) 1.95 mg/dL 0.57-1.25 H GLUCOSE RANDOM (BEAKER) (test code = 652) 104 mg/dL 70-105 CALCIUM (BEAKER) (test code = 697) 9.6 mg/dL 8.4-10.2 AST (SGOT) (BEAKER) (test code = 353) 35 U/L 5-34 H ALT (SGPT) (BEAKER) (test code = 347) 74 U/L 6-55 H EGFR (BEAKER) (test code = 1092) 35 mL/min/1.73 sq m ESTIMATED GFR IS NOT ACCURATE CREATININE CLEARANCE IN PREDICTING GLOMERULAR FILTRATION RATE. ESTIMATED GFR IS NOT APPLICABLE FOR DIALYSIS PATIENTS. LACTATE DEHYDROGENASE (LDH)2019-08-29 09:44:00* Test Item Value Reference Range Interpretation Comments LACTATE DEHYDROGENASE (BEAKER) (test code = 635) 207 U/L 125-2 20 URINALYSIS W/ REFLEX URINE [id number] 09:39:00* Test Item Value Reference Range Interpretation Comments COLOR (BEAKER) (test code = 470) Yellow CLARITY (BEAKER) (test code = 469) Clear SPECIFIC GRAVITY UA (BEAKER) (test code = 468) 1.022 1.001-1 .035 PH UA (BEAKER) (test code = 467) 5.5 5.0-8.0 PROTEIN UA (BEAKER) (test code = 464) 30 mg/dL Negative A GLUCOSE UA (BEAKER) (test code = 365) Negative Negative KETONES UA (BEAKER) (test code = 371) Negative Negative BILIRUBIN UA (BEAKER) (test code = 462) Negative Negative BLOOD UA (BEAKER) (test code = 461) Moderate Negative A NITRITE UA (BEAKER) (test code = 465) Negative Negative LEUKOCYTE ESTERASE UA (BEAKER) (test code = 466) Negative Negat sharona UROBILINOGEN UA (BEAKER) (test code = 463) 0.2 mg/dL 0.2-1.0 RBC UA (BEAKER) (test code = 519) 56 /HPF WBC UA (BEAKER) (test code = 520) 6 /HPF MUCUS (BEAKER) (test code = 1574) Rare HYALINE CASTS (BEAKER) (test code = 514) 1 /LPF SOURCE(BEAKER) (test code = 2795) PROTHROMBIN [id number] 09:30:00* Test Item Value Reference Range Interpretation Comments PROTIME (BEAKER) (test code = 759) 24.6 seconds 11.9-14.2 H INR (BEAKER) (test code = 370) 2.3 <=5.9 Effective 04/19/2019: PT Reference Range ChangeNew: 11.9-14.2 Previous: 11.7-14. 7RECOMMENDED COUMADIN/WARFARIN INR THERAPY RANGESSTANDARD DOSE: 2.0-3.0 Include s: PROPHYLAXIS for venous thrombosis, systemic embolization; TREATMENT for venou s thrombosis and/or pulmonary embolus.HIGH RISK: Target INR is 2.5-3.5 for patie nts wiht mechanical heart valves.CBC W/PLT COUNT & AUTO [id number] 09:06:00* Test Item Value Reference Range Interpretation Comments WHITE BLOOD CELL COUNT (BEAKER) (test code = 775) 5.2 K/ L 3.5- 10.5 RED BLOOD CELL COUNT (BEAKER) (test code = 761) 4.02 M/ L 4.63-6 .08 L HEMOGLOBIN (BEAKER) (test code = 410) 13.2 GM/DL 13.7-17.5 L HEMATOCRIT (BEAKER) (test code = 411) 39.5 % 40.1-51.0 L MEAN CORPUSCULAR VOLUME (BEAKER) (test code = 753) 98.3 fL 79. 0-92.2 H MEAN CORPUSCULAR HEMOGLOBIN (BEAKER) (test code = 751) 32.8 pg 25.7-32.2 H MEAN CORPUSCULAR HEMOGLOBIN CONC (BEAKER) (test code = 752) 33.4 GM/DL 32.3-36.5 RED CELL DISTRIBUTION WIDTH (BEAKER) (test code = 412) 14.8 % 11.6-14.4 H PLATELET COUNT (BEAKER) (test code = 756) 287 K/CU MM 150-450 MEAN PLATELET VOLUME (BEAKER) (test code = 754) 10.3 fL 9.4-12 .4 NUCLEATED RED BLOOD CELLS (BEAKER) (test code = 413) 0 /100 WBC 0 -0 NEUTROPHILS RELATIVE PERCENT (BEAKER) (test code = 429) 73 % LYMPHOCYTES RELATIVE PERCENT (BEAKER) (test code = 430) 14 % MONOCYTES RELATIVE PERCENT (BEAKER) (test code = 431) 7 % EOSINOPHILS RELATIVE PERCENT (BEAKER) (test code = 432) 4 % BASOPHILS RELATIVE PERCENT (BEAKER) (test code = 437) 2 % NEUTROPHILS ABSOLUTE COUNT (BEAKER) (test code = 670) 3.78 K/ L 1.78-5.38 LYMPHOCYTES ABSOLUTE COUNT (BEAKER) (test code = 414) 0.72 K/ L 1.32-3.57 L MONOCYTES ABSOLUTE COUNT (BEAKER) (test code = 415) 0.37 K/ L 0. 30-0.82 EOSINOPHILS ABSOLUTE COUNT (BEAKER) (test code = 416) 0.23 K/ L 0.04-0.54 BASOPHILS ABSOLUTE COUNT (BEAKER) (test code = 417) 0.08 K/ L 0. 01-0.08 IMMATURE GRANULOCYTES-RELATIVE PERCENT (BEAKER) (test code = 2801) 1 % 0-1 PROTHROMBIN [id number] 17:18:00* Test Item Value Reference Range Interpretation Comments PROTIME (BEAKER) (test code = 759) 27.8 sec 11.7-14.7 H INR (BEAKER) (test code = 370) 2.8 INR <=5.9 RECOMMENDED COUMADIN/WARFARIN INR THERAPY RANGESSTANDARD DOSE: 2.0 - 3.0 Inclu karen: PROPHYLAXIS for venous thrombosis, systemic embolization; TREATMENT for syed ous thrombosis and/or pulmonary embolus.HIGH RISK: Target INR is 2.5-3.5 for pat ients with mechanical heart valves.TACROLIMUS [id number] 14:23:00* Test Item Value Reference Range Interpretation Comments TACROLIMUS BLOOD (BEAKER) (test code = 657) 6.7 ng/mL 10.0-20.0 L URINALYSIS W/ REFLEX URINE [id number] 10:43:00* Test Item Value Reference Range Interpretation Comments COLOR (BEAKER) (test code = 470) Yellow CLARITY (BEAKER) (test code = 469) Clear SPECIFIC GRAVITY UA (BEAKER) (test code = 468) 1.024 1.001-1 .035 PH UA (BEAKER) (test code = 467) 5.5 5.0-8.0 PROTEIN UA (BEAKER) (test code = 464) 50 mg/dL Negative A GLUCOSE UA (BEAKER) (test code = 365) Negative Negative KETONES UA (BEAKER) (test code = 371) Negative Negative BILIRUBIN UA (BEAKER) (test code = 462) Negative Negative BLOOD UA (BEAKER) (test code = 461) Small Negative A NITRITE UA (BEAKER) (test code = 465) Negative Negative LEUKOCYTE ESTERASE UA (BEAKER) (test code = 466) Trace Negat sharona A UROBILINOGEN UA (BEAKER) (test code = 463) 0.2 mg/dL 0.2-1.0 RBC UA (BEAKER) (test code = 519) 27 /HPF WBC UA (BEAKER) (test code = 520) 5 /HPF MUCUS (BEAKER) (test code = 1574) Occasional HYALINE CASTS (BEAKER) (test code = 514) 2 /LPF SOURCE(BEAKER) (test code = 2795) [id number] 09:51:00* Test Item Value Reference Range Interpretation Comments PHOSPHORUS (BEAKER) (test code = 604) 3.2 mg/dL 2.3-4.7 COMPREHENSIVE METABOLIC [id number] 09:51:00* Test Item Value Reference Range Interpretation Comments TOTAL PROTEIN (BEAKER) (test code = 770) 7.6 gm/dL 6.0-8.3 ALBUMIN (BEAKER) (test code = 1145) 4.0 g/dL 3.5-5.0 ALKALINE PHOSPHATASE (BEAKER) (test code = 346) 144 U/L 40-150 BILIRUBIN TOTAL (BEAKER) (test code = 377) 0.7 mg/dL 0.2-1.2 SODIUM (BEAKER) (test code = 381) 136 meq/L 136-145 POTASSIUM (BEAKER) (test code = 379) 4.7 meq/L 3.5-5.1 CHLORIDE (BEAKER) (test code = 382) 104 meq/L 98-107 CO2 (BEAKER) (test code = 355) 24 meq/L 22-29 BLOOD UREA NITROGEN (BEAKER) (test code = 354) 28 mg/dL 7-21 H CREATININE (BEAKER) (test code = 358) 1.99 mg/dL 0.57-1.25 H GLUCOSE RANDOM (BEAKER) (test code = 652) 112 mg/dL 70-105 H CALCIUM (BEAKER) (test code = 697) 9.5 mg/dL 8.4-10.2 AST (SGOT) (BEAKER) (test code = 353) 33 U/L 5-34 ALT (SGPT) (BEAKER) (test code = 347) 59 U/L 6-55 H EGFR (BEAKER) (test code = 1092) 34 mL/min/1.73 sq m ESTIMATED GFR IS NOT ACCURATE CREATININE CLEARANCE IN PREDICTING GLOMERULAR FILTRATION RATE. ESTIMATED GFR IS NOT APPLICABLE FOR DIALYSIS PATIENTS. LACTATE DEHYDROGENASE (LDH)2019-08-22 09:51:00* Test Item Value Reference Range Interpretation Comments LACTATE DEHYDROGENASE (BEAKER) (test code = 635) 236 U/L 125-2 20 H CBC W/PLT COUNT & AUTO [id number] 09:32:00* Test Item Value Reference Range Interpretation Comments WHITE BLOOD CELL COUNT (BEAKER) (test code = 775) 8.3 K/ L 3.5- 10.5 RED BLOOD CELL COUNT (BEAKER) (test code = 761) 3.86 M/ L 4.63-6 .08 L HEMOGLOBIN (BEAKER) (test code = 410) 12.5 GM/DL 13.7-17.5 L HEMATOCRIT (BEAKER) (test code = 411) 37.6 % 40.1-51.0 L MEAN CORPUSCULAR VOLUME (BEAKER) (test code = 753) 97.4 fL 79. 0-92.2 H MEAN CORPUSCULAR HEMOGLOBIN (BEAKER) (test code = 751) 32.4 pg 25.7-32.2 H MEAN CORPUSCULAR HEMOGLOBIN CONC (BEAKER) (test code = 752) 33.2 GM/DL 32.3-36.5 RED CELL DISTRIBUTION WIDTH (BEAKER) (test code = 412) 14.7 % 11.6-14.4 H PLATELET COUNT (BEAKER) (test code = 756) 303 K/CU MM 150-450 MEAN PLATELET VOLUME (BEAKER) (test code = 754) 10.6 fL 9.4-12 .4 NUCLEATED RED BLOOD CELLS (BEAKER) (test code = 413) 0 /100 WBC 0 -0 NEUTROPHILS RELATIVE PERCENT (BEAKER) (test code = 429) 84 % LYMPHOCYTES RELATIVE PERCENT (BEAKER) (test code = 430) 6 % MONOCYTES RELATIVE PERCENT (BEAKER) (test code = 431) 7 % EOSINOPHILS RELATIVE PERCENT (BEAKER) (test code = 432) 1 % BASOPHILS RELATIVE PERCENT (BEAKER) (test code = 437) 1 % NEUTROPHILS ABSOLUTE COUNT (BEAKER) (test code = 670) 6.98 K/ L 1.78-5.38 H LYMPHOCYTES ABSOLUTE COUNT (BEAKER) (test code = 414) 0.49 K/ L 1.32-3.57 L MONOCYTES ABSOLUTE COUNT (BEAKER) (test code = 415) 0.60 K/ L 0. 30-0.82 EOSINOPHILS ABSOLUTE COUNT (BEAKER) (test code = 416) 0.12 K/ L 0.04-0.54 BASOPHILS ABSOLUTE COUNT (BEAKER) (test code = 417) 0.09 K/ L 0. 01-0.08 H IMMATURE GRANULOCYTES-RELATIVE PERCENT (BEAKER) (test code = 2801) 0 % 0-1 URINALYSIS W/ REFLEX URINE [id number] 13:17:00* Test Item Value Reference Range Interpretation Comments COLOR (BEAKER) (test code = 470) Yellow CLARITY (BEAKER) (test code = 469) Clear SPECIFIC GRAVITY UA (BEAKER) (test code = 468) 1.024 1.001-1 .035 PH UA (BEAKER) (test code = 467) 5.5 5.0-8.0 PROTEIN UA (BEAKER) (test code = 464) 50 mg/dL Negative A GLUCOSE UA (BEAKER) (test code = 365) Negative Negative KETONES UA (BEAKER) (test code = 371) Negative Negative BILIRUBIN UA (BEAKER) (test code = 462) Negative Negative BLOOD UA (BEAKER) (test code = 461) Small Negative A NITRITE UA (BEAKER) (test code = 465) Negative Negative LEUKOCYTE ESTERASE UA (BEAKER) (test code = 466) Negative Negat sharona UROBILINOGEN UA (BEAKER) (test code = 463) 0.2 mg/dL 0.2-1.0 RBC UA (BEAKER) (test code = 519) 4 /HPF WBC UA (BEAKER) (test code = 520) 6 /HPF MUCUS (BEAKER) (test code = 1574) Rare CASTS (BEAKER) (test code = 1579) 2 /LPF SOURCE(BEAKER) (test code = 2795) TACROLIMUS [id number] 12:33:00* Test Item Value Reference Range Interpretation Comments TACROLIMUS BLOOD (BEAKER) (test code = 657) 8.8 ng/mL 10.0-20.0 L [id number] 11:25:00* Test Item Value Reference Range Interpretation Comments PHOSPHORUS (BEAKER) (test code = 604) 3.2 mg/dL 2.3-4.7 COMPREHENSIVE METABOLIC [id number] 11:25:00* Test Item Value Reference Range Interpretation Comments TOTAL PROTEIN (BEAKER) (test code = 770) 7.9 gm/dL 6.0-8.3 ALBUMIN (BEAKER) (test code = 1145) 4.1 g/dL 3.5-5.0 ALKALINE PHOSPHATASE (BEAKER) (test code = 346) 153 U/L 40-150 H BILIRUBIN TOTAL (BEAKER) (test code = 377) 1.1 mg/dL 0.2-1.2 SODIUM (BEAKER) (test code = 381) 134 meq/L 136-145 L POTASSIUM (BEAKER) (test code = 379) 4.6 meq/L 3.5-5.1 CHLORIDE (BEAKER) (test code = 382) 103 meq/L 98-107 CO2 (BEAKER) (test code = 355) 22 meq/L 22-29 BLOOD UREA NITROGEN (BEAKER) (test code = 354) 27 mg/dL 7-21 H CREATININE (BEAKER) (test code = 358) 1.84 mg/dL 0.57-1.25 H GLUCOSE RANDOM (BEAKER) (test code = 652) 119 mg/dL 70-105 H CALCIUM (BEAKER) (test code = 697) 9.4 mg/dL 8.4-10.2 AST (SGOT) (BEAKER) (test code = 353) 38 U/L 5-34 H ALT (SGPT) (BEAKER) (test code = 347) 65 U/L 6-55 H EGFR (BEAKER) (test code = 1092) 37 mL/min/1.73 sq m ESTIMATED GFR IS NOT ACCURATE CREATININE CLEARANCE IN PREDICTING GLOMERULAR FILTRATION RATE. ESTIMATED GFR IS NOT APPLICABLE FOR DIALYSIS PATIENTS. LACTATE DEHYDROGENASE (LDH)2019-08-15 11:25:00* Test Item Value Reference Range Interpretation Comments LACTATE DEHYDROGENASE (BEAKER) (test code = 635) 266 U/L 125-2 20 H PROTHROMBIN [id number] 10:58:00* Test Item Value Reference Range Interpretation Comments PROTIME (BEAKER) (test code = 759) 29.6 seconds 11.9-14.2 H INR (BEAKER) (test code = 370) 3.0 <=5.9 Effective 04/19/2019: PT Reference Range ChangeNew: 11.9-14.2 Previous: 11.7-14. 7RECOMMENDED COUMADIN/WARFARIN INR THERAPY RANGESSTANDARD DOSE: 2.0-3.0 Include s: PROPHYLAXIS for venous thrombosis, systemic embolization; TREATMENT for venou s thrombosis and/or pulmonary embolus.HIGH RISK: Target INR is 2.5-3.5 for patie nts wiht mechanical heart valves.CBC W/PLT COUNT & AUTO [id number] 10:55:00* Test Item Value Reference Range Interpretation Comments WHITE BLOOD CELL COUNT (BEAKER) (test code = 775) 11.2 K/ L 3.5- 10.5 H RED BLOOD CELL COUNT (BEAKER) (test code = 761) 3.98 M/ L 4.63-6 .08 L HEMOGLOBIN (BEAKER) (test code = 410) 12.8 GM/DL 13.7-17.5 L HEMATOCRIT (BEAKER) (test code = 411) 38.9 % 40.1-51.0 L MEAN CORPUSCULAR VOLUME (BEAKER) (test code = 753) 97.7 fL 79. 0-92.2 H MEAN CORPUSCULAR HEMOGLOBIN (BEAKER) (test code = 751) 32.2 pg 25.7-32.2 MEAN CORPUSCULAR HEMOGLOBIN CONC (BEAKER) (test code = 752) 32.9 GM/DL 32.3-36.5 RED CELL DISTRIBUTION WIDTH (BEAKER) (test code = 412) 14.5 % 11.6-14.4 H PLATELET COUNT (BEAKER) (test code = 756) 334 K/CU MM 150-450 MEAN PLATELET VOLUME (BEAKER) (test code = 754) 10.5 fL 9.4-12 .4 NUCLEATED RED BLOOD CELLS (BEAKER) (test code = 413) 0 /100 WBC 0 -0 NEUTROPHILS RELATIVE PERCENT (BEAKER) (test code = 429) 86 % LYMPHOCYTES RELATIVE PERCENT (BEAKER) (test code = 430) 4 % MONOCYTES RELATIVE PERCENT (BEAKER) (test code = 431) 6 % EOSINOPHILS RELATIVE PERCENT (BEAKER) (test code = 432) 3 % BASOPHILS RELATIVE PERCENT (BEAKER) (test code = 437) 1 % NEUTROPHILS ABSOLUTE COUNT (BEAKER) (test code = 670) 9.63 K/ L 1.78-5.38 H LYMPHOCYTES ABSOLUTE COUNT (BEAKER) (test code = 414) 0.46 K/ L 1.32-3.57 L MONOCYTES ABSOLUTE COUNT (BEAKER) (test code = 415) 0.68 K/ L 0. 30-0.82 EOSINOPHILS ABSOLUTE COUNT (BEAKER) (test code = 416) 0.28 K/ L 0.04-0.54 BASOPHILS ABSOLUTE COUNT (BEAKER) (test code = 417) 0.11 K/ L 0. 01-0.08 H IMMATURE GRANULOCYTES-RELATIVE PERCENT (BEAKER) (test code = 2801) 0 % 0-1 BK VIRUS PCR, [id number] 16:27:00* Test Item Value Reference Range Interpretation Comments BK VIRUS, PLASMA, NEG (BEAKER) (test code = 2145) Nega tive or below the linear range of the assay (<1,000 copies/mL) Patients may have replicating BK Virus which is of no clinical significance. Vi ral load measurements are helpful to identify BK Virus replication of potential clinical significance. Consensus recommendations have been published of thresho ld values for the presumptive diagnosis of polyomavirus-associated nephropathy ( Transplantation 2005;79:6044-8402).A BK Virus load greater than 5,000-10,000 helicopter utility aircrewman ies/mL in the plasma is consistent with the presumptive diagnosis of polyoma-ass ociated nephropathy in renal transplant recipients.BK Virus DNA was assessed usi ng quantitative polymerase chain reaction and fluorescent monitoring of a specif ic hybridized probe. Genetic variation and other factors can affect the accurac y of nucleic acid testing. Therefore, the results should be interpreted in ligh t of clinical data.This test was developed and its performance characteristics d etermined by the [facility], Section of [facility]. It has not been cleared or approved by the U.S. Food and Drug Administration (FDA). Since FDA approval is not required for clinical use of th e test, validation was done as required by the Clinical Laboratory Improvement A mendments of 1988.TACROLIMUS [id number] 13:55:00* Test Item Value Reference Range Interpretation Comments TACROLIMUS BLOOD (BEAKER) (test code = 657) 12.3 ng/mL 10.0-20.0 URINALYSIS W/ REFLEX URINE [id number] 09:18:00* Test Item Value Reference Range Interpretation Comments COLOR (BEAKER) (test code = 470) Yellow CLARITY (BEAKER) (test code = 469) Clear SPECIFIC GRAVITY UA (BEAKER) (test code = 468) 1.023 1.001-1 .035 PH UA (BEAKER) (test code = 467) 5.5 5.0-8.0 PROTEIN UA (BEAKER) (test code = 464) 100 mg/dL Negative A GLUCOSE UA (BEAKER) (test code = 365) Negative Negative KETONES UA (BEAKER) (test code = 371) Negative Negative BILIRUBIN UA (BEAKER) (test code = 462) Negative Negative BLOOD UA (BEAKER) (test code = 461) Large Negative A NITRITE UA (BEAKER) (test code = 465) Negative Negative LEUKOCYTE ESTERASE UA (BEAKER) (test code = 466) Small Negat sharona A UROBILINOGEN UA (BEAKER) (test code = 463) 0.2 mg/dL 0.2-1.0 RBC UA (BEAKER) (test code = 519) 190 /HPF WBC UA (BEAKER) (test code = 520) 30 /HPF BACTERIA (BEAKER) (test code = 517) Rare MUCUS (BEAKER) (test code = 1574) Rare SQUAMOUS EPITHELIAL (BEAKER) (test code = 516) 1 /HPF HYALINE CASTS (BEAKER) (test code = 514) 8 /LPF SOURCE(BEAKER) (test code = 2795) COMPREHENSIVE METABOLIC [id number] 09:04:00* Test Item Value Reference Range Interpretation Comments TOTAL PROTEIN (BEAKER) (test code = 770) 7.7 gm/dL 6.0-8.3 ALBUMIN (BEAKER) (test code = 1145) 4.0 g/dL 3.5-5.0 ALKALINE PHOSPHATASE (BEAKER) (test code = 346) 116 U/L 40-150 BILIRUBIN TOTAL (BEAKER) (test code = 377) 0.5 mg/dL 0.2-1.2 SODIUM (BEAKER) (test code = 381) 137 meq/L 136-145 POTASSIUM (BEAKER) (test code = 379) 4.6 meq/L 3.5-5.1 CHLORIDE (BEAKER) (test code = 382) 106 meq/L 98-107 CO2 (BEAKER) (test code = 355) 23 meq/L 22-29 BLOOD UREA NITROGEN (BEAKER) (test code = 354) 42 mg/dL 7-21 H CREATININE (BEAKER) (test code = 358) 2.35 mg/dL 0.57-1.25 H GLUCOSE RANDOM (BEAKER) (test code = 652) 121 mg/dL 70-105 H CALCIUM (BEAKER) (test code = 697) 9.3 mg/dL 8.4-10.2 AST (SGOT) (BEAKER) (test code = 353) 31 U/L 5-34 ALT (SGPT) (BEAKER) (test code = 347) 55 U/L 6-55 EGFR (BEAKER) (test code = 1092) 28 mL/min/1.73 sq m ESTIMATED GFR IS NOT ACCURATE CREATININE CLEARANCE IN PREDICTING GLOMERULAR FILTRATION RATE. ESTIMATED GFR IS NOT APPLICABLE FOR DIALYSIS PATIENTS. [id number] 08:57:00* Test Item Value Reference Range Interpretation Comments PHOSPHORUS (BEAKER) (test code = 604) 3.0 mg/dL 2.3-4.7 LACTATE DEHYDROGENASE (LDH)2019-08-08 08:57:00* Test Item Value Reference Range Interpretation Comments LACTATE DEHYDROGENASE (BEAKER) (test code = 635) 203 U/L 125-2 20 CBC W/PLT COUNT & AUTO [id number] 08:54:00* Test Item Value Reference Range Interpretation Comments WHITE BLOOD CELL COUNT (BEAKER) (test code = 775) 6.5 K/ L 3.5- 10.5 RED BLOOD CELL COUNT (BEAKER) (test code = 761) 3.74 M/ L 4.63-6 .08 L HEMOGLOBIN (BEAKER) (test code = 410) 12.1 GM/DL 13.7-17.5 L HEMATOCRIT (BEAKER) (test code = 411) 36.5 % 40.1-51.0 L MEAN CORPUSCULAR VOLUME (BEAKER) (test code = 753) 97.6 fL 79. 0-92.2 H MEAN CORPUSCULAR HEMOGLOBIN (BEAKER) (test code = 751) 32.4 pg 25.7-32.2 H MEAN CORPUSCULAR HEMOGLOBIN CONC (BEAKER) (test code = 752) 33.2 GM/DL 32.3-36.5 RED CELL DISTRIBUTION WIDTH (BEAKER) (test code = 412) 13.8 % 11.6-14.4 PLATELET COUNT (BEAKER) (test code = 756) 274 K/CU MM 150-450 MEAN PLATELET VOLUME (BEAKER) (test code = 754) 11.1 fL 9.4-12 .4 NUCLEATED RED BLOOD CELLS (BEAKER) (test code = 413) 1 /100 WBC 0 -0 H NEUTROPHILS RELATIVE PERCENT (BEAKER) (test code = 429) 72 % LYMPHOCYTES RELATIVE PERCENT (BEAKER) (test code = 430) 6 % MONOCYTES RELATIVE PERCENT (BEAKER) (test code = 431) 17 % EOSINOPHILS RELATIVE PERCENT (BEAKER) (test code = 432) 5 % BASOPHILS RELATIVE PERCENT (BEAKER) (test code = 437) 0 % NEUTROPHILS ABSOLUTE COUNT (BEAKER) (test code = 670) 4.69 K/ L 1.78-5.38 LYMPHOCYTES ABSOLUTE COUNT (BEAKER) (test code = 414) 0.36 K/ L 1.32-3.57 L MONOCYTES ABSOLUTE COUNT (BEAKER) (test code = 415) 1.09 K/ L 0. 30-0.82 H EOSINOPHILS ABSOLUTE COUNT (BEAKER) (test code = 416) 0.33 K/ L 0.04-0.54 BASOPHILS ABSOLUTE COUNT (BEAKER) (test code = 417) 0.02 K/ L 0. 01-0.08 IMMATURE GRANULOCYTES-RELATIVE PERCENT (ANABELA) (test code = 2801) 0 % 0-1 PROTHROMBIN [id number] 08:53:00* Test Item Value Reference Range Interpretation Comments PROTIME (ANABELA) (test code = 759) 18.5 seconds 11.9-14.2 H INR (ANABELA) (test code = 370) 1.6 <=5.9 Effective 04/19/2019: PT Reference Range ChangeNew: 11.9-14.2 Previous: 11.7-14. 7RECOMMENDED COUMADIN/WARFARIN INR THERAPY RANGESSTANDARD DOSE: 2.0-3.0 Include s: PROPHYLAXIS for venous thrombosis, systemic embolization; TREATMENT for venou s thrombosis and/or pulmonary embolus.HIGH RISK: Target INR is 2.5-3.5 for patie nts wiht mechanical heart valves.BK VIRUS PCR, [id number] 19:53:00* Test Item Value Reference Range Interpretation Comments BK VIRUS, PLASMA, NEG (ANABELA) (test code = 2145) Nega tive or below the linear range of the assay (<1,000 copies/mL) Patients may have replicating BK Virus which is of no clinical significance. Vi ral load measurements are helpful to identify BK Virus replication of potential clinical significance. Consensus recommendations have been published of thresho ld values for the presumptive diagnosis of polyomavirus-associated nephropathy ( Transplantation 2005;79:5009-9663).A BK Virus load greater than 5,000-10,000 helicopter utility aircrewman ies/mL in the plasma is consistent with the presumptive diagnosis of polyoma-ass ociated nephropathy in renal transplant recipients.BK Virus DNA was assessed usi ng quantitative polymerase chain reaction and fluorescent monitoring of a specif ic hybridized probe. Genetic variation and other factors can affect the accurac y of nucleic acid testing. Therefore, the results should be interpreted in ligh t of clinical data.This test was developed and its performance characteristics d etermined by the [facility] Department, Section of [facility]. It has not been cleared or approved by the U.S. Food and Drug Administration (FDA). Since FDA approval is not required for clinical use of th e test, validation was done as required by the Clinical Laboratory Improvement A mendments of 1988.TACROLIMUS [id number] 14:46:00* Test Item Value Reference Range Interpretation Comments TACROLIMUS BLOOD (BEAKER) (test code = 657) 14.0 ng/mL 10.0-20.0 LACTATE DEHYDROGENASE (LDH)2019-08-07 11:04:00* Test Item Value Reference Range Interpretation Comments LACTATE DEHYDROGENASE (BEAKER) (test code = 635) 236 U/L 125-2 20 H COMPREHENSIVE METABOLIC [id number] 11:04:00* Test Item Value Reference Range Interpretation Comments TOTAL PROTEIN (BEAKER) (test code = 770) 7.9 gm/dL 6.0-8.3 ALBUMIN (BEAKER) (test code = 1145) 4.1 g/dL 3.5-5.0 ALKALINE PHOSPHATASE (BEAKER) (test code = 346) 118 U/L 40-150 BILIRUBIN TOTAL (BEAKER) (test code = 377) 0.7 mg/dL 0.2-1.2 SODIUM (BEAKER) (test code = 381) 137 meq/L 136-145 POTASSIUM (BEAKER) (test code = 379) 4.4 meq/L 3.5-5.1 CHLORIDE (BEAKER) (test code = 382) 106 meq/L 98-107 CO2 (BEAKER) (test code = 355) 23 meq/L 22-29 BLOOD UREA NITROGEN (BEAKER) (test code = 354) 36 mg/dL 7-21 H CREATININE (BEAKER) (test code = 358) 2.30 mg/dL 0.57-1.25 H GLUCOSE RANDOM (BEAKER) (test code = 652) 113 mg/dL 70-105 H CALCIUM (BEAKER) (test code = 697) 9.4 mg/dL 8.4-10.2 AST (SGOT) (BEAKER) (test code = 353) 32 U/L 5-34 ALT (SGPT) (BEAKER) (test code = 347) 60 U/L 6-55 H EGFR (BEAKER) (test code = 1092) 29 mL/min/1.73 sq m ESTIMATED GFR IS NOT ACCURATE CREATININE CLEARANCE IN PREDICTING GLOMERULAR FILTRATION RATE. ESTIMATED GFR IS NOT APPLICABLE FOR DIALYSIS PATIENTS. URINALYSIS W/ REFLEX URINE [id number] 10:58:00* Test Item Value Reference Range Interpretation Comments COLOR (BEAKER) (test code = 470) Yellow CLARITY (BEAKER) (test code = 469) Hazy SPECIFIC GRAVITY UA (BEAKER) (test code = 468) 1.020 1.001-1 .035 PH UA (BEAKER) (test code = 467) 6.0 5.0-8.0 PROTEIN UA (BEAKER) (test code = 464) 100 mg/dL Negative A GLUCOSE UA (BEAKER) (test code = 365) Negative Negative KETONES UA (BEAKER) (test code = 371) Negative Negative BILIRUBIN UA (BEAKER) (test code = 462) Negative Negative BLOOD UA (BEAKER) (test code = 461) Moderate Negative A NITRITE UA (BEAKER) (test code = 465) Negative Negative LEUKOCYTE ESTERASE UA (BEAKER) (test code = 466) Large Negat sharona A UROBILINOGEN UA (BEAKER) (test code = 463) 0.2 mg/dL 0.2-1.0 RBC UA (BEAKER) (test code = 519) 89 /HPF WBC UA (BEAKER) (test code = 520) 28 /HPF SQUAMOUS EPITHELIAL (BEAKER) (test code = 516) < /HPF HYALINE CASTS (BEAKER) (test code = 514) 6 /LPF SOURCE(BEAKER) (test code = 2795) POC-Glucose [id number] 17:47:00* Test Item Value Reference Range Interpretation Comments POC-Glucose Meter (test code = 1538) 142 mg/dL 70-110 H TESTED AT [facility] [address] [facility] [address] Lab Interpretation (test code = 63323-9) [facility] [id number] 17:47:00* Test Item Value Reference Range Interpretation Comments POC-GLUCOSE METER (BEAKER) (test code = 1538) 142 mg/dL 70-110 H TESTED AT [facility] [address] [facility] [address] POCT-GLUCOSE [id number] 12:58:00* Test Item Value Reference Range Interpretation Comments POC-GLUCOSE METER (BEAKER) (test code = 1538) 137 mg/dL 70-110 H TESTED AT [facility] [address] [facility] [address] TACROLIMUS [id number] 11:08:00* Test Item Value Reference Range Interpretation Comments TACROLIMUS BLOOD (BEAKER) (test code = 657) 14.2 ng/mL 10.0-20.0 POCT-GLUCOSE [id number] 08:14:00* Test Item Value Reference Range Interpretation Comments POC-GLUCOSE METER (BEAKER) (test code = 1538) 122 mg/dL 70-110 H TESTED AT [facility] [address] [facility] [address] Basic Metabolic [id number] 07:23:00* Test Item Value Reference Range Interpretation Comments Sodium (test code = 2951-2) 133 meq/L 136-145 L Potassium (test code = 2823-3) 4.6 meq/L 3.5-5.1 Specimen slightly hemolyzed Chloride (test code = 5-0) 104 meq/L 98-107 CO2 (test code = 8-9) 20 meq/L 22-29 L BUN (test code = 3094-0) 32 mg/dL 7-21 H Creatinine (test code = 2160-0) 2.55 mg/dL 0.57-1.25 H Specimen slightly hemolyzed Glucose (test code = 2345-7) 143 mg/dL 70-105 H Calcium (test code = 54752-7) 9.0 mg/dL 8.4-10.2 EGFR (test code = 68693-3) 25 mL/min/1.73 sq m ESTIMATED GFR IS NOT ACCURATE CREATININE CLEARANCE IN PREDICTING GLOMERULAR FILTRATION RATE. ESTIMATED GFR IS NOT APPLICABLE FOR DIALYSIS PATIENTS. Lab Interpretation (test code = 63326-0) Abnormal [facility] METABOLIC [id number] 07:23:00* Test Item Value Reference Range Interpretation Comments SODIUM (BEAKER) (test code = 381) 133 meq/L 136-145 L POTASSIUM (BEAKER) (test code = 379) 4.6 meq/L 3.5-5.1 Specimen slightly hemolyzed CHLORIDE (BEAKER) (test code = 382) 104 meq/L 98-107 CO2 (BEAKER) (test code = 355) 20 meq/L 22-29 L BLOOD UREA NITROGEN (BEAKER) (test code = 354) 32 mg/dL 7-21 H CREATININE (BEAKER) (test code = 358) 2.55 mg/dL 0.57-1.25 H Specimen slightly hemolyzed GLUCOSE RANDOM (BEAKER) (test code = 652) 143 mg/dL 70-105 H CALCIUM (BEAKER) (test code = 697) 9.0 mg/dL 8.4-10.2 EGFR (BEAKER) (test code = 1092) 25 mL/min/1.73 sq m ESTIMATED GFR IS NOT ACCURATE CREATININE CLEARANCE IN PREDICTING GLOMERULAR FILTRATION RATE. ESTIMATED GFR IS NOT APPLICABLE FOR DIALYSIS PATIENTS. [id number] 07:18:00* Test Item Value Reference Range Interpretation Comments Magnesium (test code = 94378-8) 2.1 mg/dL 1.6-2.6 Specimen slightly hemolyzed Lab Interpretation (test code = 91909-5) [facility] 07:18:00* Test Item Value Reference Range Interpretation Comments MAGNESIUM (BEAKER) (test code = 627) 2.1 mg/dL 1.6-2.6 Specimen slightly hemolyzed [id number] 07:18:00* Test Item Value Reference Range Interpretation Comments PHOSPHORUS (BEAKER) (test code = 604) 2.6 mg/dL 2.3-4.7 Specimen slightly hemolyzed CBC W/PLT COUNT & AUTO [id number] 07:01:00* Test Item Value Reference Range Interpretation Comments WHITE BLOOD CELL COUNT (BEAKER) (test code = 775) 11.9 K/ L 3.5- 10.5 H RED BLOOD CELL COUNT (BEAKER) (test code = 761) 3.62 M/ L 4.63-6 .08 L HEMOGLOBIN (BEAKER) (test code = 410) 11.5 GM/DL 13.7-17.5 L HEMATOCRIT (BEAKER) (test code = 411) 34.5 % 40.1-51.0 L MEAN CORPUSCULAR VOLUME (BEAKER) (test code = 753) 95.3 fL 79. 0-92.2 H MEAN CORPUSCULAR HEMOGLOBIN (BEAKER) (test code = 751) 31.8 pg 25.7-32.2 MEAN CORPUSCULAR HEMOGLOBIN CONC (BEAKER) (test code = 752) 33.3 GM/DL 32.3-36.5 RED CELL DISTRIBUTION WIDTH (BEAKER) (test code = 412) 13.8 % 11.6-14.4 PLATELET COUNT (BEAKER) (test code = 756) 243 K/CU MM 150-450 MEAN PLATELET VOLUME (BEAKER) (test code = 754) 11.2 fL 9.4-12 .4 NUCLEATED RED BLOOD CELLS (BEAKER) (test code = 413) 0 /100 WBC 0 -0 NEUTROPHILS RELATIVE PERCENT (BEAKER) (test code = 429) 89 % LYMPHOCYTES RELATIVE PERCENT (BEAKER) (test code = 430) 2 % MONOCYTES RELATIVE PERCENT (BEAKER) (test code = 431) 9 % EOSINOPHILS RELATIVE PERCENT (BEAKER) (test code = 432) 0 % BASOPHILS RELATIVE PERCENT (BEAKER) (test code = 437) 0 % NEUTROPHILS ABSOLUTE COUNT (BEAKER) (test code = 670) 10.56 K/ L 1.78-5.38 H LYMPHOCYTES ABSOLUTE COUNT (BEAKER) (test code = 414) 0.29 K/ L 1.32-3.57 L MONOCYTES ABSOLUTE COUNT (BEAKER) (test code = 415) 1.01 K/ L 0. 30-0.82 H EOSINOPHILS ABSOLUTE COUNT (BEAKER) (test code = 416) 0.00 K/ L 0.04-0.54 L BASOPHILS ABSOLUTE COUNT (BEAKER) (test code = 417) 0.01 K/ L 0. 01-0.08 IMMATURE GRANULOCYTES-RELATIVE PERCENT (BEAKER) (test code = 2801) 0 % 0-1 Iron, TIBC, % sat. (without ferritin)2019-08-05 06:56:00* Test Item Value Reference Range Interpretation Comments Iron (test code = 2498-4) 49.0 ug/dL 40-160 TIBC (test code = 2500-7) 304 ug/dL 250-450 Iron % Saturation (test code = 2502-3) 16 % 20-55 L Lab Interpretation (test code = 50137-7) [facility], % SAT. (WITHOUT FERRITIN)2019-08-05 06:56:00* Test Item Value Reference Range Interpretation Comments IRON (BEAKER) (test code = 547) 49.0 ug/dL 40.0-160.0 TOTAL IRON BINDING CAPACITY (BEAKER) (test code = 769) 304 ug/dL 250-450 IRON % SATURATION (2) (BEAKER) (test code = 2590) 16 % 20-5 5 L PROTHROMBIN [id number] 06:42:00* Test Item Value Reference Range Interpretation Comments PROTIME (BEAKER) (test code = 759) 13.7 seconds 11.9-14.2 INR (BEAKER) (test code = 370) 1.1 <=5.9 Effective 04/19/2019: PT Reference Range ChangeNew: 11.9-14.2 Previous: 11.7-14. 7RECOMMENDED COUMADIN/WARFARIN INR THERAPY RANGESSTANDARD DOSE: 2.0-3.0 Include s: PROPHYLAXIS for venous thrombosis, systemic embolization; TREATMENT for venou s thrombosis and/or pulmonary embolus.HIGH RISK: Target INR is 2.5-3.5 for patie nts wiht mechanical heart valves.POCT-GLUCOSE [id number] 21:26:00* Test Item Value Reference Range Interpretation Comments POC-GLUCOSE METER (BEAKER) (test code = 1538) 286 mg/dL 70-110 H TESTED AT [place] [id number] [facility] [address] POCT-GLUCOSE [id number] 18:06:00* Test Item Value Reference Range Interpretation Comments POC-GLUCOSE METER (BEAKER) (test code = 1538) 136 mg/dL 70-110 H TESTED AT [facility] [address] [facility] [address] POCT-GLUCOSE [id number] 12:13:00* Test Item Value Reference Range Interpretation Comments POC-GLUCOSE METER (BEAKER) (test code = 1538) 129 mg/dL 70-110 H TESTED AT [place] [id number] [facility] [address] TACROLIMUS [id number] 11:54:00* Test Item Value Reference Range Interpretation Comments TACROLIMUS BLOOD (BEAKER) (test code = 657) 13.7 ng/mL 10.0-20.0 LACTATE DEHYDROGENASE (LDH)2019-08-04 10:47:00* Test Item Value Reference Range Interpretation Comments LACTATE DEHYDROGENASE (BEAKER) (test code = 635) 358 U/L 125-2 20 H POCT-GLUCOSE [id number] 08:47:00* Test Item Value Reference Range Interpretation Comments POC-GLUCOSE METER (BEAKER) (test code = 1538) 137 mg/dL 70-110 H TESTED AT [address] [address] BASIC METABOLIC [id number] 07:15:00* Test Item Value Reference Range Interpretation Comments SODIUM (BEAKER) (test code = 381) 133 meq/L 136-145 L POTASSIUM (BEAKER) (test code = 379) 4.0 meq/L 3.5-5.1 CHLORIDE (BEAKER) (test code = 382) 97 meq/L 98-107 L CO2 (BEAKER) (test code = 355) 25 meq/L 22-29 BLOOD UREA NITROGEN (BEAKER) (test code = 354) 30 mg/dL 7-21 H CREATININE (BEAKER) (test code = 358) 3.68 mg/dL 0.57-1.25 H GLUCOSE RANDOM (BEAKER) (test code = 652) 152 mg/dL 70-105 H CALCIUM (BEAKER) (test code = 697) 8.9 mg/dL 8.4-10.2 EGFR (BEAKER) (test code = 1092) 17 mL/min/1.73 sq m ESTIMATED GFR IS NOT ACCURATE CREATININE CLEARANCE IN PREDICTING GLOMERULAR FILTRATION RATE. ESTIMATED GFR IS NOT APPLICABLE FOR DIALYSIS PATIENTS. [id number] 07:08:00* Test Item Value Reference Range Interpretation Comments PHOSPHORUS (BEAKER) (test code = 604) 4.9 mg/dL 2.3-4.7 H [id number] 07:08:00* Test Item Value Reference Range Interpretation Comments MAGNESIUM (BEAKER) (test code = 627) 2.1 mg/dL 1.6-2.6 CBC W/PLT COUNT & AUTO [id number] 06:38:00* Test Item Value Reference Range Interpretation Comments WHITE BLOOD CELL COUNT (BEAKER) (test code = 775) 17.7 K/ L 3.5- 10.5 H RED BLOOD CELL COUNT (BEAKER) (test code = 761) 3.37 M/ L 4.63-6 .08 L HEMOGLOBIN (BEAKER) (test code = 410) 11.0 GM/DL 13.7-17.5 L HEMATOCRIT (BEAKER) (test code = 411) 31.8 % 40.1-51.0 L MEAN CORPUSCULAR VOLUME (BEAKER) (test code = 753) 94.4 fL 79. 0-92.2 H MEAN CORPUSCULAR HEMOGLOBIN (BEAKER) (test code = 751) 32.6 pg 25.7-32.2 H MEAN CORPUSCULAR HEMOGLOBIN CONC (BEAKER) (test code = 752) 34.6 GM/DL 32.3-36.5 RED CELL DISTRIBUTION WIDTH (BEAKER) (test code = 412) 13.9 % 11.6-14.4 PLATELET COUNT (BEAKER) (test code = 756) 234 K/CU MM 150-450 MEAN PLATELET VOLUME (BEAKER) (test code = 754) 10.4 fL 9.4-12 .4 NUCLEATED RED BLOOD CELLS (BEAKER) (test code = 413) 0 /100 WBC 0 -0 NEUTROPHILS RELATIVE PERCENT (BEAKER) (test code = 429) 91 % LYMPHOCYTES RELATIVE PERCENT (BEAKER) (test code = 430) 1 % MONOCYTES RELATIVE PERCENT (BEAKER) (test code = 431) 7 % EOSINOPHILS RELATIVE PERCENT (BEAKER) (test code = 432) 0 % BASOPHILS RELATIVE PERCENT (BEAKER) (test code = 437) 0 % NEUTROPHILS ABSOLUTE COUNT (BEAKER) (test code = 670) 16.14 K/ L 1.78-5.38 H LYMPHOCYTES ABSOLUTE COUNT (BEAKER) (test code = 414) 0.19 K/ L 1.32-3.57 L MONOCYTES ABSOLUTE COUNT (BEAKER) (test code = 415) 1.22 K/ L 0. 30-0.82 H EOSINOPHILS ABSOLUTE COUNT (BEAKER) (test code = 416) 0.00 K/ L 0.04-0.54 L BASOPHILS ABSOLUTE COUNT (BEAKER) (test code = 417) 0.01 K/ L 0. 01-0.08 IMMATURE GRANULOCYTES-RELATIVE PERCENT (BEAKER) (test code = 2801) 1 % 0-1 PROTHROMBIN [id number] 06:27:00* Test Item Value Reference Range Interpretation Comments PROTIME (BEAKER) (test code = 759) 14.5 seconds 11.9-14.2 H INR (BEAKER) (test code = 370) 1.2 <=5.9 Effective 04/19/2019: PT Reference Range ChangeNew: 11.9-14.2 Previous: 11.7-14. 7RECOMMENDED COUMADIN/WARFARIN INR THERAPY RANGESSTANDARD DOSE: 2.0-3.0 Include s: PROPHYLAXIS for venous thrombosis, systemic embolization; TREATMENT for venou s thrombosis and/or pulmonary embolus.HIGH RISK: Target INR is 2.5-3.5 for patie nts wiht mechanical heart valves.POCT-GLUCOSE [id number] 21:25:00* Test Item Value Reference Range Interpretation Comments POC-GLUCOSE METER (BEAKER) (test code = 1538) 218 mg/dL 70-110 H TESTED AT [address] [address] POCT-GLUCOSE [id number] 17:59:00* Test Item Value Reference Range Interpretation Comments POC-GLUCOSE METER (BEAKER) (test code = 1538) 184 mg/dL 70-110 H TESTED AT [address] [address] POCT-GLUCOSE [id number] 12:29:00* Test Item Value Reference Range Interpretation Comments POC-GLUCOSE METER (BEAKER) (test code = 1538) 208 mg/dL 70-110 H TESTED AT [address] [address] TACROLIMUS [id number] 10:18:00* Test Item Value Reference Range Interpretation Comments TACROLIMUS BLOOD (BEAKER) (test code = 657) 7.7 ng/mL 10.0-20.0 L POCT-GLUCOSE [id number] 06:57:00* Test Item Value Reference Range Interpretation Comments POC-GLUCOSE METER (BEAKER) (test code = 1538) 217 mg/dL 70-110 H TESTED AT [address] [address] POCT-GLUCOSE [id number] 06:57:00* Test Item Value Reference Range Interpretation Comments POC-GLUCOSE METER (BEAKER) (test code = 1538) 214 mg/dL 70-110 H TESTED AT [address] [address] BASIC METABOLIC [id number] 03:51:00* Test Item Value Reference Range Interpretation Comments SODIUM (BEAKER) (test code = 381) 137 meq/L 136-145 POTASSIUM (BEAKER) (test code = 379) 4.6 meq/L 3.5-5.1 Specimen slightly hemolyzed CHLORIDE (BEAKER) (test code = 382) 95 meq/L 98-107 L CO2 (BEAKER) (test code = 355) 23 meq/L 22-29 BLOOD UREA NITROGEN (BEAKER) (test code = 354) 28 mg/dL 7-21 H CREATININE (BEAKER) (test code = 358) 6.12 mg/dL 0.57-1.25 H Specimen slightly hemolyzed GLUCOSE RANDOM (BEAKER) (test code = 652) 191 mg/dL 70-105 H CALCIUM (BEAKER) (test code = 697) 8.6 mg/dL 8.4-10.2 EGFR (BEAKER) (test code = 1092) 9 mL/min/1.73 sq m ESTIMATED GFR IS NOT ACCURATE CREATININE CLEARANCE IN PREDICTING GLOMERULAR FILTRATION RATE. ESTIMATED GFR IS NOT APPLICABLE FOR DIALYSIS PATIENTS. [id number] 03:47:00* Test Item Value Reference Range Interpretation Comments MAGNESIUM (BEAKER) (test code = 627) 1.8 mg/dL 1.6-2.6 Specimen slightly hemolyzed [id number] 03:47:00* Test Item Value Reference Range Interpretation Comments PHOSPHORUS (BEAKER) (test code = 604) 5.3 mg/dL 2.3-4.7 H Specimen slightly hemolyzed PROTHROMBIN TIME/[id number] 03:37:00* Test Item Value Reference Range Interpretation Comments PROTIME (BEAKER) (test code = 759) 14.0 seconds 11.9-14.2 INR (BEAKER) (test code = 370) 1.1 <=5.9 Effective 04/19/2019: PT Reference Range ChangeNew: 11.9-14.2 Previous: 11.7-14. 7RECOMMENDED COUMADIN/WARFARIN INR THERAPY RANGESSTANDARD DOSE: 2.0-3.0 Include s: PROPHYLAXIS for venous thrombosis, systemic embolization; TREATMENT for venou s thrombosis and/or pulmonary embolus.HIGH RISK: Target INR is 2.5-3.5 for patie nts wiht mechanical heart valves.CBC W/PLT COUNT & AUTO [id number] 03:30:00* Test Item Value Reference Range Interpretation Comments WHITE BLOOD CELL COUNT (BEAKER) (test code = 775) 16.3 K/ L 3.5- 10.5 H RED BLOOD CELL COUNT (BEAKER) (test code = 761) 3.16 M/ L 4.63-6 .08 L HEMOGLOBIN (BEAKER) (test code = 410) 10.4 GM/DL 13.7-17.5 L HEMATOCRIT (BEAKER) (test code = 411) 30.7 % 40.1-51.0 L MEAN CORPUSCULAR VOLUME (BEAKER) (test code = 753) 97.2 fL 79. 0-92.2 H MEAN CORPUSCULAR HEMOGLOBIN (BEAKER) (test code = 751) 32.9 pg 25.7-32.2 H MEAN CORPUSCULAR HEMOGLOBIN CONC (BEAKER) (test code = 752) 33.9 GM/DL 32.3-36.5 RED CELL DISTRIBUTION WIDTH (BEAKER) (test code = 412) 14.0 % 11.6-14.4 PLATELET COUNT (BEAKER) (test code = 756) 230 K/CU MM 150-450 MEAN PLATELET VOLUME (BEAKER) (test code = 754) 10.6 fL 9.4-12 .4 NUCLEATED RED BLOOD CELLS (BEAKER) (test code = 413) 0 /100 WBC 0 -0 NEUTROPHILS RELATIVE PERCENT (BEAKER) (test code = 429) 96 % LYMPHOCYTES RELATIVE PERCENT (BEAKER) (test code = 430) 1 % MONOCYTES RELATIVE PERCENT (BEAKER) (test code = 431) 3 % EOSINOPHILS RELATIVE PERCENT (BEAKER) (test code = 432) 0 % BASOPHILS RELATIVE PERCENT (BEAKER) (test code = 437) 0 % NEUTROPHILS ABSOLUTE COUNT (BEAKER) (test code = 670) 15.54 K/ L 1.78-5.38 H LYMPHOCYTES ABSOLUTE COUNT (BEAKER) (test code = 414) 0.08 K/ L 1.32-3.57 L MONOCYTES ABSOLUTE COUNT (BEAKER) (test code = 415) 0.56 K/ L 0. 30-0.82 EOSINOPHILS ABSOLUTE COUNT (BEAKER) (test code = 416) 0.00 K/ L 0.04-0.54 L BASOPHILS ABSOLUTE COUNT (BEAKER) (test code = 417) 0.02 K/ L 0. 01-0.08 IMMATURE GRANULOCYTES-RELATIVE PERCENT (BEAKER) (test code = 2801) 1 % 0-1 Blood gas, [id number] 01:01:00* Test Item Value Reference Range Interpretation Comments pH, Arterial (test code = 2744-1) 7.40 7.35-7.45 pCO2, Arterial (test code = 2019-8) 41 35- 45 mmHg pO2, Arterial (test code = 2703-7) 129 80- 90 mmHg H O2 Sat, Arterial (test code = 2708-6) 98.6 % 96-97 H HCO3, Arterial (test code = 1960-4) 25 mmol/L 21-29 Base Excess, Arterial (test code = 1925-7) 0.0 mmol/L -2-3 Patient Temperature (test code = 8310-5) 36.4 C FIO2 (test code = 1819) 36 % Lab Interpretation (test code = 25742-4) [facility] [id number] 01:01:00* Test Item Value Reference Range Interpretation Comments PH ARTERIAL (BEAKER) (test code = 383) 7.40 7.35-7.45 PCO2 ARTERIAL (BEAKER) (test code = 384) 41 mmHg 35-45 PO2 ARTERIAL (BEAKER) (test code = 385) 129 mmHg 80-90 H O2 SATURATION ARTERIAL (BEAKER) (test code = 386) 98.6 % 96.0 -97.0 H HCO3 ARTERIAL (BEAKER) (test code = 388) 25 mmol/L 21-29 BASE EXCESS ARTERIAL (BEAKER) (test code = 387) 0.0 mmol/L -2.0-3 .0 PATIENT TEMPERATURE (BEAKER) (test code = 1818) 36.4 C FIO2 (BEAKER) (test code = 1819) 36.0 % POCT-GLUCOSE [id number] 00:59:00* Test Item Value Reference Range Interpretation Comments POC-GLUCOSE METER (BEAKER) (test code = 1538) 167 mg/dL 70-110 H TESTED AT [facility] [address] [place] [address] BASIC METABOLIC [id number] 23:39:00* Test Item Value Reference Range Interpretation Comments SODIUM (BEAKER) (test code = 381) 137 meq/L 136-145 POTASSIUM (BEAKER) (test code = 379) 4.5 meq/L 3.5-5.1 CHLORIDE (BEAKER) (test code = 382) 98 meq/L 98-107 CO2 (BEAKER) (test code = 355) 25 meq/L 22-29 BLOOD UREA NITROGEN (BEAKER) (test code = 354) 26 mg/dL 7-21 H CREATININE (BEAKER) (test code = 358) 6.62 mg/dL 0.57-1.25 H GLUCOSE RANDOM (BEAKER) (test code = 652) 125 mg/dL 70-105 H CALCIUM (BEAKER) (test code = 697) 8.5 mg/dL 8.4-10.2 EGFR (BEAKER) (test code = 1092) 8 mL/min/1.73 sq m ESTIMATED GFR IS NOT ACCURATE CREATININE CLEARANCE IN PREDICTING GLOMERULAR FILTRATION RATE. ESTIMATED GFR IS NOT APPLICABLE FOR DIALYSIS PATIENTS. CBC W/PLT COUNT & AUTO [id number] 23:10:00* Test Item Value Reference Range Interpretation Comments WHITE BLOOD CELL COUNT (BEAKER) (test code = 775) 13.3 K/ L 3.5- 10.5 H RED BLOOD CELL COUNT (BEAKER) (test code = 761) 3.31 M/ L 4.63-6 .08 L HEMOGLOBIN (BEAKER) (test code = 410) 10.8 GM/DL 13.7-17.5 L HEMATOCRIT (BEAKER) (test code = 411) 32.9 % 40.1-51.0 L MEAN CORPUSCULAR VOLUME (BEAKER) (test code = 753) 99.4 fL 79. 0-92.2 H MEAN CORPUSCULAR HEMOGLOBIN (BEAKER) (test code = 751) 32.6 pg 25.7-32.2 H MEAN CORPUSCULAR HEMOGLOBIN CONC (BEAKER) (test code = 752) 32.8 GM/DL 32.3-36.5 RED CELL DISTRIBUTION WIDTH (BEAKER) (test code = 412) 13.9 % 11.6-14.4 PLATELET COUNT (BEAKER) (test code = 756) 226 K/CU MM 150-450 MEAN PLATELET VOLUME (BEAKER) (test code = 754) 10.4 fL 9.4-12 .4 NUCLEATED RED BLOOD CELLS (BEAKER) (test code = 413) 0 /100 WBC 0 -0 NEUTROPHILS RELATIVE PERCENT (BEAKER) (test code = 429) 98 % LYMPHOCYTES RELATIVE PERCENT (BEAKER) (test code = 430) 1 % MONOCYTES RELATIVE PERCENT (BEAKER) (test code = 431) 1 % EOSINOPHILS RELATIVE PERCENT (BEAKER) (test code = 432) 0 % BASOPHILS RELATIVE PERCENT (BEAKER) (test code = 437) 0 % NEUTROPHILS ABSOLUTE COUNT (BEAKER) (test code = 670) 13.01 K/ L 1.78-5.38 H LYMPHOCYTES ABSOLUTE COUNT (BEAKER) (test code = 414) 0.09 K/ L 1.32-3.57 L MONOCYTES ABSOLUTE COUNT (BEAKER) (test code = 415) 0.08 K/ L 0. 30-0.82 L EOSINOPHILS ABSOLUTE COUNT (BEAKER) (test code = 416) 0.03 K/ L 0.04-0.54 L BASOPHILS ABSOLUTE COUNT (BEAKER) (test code = 417) 0.02 K/ L 0. 01-0.08 IMMATURE GRANULOCYTES-RELATIVE PERCENT (BEAKER) (test code = 2801) 0 % 0-1 [id number] 23:06:00* Test Item Value Reference Range Interpretation Comments PHOSPHORUS (BEAKER) (test code = 604) 3.9 mg/dL 2.3-4.7 [id number] 23:06:00* Test Item Value Reference Range Interpretation Comments MAGNESIUM (BEAKER) (test code = 627) 1.9 mg/dL 1.6-2.6 PROTHROMBIN TIME/[id number] 22:59:00* Test Item Value Reference Range Interpretation Comments PROTIME (BEAKER) (test code = 759) 14.9 seconds 11.9-14.2 H INR (BEAKER) (test code = 370) 1.2 <=5.9 Effective 04/19/2019: PT Reference Range ChangeNew: 11.9-14.2 Previous: 11.7-14. 7RECOMMENDED COUMADIN/WARFARIN INR THERAPY RANGESSTANDARD DOSE: 2.0-3.0 Include s: PROPHYLAXIS for venous thrombosis, systemic embolization; TREATMENT for venou s thrombosis and/or pulmonary embolus.HIGH RISK: Target INR is 2.5-3.5 for patie nts wiht mechanical heart valves.RAD, CHEST, 1 VIEW, NON [id number] 22:53:[address] Burkett for exam:->cvl placementShould this be performed at the bedside?->YesFINAL REPORT RAD, CHEST, 1 VIEW, NON DEPT INDICATION: Central line placement COMPARISON: 07/27/2019 FINDINGS: Portable frontal view of the chest. IMPRESSION: Support Lines: Patient placement of a right jugular approach central venous catheter with the tip near the cavoatrial junction. Stable right pacemaker.Lungs and pleura: No airspace consolidation. No pneumothorax.Heart and mediastinum: Stable contours. Additional findings: None. Signed: Chelo Angel MDReport Verified Date/Time: 08/02/2019 22:53:44 Reading Location: [address] Consult Reading Room chest 1 view portable / bedside 2019-08-02 22:53:00Interface, External Ris In - 08/02/2019 10:55 PM CDTFINAL REPORT RAD, CHEST, 1 VIEW, NON DEPT INDICATION: Central line placement COMPARISON: 07/27/2019 FINDINGS: Portable frontal view of the chest. IMPRESSION: Support Lines: Patient placement of a right jugular approach central venous catheter with the tip near the cavoatrial junction. Stable right pacemaker.Lungs and pleura: No airspace consolidation. No pneumothorax.Heart and mediastinum: Stable contours. Additional findings: None. Signed: Chelo Angelort Verified Date/Time: 08/02/2019 22:53:44 Reading Location: [facility] C013 Consult Reading Room [facility] HGB/HCT (H&H)-Stat [id number] 20:15:00* Test Item Value Reference Range Interpretation Comments Hemoglobin (test code = 786-4) 10.4 g/dL 13-16.8 L Hematocrit (test code = 4544-3) 31.0 % 40-50 L Lab Interpretation (test code = 92321-1) Abnormal [facility] [id number] 20:15:00* Test Item Value Reference Range Interpretation Comments Glucose (test code = 2345-7) 84 mg/dL 70-110 Lab Interpretation (test code = 81256-6) [facility] [id number] 20:15:00* Test Item Value Reference Range Interpretation Comments Sodium (test code = 2951-2) 137 meq/L 135-148 Lab Interpretation (test code = 86715-2) Normal [facility] [id number] 20:15:00* Test Item Value Reference Range Interpretation Comments Potassium (test code = 2823-3) 4.1 meq/L 3.6-5.5 Lab Interpretation (test code = 92822-9) Normal [facility] [id number] 20:15:00* Test Item Value Reference Range Interpretation Comments GLUCOSE RANDOM (BEAKER) (test code = 652) 84 mg/dL 70-110 SODIUM NA-STAT [id number] 20:15:00* Test Item Value Reference Range Interpretation Comments SODIUM (BEAKER) (test code = 381) 137 meq/L 135-148 POTASSIUM-STAT [id number] 20:15:00* Test Item Value Reference Range Interpretation Comments POTASSIUM (BEAKER) (test code = 379) 4.1 meq/L 3.6-5.5 BLOOD GAS, [id number] 20:15:00* Test Item Value Reference Range Interpretation Comments PH ARTERIAL (BEAKER) (test code = 383) 7.49 7.35-7.45 H PCO2 ARTERIAL (BEAKER) (test code = 384) 38 mmHg 35-45 PO2 ARTERIAL (BEAKER) (test code = 385) 177 mmHg 80-90 H O2 SATURATION ARTERIAL (BEAKER) (test code = 386) 99.3 % 96.0 -97.0 H HCO3 ARTERIAL (BEAKER) (test code = 388) 28 mmol/L 21-29 BASE EXCESS ARTERIAL (BEAKER) (test code = 387) 4.4 mmol/L -2.0-3 .0 H PATIENT TEMPERATURE (BEAKER) (test code = 1818) 36.0 C FIO2 (BEAKER) (test code = 1819) 62.6 % HGB/HCT (H&H) - STAT [id number] 20:15:00* Test Item Value Reference Range Interpretation Comments HEMOGLOBIN (BEAKER) (test code = 410) 10.4 g/dL 13.0-16.8 L HEMATOCRIT (BEAKER) (test code = 411) 31.0 % 40.0-50.0 L COMPREHENSIVE METABOLIC [id number] 16:33:00* Test Item Value Reference Range Interpretation Comments TOTAL PROTEIN (BEAKER) (test code = 770) 8.0 gm/dL 6.0-8.3 Specimen slightly hemolyzed ALBUMIN (BEAKER) (test code = 1145) 4.2 g/dL 3.5-5.0 Specimen slightly hemolyzed ALKALINE PHOSPHATASE (BEAKER) (test code = 346) 90 U/L 40-150 BILIRUBIN TOTAL (BEAKER) (test code = 377) 0.8 mg/dL 0.2-1.2 Specimen slightly hemolyzed SODIUM (BEAKER) (test code = 381) 139 meq/L 136-145 POTASSIUM (BEAKER) (test code = 379) 4.2 meq/L 3.5-5.1 Specimen slightly hemolyzed CHLORIDE (BEAKER) (test code = 382) 96 meq/L 98-107 L CO2 (BEAKER) (test code = 355) 31 meq/L 22-29 H BLOOD UREA NITROGEN (BEAKER) (test code = 354) 22 mg/dL 7-21 H CREATININE (BEAKER) (test code = 358) 6.26 mg/dL 0.57-1.25 H Specimen slightly hemolyzed GLUCOSE RANDOM (BEAKER) (test code = 652) 85 mg/dL 70-105 CALCIUM (BEAKER) (test code = 697) 9.3 mg/dL 8.4-10.2 AST (SGOT) (BEAKER) (test code = 353) 21 U/L 5-34 Specimen slightly hemolyzed ALT (SGPT) (BEAKER) (test code = 347) 30 U/L 6-55 Specimen slightly hemolyzed EGFR (BEAKER) (test code = 1092) 9 mL/min/1.73 sq m ESTIMATED GFR IS NOT ACCURATE CREATININE CLEARANCE IN PREDICTING GLOMERULAR FILTRATION RATE. ESTIMATED GFR IS NOT APPLICABLE FOR DIALYSIS PATIENTS. [id number] 16:27:00* Test Item Value Reference Range Interpretation Comments PTT (test code = 27736-7) 30.8 22.5- 36.0 seconds Lab Interpretation (test code = 11094-4) [facility] 16:27:00* Test Item Value Reference Range Interpretation Comments PARTIAL THROMBOPLASTIN TIME (BEAKER) (test code = 760) 30.8 seconds 22.5-36.0 PROTHROMBIN TIME/[id number] 16:26:00* Test Item Value Reference Range Interpretation Comments PROTIME (BEAKER) (test code = 759) 13.9 seconds 11.9-14.2 INR (BEAKER) (test code = 370) 1.1 <=5.9 Effective 04/19/2019: PT Reference Range ChangeNew: 11.9-14.2 Previous: 11.7-14. 7RECOMMENDED COUMADIN/WARFARIN INR THERAPY RANGESSTANDARD DOSE: 2.0-3.0 Include s: PROPHYLAXIS for venous thrombosis, systemic embolization; TREATMENT for venou s thrombosis and/or pulmonary embolus.HIGH RISK: Target INR is 2.5-3.5 for patie nts wiht mechanical heart valves.CBC W/PLT COUNT & AUTO [id number] 16:13:00* Test Item Value Reference Range Interpretation Comments WHITE BLOOD CELL COUNT (BEAKER) (test code = 775) 6.0 K/ L 3.5- 10.5 RED BLOOD CELL COUNT (BEAKER) (test code = 761) 3.33 M/ L 4.63-6 .08 L HEMOGLOBIN (BEAKER) (test code = 410) 10.8 GM/DL 13.7-17.5 L HEMATOCRIT (BEAKER) (test code = 411) 32.4 % 40.1-51.0 L MEAN CORPUSCULAR VOLUME (BEAKER) (test code = 753) 97.3 fL 79. 0-92.2 H MEAN CORPUSCULAR HEMOGLOBIN (BEAKER) (test code = 751) 32.4 pg 25.7-32.2 H MEAN CORPUSCULAR HEMOGLOBIN CONC (BEAKER) (test code = 752) 33.3 GM/DL 32.3-36.5 RED CELL DISTRIBUTION WIDTH (BEAKER) (test code = 412) 14.0 % 11.6-14.4 PLATELET COUNT (BEAKER) (test code = 756) 256 K/CU MM 150-450 MEAN PLATELET VOLUME (BEAKER) (test code = 754) 10.3 fL 9.4-12 .4 NUCLEATED RED BLOOD CELLS (BEAKER) (test code = 413) 0 /100 WBC 0 -0 NEUTROPHILS RELATIVE PERCENT (BEAKER) (test code = 429) 54 % LYMPHOCYTES RELATIVE PERCENT (BEAKER) (test code = 430) 25 % MONOCYTES RELATIVE PERCENT (BEAKER) (test code = 431) 16 % EOSINOPHILS RELATIVE PERCENT (BEAKER) (test code = 432) 4 % BASOPHILS RELATIVE PERCENT (BEAKER) (test code = 437) 1 % NEUTROPHILS ABSOLUTE COUNT (BEAKER) (test code = 670) 3.27 K/ L 1.78-5.38 LYMPHOCYTES ABSOLUTE COUNT (BEAKER) (test code = 414) 1.50 K/ L 1.32-3.57 MONOCYTES ABSOLUTE COUNT (BEAKER) (test code = 415) 0.96 K/ L 0. 30-0.82 H EOSINOPHILS ABSOLUTE COUNT (BEAKER) (test code = 416) 0.21 K/ L 0.04-0.54 BASOPHILS ABSOLUTE COUNT (BEAKER) (test code = 417) 0.08 K/ L 0. 01-0.08 IMMATURE GRANULOCYTES-RELATIVE PERCENT (BEAKER) (test code = 2801) 0 % 0-1 HGB/HCT (H&H) - STAT [id number] 16:00:00* Test Item Value Reference Range Interpretation Comments HEMOGLOBIN (BEAKER) (test code = 410) 11.0 g/dL 13.0-16.8 L HEMATOCRIT (BEAKER) (test code = 411) 32.0 % 40.0-50.0 L POTASSIUM-STAT [id number] 15:59:00* Test Item Value Reference Range Interpretation Comments POTASSIUM (BEAKER) (test code = 379) 4.1 meq/L 3.6-5.5 Prepare [id number] 18:10:00* Test Item Value Reference Range Interpretation Comments CROSSMATCH (test code = 2264) COMPATIBLE Unit ABO (test code = 2324159) A Pos UNIT NUMBER (test code = 934-0) [id number] Status (test code = 2278801) READY Blood Bank Product (test code = 2263) RED BLOOD CELLS PRODUCT CODE (test code = 933-2) [id number] [facility] [id number] 08:20:00* Test Item Value Reference Range Interpretation Comments CULTURE (BEAKER) (test code = 1095) <10,000 col/mL skin steffany RAD, CHEST, 2 [id number] 15:37:00referring Dr. VelizPre-Op testingReason for Exam:->Potential living donor for kidney transplantFINAL REPORT TECHNIQUE: Frontal and lateral views of the chest. INDICATION: Potential living donor for kidney transplant. COMPARISON: Chest radiograph from 09/29/2017. FINDINGS: LINES/TUBES: Right chest pacer with leads over the right atrium and ventricle. LUNGS: The lungs are well inflated and c lear. No consolidation or pulmonary edema. PLEURA: No pleural effusion or pneumo thorax. HEART AND MEDIASTINUM: The cardiomediastinal silhouette is mildly enlarg ed. SOFT TISSUES AND BONES: Kyphosis of the thoracic spine. IMPRESSION: No acut e cardiopulmonary abnormalities. The cardiac silhouette is mildly enlarged. Sign ed: Gin Garcia MDReport Verified Date/Time: 07/27/2019 15:37:29 Reading Locatio n: OQMT 10th [facility] Radiology Reading Room GLOBIN [id number] 10:39:00* Test Item Value Reference Range Interpretation Comments HEMOGLOBIN A1C (BEAKER) (test code = 368) 6.0 % 4.3-6.1 BASIC METABOLIC [id number] 10:20:00* Test Item Value Reference Range Interpretation Comments SODIUM (BEAKER) (test code = 381) 141 meq/L 136-145 POTASSIUM (BEAKER) (test code = 379) 4.8 meq/L 3.5-5.1 CHLORIDE (BEAKER) (test code = 382) 98 meq/L 98-107 CO2 (BEAKER) (test code = 355) 32 meq/L 22-29 H BLOOD UREA NITROGEN (BEAKER) (test code = 354) 47 mg/dL 7-21 H CREATININE (BEAKER) (test code = 358) 9.89 mg/dL 0.57-1.25 H GLUCOSE RANDOM (BEAKER) (test code = 652) 88 mg/dL 70-105 CALCIUM (BEAKER) (test code = 697) 8.9 mg/dL 8.4-10.2 EGFR (BEAKER) (test code = 1092) 5 mL/min/1.73 sq m ESTIMATED GFR IS NOT ACCURATE CREATININE CLEARANCE IN PREDICTING GLOMERULAR FILTRATION RATE. ESTIMATED GFR IS NOT APPLICABLE FOR DIALYSIS PATIENTS. Pre-Op testingPre-Op testingPre-Op testingPre-Op testingPre-Op testingPre-Op frank tingPre-Op testingPre-Op [id number] 10:06:00* Test Item Value Reference Range Interpretation Comments TRIGLYCERIDES (BEAKER) (test code = 540) 92 mg/dL TRIGLYCERIDE REFERENCE RANGELow Risk <150Borderline Risk 150-199High Risk 200- 499Very High Risk >=500Pre-Op testingPre-Op testingPre-Op testingPre-Op testingPre-Op testingPre-Op testingPre-Op testingPre-Op testingHEPATIC FUNCTION [id number] 10:06:00* Test Item Value Reference Range Interpretation Comments TOTAL PROTEIN (BEAKER) (test code = 770) 8.2 gm/dL 6.0-8.3 ALBUMIN (BEAKER) (test code = 1145) 4.2 g/dL 3.5-5.0 BILIRUBIN TOTAL (BEAKER) (test code = 377) 0.7 mg/dL 0.2-1.2 BILIRUBIN DIRECT (BEAKER) (test code = 706) 0.3 mg/dL 0.1-0.5 ALKALINE PHOSPHATASE (BEAKER) (test code = 346) 95 U/L 40-150 AST (SGOT) (BEAKER) (test code = 353) 27 U/L 5-34 ALT (SGPT) (BEAKER) (test code = 347) 41 U/L 6-55 Pre-Op testingPre-Op testingPre-Op testingPre-Op testingPre-Op testingPre-Op frank tingPre-Op testingPre-Op testingCHOLESTEROL, [id number] 10:06:00* Test Item Value Reference Range Interpretation Comments CHOLESTEROL (BEAKER) (test code = 631) 151 mg/dL Cholesterol Reference Range: Low Risk <200 Borderline 200-239 High Risk >240 Pre-Op testingPre-Op testingPre-Op testingPre-Op testingPre-Op testingPre-Op testingPre-Op testingPre-Op testingGAMMA GLUTAMYL TRANSFERASE (GGT)2019-07-27 10:06:00* Test Item Value Reference Range Interpretation Comments GAMMA GLUTAMYL TRANSFERASE (BEAKER) (test code = 364) 196 U/L 9-64 H Pre-Op testingPre-Op testingPre-Op testingPre-Op testingPre-Op testingPre-Op frank tingPre-Op testingPre-Op testingLACTATE DEHYDROGENASE (LDH)2019-07-27 10:06:00* Test Item Value Reference Range Interpretation Comments LACTATE DEHYDROGENASE (BEAKER) (test code = 635) 259 U/L 125-2 20 H Pre-Op testingPre-Op testingPre-Op testingPre-Op testingPre-Op testingPre-Op frank tingPre-Op testingPre-Op testingURIC [id number] 10:05:00* Test Item Value Reference Range Interpretation Comments URIC ACID (BEAKER) (test code = 773) 5.2 mg/dL 2.6-7.2 Pre-Op testingPre-Op testingPre-Op testingPre-Op testingPre-Op testingPre-Op frank tingPre-Op testingPre-Op [id number] 10:05:00* Test Item Value Reference Range Interpretation Comments PHOSPHORUS (BEAKER) (test code = 604) 4.1 mg/dL 2.3-4.7 Pre-Op testingPre-Op testingPre-Op testingPre-Op testingPre-Op testingPre-Op frank tingPre-Op testingPre-Op testingPTH, [id number] 09:51:00* Test Item Value Reference Range Interpretation Comments PARATHYROID HORMONE INTACT (BEAKER) (test code = 577) 457.9 pg/mL 8.5-72.5 H Pre-Op testingURINALYSIS W/ [id number] 09:46:00* Test Item Value Reference Range Interpretation Comments COLOR (BEAKER) (test code = 470) Light Yellow CLARITY (BEAKER) (test code = 469) Clear SPECIFIC GRAVITY UA (BEAKER) (test code = 468) 1.007 1.001-1 .035 PH UA (BEAKER) (test code = 467) 8.5 5.0-8.0 H PROTEIN UA (BEAKER) (test code = 464) 600 mg/dL Negative A GLUCOSE UA (BEAKER) (test code = 365) 50 mg/dL Negative A KETONES UA (BEAKER) (test code = 371) Negative Negative BILIRUBIN UA (BEAKER) (test code = 462) Negative Negative BLOOD UA (BEAKER) (test code = 461) Trace Negative A NITRITE UA (BEAKER) (test code = 465) Negative Negative LEUKOCYTE ESTERASE UA (BEAKER) (test code = 466) Negative Negat sharona UROBILINOGEN UA (BEAKER) (test code = 463) 0.2 mg/dL 0.2-1.0 RBC UA (BEAKER) (test code = 519) 2 /HPF WBC UA (BEAKER) (test code = 520) 4 /HPF SOURCE(BEAKER) (test code = 2795) Urine, Voided CBC W/PLT COUNT & AUTO [id number] 09:33:00* Test Item Value Reference Range Interpretation Comments WHITE BLOOD CELL COUNT (BEAKER) (test code = 775) 7.8 K/ L 3.5- 10.5 RED BLOOD CELL COUNT (BEAKER) (test code = 761) 3.44 M/ L 4.63-6 .08 L HEMOGLOBIN (BEAKER) (test code = 410) 11.1 GM/DL 13.7-17.5 L HEMATOCRIT (BEAKER) (test code = 411) 34.0 % 40.1-51.0 L MEAN CORPUSCULAR VOLUME (BEAKER) (test code = 753) 98.8 fL 79. 0-92.2 H MEAN CORPUSCULAR HEMOGLOBIN (BEAKER) (test code = 751) 32.3 pg 25.7-32.2 H MEAN CORPUSCULAR HEMOGLOBIN CONC (BEAKER) (test code = 752) 32.6 GM/DL 32.3-36.5 RED CELL DISTRIBUTION WIDTH (BEAKER) (test code = 412) 14.2 % 11.6-14.4 PLATELET COUNT (BEAKER) (test code = 756) 296 K/CU MM 150-450 MEAN PLATELET VOLUME (BEAKER) (test code = 754) 10.9 fL 9.4-12 .4 NUCLEATED RED BLOOD CELLS (BEAKER) (test code = 413) 0 /100 WBC 0 -0 NEUTROPHILS RELATIVE PERCENT (BEAKER) (test code = 429) 58 % LYMPHOCYTES RELATIVE PERCENT (BEAKER) (test code = 430) 21 % MONOCYTES RELATIVE PERCENT (BEAKER) (test code = 431) 16 % EOSINOPHILS RELATIVE PERCENT (BEAKER) (test code = 432) 4 % BASOPHILS RELATIVE PERCENT (BEAKER) (test code = 437) 1 % NEUTROPHILS ABSOLUTE COUNT (BEAKER) (test code = 670) 4.48 K/ L 1.78-5.38 LYMPHOCYTES ABSOLUTE COUNT (BEAKER) (test code = 414) 1.60 K/ L 1.32-3.57 MONOCYTES ABSOLUTE COUNT (BEAKER) (test code = 415) 1.22 K/ L 0. 30-0.82 H EOSINOPHILS ABSOLUTE COUNT (BEAKER) (test code = 416) 0.34 K/ L 0.04-0.54 BASOPHILS ABSOLUTE COUNT (BEAKER) (test code = 417) 0.10 K/ L 0. 01-0.08 H IMMATURE GRANULOCYTES-RELATIVE PERCENT (BEAKER) (test code = 2801) 0 % 0-1 PT/XTCE3167-80-01 09:29:00* Test Item Value Reference Range Interpretation Comments PROTIME (BEAKER) (test code = 759) 23.0 seconds 11.9-14.2 H INR (BEAKER) (test code = 370) 2.2 <=5.9 PARTIAL THROMBOPLASTIN TIME (BEAKER) (test code = 760) 42.6 seconds 22.5-36.0 H Effective 04/19/2019: PT Reference Range ChangeNew: 11.9-14.2 Previous: 11.7-14. 7RECOMMENDED COUMADIN/WARFARIN INR THERAPY RANGESSTANDARD DOSE: 2.0-3.0 Include s: PROPHYLAXIS for venous thrombosis, systemic embolization; TREATMENT for venou s thrombosis and/or pulmonary embolus.HIGH RISK: Target INR is 2.5-3.5 for patie nts wiht mechanical heart valves.Pre-op testingPre-Op testingPre-op testingPre-O p testingPROTHROMBIN TIME/TAC0089-35-06 09:28:00* Test Item Value Reference Range Interpretation Comments PROTIME (BEAKER) (test code = 759) 23.0 seconds 11.9-14.2 H INR (BEAKER) (test code = 370) 2.2 <=5.9 Effective 04/19/2019: PT Reference Range ChangeNew: 11.9-14.2 Previous: 11.7-14. 7RECOMMENDED COUMADIN/WARFARIN INR THERAPY RANGESSTANDARD DOSE: 2.0-3.0 Include s: PROPHYLAXIS for venous thrombosis, systemic embolization; TREATMENT for venou s thrombosis and/or pulmonary embolus.HIGH RISK: Target INR is 2.5-3.5 for patie nts wiht mechanical heart valves.Stress Test - Treadmill [id number] 18:35:00 [place] [id number] [place] [address] Patient Name : JAKY NI MR #: [id number] : 1950 Age/Sex: 68/M Adm Physician : ALVARO WHITNEY MD Admit Date : 07/12/19 Location : [facility] Room/Bed : [place] [address] REPORT: Myoview S tress Test DATE OF STUDY: 07/13/2019 15:36:00 Stress Test - Treadmill ONLY PROCEDURE: Rest stress single isotope SPECT imaging with pharmacolog ic stress and gated SPECT imaging. INDICATION: Chest pain. PROCE DURE IN DETAIL: Pharmacologic stress testing was performed with regadenoson per protocol. The heart rate was 70 beats per minute at rest and increased to 10 4 beats per minute during the regadenoson infusion. The resting blood pressur e was 154/83 mmHg and increased to 163/93 mmHg, which is a normal response. T he resting electrocardiogram demonstrated atrial fibrillation with demand paci ng. There were no ST-segment changes suggestive of myocardial ischemia. Myocardial perfusion imaging was performed at rest following the injection of 11 mCi of tetrofosmin. At peak pharmacologic effect, the patient was injected with 33 mCi of tetrofosmin. Gated post-stress tomographic imaging was perfor med. FINDINGS: 1. The overall quality of study is fair. Left ventric ular cavity is noted to be normal in size on the rest and stress studies. SPE CT images demonstrate homogeneous tracer distribution throughout the myocardiu m. Gated SPECT imaging reveals normal myocardial thickening and wall motion. The left ventricular ejection fraction was calculated to be 59%. IMPRE SSION: Myocardial perfusion imaging is normal. Overall, left ventricular systo lic function was normal without regional wall motion abnormalities. Gabriela Farooq MD ABS/SINTIA /[id number] Signature Date Dictated By: GABRIELA FAROOQ MD Transcribed By: MODL on 07/14/19 <Electronically signed by GABRIELA FAROOQ MD><<Signature on File>>08/04/19 1151 COPY TO: Sodium Prhwn5510-43-24 08:52:00* Test Item Value Reference Range Interpretation Comments Sodium Level (test code = 2951-2) 133 136-145 L [facility]Potassium Ulkmw0599-89-44 08:52:00* Test Item Value Reference Range Interpretation Comments Potassium Level (test code = 2823-3) 4.1 3.5-5.1 [facility] CenterChloride Yndir9911-25-17 08:52:00* Test Item Value Reference Range Interpretation Comments Chloride Level (test code = 2075-0) 91 98-107 L [facility] CenterCarbon Dioxide Gqwpn3516-98-96 08:52:00* Test Item Value Reference Range Interpretation Comments Carbon Dioxide Level (test code = 2028-9) 28 22-29 [facility] CenterAnion Pgy3005-29-61 08:52:00* Test Item Value Reference Range Interpretation Comments Anion Gap (test code = 42602-1) 18.1 8-16 H [facility] CenterBlood Urea Zphjtirs4075-59-57 08:52:00* Test Item Value Reference Range Interpretation Comments Blood Urea Nitrogen (test code = 3094-0) 46 7-26 H [facility] CenterCreatinine2019-08-23 08:52:00* Test Item Value Reference Range Interpretation Comments Creatinine (test code = 2160-0) 10.35 0.72-1.25 H [facility] CenterBUN/Creatinine Kmgrs5224-20-00 08:52:00* Test Item Value Reference Range Interpretation Comments BUN/Creatinine Ratio (test code = 3097-3) 4 6-25 L [facility] CenterEstimat Glomerular Filtration Rate 2019-07-14 08:52:00* Test Item Value Reference Range Interpretation Comments Estimat Glomerular Filtration Rate (test code = 127876767) 5 >60 L Ranges were taken from the National Kidney Disease Education Program and the [facility] literature.Reference ranges:60 or greater: Dqtfsk78-13 ( for 3 consecutive months): Chronic kidney disease 15 or less: Kidney failureCHI [facility]ly [facility] HospitalGlucose Yzasp1117-07-40 08:52:00* Test Item Value Reference Range Interpretation Comments Glucose Level (test code = SOH6717) 82 74-118 [facility] CenterCalcium Uqpmh2740-49-93 08:52:00* Test Item Value Reference Range Interpretation Comments Calcium Level (test code = 00775-1) 8.8 8.4-10.2 [facility] CenterProthrombin Edyh1671-89-53 06:18:00* Test Item Value Reference Range Interpretation Comments Prothrombin Time (test code = 5902-2) 16.8 11.9-14.5 H [facility] CenterProthromb Time International Ratio 2019-07-14 06:18:00* Test Item Value Reference Range Interpretation Comments Prothromb Time International Ratio (test code = 6301-6) 1.30 Oral Anticoagulant Therapy INR Values:1. Low Intensity Therapy 1.5 - 2.02 . Moderate Intensity Therapy 2.0 - 3.03. High Intensity Therapy(1) 2.5 - 3. 54. High Intensity Therapy(2) 3.0 - 4.05. Panic Value INR > 5.0 [facility] CenterHemoglobin A1c Cizejxf1885-57-72 07:43:00 * Test Item Value Reference Range Interpretation Comments Hemoglobin A1c Percent (test code = Hemoglobin A1c Percent) 5.2 4.0-7.0 [facility] CenterTriglycerides Idrii0315-43-56 06:42:00* Test Item Value Reference Range Interpretation Comments Triglycerides Level (test code = 2571-8) 81 0-149 [facility] CenterCholesterol Jgjls6722-51-55 06:42:00* Test Item Value Reference Range Interpretation Comments Cholesterol Level (test code = 2093-3) 137 0-199 Less than 200 mg/dL Low Sgmn809 - 239 mg/dL Borderline Naay662 m g/dl and greater High Risk [facility] CenterLDL Nflyxxwmuup8408-17-29 06:42:00* Test Item Value Reference Range Interpretation Comments LDL Cholesterol (test code = 2089-1) 75 60-130 [facility] CenterHDL Xzuoilksnbr4074-57-06 06:42:00* Test Item Value Reference Range Interpretation Comments HDL Cholesterol (test code = 2085-9) 46 40-60 [facility] CenterCholesterol/HDL Nsbwy7501-21-51 06:42:00 * Test Item Value Reference Range Interpretation Comments Cholesterol/HDL Ratio (test code = 9830-1) 3.0 3.9-4.7 L [facility] CenterCreatine Kinase UQ6746-68-30 06:27:00* Test Item Value Reference Range Interpretation Comments Creatine Kinase MB (test code = 81080-7) 0.70 0-5.0 [facility] CenterTroponin K6627-56-07 06:27:00* Test Item Value Reference Range Interpretation Comments Troponin I (test code = RDO6157) 0.029 0-0.300 [facility] CenterCreatine Ldquol7129-14-17 06:22:00* Test Item Value Reference Range Interpretation Comments Creatine Kinase (test code = 2157-6) 104 30-200 [facility] CenterCHEST SINGLE (PORTABLE)2019-07-12 16:27:00 [place] [address] Patient Name: JAKY NI MR #: [id number] : 1950 Age/Sex: 68/M Req #: [id number] Adm Physician: ALVARO WHITNEY MD Ordered by: CLINT SANTAMARIA BARBER INSTRUCTOR Report #: [id number] Location: [facility] Room/Bed: [place] [address] Procedure: [id number] DX/CH EST SINGLE (PORTABLE) Exam Date: 07/12/19 Exam Time: 1610 REPORT STATUS: Signed Ches t, 1 view, 07/12/2019. History: Hypertension. Comparison: 2018. Findings: The cardiomediastinal silhouette and pulmonary vasculature are within normal limits for a portable exam. There is no focal consolidation or pleural effusion. Right subclavian dual-lead pacer is unchanged in appearan ce. There are no acute osseous or soft tissue abnormalities. Impression: No acute cardiopulmonary abnormality. Signed by: Franklin Soto on 2018 4:27 PM Dictated By: FRANKLIN SOTO MD 26 Transcribed By: BERNIE on 07/12/19 162 C OPY TO: CLINT SANTAMARIA NP B-Type Natriuretic Mykdbvm3915-84-92 15:34:00 * Test Item Value Reference Range Interpretation Comments B-Type Natriuretic Peptide (test code = 74019-6) 1163.0 0-100 H [facility] CenterTotal Trfznrkrl6572-36-14 15:31:00* Test Item Value Reference Range Interpretation Comments Total Bilirubin (test code = 1975-2) 0.7 0.2-1.2 [facility] CenterAspartate Amino Transf (AST/SGOT) 2019-07-12 15:31:00* Test Item Value Reference Range Interpretation Comments Aspartate Amino Transf (AST/SGOT) (test code = Aspartate Amino Transf (AST/SGOT)) 23 5-34 [facility] CenterAlanine Aminotransferase (ALT/SGPT) 2019-07-12 15:31:00* Test Item Value Reference Range Interpretation Comments Alanine Aminotransferase (ALT/SGPT) (test code = 1742-6) 30 0-55 [facility] CenterTotal Dqevfpb6436-76-03 15:31:00* Test Item Value Reference Range Interpretation Comments Total Protein (test code = 2885-2) 7.7 6.5-8.1 [facility] CenterAlbumin2019-08-21 15:31:00* Test Item Value Reference Range Interpretation Comments Albumin (test code = 1751-7) 3.7 3.5-5.0 [facility] CenterGlobulin2019-08-21 15:31:00* Test Item Value Reference Range Interpretation Comments Globulin (test code = 43392-9) 4.0 2.3-3.5 H [facility] CenterAlbumin/Globulin Wvpbp1917-83-91 15:31:00 * Test Item Value Reference Range Interpretation Comments Albumin/Globulin Ratio (test code = 1759-0) 0.9 0.8-2.0 [facility] CenterAlkaline Cbapsyxahex5281-27-73 15:31:00* Test Item Value Reference Range Interpretation Comments Alkaline Phosphatase (test code = 6768-6) 99 40-150 [facility] CenterActivated Partial Thromboplast Time 2019-07-12 15:17:00* Test Item Value Reference Range Interpretation Comments Activated Partial Thromboplast Time (test code = 40096-2) 32.6 23.8-35.5 [facility] CenterWhite Blood Albeg0885-91-74 15:08:00* Test Item Value Reference Range Interpretation Comments White Blood Count (test code = 6690-2) 8.29 4.8-10.8 [facility] CenterRed Blood Ehufl0912-99-37 15:08:00* Test Item Value Reference Range Interpretation Comments Red Blood Count (test code = 789-8) 3.48 4.3-5.7 L [facility] CenterHemoglobin2019-08-21 15:08:00* Test Item Value Reference Range Interpretation Comments Hemoglobin (test code = 84068-8) 11.3 14.0-18.0 L [facility] CenterHematocrit2019-08-21 15:08:00* Test Item Value Reference Range Interpretation Comments Hematocrit (test code = 4544-3) 33.2 38.2-49.6 L [facility] CenterMean Corpuscular Aysfmq5938-12-37 15:08:00* Test Item Value Reference Range Interpretation Comments Mean Corpuscular Volume (test code = 787-2) 95.4 81-99 [facility] CenterMean Corpuscular Bockgbvbiy9344-30-10 15:08:00* Test Item Value Reference Range Interpretation Comments Mean Corpuscular Hemoglobin (test code = 785-6) 32.5 28-32 H [facility] CenterMean Corpuscular Hemoglobin Concent 2019-07-12 15:08:00* Test Item Value Reference Range Interpretation Comments Mean Corpuscular Hemoglobin Concent (test code = 786-4) 34.0 31-35 [facility] CenterRed Cell Distribution Rwfxx9828-65-04 15:08:00* Test Item Value Reference Range Interpretation Comments Red Cell Distribution Width (test code = 18402-1) 13.5 11.7 -14.4 [facility] CenterPlatelet Yurfs4451-77-98 15:08:00* Test Item Value Reference Range Interpretation Comments Platelet Count (test code = 777-3) 290 140-360 [facility] CenterNeutrophils (%) (Auto)2019-07-12 15:08:00 * Test Item Value Reference Range Interpretation Comments Neutrophils (%) (Auto) (test code = 05040-3) 64.3 38.7-80.0 [facility] CenterLymphocytes (%) (Auto)2019-07-12 15:08:00 * Test Item Value Reference Range Interpretation Comments Lymphocytes (%) (Auto) (test code = 736-9) 18.1 18.0-39.1 [facility] CenterMonocytes (%) (Auto)2019-07-12 15:08:00* Test Item Value Reference Range Interpretation Comments Monocytes (%) (Auto) (test code = 5905-5) 13.8 4.4-11.3 H [facility] CenterEosinophils (%) (Auto)2019-07-12 15:08:00 * Test Item Value Reference Range Interpretation Comments Eosinophils (%) (Auto) (test code = 713-8) 2.2 0.0-6.0 [facility] CenterBasophils (%) (Auto)2019-07-12 15:08:00* Test Item Value Reference Range Interpretation Comments Basophils (%) (Auto) (test code = 706-2) 1.2 0.0-1.0 H [facility] CenterIM GRANULOCYTES %2019-07-12 15:08:00* Test Item Value Reference Range Interpretation Comments IM GRANULOCYTES % (test code = IM GRANULOCYTES %) 0.4 0.0- 1.0 [facility] CenterNeutrophils # (Auto)2019-07-12 15:08:00* Test Item Value Reference Range Interpretation Comments Neutrophils # (Auto) (test code = 751-8) 5.3 2.1-6.9 [facility] CenterLymphocytes # (Auto)2019-07-12 15:08:00* Test Item Value Reference Range Interpretation Comments Lymphocytes # (Auto) (test code = 22220-1) 1.5 1.0-3.2 [facility] CenterMonocytes # (Auto)2019-07-12 15:08:00* Test Item Value Reference Range Interpretation Comments Monocytes # (Auto) (test code = 742-7) 1.1 0.2-0.8 H [facility] CenterEosinophils # (Auto)2019-07-12 15:08:00* Test Item Value Reference Range Interpretation Comments Eosinophils # (Auto) (test code = 711-2) 0.2 0.0-0.4 [facility] CenterBasophils # (Auto)2019-07-12 15:08:00* Test Item Value Reference Range Interpretation Comments Basophils # (Auto) (test code = 704-7) 0.1 0.0-0.1 [facility] CenterAbsolute Immature Granulocyte (auto 2019-07-12 15:08:00* Test Item Value Reference Range Interpretation Comments Absolute Immature Granulocyte (auto (frank t code = Absolute Immature Granulocyte (auto) 0.03 0-0.1 [facility] CenterUrine [id number] 13:24:00* Test Item Value Reference Range Interpretation Comments Urine WBC (test code = 5821-4) 6-10 0-5 H [facility] CenterUrine KUR8263-66-97 13:24:00* Test Item Value Reference Range Interpretation Comments Urine RBC (test code = 07519-0) 0-5 0-5 [facility] CenterUrine Jjoiumga7572-50-24 13:24:00* Test Item Value Reference Range Interpretation Comments Urine Bacteria (test code = 51149-6) MODERATE NONE H [facility] CenterUrine Epithelial Twzxf9846-10-00 13:24:00 * Test Item Value Reference Range Interpretation Comments Urine Epithelial Cells (test code = 70496-6) RARE NONE [facility] CenterUrine Amorphous Vnenulrl9452-20-78 13:24:00* Test Item Value Reference Range Interpretation Comments Urine Amorphous Sediment (test code = 8246-1) FEW FEW [facility] CenterUrine Rkjbi4362-34-63 13:07:00* Test Item Value Reference Range Interpretation Comments Urine Color (test code = 5778-6) YELLOW YELLOW [facility] CenterUrine Wqvyzck8519-44-63 13:07:00* Test Item Value Reference Range Interpretation Comments Urine Clarity (test code = 63624-8) SL CLOUDY CLEAR H [facility] CenterUrine Specific Itvzmts9673-32-33 13:07:00 * Test Item Value Reference Range Interpretation Comments Urine Specific [place] (test code = 5811-5) 1.015 1.010-1.02 5 [facility] CenterUrine pZ9867-22-31 13:07:00* Test Item Value Reference Range Interpretation Comments Urine pH (test code = 39877-9) 8.5 5-7 [facility] CenterUrine Leukocyte Zmvbxfmr2907-95-60 13:07:00* Test Item Value Reference Range Interpretation Comments Urine Leukocyte Esterase (test code = 35439-7) TRACE NEGATIV E H [facility] CenterUrine Pwqutcy7963-18-17 13:07:00* Test Item Value Reference Range Interpretation Comments Urine Nitrite (test code = 44897-2) NEGATIVE NEGATIVE [facility] CenterUrine Adtmwks3467-32-60 13:07:00* Test Item Value Reference Range Interpretation Comments Urine Protein (test code = 42959-4) 2+ NEGATIVE H [facility] CenterUrine Glucose (UA)2019-06-16 13:07:00* Test Item Value Reference Range Interpretation Comments Urine Glucose (UA) (test code = 38368-0) 1+ NEGATIVE H [facility] CenterUrine Afbmmli3424-52-59 13:07:00* Test Item Value Reference Range Interpretation Comments Urine Ketones (test code = 05751-6) NEGATIVE NEGATIVE [facility] CenterUrine Hjsadiilcefl5863-41-63 13:07:00* Test Item Value Reference Range Interpretation Comments Urine Urobilinogen (test code = 73723-5) 0.2 0.2-1 [facility] CenterUrine Rsrgplici7885-20-51 13:07:00* Test Item Value Reference Range Interpretation Comments Urine Bilirubin (test code = 1977-8) NEGATIVE NEGATIVE [facility] CenterUrine Saojc6139-23-06 13:07:00* Test Item Value Reference Range Interpretation Comments Urine Blood (test code = 98936-3) TRACE NEGATIVE [facility] CenterCHEST SINGLE (NOT PORTABLE)2019-06-16 12:21:00 [place] [address] Patient Name: JAKY NI MR #: [id number] : 1950 Age/Sex: 68/M Req #: [id number] Adm Physician: Ordered by: DEANDRA VALENZUELA MD Report #: [id number] Location: ER Room/Bed: Procedure: [id number] DX/ CHEST SINGLE (NOT PORTABLE) Exam Date: Exam Time: REPORT STATUS: Signed EXAMINATIO N: CHEST SINGLE (NOT PORTABLE) INDICATION: Chest pain COMPARISON: Chest radiograph of 05/30/2018 FINDINGS: TUBES and LINES: Right ches t pacer with leads in the right atrium and right ventricle. LUNGS: The l jaylin volumes are normal. No focal consolidation or pulmonary edema. PLEURA: No pleural effusion or pneumothorax. HEART AND MEDIASTINUM: The cardiomed iastinal silhouette is normal in size and contour. Atherosclerotic calcificati ons of the thoracic aorta. BONES AND SOFT TISSUES: No acute fracture or dis location. UPPER ABDOMEN: No free air under the diaphragm. IMPRESSION: No focal pneumonia or pulmonary edema. Signed by: Hernandez Eaton MD on 06/16 12:23 PM Dictated By: HERNANDEZ EATON MD 1223 Transcribed By: BERNIE on 06/16/19 1223 COPY TO: DEANDRA VALENZUELA MD BASIC METABOLIC [id number] 13:06:00* Test Item Value Reference Range Interpretation Comments SODIUM (BEAKER) (test code = 381) 137 meq/L 136-145 POTASSIUM (BEAKER) (test code = 379) 4.5 meq/L 3.5-5.1 CHLORIDE (BEAKER) (test code = 382) 93 meq/L 98-107 L CO2 (BEAKER) (test code = 355) 30 meq/L 22-29 H BLOOD UREA NITROGEN (BEAKER) (test code = 354) 50 mg/dL 7-21 H CREATININE (BEAKER) (test code = 358) 9.58 mg/dL 0.57-1.25 H GLUCOSE RANDOM (BEAKER) (test code = 652) 90 mg/dL 70-105 CALCIUM (BEAKER) (test code = 697) 9.7 mg/dL 8.4-10.2 EGFR (BEAKER) (test code = 1092) 6 mL/min/1.73 sq m ESTIMATED GFR IS NOT ACCURATE CREATININE CLEARANCE IN PREDICTING GLOMERULAR FILTRATION RATE. ESTIMATED GFR IS NOT APPLICABLE FOR DIALYSIS PATIENTS. HEPATIC FUNCTION [id number] 12:29:00* Test Item Value Reference Range Interpretation Comments TOTAL PROTEIN (BEAKER) (test code = 770) 8.6 gm/dL 6.0-8.3 H ALBUMIN (BEAKER) (test code = 1145) 4.2 g/dL 3.5-5.0 BILIRUBIN TOTAL (BEAKER) (test code = 377) 0.5 mg/dL 0.2-1.2 BILIRUBIN DIRECT (BEAKER) (test code = 706) 0.3 mg/dL 0.1-0.5 ALKALINE PHOSPHATASE (BEAKER) (test code = 346) 92 U/L 40-150 AST (SGOT) (BEAKER) (test code = 353) 17 U/L 5-34 ALT (SGPT) (BEAKER) (test code = 347) 22 U/L 6-55 GAMMA GLUTAMYL TRANSFERASE (GGT)2019-05-04 12:29:00* Test Item Value Reference Range Interpretation Comments GAMMA GLUTAMYL TRANSFERASE (BEAKER) (test code = 364) 174 U/L 9-64 H CBC W/PLT COUNT & AUTO ZMMPRBVOBKBV9270-72-92 12:08:00* Test Item Value Reference Range Interpretation Comments WHITE BLOOD CELL COUNT (BEAKER) (test code = 775) 9.0 K/ L 3.5- 10.5 RED BLOOD CELL COUNT (BEAKER) (test code = 761) 3.63 M/ L 4.63-6 .08 L HEMOGLOBIN (BEAKER) (test code = 410) 11.4 GM/DL 13.7-17.5 L HEMATOCRIT (BEAKER) (test code = 411) 35.5 % 40.1-51.0 L MEAN CORPUSCULAR VOLUME (BEAKER) (test code = 753) 97.8 fL 79. 0-92.2 H MEAN CORPUSCULAR HEMOGLOBIN (BEAKER) (test code = 751) 31.4 pg 25.7-32.2 MEAN CORPUSCULAR HEMOGLOBIN CONC (BEAKER) (test code = 752) 32.1 GM/DL 32.3-36.5 L RED CELL DISTRIBUTION WIDTH (BEAKER) (test code = 412) 13.2 % 11.6-14.4 PLATELET COUNT (BEAKER) (test code = 756) 350 K/CU MM 150-450 MEAN PLATELET VOLUME (BEAKER) (test code = 754) 10.5 fL 9.4-12 .4 NUCLEATED RED BLOOD CELLS (BEAKER) (test code = 413) 0 /100 WBC 0 -0 NEUTROPHILS RELATIVE PERCENT (BEAKER) (test code = 429) 60 % LYMPHOCYTES RELATIVE PERCENT (BEAKER) (test code = 430) 22 % MONOCYTES RELATIVE PERCENT (BEAKER) (test code = 431) 13 % EOSINOPHILS RELATIVE PERCENT (BEAKER) (test code = 432) 4 % BASOPHILS RELATIVE PERCENT (BEAKER) (test code = 437) 1 % NEUTROPHILS ABSOLUTE COUNT (BEAKER) (test code = 670) 5.39 K/ L 1.78-5.38 H LYMPHOCYTES ABSOLUTE COUNT (BEAKER) (test code = 414) 2.01 K/ L 1.32-3.57 MONOCYTES ABSOLUTE COUNT (BEAKER) (test code = 415) 1.17 K/ L 0. 30-0.82 H EOSINOPHILS ABSOLUTE COUNT (BEAKER) (test code = 416) 0.32 K/ L 0.04-0.54 BASOPHILS ABSOLUTE COUNT (BEAKER) (test code = 417) 0.10 K/ L 0. 01-0.08 H IMMATURE GRANULOCYTES-RELATIVE PERCENT (BEAKER) (test code = 2801) 0 % 0-1 [id number] 15:30:00* Test Item Value Reference Range Interpretation Comments PROSTATE SPECIFIC ANTIGEN (BEAKER) (test code = 844) 7.7 ng/mL 0 .0-4.0 H BASIC METABOLIC [id number] 14:29:00* Test Item Value Reference Range Interpretation Comments SODIUM (BEAKER) (test code = 381) 141 meq/L 136-145 POTASSIUM (BEAKER) (test code = 379) 4.4 meq/L 3.5-5.1 CHLORIDE (BEAKER) (test code = 382) 97 meq/L 98-107 L CO2 (BEAKER) (test code = 355) 34 meq/L 22-29 H BLOOD UREA NITROGEN (BEAKER) (test code = 354) 32 mg/dL 7-21 H CREATININE (BEAKER) (test code = 358) 7.60 mg/dL 0.57-1.25 H GLUCOSE RANDOM (BEAKER) (test code = 652) 95 mg/dL 70-105 CALCIUM (BEAKER) (test code = 697) 9.3 mg/dL 8.4-10.2 EGFR (BEAKER) (test code = 1092) 7 mL/min/1.73 sq m ESTIMATED GFR IS NOT ACCURATE CREATININE CLEARANCE IN PREDICTING GLOMERULAR FILTRATION RATE. ESTIMATED GFR IS NOT APPLICABLE FOR DIALYSIS PATIENTS. HEPATIC FUNCTION [id number] 14:23:00* Test Item Value Reference Range Interpretation Comments TOTAL PROTEIN (BEAKER) (test code = 770) 8.4 gm/dL 6.0-8.3 H ALBUMIN (BEAKER) (test code = 1145) 4.4 g/dL 3.5-5.0 BILIRUBIN TOTAL (BEAKER) (test code = 377) 0.5 mg/dL 0.2-1.2 BILIRUBIN DIRECT (BEAKER) (test code = 706) 0.2 mg/dL 0.1-0.5 ALKALINE PHOSPHATASE (BEAKER) (test code = 346) 108 U/L 40-150 AST (SGOT) (BEAKER) (test code = 353) 30 U/L 5-34 ALT (SGPT) (BEAKER) (test code = 347) 37 U/L 6-55 GAMMA GLUTAMYL TRANSFERASE (GGT)2018-11-02 14:23:00* Test Item Value Reference Range Interpretation Comments GAMMA GLUTAMYL TRANSFERASE (BEAKER) (test code = 364) 185 U/L 9-64 H CBC W/PLT COUNT & AUTO [id number] 14:04:00* Test Item Value Reference Range Interpretation Comments WHITE BLOOD CELL COUNT (BEAKER) (test code = 775) 6.9 K/ L 3.5- 10.5 RED BLOOD CELL COUNT (BEAKER) (test code = 761) 3.38 M/ L 4.63-6 .08 L HEMOGLOBIN (BEAKER) (test code = 410) 10.6 GM/DL 13.7-17.5 L HEMATOCRIT (BEAKER) (test code = 411) 33.1 % 40.1-51.0 L MEAN CORPUSCULAR VOLUME (BEAKER) (test code = 753) 97.9 fL 79. 0-92.2 H MEAN CORPUSCULAR HEMOGLOBIN (BEAKER) (test code = 751) 31.4 pg 25.7-32.2 MEAN CORPUSCULAR HEMOGLOBIN CONC (BEAKER) (test code = 752) 32.0 GM/DL 32.3-36.5 L RED CELL DISTRIBUTION WIDTH (BEAKER) (test code = 412) 13.2 % 11.6-14.4 PLATELET COUNT (BEAKER) (test code = 756) 259 K/CU MM 150-450 MEAN PLATELET VOLUME (BEAKER) (test code = 754) 11.7 fL 9.4-12 .4 NUCLEATED RED BLOOD CELLS (BEAKER) (test code = 413) 0 /100 WBC 0 -0 NEUTROPHILS RELATIVE PERCENT (BEAKER) (test code = 429) 57 % LYMPHOCYTES RELATIVE PERCENT (BEAKER) (test code = 430) 23 % MONOCYTES RELATIVE PERCENT (BEAKER) (test code = 431) 15 % EOSINOPHILS RELATIVE PERCENT (BEAKER) (test code = 432) 3 % BASOPHILS RELATIVE PERCENT (BEAKER) (test code = 437) 2 % NEUTROPHILS ABSOLUTE COUNT (BEAKER) (test code = 670) 3.93 K/ L 1.78-5.38 LYMPHOCYTES ABSOLUTE COUNT (BEAKER) (test code = 414) 1.58 K/ L 1.32-3.57 MONOCYTES ABSOLUTE COUNT (BEAKER) (test code = 415) 1.00 K/ L 0. 30-0.82 H EOSINOPHILS ABSOLUTE COUNT (BEAKER) (test code = 416) 0.21 K/ L 0.04-0.54 BASOPHILS ABSOLUTE COUNT (BEAKER) (test code = 417) 0.11 K/ L 0. 01-0.08 H IMMATURE GRANULOCYTES-RELATIVE PERCENT (BEAKER) (test code = 2801) 0 % 0-1 CT CERVICAL SPINE CA3364-06-97 09:19:00 [place] [address] Patient Name: JAKY NI MR #: [id number] : 1950 Age/Sex: 67/M Req #: [id number] Adm Physician: ALVARO WHITNEY MD Ordered by: SHILA BOYER M.D. Report #: [id number] Location: MED/SURG3 Room/Bed: [facility] Procedure: [id number] CT/CT CERVICAL SPINE WO Exam Date: 06/01/18 Exam Ti me: 0840 REPORT STATUS: Signed ADDENDUM #1 Do se modulation, iterative reconstruction, and/or weight based adjustment of the mA/kV was utilized to reduce the radiation dose to as low as reasonably achie vable. IMPRESSION: 1. No acute abnormalities. 2. Mild degenerative changes with mild canal stenosis at C2-C3 and C4-C5. Signed by: DR Ronnie Lopez M.D. on 07/19/2018 12:20 PM ORIGINAL REPORT Examination: CT CERVICAL SPINE WITHOUT CONTRAST HISTORY:Numbness of the left arm. COMPARISON:None. TECHNIQUE: Multidetector helical axial images wer e obtained without contrast from the foramen magnum to T1. Coronal and sagitt al reformatted images were done. Bone and soft tissue windows were evaluated. FINDINGS: Alignment:Normal alignment and lordosis. Vertebrae: Glenda l height and density. No acute fracture, infection or neoplasm. Disc space h eights: Normal height. Caliber of spinal canal: Developmentally normal. P osterior fossa and craniocervical junction: Foramen magnum patent. No Chiari 1 malformation. Soft tissues: No abnormality. Degenerative changes: A nterior osteophytosis from C4 through C7. Central disc protrusion at C2-C3, C3 -C4 and C4-C5 with mild canal stenosis at C2-C3 and C4-C5. IMPRESSION: 1. No acute abnormalities. 2. Mild degenerative changes with mild canal s tenosis at C2-C3 and C4-C5. Signed by: Dr. Dilma Canseco M.D. on 018 9:33 AM Dictated By: DILMA PABLO MD Electronically Sign ed By: DILMA PABLO MD on 07/19/18 1220 Transcribed By: BERNIE on 06/01/18 0933 COPY TO: SHILA BOYER MD CT BRAIN WO 2018-06-01 09:15:00 [facility] [address] [place] [address] Patient Name: JAKY NI MR #: [id number] : 1950 Age/Sex: 67/M Req #: [id number] Adm Physician: ALVARO WHITNEY MD Ordered by: SHILA BOYER M.D. Report #: [id number] Location: MED/SURG3 Room/Bed: [facility] Procedure: [id number] CT/CT BRAIN WO Exam Date: 06/01/18 Exam Time: 0840 REPORT STATUS: Signed ADDENDUM #1 Dose modula tion, iterative reconstruction, and/or weight based adjustment of the mA/kV wa s utilized to reduce the radiation dose to as low as reasonably achievable. Impression: 1. No new acute intracranial abnormalities. 2. Unchange d mild chronic microvascular ischemic change and mild volume loss when compare d to prior head CT performed May 30, 2018. Signed by: DR Ronnie flynn M.D. on 07/19/2018 12:19 PM ORIGINAL REPORT Examinat ion: CT BRAIN WITHOUT CONTRAST History:Loss of vision. Numbness of the left arm. Comparison studies:May 30, [address] Technique: Axial images w ere obtained from the skull base to the vertex. Coronal and sagittal images re constructed from the axial data. Intravenous contrast: None Findings: Scalp: No abnormalities. Bones: No fractures, blastic or lytic lesions. Brain sulci: Mild volume loss for age. Ventricles: Ex vacuo dilatation. No hy drocephalus. Extra-axial space: No abnormalities. Parenchyma: Aga in demonstrated are patchy areas of hypoattenuation in the periventricular and subcortical white matter, nonspecific. No masses, hemorrhage, or acute or ch ronic cortical based vascular insults.. Sellar/suprasellar region: No abnor malities. Craniocervical junction: Patent foramen magnum. No Chiari one malfor mation. Incidental findings: None. Impression: 1. No new acu te intracranial abnormalities. 2. Unchanged mild chronic microvascular ischem ic change and mild volume loss when compared to prior head CT performed May. Signed by: Dr. Dilma Canseco M.D. on 06/01/2018 9:19 AM D ictated By: DILMA PABLO MD 1219 Transcribed By: BERNIE on 06/01/18 0919 COPY TO: SHILA BOYER MD Hepatitis B Surface Antibody, Quant 2018-06-01 08:10:00* Test Item Value Reference Range Interpretation Comments Hepatitis B Surface Antibody, Quant (test code = 5194-6) -3.1 Immunity>9.9 L Status of Immunity Anti-HBs Level Inconsistent with Immunity 0.0 - 9.9Consistent with Immunity >9.9[facility] Core Total Hcrcrjxm1639-17-06 08:10:00* Test Item Value Reference Range Interpretation Comments Hepatitis B Core Total Antibody (test code = 82956-9) Negative Negative Performed at: [facility][NOTE 3] Lab[address] [id number] Director: Dada Canseco MD, Phone: [phone] B Surface Ztffgoz4158-89-90 08:10:00* Test Item Value Reference Range Interpretation Comments Hepatitis B Surface Antigen (test code = 5196-1) Negative Negat shar[facility] Tgvkz4621-24-97 05:30:00* Test Item Value Reference Range Interpretation Comments Sodium Level (test code = 2951-2) 142 136-145 [facility]Pot[facility] Ekjsk1382-36-94 05:30:00* Test Item Value Reference Range Interpretation Comments Potassium Level (test code = 2823-3) 4.6 3.5-5.1 [facility] CenterChloride Rvkxy2295-43-94 05:30:00* Test Item Value Reference Range Interpretation Comments Chloride Level (test code = 2075-0) 101 98-107 [facility] CenterCarbon Dioxide Nejey5043-17-26 05:30:00* Test Item Value Reference Range Interpretation Comments Carbon Dioxide Level (test code = 2028-9) 29 22-29 [facility] CenterAnion Pwr1598-75-24 05:30:00* Test Item Value Reference Range Interpretation Comments Anion Gap (test code = 03840-0) 16.6 8-16 H [facility] CenterBlood Urea Qaruyyrz2448-65-59 05:30:00* Test Item Value Reference Range Interpretation Comments Blood Urea Nitrogen (test code = 3094-0) 55 7-26 H [facility] CenterCreatinine2018-07-10 05:30:00* Test Item Value Reference Range Interpretation Comments Creatinine (test code = 2160-0) 10.11 0.72-1.25 H [facility] CenterBUN/Creatinine Zlata9437-48-47 05:30:00* Test Item Value Reference Range Interpretation Comments BUN/Creatinine Ratio (test code = 3097-3) 5 6-25 L [facility] CenterEstimat Glomerular Filtration Rate 2018-05-31 05:30:00* Test Item Value Reference Range Interpretation Comments Estimat Glomerular Filtration Rate (test code = 42662-2) 5 >60 L Ranges were taken from the National Kidney Disease Education Program and the [facility] literature.Reference ranges:60 or greater: Vweklw21-95 ( for 3 consecutive months): Chronic kidney disease 15 or less: Kidney failurePampa Regional Medical CenterGlucose Alzut5685-87-73 05:30:00* Test Item Value Reference Range Interpretation Comments Glucose Level (test code = RYT0788) 93 74-118 [facility] CenterCalcium Nijbm0465-58-96 05:30:00* Test Item Value Reference Range Interpretation Comments Calcium Level (test code = 27011-0) 8.9 8.4-10.2 [facility] CenterWhite Blood Mfwyd5240-69-11 05:12:00* Test Item Value Reference Range Interpretation Comments White Blood Count (test code = 6690-2) 6.56 4.8-10.8 [facility] CenterRed Blood Sdicz3296-98-71 05:12:00* Test Item Value Reference Range Interpretation Comments Red Blood Count (test code = 789-8) 3.34 4.3-5.7 L [facility] CenterHemoglobin2018-07-10 05:12:00* Test Item Value Reference Range Interpretation Comments Hemoglobin (test code = 46228-6) 10.6 14.0-18.0 L [facility] CenterHematocrit2018-07-10 05:12:00* Test Item Value Reference Range Interpretation Comments Hematocrit (test code = 4544-3) 32.3 38.2-49.6 L [facility] CenterMean Corpuscular Nttsjk7914-18-41 05:12:00* Test Item Value Reference Range Interpretation Comments Mean Corpuscular Volume (test code = 787-2) 96.7 81-99 [facility] CenterMean Corpuscular Kcifpsmczt2596-26-30 05:12:00* Test Item Value Reference Range Interpretation Comments Mean Corpuscular Hemoglobin (test code = 785-6) 31.7 28-32 [facility] CenterMean Corpuscular Hemoglobin Concent 2018-05-31 05:12:00* Test Item Value Reference Range Interpretation Comments Mean Corpuscular Hemoglobin Concent (test code = 786-4) 32.8 31-35 [facility] CenterRed Cell Distribution Vdbqd2003-25-02 05:12:00* Test Item Value Reference Range Interpretation Comments Red Cell Distribution Width (test code = 97266-2) 13.3 11.7 -14.4 [facility] CenterPlatelet Jauwk2523-29-18 05:12:00* Test Item Value Reference Range Interpretation Comments Platelet Count (test code = 777-3) 252 140-360 [facility] CenterNeutrophils (%) (Auto)2018-05-31 05:12:00 * Test Item Value Reference Range Interpretation Comments Neutrophils (%) (Auto) (test code = 28679-1) 46.9 38.7-80.0 [facility] CenterLymphocytes (%) (Auto)2018-05-31 05:12:00 * Test Item Value Reference Range Interpretation Comments Lymphocytes (%) (Auto) (test code = 736-9) 29.0 18.0-39.1 [facility] CenterMonocytes (%) (Auto)2018-05-31 05:12:00* Test Item Value Reference Range Interpretation Comments Monocytes (%) (Auto) (test code = 5905-5) 18.1 4.4-11.3 H [facility] CenterEosinophils (%) (Auto)2018-05-31 05:12:00 * Test Item Value Reference Range Interpretation Comments Eosinophils (%) (Auto) (test code = 713-8) 4.6 0.0-6.0 [facility] CenterBasophils (%) (Auto)2018-05-31 05:12:00* Test Item Value Reference Range Interpretation Comments Basophils (%) (Auto) (test code = 706-2) 1.2 0.0-1.0 H [facility] CenterIM GRANULOCYTES %2018-05-31 05:12:00* Test Item Value Reference Range Interpretation Comments IM GRANULOCYTES % (test code = IM GRANULOCYTES %) 0.2 0.0- 1.0 [facility] CenterNeutrophils # (Auto)2018-05-31 05:12:00* Test Item Value Reference Range Interpretation Comments Neutrophils # (Auto) (test code = 751-8) 3.1 2.1-6.9 [facility] CenterLymphocytes # (Auto)2018-05-31 05:12:00* Test Item Value Reference Range Interpretation Comments Lymphocytes # (Auto) (test code = 49053-1) 1.9 1.0-3.2 [facility] CenterMonocytes # (Auto)2018-05-31 05:12:00* Test Item Value Reference Range Interpretation Comments Monocytes # (Auto) (test code = 742-7) 1.2 0.2-0.8 H [facility] CenterEosinophils # (Auto)2018-05-31 05:12:00* Test Item Value Reference Range Interpretation Comments Eosinophils # (Auto) (test code = 711-2) 0.3 0.0-0.4 [facility] CenterBasophils # (Auto)2018-05-31 05:12:00* Test Item Value Reference Range Interpretation Comments Basophils # (Auto) (test code = 704-7) 0.1 0.0-0.1 [facility] CenterAbsolute Immature Granulocyte (auto 2018-05-31 05:12:00* Test Item Value Reference Range Interpretation Comments Absolute Immature Granulocyte (auto (frank t code = Absolute Immature Granulocyte (auto) 0.01 0-0.1 [facility] CenterCreatine Extdvt1100-22-32 02:40:00* Test Item Value Reference Range Interpretation Comments Creatine Kinase (test code = 2157-6) 179 30-200 [facility] CenterCreatine Kinase FM0280-04-85 02:40:00* Test Item Value Reference Range Interpretation Comments Creatine Kinase MB (test code = 24545-0) 3.70 0-5.0 [facility] CenterTroponin P1630-51-63 02:40:00* Test Item Value Reference Range Interpretation Comments Troponin I (test code = QNV6737) 0.070 0-0.300 [facility] CenterCHEST SINGLE (PORTABLE)2018-05-31 00:14:00 [place] [address] Patient Name: JAKY NI MR #: [id number] : 1950 Age/Sex: 67/M Req #: [id number] Adm Physician: ALVARO WHITNEY MD Ordered by: ALVARO WHITNEY MD Report #: [id number] Location: MED/SURG3 Room/Bed: [facility] Procedure: [id number] DX/CHEST SINGLE (PORTABLE) Exam Date: Exam Time: REP ORT STATUS: Signed CHEST SINGLE (PORTABLE), 05/30/2018 6:53 PM Technique: CHEST SINGLE (PORTABLE) Comparison: 05/30/2018 Clinical history: Chest pain Findings: See Impression Impression: 1. Lines/Tubes: Stable right ch est wall dual-lead pacer. 2. Stable mildly enlarged cardiac silhouette. 3. C entral vascular congestion and mild bibasilar vascular crowding/atelectasis. 4. No pleural effusion or pneumothorax. Signed by: Dr Erika Mcneal MD on 05/31/2018 12:17 AM Dictated By: ERIKA MCNEAL MD Electronically Myra d By: ERIKA MCNEAL MD on 05/31/18 0017 Transcribed By: BERNIE on 05/31/18 0 017 COPY TO: ALVARO WHITNEY MD Hemoglobin A1c Iqcvoex9926-12-51 17:35:00* Test Item Value Reference Range Interpretation Comments Hemoglobin A1c Percent (test code = Hemoglobin A1c Percent) 5.1 4.0-7.0 [facility] CenterTriglycerides Ufgjz1731-34-16 14:58:00* Test Item Value Reference Range Interpretation Comments Triglycerides Level (test code = 2571-8) 80 0-149 [facility] CenterCholesterol Jcxxc6936-18-19 14:58:00* Test Item Value Reference Range Interpretation Comments Cholesterol Level (test code = 2093-3) 176 0-199 Less than 200 mg/dL Low Dhtx452 - 239 mg/dL Borderline Yiok572 m g/dl and greater High Risk [facility] CenterLDL Vfzqdznzmla5849-85-68 14:58:00* Test Item Value Reference Range Interpretation Comments LDL Cholesterol (test code = 2089-1) 102 60-130 [facility] CenterHDL Xcjmxfpjleh4045-73-81 14:58:00* Test Item Value Reference Range Interpretation Comments HDL Cholesterol (test code = 2085-9) 58 40-60 [facility] CenterCholesterol/HDL Ekccr3925-43-29 14:58:00 * Test Item Value Reference Range Interpretation Comments Cholesterol/HDL Ratio (test code = 9830-1) 3.0 3.9-4.7 L [facility] CenterUrine CGP0707-20-61 10:09:00* Test Item Value Reference Range Interpretation Comments Urine WBC (test code = 5821-4) 0-5 0-5 [facility] CenterUrine SRM2482-90-26 10:09:00* Test Item Value Reference Range Interpretation Comments Urine RBC (test code = 87208-7) 6-10 0-5 H [facility] CenterUrine Seqfohyz3910-16-04 10:09:00* Test Item Value Reference Range Interpretation Comments Urine Bacteria (test code = 41365-3) NONE NONE [facility] CenterUrine Epithelial Fhwbi4521-69-58 10:09:00 * Test Item Value Reference Range Interpretation Comments Urine Epithelial Cells (test code = 55161-3) RARE NONE [facility] CenterUrine Bzper0236-11-16 09:42:00* Test Item Value Reference Range Interpretation Comments Urine Color (test code = 5778-6) YELLOW YELLOW [facility] CenterUrine Ajpckmf0501-34-96 09:42:00* Test Item Value Reference Range Interpretation Comments Urine Clarity (test code = 48731-3) CLEAR CLEAR [facility] CenterUrine Specific Pktapeh1721-81-63 09:42:00 * Test Item Value Reference Range Interpretation Comments Urine Specific [place] (test code = 5811-5) 1.020 1.010-1.02 5 [facility] CenterUrine wJ5237-37-76 09:42:00* Test Item Value Reference Range Interpretation Comments Urine pH (test code = 43682-2) 8 5-7 H [facility] CenterUrine Leukocyte Dobkjzsn8172-75-89 09:42:00* Test Item Value Reference Range Interpretation Comments Urine Leukocyte Esterase (test code = 5799-2) NEGATIVE NEGATIVE [facility] CenterUrine Hivurdm6680-03-10 09:42:00* Test Item Value Reference Range Interpretation Comments Urine Nitrite (test code = 69045-9) NEGATIVE NEGATIVE [facility] CenterUrine Voipfnd4917-88-15 09:42:00* Test Item Value Reference Range Interpretation Comments Urine Protein (test code = 5804-0) 3+ NEGATIVE H [facility] Glucose (UA)2018-05-30 09:42:00* Test Item Value Reference Range Interpretation Comments Urine Glucose (UA) (test code = 2349-9) NEGATIVE NEGATIVE [facility] CenterUrine Fknlvir7287-89-10 09:42:00* Test Item Value Reference Range Interpretation Comments Urine Ketones (test code = 99995-3) NEGATIVE NEGATIVE [facility] CenterUrine Pvhgmltizhxh5152-52-48 09:42:00* Test Item Value Reference Range Interpretation Comments Urine Urobilinogen (test code = 32810-7) 0.2 0.2-1 [facility] CenterUrine Zmmzvfdsw2239-43-21 09:42:00* Test Item Value Reference Range Interpretation Comments Urine Bilirubin (test code = 1978-6) NEGATIVE NEGATIVE [facility] CenterUrine Lbufa7437-84-21 09:42:00* Test Item Value Reference Range Interpretation Comments Urine Blood (test code = 57107-9) 1+ NEGATIVE H [facility] CenterB-Type Natriuretic Ebfkfqa3980-02-74 09:39:00* Test Item Value Reference Range Interpretation Comments B-Type Natriuretic Peptide (test code = 83677-4) 1005.0 0-100 H [facility] CenterTotal Dztedgfvb6483-24-52 09:32:00* Test Item Value Reference Range Interpretation Comments Total Bilirubin (test code = 1975-2) 0.9 0.2-1.2 [facility] CenterAspartate Amino Transf (AST/SGOT) 2018-05-30 09:32:00* Test Item Value Reference Range Interpretation Comments Aspartate Amino Transf (AST/SGOT) (test code = Aspartate Amino Transf (AST/SGOT)) 26 5-34 [facility] CenterAlanine Aminotransferase (ALT/SGPT) 2018-05-30 09:32:00* Test Item Value Reference Range Interpretation Comments Alanine Aminotransferase (ALT/SGPT) (test code = 1742-6) 23 0-55 [facility] CenterTotal Hcwjftu7901-94-83 09:32:00* Test Item Value Reference Range Interpretation Comments Total Protein (test code = 2885-2) 8.5 6.5-8.1 H [facility] CenterAlbumin2018-07-09 09:32:00* Test Item Value Reference Range Interpretation Comments Albumin (test code = 1751-7) 4.2 3.5-5.0 [facility] CenterGlobulin2018-07-09 09:32:00* Test Item Value Reference Range Interpretation Comments Globulin (test code = 06542-9) 4.3 2.3-3.5 H [facility] CenterAlbumin/Globulin Qmsao7584-65-39 09:32:00 * Test Item Value Reference Range Interpretation Comments Albumin/Globulin Ratio (test code = 1759-0) 1.0 0.8-2.0 [facility] CenterAlkaline Fxbwqgnqbhy6492-50-33 09:32:00* Test Item Value Reference Range Interpretation Comments Alkaline Phosphatase (test code = 6768-6) 78 40-150 [facility] CenterProthrombin Obga0284-19-83 09:25:00* Test Item Value Reference Range Interpretation Comments Prothrombin Time (test code = 5902-2) 15.8 11.9-14.5 H [facility] CenterProthromb Time International Ratio 2018-05-30 09:25:00* Test Item Value Reference Range Interpretation Comments Prothromb Time International Ratio (test code = 6301-6) 1.36 Oral Anticoagulant Therapy INR Values:1. Low Intensity Therapy 1.5 - 2.02 . Moderate Intensity Therapy 2.0 - 3.03. High Intensity Therapy(1) 2.5 - 3. 54. High Intensity Therapy(2) 3.0 - 4.05. Panic Value INR > 5.0 [facility] CenterActivated Partial Thromboplast Time 2018-05-30 09:25:00* Test Item Value Reference Range Interpretation Comments Activated Partial Thromboplast Time (test code = 04590-0) 39.7 23.8-35.5 [facility] Ilwly5909-88-50 02:35:00* Test Item Value Reference Range Interpretation Comments Sodium Level (test code = 2951-2) 144 136-145 [facility] CenterPotassium Zurii4988-35-50 02:35:00* Test Item Value Reference Range Interpretation Comments Potassium Level (test code = 2823-3) 4.9 3.5-5.1 [facility] CenterChloride Rrydv7921-70-34 02:35:00* Test Item Value Reference Range Interpretation Comments Chloride Level (test code = 2075-0) 102 98-107 [facility] CenterAnion Ctq2995-76-72 02:35:00* Test Item Value Reference Range Interpretation Comments Anion Gap (test code = 98801-1) 22.9 8-16 H [facility] CenterCreatinine2018-07-09 02:35:00* Test Item Value Reference Range Interpretation Comments Creatinine (test code = 2160-0) 13.56 0.72-1.25 H [facility] CenterBUN/Creatinine Bxtvz2431-37-82 02:35:00* Test Item Value Reference Range Interpretation Comments BUN/Creatinine Ratio (test code = 3097-3) 7 6-25 [facility] CenterEstimat Glomerular Filtration Rate 2018-05-30 02:35:00* Test Item Value Reference Range Interpretation Comments Estimat Glomerular Filtration Rate (test code = 24074-9) 4 >60 L Ranges were taken from the National Kidney Disease Education Program and the [facility] Kid[facility] Foundation literature.Reference ranges:60 or greater: Rervlc41-95 ( for 3 consecutive months): Chronic kidney disease 15 or less: Kidney failurePampa Regional Medical CenterCreatine Kinase CT8892-23-91 02:20:00* Test Item Value Reference Range Interpretation Comments Creatine Kinase MB (test code = 29155-6) 6.10 0-5.0 H [facility] CenterTroponin O3961-35-01 02:20:00* Test Item Value Reference Range Interpretation Comments Troponin I (test code = VEY4589) 0.068 0-0.300 [facility] CenterCarbon Dioxide Ycizz1358-02-74 02:14:00* Test Item Value Reference Range Interpretation Comments Carbon Dioxide Level (test code = 2028-9) 24 22-29 [facility] CenterBlood Urea Bljixscc2809-59-41 02:14:00* Test Item Value Reference Range Interpretation Comments Blood Urea Nitrogen (test code = 3094-0) 96 7-26 H [facility] CenterGlucose Cclze4545-82-34 02:14:00* Test Item Value Reference Range Interpretation Comments Glucose Level (test code = QZY7966) 111 74-118 [facility] CenterCalcium Wmhnm5716-73-05 02:14:00* Test Item Value Reference Range Interpretation Comments Calcium Level (test code = 50977-2) 9.0 8.4-10.2 [facility] CenterTotal Znzohqcts3256-49-16 02:14:00* Test Item Value Reference Range Interpretation Comments Total Bilirubin (test code = 1975-2) 0.7 0.2-1.2 [facility] CenterAspartate Amino Transf (AST/SGOT) 2018-05-30 02:14:00* Test Item Value Reference Range Interpretation Comments Aspartate Amino Transf (AST/SGOT) (test code = Aspartate Amino Transf (AST/SGOT)) 29 5-34 [facility] CenterAlanine Aminotransferase (ALT/SGPT) 2018-05-30 02:14:00* Test Item Value Reference Range Interpretation Comments Alanine Aminotransferase (ALT/SGPT) (test code = 1742-6) 22 0-55 [facility] CenterTotal Tgtnvhm4907-36-13 02:14:00* Test Item Value Reference Range Interpretation Comments Total Protein (test code = 2885-2) 8.1 6.5-8.1 [facility] CenterAlbumin2018-07-09 02:14:00* Test Item Value Reference Range Interpretation Comments Albumin (test code = 1751-7) 4.0 3.5-5.0 [facility] CenterGlobulin2018-07-09 02:14:00* Test Item Value Reference Range Interpretation Comments Globulin (test code = 02911-0) 4.1 2.3-3.5 H [facility] CenterAlbumin/Globulin Rcvfg7593-92-04 02:14:00 * Test Item Value Reference Range Interpretation Comments Albumin/Globulin Ratio (test code = 1759-0) 1.0 0.8-2.0 [facility] CenterAlkaline Ubwfkxxhcjk0267-43-73 02:14:00* Test Item Value Reference Range Interpretation Comments Alkaline Phosphatase (test code = 6768-6) 75 40-150 [facility] CenterCreatine Exfxsv1622-76-69 02:14:00* Test Item Value Reference Range Interpretation Comments Creatine Kinase (test code = 2157-6) 861 30-200 H [facility] CenterB-Type Natriuretic [id number] 02:11:00* Test Item Value Reference Range Interpretation Comments B-Type Natriuretic Peptide (test code = 54449-6) 450.6 0-100 [facility]2018-05-30 02:06:00 [facility] [address] [place] [address] Patient Name: JAKY NI MR #: [id number] : 1950 Age/Sex: 67/M Req #: [id number] Adm Physician: Ordered by: GATO FOREMAN MD Report #: [id number] Location: ER Room/Bed: Procedure: DX/CHEST SINGLE (PORTABLE ) Exam Date: Exam Time: REPORT STATUS: Myra d EXAM: CHEST SINGLE (PORTABLE), AP 1 view INDICATION: Dizziness COMPARIS ON: PA and lateral view the chest May 13, 2016 FINDINGS: LINES/TUBES: In terval placement of right approach dual lead cardiac device. LUNGS: Vascula r congestion. PLEURA: No effusions or pneumothorax. HEART AND MEDIAST INUM: Mild cardiac enlargement and central pulmonary vascular congestion. BONES AND SOFT TISSUES: No acute findings. IMPRESSION: Pulmonary vascul ar congestion. Signed by: Dr. Jose Brown M.D. on 05/30/2018 2:0 7 AM Dictated By: JOSE BROWN MD 6 Transcribed By: BERNIE on 05/30/18206 COPY TO: GATO FOREMAN MD CT BRAIN [id number] 02:06:00 [place] [address] Patient Name: JAKY NI MR #: [id number] : 1950 Age/Sex: 67/M Req #: [id number] Adm Physician: Ordered by: GATO FOREMAN MD Report #: [id number] Location: MELO aparicio/Bed: Procedure: CT/CT BRAIN WO Exam Date : Exam Time: REPORT STATUS: Signed History :Dizziness Comparison studies:CT head 05/13/2016 Technique: Axial images were obtained from the skull base to the vertex. Coronal and sagittal images reconstructed from the axial data. Intravenous contrast: None Findings: Scalp/skull: No abnormalities. Extra-axial spaces: No masses. No fluid collections. Brain sulci: Mildly prominent. Ventricles: Mild compe nsatory dilatation. No hydrocephalus. Parenchyma: Few hypodensities in t he supratentorial white matter are small vessel ischemic changes. No masses, h emorrhage, acute or chronic cortical vascular insults. Sellar/suprasellar r egion: No abnormalities. Craniocervical junction: Patent foramen magnum. No C hiari one malformation. Incidental findings: Atherosclerotic calcificatio ns in the carotid siphons . Impression: No acute abnormalities. Stable examination. Chronic findings: 1. Mild generalized volume loss. 2. M ild supratentorial white matter small vessel ischemic changes. Signed by: Marilu Lopez M.D. on 05/30/2018 2:09 AM Dictated By: RONNIE COLON MD 8 Tr anscribed By: BERNIE on 05/30/18208 COPY TO: GATO FOREMAN MD Prothrombin [id number] 01:56:00* Test Item Value Reference Range Interpretation Comments Prothrombin Time (test code = 5902-2) 17.0 11.9-14.5 H [facility] CenterProthromb Time International Ratio 2018-05-30 01:56:00* Test Item Value Reference Range Interpretation Comments Prothromb Time International Ratio (test code = 6301-6) 1.50 Oral Anticoagulant Therapy INR Values:1. Low Intensity Therapy 1.5 - 2.02 . Moderate Intensity Therapy 2.0 - 3.03. High Intensity Therapy(1) 2.5 - 3. 54. High Intensity Therapy(2) 3.0 - 4.05. Panic Value INR > 5.0 [facility] CenterActivated Partial Thromboplast Time 2018-05-30 01:56:00* Test Item Value Reference Range Interpretation Comments Activated Partial Thromboplast Time (test code = 73403-6) 31.2 23.8-35.5 [facility] CenterWhite Blood [id number] 01:45:00* Test Item Value Reference Range Interpretation Comments White Blood Count (test code = 6690-2) 7.93 4.8-10.8 [facility] CenterRed Blood [id number] 01:45:00* Test Item Value Reference Range Interpretation Comments Red Blood Count (test code = 789-8) 3.24 4.3-5.7 L [facility] CenterHemoglobin2018-07-09 01:45:00* Test Item Value Reference Range Interpretation Comments Hemoglobin (test code = 74991-2) 10.3 14.0-18.0 L [facility] CenterHematocrit2018-07-09 01:45:00* Test Item Value Reference Range Interpretation Comments Hematocrit (test code = 4544-3) 31.2 38.2-49.6 L [facility] CenterMean Corpuscular [id number] 01:45:00* Test Item Value Reference Range Interpretation Comments Mean Corpuscular Volume (test code = 787-2) 96.3 81-99 [facility] CenterMean Corpuscular [id number] 01:45:00* Test Item Value Reference Range Interpretation Comments Mean Corpuscular Hemoglobin (test code = 785-6) 31.8 28-32 [facility] CenterMean Corpuscular Hemoglobin Concent 2018-05-30 01:45:00* Test Item Value Reference Range Interpretation Comments Mean Corpuscular Hemoglobin Concent (test code = 786-4) 33.0 31-35 [facility] CenterRed Cell Distribution [id number] 01:45:00* Test Item Value Reference Range Interpretation Comments Red Cell Distribution Width (test code = 93102-0) 13.0 11.7 -14.4 [facility] CenterPlatelet [id number] 01:45:00* Test Item Value Reference Range Interpretation Comments Platelet Count (test code = 777-3) 279 140-360 [facility] CenterNeutrophils (%) (Auto)2018-05-30 01:45:00 * Test Item Value Reference Range Interpretation Comments Neutrophils (%) (Auto) (test code = 30745-6) 58.1 38.7-80.0 [facility] CenterLymphocytes (%) (Auto)2018-05-30 01:45:00 * Test Item Value Reference Range Interpretation Comments Lymphocytes (%) (Auto) (test code = 736-9) 21.6 18.0-39.1 [facility] CenterMonocytes (%) (Auto)2018-05-30 01:45:00* Test Item Value Reference Range Interpretation Comments Monocytes (%) (Auto) (test code = 5905-5) 15.3 4.4-11.3 H [facility] CenterEosinophils (%) (Auto)2018-05-30 01:45:00 * Test Item Value Reference Range Interpretation Comments Eosinophils (%) (Auto) (test code = 713-8) 2.5 0.0-6.0 [facility] CenterBasophils (%) (Auto)2018-05-30 01:45:00* Test Item Value Reference Range Interpretation Comments Basophils (%) (Auto) (test code = 706-2) 1.4 0.0-1.0 H [facility] CenterIM GRANULOCYTES %2018-05-30 01:45:00* Test Item Value Reference Range Interpretation Comments IM GRANULOCYTES % (test code = IM GRANULOCYTES %) 1.1 0.0- 1.0 H [facility] CenterNeutrophils # (Auto)2018-05-30 01:45:00* Test Item Value Reference Range Interpretation Comments Neutrophils # (Auto) (test code = 751-8) 4.6 2.1-6.9 [facility] CenterLymphocytes # (Auto)2018-05-30 01:45:00* Test Item Value Reference Range Interpretation Comments Lymphocytes # (Auto) (test code = 39190-3) 1.7 1.0-3.2 [facility] CenterMonocytes # (Auto)2018-05-30 01:45:00* Test Item Value Reference Range Interpretation Comments Monocytes # (Auto) (test code = 742-7) 1.2 0.2-0.8 H [facility] CenterEosinophils # (Auto)2018-05-30 01:45:00* Test Item Value Reference Range Interpretation Comments Eosinophils # (Auto) (test code = 711-2) 0.2 0.0-0.4 [facility] CenterBasophils # (Auto)2018-05-30 01:45:00* Test Item Value Reference Range Interpretation Comments Basophils # (Auto) (test code = 704-7) 0.1 0.0-0.1 [facility] CenterAbsolute Immature Granulocyte (auto 2018-05-30 01:45:00* Test Item Value Reference Range Interpretation Comments Absolute Immature Granulocyte (auto (frank t code = Absolute Immature Granulocyte (auto) 0.09 0-0.1 [facility] CenterU/S, ABDOMINAL, WITH [id number] 12:52:00with ELASTOGRAPHYwith ELASTOGRAPHYReason for Exam:->Elevated GGT, evaluate the liver, rule out liver mass, lesion, fatty liverwith E LASTOGRAPHYReason for Exam:->with ELASTOGRAPHYFINAL REPORT HISTORY : Rule out liver mass, fatty liver, evaluate GGT COMPARISON : 11/02/2017 COMMENT : Complete ultrasound examination of the abdomen with color Doppler and spectral evaluation of the abdominal vasculature was performed. The liver is homogenous in echo-texture without evidence of a focal mass. The patient is status post cholecystectomy. The biliary tract is within normal limits with the common bile duct measuring 5 mm in maximum diameter. The visualized portions of the pancreas are within normal limits. The spleen was not visualized. The right kidney measures 8.4 x 4.0 x 4.4 cm and the left kidney 8.8 x 4.8 x 3.6 cm in maximum size. There is no evidence of masses, stones or hydronephrosis. There are several bilateral renal cysts. The largest cyst in the right kidney measures up to 2.0 cm and the largest cyst in the left kidney measures up to 1.8 cm. The kidneys are echogenic. There is no ascites or pleural effusion. The abdominal aorta measures to a maximum of 2.9 cm. The main portal vein demonstrates hepatopetal flow and measures 1.0 cm in diameter with a peak systolic velocity of 0.26 m/s. The left and right portal veins demonstrates hepatopetal and hepatopetal flow respectively. No thrombus is identified in the portal veins. The resistive index of the proper hepatic artery is 0.8 with an a cceleration time of 0.06 sec. The resistive index of the right hepatic artery is 0.6 and of the left hepatic artery is 0.7. The visualized IVC, hepatic and spl enic veins are patent with appropriate directional flow. IMPRESSION : 1. Small sized and echogenic kidneys consistent with end-stage renal disease. There are s everal bilateral renal cysts. 2. Status post cholecystectomy. 3. Nonspecifically elevated resistive index of the proper hepatic artery. The remainder of the Dop pler examination of the abdominal/hepatic vasculature is within normal limits. 4 . Elastography performed in the liver. Average ShearWave velocity is 1.31 m/s, c orresponding to normal-mild (F0-F1) fibrosis. 5. Spleen not visualized. Signed: Immanuel Cantor Verified Date/Time: 04/19/2018 12:52:01 Reading Location : [address] Radiology Reading Room TITIS C PCR, [id number] 12:09:00 * Test Item Value Reference Range Interpretation Comments HCV RESULT COMPONENT (ANABELA) (test code = 2699) HCV RNA not detected HCV RNA not detected This test uses a Real-Time Polymerase Chain Reaction (RT-PCR) methodology and wa s performed using JO Ampliprep/JO TaqMan HCV test kit version 2.0 ([employer]).Reportable range for this assay is 15 - 100,000,000 IU per mL (1.18 - 8.00 Log IU/mL).ANTI-NUCLEAR ANTIBODY (ELIESER)2018-04-08 12:04:00* Test Item Value Reference Range Interpretation Comments ANTI-NUCLEAR ANTIBODY (ELIESER) (BONYAKER) (test code = 418) Negative Negative [id number] 16:49:00* Test Item Value Reference Range Interpretation Comments FERRITIN (ANABELA) (test code = 361) 292 ng/mL 5-275 H ALPHA FETOPROTEIN (AFP), TUMOR [id number] 15:26:00* Test Item Value Reference Range Interpretation Comments ALPHA-FETOPROTEIN (BEAKER) (test code = 1094) < ng/mL <10.0 HEPATITIS B SURFACE [id number] 15:26:00* Test Item Value Reference Range Interpretation Comments HEPATITIS B SURFACE ANTIBODY (BEAKER) (test code = 647) < mIU/mL <8.0 HEPATITIS A ANTIBODY, [id number] 15:26:00* Test Item Value Reference Range Interpretation Comments HEPATITIS A IGG ANTIBODY (BEAKER) (test code = 2797) Reactive N onreactive A HEPATITIS B CORE ANTIBODY, [id number] 15:22:00* Test Item Value Reference Range Interpretation Comments HEPATITIS B CORE TOTAL ANTIBODY (BEAKER) (test code = 497) N onreactive Nonreactive HEPATITIS B SURFACE [id number] 15:20:00* Test Item Value Reference Range Interpretation Comments HEPATITIS B SURFACE ANTIGEN (2) (BEAKER) (test code = 2585) Nonreactive Nonreactive COMPREHENSIVE METABOLIC [id number] 15:04:00* Test Item Value Reference Range Interpretation Comments TOTAL PROTEIN (BEAKER) (test code = 770) 8.4 gm/dL 6.0-8.3 H ALBUMIN (BEAKER) (test code = 1145) 4.5 g/dL 3.5-5.0 ALKALINE PHOSPHATASE (BEAKER) (test code = 346) 108 U/L 40-150 BILIRUBIN TOTAL (BEAKER) (test code = 377) 0.5 mg/dL 0.2-1.2 SODIUM (BEAKER) (test code = 381) 141 meq/L 136-145 POTASSIUM (BEAKER) (test code = 379) 5.1 meq/L 3.5-5.1 CHLORIDE (BEAKER) (test code = 382) 97 meq/L 98-107 L CO2 (BEAKER) (test code = 355) 35 meq/L 22-29 H BLOOD UREA NITROGEN (BEAKER) (test code = 354) 36 mg/dL 7-21 H CREATININE (BEAKER) (test code = 358) 6.14 mg/dL 0.57-1.25 H GLUCOSE RANDOM (BEAKER) (test code = 652) 87 mg/dL 70-105 CALCIUM (BEAKER) (test code = 697) 9.6 mg/dL 8.4-10.2 AST (SGOT) (BEAKER) (test code = 353) 25 U/L 5-34 ALT (SGPT) (BEAKER) (test code = 347) 33 U/L 6-55 EGFR (BEAKER) (test code = 1092) 9 mL/min/1.73 sq m ESTIMATED GFR IS NOT ACCURATE CREATININE CLEARANCE IN PREDICTING GLOMERULAR FILTRATION RATE. ESTIMATED GFR IS NOT APPLICABLE FOR DIALYSIS PATIENTS. CBC W/PLT COUNT & AUTO [id number] 15:03:00* Test Item Value Reference Range Interpretation Comments WHITE BLOOD CELL COUNT (BEAKER) (test code = 775) 6.1 K/ L 3.5- 10.5 RED BLOOD CELL COUNT (BEAKER) (test code = 761) 3.67 M/ L 4.63-6 .08 L HEMOGLOBIN (BEAKER) (test code = 410) 11.6 GM/DL 13.7-17.5 L HEMATOCRIT (BEAKER) (test code = 411) 34.9 % 40.1-51.0 L MEAN CORPUSCULAR VOLUME (BEAKER) (test code = 753) 95.1 fL 79. 0-92.2 H MEAN CORPUSCULAR HEMOGLOBIN (BEAKER) (test code = 751) 31.6 pg 25.7-32.2 MEAN CORPUSCULAR HEMOGLOBIN CONC (BEAKER) (test code = 752) 33.2 GM/DL 32.3-36.5 RED CELL DISTRIBUTION WIDTH (BEAKER) (test code = 412) 12.4 % 11.6-14.4 PLATELET COUNT (BEAKER) (test code = 756) 228 K/CU MM 150-450 MEAN PLATELET VOLUME (BEAKER) (test code = 754) 11.3 fL 9.4-12 .4 NUCLEATED RED BLOOD CELLS (BEAKER) (test code = 413) 0 /100 WBC 0 -0 NEUTROPHILS RELATIVE PERCENT (BEAKER) (test code = 429) 48 % LYMPHOCYTES RELATIVE PERCENT (BEAKER) (test code = 430) 30 % MONOCYTES RELATIVE PERCENT (BEAKER) (test code = 431) 17 % EOSINOPHILS RELATIVE PERCENT (BEAKER) (test code = 432) 4 % BASOPHILS RELATIVE PERCENT (BEAKER) (test code = 437) 2 % NEUTROPHILS ABSOLUTE COUNT (BEAKER) (test code = 670) 2.91 K/ L 1.78-5.38 LYMPHOCYTES ABSOLUTE COUNT (BEAKER) (test code = 414) 1.82 K/ L 1.32-3.57 MONOCYTES ABSOLUTE COUNT (BEAKER) (test code = 415) 1.00 K/ L 0. 30-0.82 H EOSINOPHILS ABSOLUTE COUNT (BEAKER) (test code = 416) 0.21 K/ L 0.04-0.54 BASOPHILS ABSOLUTE COUNT (BEAKER) (test code = 417) 0.11 K/ L 0. 01-0.08 H IMMATURE GRANULOCYTES-RELATIVE PERCENT (BEAKER) (test code = 2801) 0 % 0-1 GAMMA GLUTAMYL TRANSFERASE (GGT)2018-04-06 15:02:00* Test Item Value Reference Range Interpretation Comments GAMMA GLUTAMYL TRANSFERASE (BEAKER) (test code = 364) 192 U/L 9-64 H BILIRUBIN, [id number] 15:02:00* Test Item Value Reference Range Interpretation Comments BILIRUBIN DIRECT (BEAKER) (test code = 706) 0.2 mg/dL 0.1-0.5 IRON, TIBC, % SAT. (WITHOUT FERRITIN)2018-04-06 15:00:00* Test Item Value Reference Range Interpretation Comments IRON (BEAKER) (test code = 547) 91 ug/dL 40-160 TOTAL IRON BINDING CAPACITY (BEAKER) (test code = 769) 315 ug/dL 250-450 IRON % SATURATION (2) (BEAKER) (test code = 2590) 29 % 20-5 5 [id number]-2-[id number] 14:59:00* Test Item Value Reference Range Interpretation Comments ALPHA-1 ANTITRYPSIN (BEAKER) (test code = 502) 156.60 mg/dL 90.00-2 00.00 PROTHROMBIN TIME/[id number] 14:58:00* Test Item Value Reference Range Interpretation Comments PROTIME (BEAKER) (test code = 759) 18.2 seconds 11.7-14.7 H INR (BEAKER) (test code = 370) 1.5 <=5.9 RECOMMENDED COUMADIN/WARFARIN INR THERAPY RANGESSTANDARD DOSE: 2.0 - 3.0 Inclu karen: PROPHYLAXIS for venous thrombosis, systemic embolization; TREATMENT for syed ous thrombosis and/or pulmonary embolus.HIGH RISK: Target INR is 2.5-3.5 for pat ients with mechanical heart valves.[id number] 10:21:00* Test Item Value Reference Range Interpretation Comments PROTIME (BEAKER) (test code = 759) 19.7 seconds 11.7-14.7 H INR (BEAKER) (test code = 370) 1.7 <=5.9 PARTIAL THROMBOPLASTIN TIME (BEAKER) (test code = 760) 33.4 seconds 22.5-36.0 RECOMMENDED COUMADIN/WARFARIN INR THERAPY RANGESSTANDARD DOSE: 2.0 - 3.0 Inclu karen: PROPHYLAXIS for venous thrombosis, systemic embolization; TREATMENT for syed ous thrombosis and/or pulmonary embolus.HIGH RISK: Target INR is 2.5-3.5 for pat ients with mechanical heart valves.BASIC METABOLIC [id number] 10:14:00* Test Item Value Reference Range Interpretation Comments SODIUM (BEAKER) (test code = 381) 138 meq/L 136-145 POTASSIUM (BEAKER) (test code = 379) 4.2 meq/L 3.5-5.1 Specimen slightly hemolyzed CHLORIDE (BEAKER) (test code = 382) 96 meq/L 98-107 L CO2 (BEAKER) (test code = 355) 30 meq/L 22-29 H BLOOD UREA NITROGEN (BEAKER) (test code = 354) 57 mg/dL 7-21 H CREATININE (BEAKER) (test code = 358) 8.73 mg/dL 0.57-1.25 H Specimen slightly hemolyzed GLUCOSE RANDOM (BEAKER) (test code = 652) 100 mg/dL 70-105 CALCIUM (BEAKER) (test code = 697) 8.8 mg/dL 8.4-10.2 EGFR (BEAKER) (test code = 1092) 6 mL/min/1.73 sq m ESTIMATED GFR IS NOT ACCURATE CREATININE CLEARANCE IN PREDICTING GLOMERULAR FILTRATION RATE. ESTIMATED GFR IS NOT APPLICABLE FOR DIALYSIS PATIENTS. CBC W/PLT COUNT & AUTO [id number] 09:58:00* Test Item Value Reference Range Interpretation Comments WHITE BLOOD CELL COUNT (BEAKER) (test code = 775) 9.3 K/ L 3.5- 10.5 RED BLOOD CELL COUNT (BEAKER) (test code = 761) 3.57 M/ L 4.63-6 .08 L HEMOGLOBIN (BEAKER) (test code = 410) 11.3 GM/DL 13.7-17.5 L HEMATOCRIT (BEAKER) (test code = 411) 34.5 % 40.1-51.0 L MEAN CORPUSCULAR VOLUME (BEAKER) (test code = 753) 96.6 fL 79. 0-92.2 H MEAN CORPUSCULAR HEMOGLOBIN (BEAKER) (test code = 751) 31.7 pg 25.7-32.2 MEAN CORPUSCULAR HEMOGLOBIN CONC (BEAKER) (test code = 752) 32.8 GM/DL 32.3-36.5 RED CELL DISTRIBUTION WIDTH (BEAKER) (test code = 412) 13.8 % 11.6-14.4 PLATELET COUNT (BEAKER) (test code = 756) 265 K/CU MM 150-450 MEAN PLATELET VOLUME (BEAKER) (test code = 754) 11.2 fL 9.4-12 .4 NUCLEATED RED BLOOD CELLS (BEAKER) (test code = 413) 0 /100 WBC 0 -0 NEUTROPHILS RELATIVE PERCENT (BEAKER) (test code = 429) 62 % LYMPHOCYTES RELATIVE PERCENT (BEAKER) (test code = 430) 23 % MONOCYTES RELATIVE PERCENT (BEAKER) (test code = 431) 12 % EOSINOPHILS RELATIVE PERCENT (BEAKER) (test code = 432) 3 % BASOPHILS RELATIVE PERCENT (BEAKER) (test code = 437) 1 % NEUTROPHILS ABSOLUTE COUNT (BEAKER) (test code = 670) 5.77 K/ L 1.78-5.38 H LYMPHOCYTES ABSOLUTE COUNT (BEAKER) (test code = 414) 2.11 K/ L 1.32-3.57 MONOCYTES ABSOLUTE COUNT (BEAKER) (test code = 415) 1.07 K/ L 0. 30-0.82 H EOSINOPHILS ABSOLUTE COUNT (BEAKER) (test code = 416) 0.27 K/ L 0.04-0.54 BASOPHILS ABSOLUTE COUNT (BEAKER) (test code = 417) 0.08 K/ L 0. 01-0.08 IMMATURE GRANULOCYTES-RELATIVE PERCENT (BEAKER) (test code = 2801) 0 % 0-1 URINE [id number] 11:29:00* Test Item Value Reference Range Interpretation Comments CULTURE (BEAKER) (test code = 1095) See comment <10,000 col/mL Gram Negative rodsPROTHROMBIN TIME/[id number] 11:58:00* Test Item Value Reference Range Interpretation Comments PROTIME (BEAKER) (test code = 759) 18.5 seconds 11.7-14.7 H INR (BEAKER) (test code = 370) 1.5 <=5.9 RECOMMENDED COUMADIN/WARFARIN INR THERAPY RANGESSTANDARD DOSE: 2.0 - 3.0 Inclu karen: PROPHYLAXIS for venous thrombosis, systemic embolization; TREATMENT for syed ous thrombosis and/or pulmonary embolus.HIGH RISK: Target INR is 2.5-3.5 for pat ients with mechanical heart valves.POTASSIUM-STAT [id number] 11:33:00* Test Item Value Reference Range Interpretation Comments POTASSIUM (BEAKER) (test code = 379) 3.4 meq/L 3.6-5.5 L HGB/HCT (H&H) - STAT [id number] 11:33:00* Test Item Value Reference Range Interpretation Comments HEMOGLOBIN (BEAKER) (test code = 410) 10.9 g/dL 13.0-16.8 L HEMATOCRIT (BEAKER) (test code = 411) 32.0 % 40.0-50.0 L GLUCOSE-STAT [id number] 11:32:00* Test Item Value Reference Range Interpretation Comments GLUCOSE RANDOM (BEAKER) (test code = 652) 95 mg/dL 70-110 [id number] 12:25:00* Test Item Value Reference Range Interpretation Comments PROSTATE SPECIFIC ANTIGEN (BEAKER) (test code = 844) 5.5 ng/mL 0 .0-4.0 H URINALYSIS W/ [id number] 10:12:00* Test Item Value Reference Range Interpretation Comments COLOR (BEAKER) (test code = 470) Yellow CLARITY (BEAKER) (test code = 469) Clear SPECIFIC GRAVITY UA (BEAKER) (test code = 468) 1.010 1.001-1 .035 PH UA (BEAKER) (test code = 467) 8.5 5.0-8.0 H PROTEIN UA (BEAKER) (test code = 464) >600 mg/dL Negative A GLUCOSE UA (BEAKER) (test code = 365) Negative Negative KETONES UA (BEAKER) (test code = 371) Negative Negative BILIRUBIN UA (BEAKER) (test code = 462) Negative Negative BLOOD UA (BEAKER) (test code = 461) Negative Negative NITRITE UA (BEAKER) (test code = 465) Negative Negative LEUKOCYTE ESTERASE UA (BEAKER) (test code = 466) Negative Negat sharona UROBILINOGEN UA (BEAKER) (test code = 463) 0.2 mg/dL 0.2-1.0 RBC UA (BEAKER) (test code = 519) 0 /HPF WBC UA (BEAKER) (test code = 520) 6 /HPF SOURCE(BEAKER) (test code = 2795) FL, CYSTOGRAM, CINE OR VIDEO, [id number] 09:47:00Reason for Exam:->esrd; eval for renal txpFINAL REPORT Voiding Cystourethrogram: Indication: Evaluate for renal transplant end-stage renal diseaseComparison: No comparisonImages: 13Total Patient Fluoro Time in seconds: 54 seconds. Total dose 79 mGy. 13 images Technique: After informed consent was obtained, the patient was prepped and draped in a sterile manner. The patient had contrast instilled through a 12 Fr Mendoza catheter via gravity drainage. 150 cc s of iodinated contrast material was used. The bladder demonstrates an irregular contour. There was no evidence of reflux. The visualized urethra was normal. There is no evidence of a post void residual. Impression:The bladder wall was irregular otherwise unremarkable avoiding cystourethrogram.. Signed: Vangie Samaniego [facility] Verified Date/Time: 12/30/2017 09:47:01 Reading Location: [address] Radiology Reading Room A GLUTAMYL TRANSFERASE (GGT)2017-12-30 09:24:00* Test Item Value Reference Range Interpretation Comments GAMMA GLUTAMYL TRANSFERASE (BEAKER) (test code = 364) 121 U/L 9-64 H OCCULT BLOOD, [id number] 09:18:00* Test Item Value Reference Range Interpretation Comments FECAL OCCULT BLOOD (BEAKER) (test code = 618) Negative Negative OCCULT BLOOD, [id number] 09:18:00* Test Item Value Reference Range Interpretation Comments FECAL OCCULT BLOOD (BEAKER) (test code = 618) Negative Negative VARICELLA ZOSTER ANTIBODY, [id number] 15:55:00* Test Item Value Reference Range Interpretation Comments VARICELLA ZOSTER IGG (AL) (BEAKER) (test code = 3197) 3.9 Al VARICELLA ZOSTER RESULT INTERPRETATIONS: <=0.8 Al Nonreactive: Presumed non-immune to VZV 0.9-1.0 Al Equivocal >=1.1 Al Reactive: Presumed immune to VZVCYTOMEGALOVIRUS ANTIBODY, [id number] 14:59:00* Test Item Value Reference Range Interpretation Comments CYTOMEGALOVIRUS IGG ANTIBODY (BEAKER) (test code = 790) Positive CYTOMEGALOVIRUS ANTIBODY, [id number] 14:59:00* Test Item Value Reference Range Interpretation Comments CYTOMEGALOVIRUS IGM ANTIBODY (BEAKER) (test code = 816) Negative EBV-VCA ANTIBODY, [id number] 14:59:00* Test Item Value Reference Range Interpretation Comments KATRINA-CHAPMAN VCA IGG (BEAKER) (test code = 983) Positive EBV-VCA ANTIBODY, [id number] 14:59:00* Test Item Value Reference Range Interpretation Comments KATRINA-CHAPMAN VCA IGM (BEAKER) (test code = 984) Negative URINE [id number] 10:39:00* Test Item Value Reference Range Interpretation Comments CULTURE (BEAKER) (test code = 1095) No growth [id number] 00:18:00* Test Item Value Reference Range Interpretation Comments RPR SCREEN (BEAKER) (test code = 420) Nonreactive Nonreactive URINALYSIS W/ [id number] 11:36:00* Test Item Value Reference Range Interpretation Comments COLOR (BEAKER) (test code = 470) Light Yellow CLARITY (BEAKER) (test code = 469) Clear SPECIFIC GRAVITY UA (BEAKER) (test code = 468) 1.006 1.001-1 .035 PH UA (BEAKER) (test code = 467) 7.5 5.0-8.0 PROTEIN UA (BEAKER) (test code = 464) 600 mg/dL Negative A GLUCOSE UA (BEAKER) (test code = 365) 30 mg/dL Negative A KETONES UA (BEAKER) (test code = 371) Negative Negative BILIRUBIN UA (BEAKER) (test code = 462) Negative Negative BLOOD UA (BEAKER) (test code = 461) Trace Negative A NITRITE UA (BEAKER) (test code = 465) Negative Negative LEUKOCYTE ESTERASE UA (BEAKER) (test code = 466) Negative Negat sharona UROBILINOGEN UA (BEAKER) (test code = 463) 0.2 mg/dL 0.2-1.0 RBC UA (BEAKER) (test code = 519) < /HPF WBC UA (BEAKER) (test code = 520) 1 /HPF SOURCE(BEAKER) (test code = 2795) U/S, PELVIS, WITH [id number] 10:38:00Reason for Exam:->esrd; eval for renal txpFINAL REPORT Abdominal and pelvic ultrasound, 11/02/2017. History: ESRD. Renal transplant evaluation. Comparison: None available. Discussion: Transverse and longitudinal images of the abdomen were obtained demonstrating a liver of normal size and echogenicity measuring 12.5 cm in length. The portal vein is patent with hepatopetal flow and is within normal limits measuring 9 mm in diameter. The biliary tree is prominent measuring 10 mm in diameter. The gallbladder is absent. The kidneys are small and echogenic bilaterally without evidence of hydronephrosis, stones, or mass. The right kidney measures 7.8 cm and the left kidney measures 8.9 cm in length. Bilateral renal cysts are present, measuring 2.5 x 2.3 x 2.0 cm on the right and 1.7 x 1.7 x 1.7 cm on the left. The spleen is small and not well visualized measuring 8.3 cm in length. The pancreas was obscured by overlying bowel gas. The abdominal aorta and IVC are within normal limits. There is no evidence of free fluid. Color Doppler and spectral waveform analysis was performed of the pelvic vasculature bilaterally. There is normal appearance of the common and external iliac arteries and veins bilaterally with normal waveforms. The internal iliac arteries were not visible. AP measurements are as follows: Right ROBERTO- 1.3 cmRight EIA- 0.9Left ROBERTO- 1.3 Left EIA- 0.8 IMPRESSION: 1. Small echogenic kidneys consistent with medical renal disease, with bilateral simple renal cysts. 2. Status post cholecystectomy with prominence of the common bile duct likely related to reservoir effect.3. Spleen and pancreas not well visualized. Otherwise unremarkable abdominal ultrasound.4. Normal pelvic vasculature. Signed: Franklin Soto MDReport Verified Date/Time: 11/02/2017 10:38:21 Reading Location: [facility] [id number] Ultrasound Reading Room GLOBIN [id number] 10:05:00* Test Item Value Reference Range Interpretation Comments HEMOGLOBIN A1C (ANABELA) (test code = 368) 4.8 % 4.3-6.1 U/S, ABDOMINAL, [id number] 08:56:00Reason for Exam:->esrd; eval for renal txpFINAL REPORT Abdominal and pelvic ultrasound, 11/02/2017. History: ESRD. Renal transplant evaluation. Comparison: None available. Discussion: Transverse and longitudinal images of the abdomen were obtained demonstrating a liver of normal size and echogenicity measuring 12.5 cm in length. The portal vein is patent with hepatopetal flow and is within normal limits measuring 9 mm in diameter. The biliary tree is prominent measuring 10 mm in diameter. The gallbladder is absent. The kidneys are small and echogenic bilaterally without evidence of hydronephrosis, stones, or mass. The right kidney measures 7.8 cm and the left kidney measures 8.9 cm in length. Bilateral renal cysts are present, measuring 2.5 x 2.3 x 2.0 cm on the right and 1.7 x 1.7 x 1.7 cm on the left. The spleen is small and not well visualized measuring 8.3 cm in length. The pancreas was obscured by overlying bowel gas. The abdominal aorta and IVC are within normal limits. There is no evidence of free fluid. Color Doppler and spectral waveform analysis was performed of the pelvic vasculature bilaterally. There is normal appearance of the common and external iliac arteries and veins bilaterally with normal waveforms. The internal iliac arteries were not visible. AP measurements are as follows: Right ROBERTO- 1.3 cmRight EIA- 0.9Left ROBERTO- 1.3 Left EIA- 0.8 IMPRESSION: 1. Small echogenic kidneys consistent with medical renal disease, with bilateral simple renal cysts. 2. Status post cholecystectomy with prominence of the common bile duct likely related to reservoir effect.3. Spleen and pancreas not well visualized. Otherwise unremarkable abdominal ultrasound.4. Normal pelvic vasculature. Signed: Franklin Soto MDReport Verified Date/Time: 11/02/2017 08:56:49 Reading Location: [facility] [id number] Ultrasound Reading Room TESTING (EXTERNAL)2017-11-02 08:00:00* Test Item Value Reference Range Interpretation Comments HLA TESTING (EXTERNAL) (test code = 3209) See Separate Report HEPATITIS B SURFACE [id number] 08:00:00* Test Item Value Reference Range Interpretation Comments HEPATITIS B SURFACE ANTIBODY (BEAKER) (test code = 647) < mIU/mL <8.0 HEPATITIS B SURFACE [id number] 07:49:00* Test Item Value Reference Range Interpretation Comments HEPATITIS B SURFACE ANTIGEN (2) (BEAKER) (test code = 2585) Nonreactive Nonreactive HEPATITIS B CORE ANTIBODY, [id number] 07:49:00* Test Item Value Reference Range Interpretation Comments HEPATITIS B CORE IGM ANTIBODY (BEAKER) (test code = 645) Non reactive Nonreactive HEPATITIS C [id number] 07:49:00* Test Item Value Reference Range Interpretation Comments HEPATITIS C ANTIBODY (BEAKER) (test code = 367) Nonreactive Nonrea ctive HIV-1 ANTIGEN WITH HIV-1/2 [id number] 07:49:00* Test Item Value Reference Range Interpretation Comments HIV-1 ANTIGEN WITH HIV 1\\T\\2 ANTIBODY (2) (BEAKER) (te st code = 2586) Nonreactive Nonreactive [id number] 07:49:00* Test Item Value Reference Range Interpretation Comments PROSTATE SPECIFIC ANTIGEN (BEAKER) (test code = 844) 5.1 ng/mL 0 .0-4.0 H PTH, [id number] 07:34:00* Test Item Value Reference Range Interpretation Comments PARATHYROID HORMONE INTACT (BEAKER) (test code = 577) 537.3 pg/mL 8.5-72.5 H COMPREHENSIVE METABOLIC [id number] 07:32:00* Test Item Value Reference Range Interpretation Comments TOTAL PROTEIN (BEAKER) (test code = 770) 7.0 gm/dL 6.0-8.3 ALBUMIN (BEAKER) (test code = 1145) 3.4 g/dL 3.5-5.0 L ALKALINE PHOSPHATASE (BEAKER) (test code = 346) 89 U/L 40-150 BILIRUBIN TOTAL (BEAKER) (test code = 377) 0.3 mg/dL 0.2-1.2 SODIUM (BEAKER) (test code = 381) 138 meq/L 136-145 POTASSIUM (BEAKER) (test code = 379) 4.1 meq/L 3.5-5.1 CHLORIDE (BEAKER) (test code = 382) 98 meq/L 98-107 CO2 (BEAKER) (test code = 355) 29 meq/L 22-29 BLOOD UREA NITROGEN (BEAKER) (test code = 354) 43 mg/dL 7-21 H CREATININE (BEAKER) (test code = 358) 6.82 mg/dL 0.57-1.25 H GLUCOSE RANDOM (BEAKER) (test code = 652) 105 mg/dL 70-105 CALCIUM (BEAKER) (test code = 697) 8.6 mg/dL 8.4-10.2 AST (SGOT) (BEAKER) (test code = 353) 21 U/L 5-34 ALT (SGPT) (BEAKER) (test code = 347) 16 U/L 6-55 EGFR (BEAKER) (test code = 1092) mL/min/1.73 sq m INSUFFICIENT CLINICAL DATA TO CALCULATE ESTIMATED GFR. URIC [id number] 07:27:00* Test Item Value Reference Range Interpretation Comments URIC ACID (BEAKER) (test code = 773) 6.5 mg/dL 2.6-7.2 [id number] 07:27:00* Test Item Value Reference Range Interpretation Comments PHOSPHORUS (BEAKER) (test code = 604) 4.3 mg/dL 2.3-4.7 LIPID [id number] 07:27:00* Test Item Value Reference Range Interpretation Comments TRIGLYCERIDES (BEAKER) (test code = 540) 108 mg/dL CHOLESTEROL (BEAKER) (test code = 631) 192 mg/dL HDL CHOLESTEROL (BEAKER) (test code = 976) 58 mg/dL LDL CHOLESTEROL CALCULATED (BEAKER) (test code = 633) 112 mg/dL Triglyceride Reference Range: Low Risk <150 Borderline 150-199 High Risk 200-499 Very High Risk >=500Cholesterol Reference Range: Low Risk <200 Borderline 200-239 High Risk >240HDL Cholesterol Reference Range: Low Risk >=60 High Risk <40LDL Cholesterol Reference Range: Optimal <100 Near Optimal 100-129 Borderline 130-159 High 160-189 Very High >=190 GAMMA GLUTAMYL TRANSFERASE (GGT)2017-11-02 07:27:00* Test Item Value Reference Range Interpretation Comments GAMMA GLUTAMYL TRANSFERASE (BEAKER) (test code = 364) 111 U/L 9-64 H LACTATE DEHYDROGENASE (LDH)2017-11-02 07:27:00* Test Item Value Reference Range Interpretation Comments LACTATE DEHYDROGENASE (BEAKER) (test code = 635) 272 U/L 125-2 20 H [id number] 07:15:00* Test Item Value Reference Range Interpretation Comments PROTIME (BEAKER) (test code = 759) 13.2 seconds 11.7-14.7 INR (BEAKER) (test code = 370) 1.0 <=5.9 PARTIAL THROMBOPLASTIN TIME (BEAKER) (test code = 760) 29.5 seconds 22.5-36.0 RECOMMENDED COUMADIN/WARFARIN INR THERAPY RANGESSTANDARD DOSE: 2.0 - 3.0 Inclu karen: PROPHYLAXIS for venous thrombosis, systemic embolization; TREATMENT for syed ous thrombosis and/or pulmonary embolus.HIGH RISK: Target INR is 2.5-3.5 for pat ients with mechanical heart valves.CBC W/PLT COUNT & AUTO [id number] 07:08:00* Test Item Value Reference Range Interpretation Comments WHITE BLOOD CELL COUNT (BEAKER) (test code = 775) 7.5 K/ L 3.5- 10.5 RED BLOOD CELL COUNT (BEAKER) (test code = 761) 3.74 M/ L 4.63-6 .08 L HEMOGLOBIN (BEAKER) (test code = 410) 11.5 GM/DL 13.7-17.5 L HEMATOCRIT (BEAKER) (test code = 411) 36.5 % 40.1-51.0 L MEAN CORPUSCULAR VOLUME (BEAKER) (test code = 753) 97.6 fL 79. 0-92.2 H MEAN CORPUSCULAR HEMOGLOBIN (BEAKER) (test code = 751) 30.7 pg 25.7-32.2 MEAN CORPUSCULAR HEMOGLOBIN CONC (BEAKER) (test code = 752) 31.5 GM/DL 32.3-36.5 L RED CELL DISTRIBUTION WIDTH (BEAKER) (test code = 412) 13.3 % 11.6-14.4 PLATELET COUNT (BEAKER) (test code = 756) 245 K/CU MM 150-450 MEAN PLATELET VOLUME (BEAKER) (test code = 754) 11.4 fL 9.4-12 .4 NUCLEATED RED BLOOD CELLS (BEAKER) (test code = 413) 0 /100 WBC 0 -0 NEUTROPHILS RELATIVE PERCENT (BEAKER) (test code = 429) 55 % LYMPHOCYTES RELATIVE PERCENT (BEAKER) (test code = 430) 25 % MONOCYTES RELATIVE PERCENT (BEAKER) (test code = 431) 13 % EOSINOPHILS RELATIVE PERCENT (BEAKER) (test code = 432) 5 % BASOPHILS RELATIVE PERCENT (BEAKER) (test code = 437) 2 % NEUTROPHILS ABSOLUTE COUNT (BEAKER) (test code = 670) 4.09 K/ L 1.78-5.38 LYMPHOCYTES ABSOLUTE COUNT (BEAKER) (test code = 414) 1.88 K/ L 1.32-3.57 MONOCYTES ABSOLUTE COUNT (BEAKER) (test code = 415) 1.00 K/ L 0. 30-0.82 H EOSINOPHILS ABSOLUTE COUNT (BEAKER) (test code = 416) 0.39 K/ L 0.04-0.54 BASOPHILS ABSOLUTE COUNT (BEAKER) (test code = 417) 0.11 K/ L 0. 01-0.08 H IMMATURE GRANULOCYTES-RELATIVE PERCENT (BEAKER) (test code = 2801) 0 % 0-1 RAD, CHEST, 2 [id number] 12:05:00Reason for Exam:->esrd; eval for renal txp FINAL REPORT Chest, two views HISTORY: ESRD COMPARISON: N one. DISCUSSION: Mild central venous congestion and interstitial edema. Lungs ot herwise clear without focal consolidation. Degenerative changes in the thoracic spine. Cardiomediastinal silhouette is within normal limits. No pleural effusion or pneumothorax. IMPRESSION: Mild central venous congestion and interstitial ed anihs. Signed: Marv Campbellort Verified Date/Time: 09/29/2017 12:05:01 Read ing Location: [address] Radiology Reading Room
[2020-07-30 15:47] LABS: INR 3.51; PROTHROMBIN TIME 36.8 seconds (11.9-14.5)
[2020-07-30 15:48] LABS: PARTIAL THROMBOPLASTIN TIME 47.5 seconds (23.8-35.5)
[2020-07-30 15:56] LABS: ALBUMIN 4.4 g/dL (3.5-5.0); ALBUMIN/GLOBULIN RATIO 1.2 (0.8-2.0); ANION GAP 20.3 mmol/L (8-16); CREATININE, SERUM 1.85 mg/dL (0.72-1.25); MAGNESIUM 1.8 MG/DL (1.3-2.1); POTASSIUM 4.3 mmol/L (3.5-5.1)
[2020-07-30 16:05] LABS: CREATINE KINASE MB 1.3 ng/mL (0-5.0)
--- NOTE | 2020-07-30 16:25 | Diagnostic Imaging Report ---
EXAMINATION: CHEST SINGLE (PORTABLE) INDICATION: Abdominal pain COMPARISON: Chest radiograph 07/03/2019 FINDINGS: LINES/TUBES:Right chest pacer. LUNGS:The lungs are well-inflated. There is perihilar fullness and indistinctness of the pulmonary vasculature. No focal consolidation. PLEURA:No pleural effusion or pneumothorax. MEDIASTINUM:The cardiomediastinal silhouette appears normal in size and shape. Atherosclerotic calcifications of the thoracic aorta. BONES/SOFT TISSUES:No acute osseous injury. ABDOMEN:No free air under the diaphragm. IMPRESSION: Mild central pulmonary vascular congestion. No focal pneumonia. Signed by: Dayanna Landa MD on 07/30/2020 4:21 PM
--- NOTE | 2020-07-30 16:40 | Diagnostic Imaging Report ---
ADDENDUM #1 There was a dictation error in the report. Impression point #3 should read: Diverticulosis including of the ascending colon. No CT evidence of diverticulitis. Signed by: Dayanna Landa MD on 07/30/2020 5:01 PM ORIGINAL REPORT EXAM: CT Abdomen and Pelvis WITHOUT intravenous contrast INDICATION: Abdominal pain, flank pain COMPARISON: None. TECHNIQUE: Abdomen and pelvis were scanned utilizing a multidetector helical scanner from the lung base to the pubic symphysis without administration of IV contrast. Coronal and sagittal reformations were obtained. IV CONTRAST: None ORAL CONTRAST: Water COMPLICATIONS: None RADIATION DOSE: Total DLP: 620 mGy*cm Dose modulation, iterative reconstruction, and/or weight based adjustment of the mA/kV was utilized to reduce the radiation dose to as low as reasonably achievable. FINDINGS: LOWER THORAX: No lung base consolidation. Partially visualized pacemaker leads. Atherosclerotic coronary artery calcifications. 2 cm right medial anterior chest subcutaneous nodule, likely a sebaceous cyst. HEPATOBILIARY: No focal liver lesion. Absent gallbladder. SPLEEN: Absent spleen. PANCREAS: No focal masses or ductal dilatation. ADRENALS: No adrenal nodules. KIDNEYS/URETERS: Atrophic bilateral [place] kidneys. No hydronephrosis or renal calculi. Left upper pole hypodense 3.3 cm lesion, likely a cyst. Smaller left lower pole 1.3 cm lesion and an exophytic right lower pole 3.6 cm lesion are indeterminate by density. Right lower quadrant transplant kidney without hydronephrosis, calculi, or solid mass lesion. PELVIC ORGANS/BLADDER: Mild prostatomegaly. PERITONEUM / RETROPERITONEUM: No free air or fluid. LYMPH NODES: No lymphadenopathy. VESSELS: Scattered atherosclerotic calcifications of the nonaneurysmal abdominal aorta and major branches. GI TRACT: Diverticulosis without CT evidence of diverticulitis. Diverticuli also involve the ascending colon. BONES AND SOFT TISSUES: Unremarkable. IMPRESSION: No renal calculi or hydronephrosis of the atrophic [place] kidneys or right lower quadrant transplant kidney. Left lower pole right lower pole of [place] kidney lesions are indeterminate by density. Renal ultrasound is recommended for further evaluation. Diverticulosis including of the before meals ascending colon. Signed by: Dayanna Landa MD on 07/30/2020 4:37 PM
[2020-07-30] MEDS ORDERED: MORPHINE SULFATE INJ 4 MG/ML INJ 1ML ONE (17:13)
--- NOTE | 2020-07-30 17:16 | NUR ---
Pt re-medicated with more morphine per er md order. pt states pain in upper abd. pt awake and alert. Pt stated "pee not important, my pain important." pt did however finally however void for us and was mamadou and clear and taken to lab.
[2020-07-30 17:23] LABS: CLARITY,URINE SL CLOUDY (CLEAR); COLOR,URINE AMBER (YELLOW)
[2020-07-30 17:24] LABS: BILIRUBIN,URINE SMALL (NEGATIVE); KETONES,URINE TRACE (NEGATIVE); LEUKOCYTE ESTERASE ,URINE TRACE (NEGATIVE); NITRITE,URINE POSITIVE (NEGATIVE); PROTEIN,URINE DIPSTICK 2+ (NEGATIVE); URINE UROBILINOGEN 0.2 mg/dL (0.2 - 1)
[2020-07-30 17:40] LABS: BACTERIA,URINE MANY /HPF
--- NOTE | 2020-07-30 17:55 | NUR ---
rocephin one gram ivpb given per er md order; unable to chart it off in emr???
[2020-07-30] MEDS ORDERED: CEFTRIAXONE SOD 2 GM VIAL ONE (17:59)
[2020-07-30] MEDS ORDERED: CEFTRIAXONE SOD 1 GM/NS 50 ML 50 ML IV ONE (18:00)
--- NOTE | 2020-07-30 18:05 | Emergency Department Note ---
History of Present Illnes History of Present Illness Chief Complaint: Abdominal Complaints History of Present Illness This is a 69 year old male pt came in via [facility], pt c/o lower abdominal pain, onset today at 0200, pt states that he has a similar episode in the past but was never treated for anything, pt has a hx of ESRD with an old access to the left upper arm. 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 Any updates have been documented here. Past Medical History Recent Fever: No Clinical Suspicion of Infectio: No New/Unexplained Change in Ment: No Past Medical History: Hypertension, A-Fib, Liver Disease, ESRD, Hemodyalisis, Anxiety, Hyperlipedemia Other Medical History: HIGH CHOLESTEROL Past Surgical History: Cholecysctectomy, Pacer/AICD, Hernia Repair Other Surgery: HERNIA REPAIR TWICE LEFT ARM FISTULA PACEMAKER PLACEMENT 10/2017 Social History Smoking Cessation: Unknown if ever smoked Counseling Performed: No Alcohol Use: None Any Illegal Drug Use: No TB Exposure/Symptoms: No Physically hurt or threatened: No Family History Family history of heart diseas: No Other Last Tetanus: UTD Any Pre-Existing Lines (PICC,: No Review of Systems Review of Systems Constitutional: Reports no symptoms EENTM: Reports no symptoms Cardiovascular: Reports no symptoms Respiratory: Reports no symptoms Gastrointestinal: Reports as per HPI Genitourinary: Reports no symptoms Musculoskeletal: Reports no symptoms Integumentary: Reports no symptoms Neurological: Reports no symptoms Psychological: Reports no symptoms Endocrine: Reports no symptoms Hematological/Lymphatic: Reports no symptoms Physical Exam Related Data Allergies: Coded Allergies: No Known Allergies (Unverified , 05/30/18) Triage Vital Signs Vital Signs Date Time Temp Pulse Resp B/P (MAP) Pulse Ox O2 Delivery O2 Flow Rate FiO2 07/30/20 14:55 98.4 107 20 138/84 Room Air 07/30/20 15:24 98 Vital signs reviewed: Yes Physical Exam CONSTITUTIONAL Constitutional: Present well-developed, Present well-nourished HENT HENT: Present normocephalic, Present atraumatic, Present oropharynx clear/moist, Present nose normal HENT L/R: Present left ext ear normal, Present right ext ear normal EYES Eyes: Reports PERRL, Reports conjunctivae normal NECK Neck: Present ROM normal PULMONARY Pulmonary: Present effort normal, Present breath sounds normal CARDIOVASCULAR Cardiovascular: Present regular rhythm, Present heart sounds normal, Present capillary refill normal, Present normal rate GASTROINTESTINAL Abdominal: Present soft, Present bowel sounds normal, Present tender (MODERATE TENDERNESS SUPRAPUBIC WITHOUT R/G); Absent guarding, Absent rebound, Absent left CVA tenderness, Absent right CVA tenderness GENITOURINARY Genitourinary: Present exam deferred SKIN Skin: Present warm, Present dry MUSCULOSKELETAL Musculoskeletal: Present ROM normal NEUROLOGICAL Neurological: Present alert, Present oriented x 3, Present no gross motor or sensory deficits PSYCHOLOGICAL Psychological: Present mood/affect normal, Present judgement normal Results Laboratory Result Diagram: 07/30/20 1515 07/30/20 1515 Laboratory Laboratory Tests Test 07/30/20 16:50 07/30/20 15:26 07/30/20 15:15 Urine Color Richa (YELLOW) Urine Clarity Sl cloudy (CLEAR) Urine pH 5.5 (5 - 7) Urine Specific [place] 1.030 (1.010-1.025) Urine Protein 2+ (NEGATIVE) Urine Glucose (UA) Negative (NEGATIVE) Urine Ketones Trace (NEGATIVE) Urine Blood Moderate (NEGATIVE) Urine Nitrite Positive (NEGATIVE) Urine Bilirubin Small (NEGATIVE) Urine Urobilinogen 0.2 mg/dL (0.2 - 1) Urine Leukocyte Esterase Trace (NEGATIVE) Urine RBC 6-10 /HPF (0-5) Urine WBC 11-20 /HPF (0-5) Urine Epithelial Cells None /LPF (NONE) Urine Bacteria Many /HPF (NONE) Coronavirus (PCR) Not detected (NOTDETECTED) White Blood Count 13.98 x10e3/uL (4.8-10.8) Red Blood Count 5.43 x10e6/uL (4.3-5.7) Hemoglobin 17.8 g/dL (14.0-18.0) Hematocrit 53.6 % (38.2-49.6) Mean Corpuscular Volume 98.7 fL (81-99) Mean Corpuscular Hemoglobin 32.8 pg (28-32) Mean Corpuscular Hemoglobin Concent 33.2 g/dL (31-35) Red Cell Distribution Width 14.8 % (11.7-14.4) Platelet Count 320 x10e3/uL (140-360) Neutrophils (%) (Auto) 81.4 % (38.7-80.0) Lymphocytes (%) (Auto) 7.3 % (18.0-39.1) Monocytes (%) (Auto) 10.5 % (4.4-11.3) Eosinophils (%) (Auto) 0.1 % (0.0-6.0) Basophils (%) (Auto) 0.5 % (0.0-1.0) Neutrophils # (Auto) 11.4 (2.1-6.9) Lymphocytes # (Auto) 1.0 (1.0-3.2) Monocytes # (Auto) 1.5 (0.2-0.8) Eosinophils # (Auto) 0.0 (0.0-0.4) Basophils # (Auto) 0.1 (0.0-0.1) Absolute Immature Granulocyte (auto 0.03 x10e3/uL (0-0.1) Prothrombin Time 36.8 seconds (11.9-14.5) Prothromb Time International Ratio 3.51 Activated Partial Thromboplast Time 47.5 seconds (23.8-35.5) Sodium Level 138 mmol/L (136-145) Potassium Level 4.3 mmol/L (3.5-5.1) Chloride Level 105 mmol/L (98-107) Carbon Dioxide Level 17 mmol/L (22-29) Anion Gap 20.3 mmol/L (8-16) Blood Urea Nitrogen 24 mg/dL (7-26) Creatinine 1.85 mg/dL (0.72-1.25) Estimat Glomerular Filtration Rate 37 ML/MIN (60-) BUN/Creatinine Ratio 13 (6-25) Glucose Level 177 mg/dL (74-118) Calcium Level 9.0 mg/dL (8.4-10.2) Magnesium Level 1.8 MG/DL (1.3-2.1) Total Bilirubin 1.2 mg/dL (0.2-1.2) Aspartate Amino Transf (AST/SGOT) 31 IU/L (5-34) Alanine Aminotransferase (ALT/SGPT) 50 IU/L (0-55) Alkaline Phosphatase 124 IU/L (40-150) Creatine Kinase 112 IU/L (30-200) Creatine Kinase MB 1.30 ng/mL (0-5.0) Troponin I 0.011 ng/mL (0-0.300) B-Type Natriuretic Peptide 255.0 pg/mL (0-100) Total Protein 8.2 g/dL (6.5-8.1) Albumin 4.4 g/dL (3.5-5.0) Globulin 3.8 g/dL (2.3-3.5) Albumin/Globulin Ratio 1.2 (0.8-2.0) Lipase 21 U/L (8-78) Lab results reviewed: Yes Imaging Imaging results reviewed: Yes Procedures 12 Lead ECG Interpretation ECG Interpretation : ECG: ECG 1 Warp Knitter Helper: Interpreted by ED physician Date: Jul 30, 2020 Time: 15:15 Rhythm: sinus rhythm Rate: normal (100) QRS axis: left Conduction: incomplete RBBB ST segments normal: Yes T waves normal: Yes Clinical Impression: abnormal ECG Assessment & Plan Medical Decision Making MDM RENAL XPLANT PT WITH SUPRAPUBIC PAIN - CBC, CHEM, ECG, CARDIACS, CXR, CT ABD/PELVIS, UA/CX - EVAL FOR UTI, RENAL STONE, RENAL INSUFF, STEMI/NSTEMI Reassessment Reassessment PT WANTS TO GO HOME, FEELS BETTER. SAYS HE HAS F/U WITH HIS TRANSPLANT TEAM TOMORROW, ALSO F/U PCP, RTED PRN, ROCEPHIN GIVEN IN ER, DC WITH CEFTIN 250 BID X 10 DAYS, BENTYL PRN Assessment & Plan Final Impression: (1) UTI (urinary tract infection) Depart Disposition: HOME, SELF-CARE Last Vital Signs Date Time Temp Pulse Resp B/P (MAP) Pulse Ox O2 Delivery O2 Flow Rate FiO2 07/30/20 15:24 96 16 114/84 98 07/30/20 14:55 98.4 Room Air Home Meds Active Scripts Lisinopril (LISINOPRIL) 2.5 Mg Tablet, 5 MG PO DAILY, #30 TAB Prov:MISHA WHITNEY MD 05/31/18 Warfarin Sodium (COUMADIN) 5 Mg Tablet, 5 MG PO QD17 for 10 Days Prov:MISHA WHITNEY MD 05/31/18 Famotidine (FAMOTIDINE) 20 Mg Tab, 20 MG PO BIDAC for 30 Days, TAB Prov:MISHA WHITNEY MD 05/31/18 Aspirin (ASPIRIN EC) 81 Mg Tablet.dr, 81 MG PO QAM for 30 Days Prov:MISHA WHITNEY MD 05/31/18 Reported Medications Levetiracetam (KEPPRA) 500 Mg Tablet, 250 MG PO BID, #60 TAB 06/01/18 Lovastatin (LOVASTATIN) 20 Mg Tablet, 20 MG PO 2100 05/13/16 Levothyroxine Sodium (LEVOTHYROXINE SODIUM) 75 Mcg Tablet, 75 MCG PO DAILY, #30 TAB 05/13/16 Nifedipine (NIFEDIPINE ER) 30 Mg Tab.er.24, 30 MG PO DAILY 05/13/16 Medications in the ED Sodium Chloride 1,000 ml @ 0 mls/hr Q0M STAT IV Last administered on 07/30/20at 15:46; Admin Dose 1,000 MLS/HR; Start 07/30/20 at 15:16; Stop 07/30/20 at 15:19; Status DC Morphine Sulfate 4 mg NOW STAT IV Last administered on 07/30/20at 15:47; Admin Dose 4 MG; Start 07/30/20 at 15:16; Stop 07/30/20 at 15:36; Status DC Ondansetron HCl 4 mg NOW STAT IV Last administered on 07/30/20at 15:47; Admin Dose 4 MG; Start 07/30/20 at 15:16; Stop 07/30/20 at 15:36; Status DC Morphine Sulfate 4 mg NOW STAT IV Last administered on 07/30/20at 17:14; Admin Dose 4 MG; Start 07/30/20 at 17:05; Stop 07/30/20 at 17:12; Status DC Morphine Sulfate 4 mg STK-MED ONCE .ROUTE ; Start 07/30/20 at 17:13; Stop 07/30/20 at 17:07; Status DC Ceftriaxone Sodium 2 gm STK-MED ONCE .ROUTE ; Start 07/30/20 at 17:59; Stop 07/30/20 at 17:52; Status DC BEBE EMANUEL MD Jul 30, 2020 18:05
== END 2020-07-30 18:14 | disposition home or self-care (01) ==
LOC: ER 15:20
DX: N39.0 Urinary tract infection, site not specified (principal); R10.30 Lower abdominal pain, unspecified; I12.0 Hypertensive chronic kidney disease with stage 5 chronic kidney disease or end stage renal disease; N18.6 End stage renal disease; Z99.2 Dependence on renal dialysis; E78.5 Hyperlipidemia, unspecified; F41.9 Anxiety disorder, unspecified; Z95.810 Presence of automatic (implantable) cardiac defibrillator; Z11.59 Encounter for screening for other viral diseases
CPT/HCPCS: 36415; 71045; 74176; 80053; 81001; 82550; 82553; 83690; 83735; 83880; 84484; 85025; 85610; 85730; 87086; 87186; 93005; 99284; J0696; J2270 ×2; J2405; U0002

== ENCOUNTER 2020-10-04 20:13 | Emergency (ER) | payer MEDICARE ==
[~2020-10-04] VITALS: Ht 167.6 cm; Wt 99.8 kg
[2020-10-04 21:40] LABS: BASOPHILS # (AUTO) 0.1 (0.0-0.1); BASOPHILS % 0.6 % (0.0-1.0); EOSINOPHILS # (AUTO) 0.1 (0.0-0.4); HEMATOCRIT 55.5 % (38.2-49.6); HEMOGLOBIN 18.2 g/dL (14.0-18.0); LYMPHOCYTES # (AUTO) 0.9 (1.0-3.2); LYMPHOCYTES % 8.4 % (18.0-39.1); MEAN CORPUSCULAR HEMOGLOBIN 31.2 pg (28-32); MEAN CORPUSCULAR HGB CONC 32.8 g/dL (31-35); MONOCYTES # (AUTO) 1.1 (0.2-0.8); MONOCYTES % 10.5 % (4.4-11.3); NEUTROPHILS # (AUTO) 8.4 (2.1-6.9); NEUTROPHILS % 78.8 % (38.7-80.0); PLATELET COUNT 238 x10e3/uL (140-360); RED BLOOD COUNT 5.84 x10e6/uL (4.3-5.7)
[2020-10-04 22:01] LABS: ALBUMIN 2.8 g/dL (3.5-5.0); ALBUMIN/GLOBULIN RATIO 0.6 (0.8-2.0); ANION GAP 16.8 mmol/L (8-16); CREATINE KINASE MB 1.5 ng/mL (0-5.0); CREATININE, SERUM 2.2 mg/dL (0.72-1.25); POTASSIUM 4.8 mmol/L (3.5-5.1)
[2020-10-04 22:07] LABS: INR 1.28; PROTHROMBIN TIME 16.6 seconds (11.9-14.5)
[2020-10-04 23:19] VITALS: BP 150/105
== END 2020-10-04 23:34 | disposition other institution (70) ==
LOC: ER 20:35
DX: I61.6 Nontraumatic intracerebral hemorrhage, multiple localized (principal); W06.XXXA Fall from bed, initial encounter; Y93.84 Activity, sleeping; Y92.008 Other place in unspecified non-institutional (private) residence as the place of occurrence of the external cause; N28.9 Disorder of kidney and ureter, unspecified; I48.91 Unspecified atrial fibrillation; I12.0 Hypertensive chronic kidney disease with stage 5 chronic kidney disease or end stage renal disease; N18.6 End stage renal disease; Z99.2 Dependence on renal dialysis; E78.5 Hyperlipidemia, unspecified; F41.9 Anxiety disorder, unspecified; E78.00 Pure hypercholesterolemia, unspecified
CPT/HCPCS: 36415; 70450; 71045; 72125; 73521; 80053; 82550; 82553; 83880; 84484; 85025; 85610; 93005; 99285; U0002